=== PATIENT | male | born 1945 | race Caucasian/White ===

== ENCOUNTER 2022-05-23 12:17 | Outpatient (CLI) | payer MEDICARE, SELFPAY ==
[2022-05-23 13:55] LABS: Basophils Absolute Auto 0.04 K/uL (0.00-0.30); Basophils Percent Auto 0.4 % (0.0-3.0); Eosinophils Absolute Auto 0.46 K/uL (0.00-0.50); Eosinophils Percent Auto 4.9 % (0.0-7.0); Hematocrit 48.6 % (37.0-53.0); Hemoglobin* 15.6 gm/dL (13.5-17.5); Immature Granulocytes Abs Auto 0.01 K/uL (0.00-0.30); Lymphocytes Percent Auto 19.7 % (20-44); Mean Corpuscular HGB Conc 32 gm/dL (32-36); Mean Corpuscular Hemoglobin 31 pg (26-34); Mean Corpuscular Volume 96 fL (80-100); Monocytes Percent Auto 7.2 % (0.0-11.0); Neutrophils Percent Auto 67.7 % (42.0-72.0); Platelet Count* 178 K/uL (140-440); Red Blood Count 5.07 m/uL (4.30-5.90); White Blood Count* 9.32 K/uL (4.50-11.00)
[2022-05-23 14:00] LABS: Slide Review Reflex No
[2022-05-23 14:44] LABS: Chloride* 104 mmol/L (96-114); Sodium* 139 mmol/L (135-149)
[2022-05-23 14:47] LABS: Blood Urea Nitrogen* 25 mg/dL (7-30); Carbon Dioxide* 25 mmol/L (20-32); Cholesterol* 191 mg/dL (90-199); Creatinine* 1.2 mg/dL (0.5-1.5); Estimated Glomerular Filt Rate 62 ml/min; Glucose* 101 mg/dL (60-115)
[2022-05-23 14:48] LABS: Calcium* 9.3 mg/dL (8.4-10.6); HDL Cholesterol* 36 mg/dL (>=40); LDL Cholesterol Calculated 128 mg/dL (<100); Triglycerides* 135 mg/dL (40-149); Uric Acid* 6.8 mg/dL (2.2-8.4)
== END 2022-05-23 12:18 | disposition home or self-care (01) ==
PROVIDERS: PCP Family Medicine; Visit Provider Family Medicine
DX: Z00.00 Encounter for general adult medical examination without abnormal findings (principal); I10 Essential (primary) hypertension; M19.90 Unspecified osteoarthritis, unspecified site; I50.32 Chronic diastolic (congestive) heart failure; M1A.00X0 Idiopathic chronic gout, unspecified site, without tophus (tophi); Z13.6 Encounter for screening for cardiovascular disorders
CPT/HCPCS: 80048; 80061; 84550; 85025

== ENCOUNTER 2023-05-28 12:02 | Outpatient (CLI) | payer MEDICARE, BC, SELFPAY | END 2023-05-28 12:03 | disposition home or self-care (01) | PROVIDERS: PCP Family Medicine; Visit Provider Family Medicine | DX: Z00.00 Encounter for general adult medical examination without abnormal findings (principal); E66.9 Obesity, unspecified; I10 Essential (primary) hypertension; M10.9 Gout, unspecified | CPT/HCPCS: 80048; 80061; 84550; 85025 ==

== ENCOUNTER 2024-04-17 15:15 | Observation (INO) | payer MEDICARE, BC, SELFPAY ==
[2024-04-17] VITALS (17 sets, daily range): BP systolic 123–145; BP diastolic 81–94; PULSE 67–111; RESP 26–28; TEMP 36.3–36.7; O2SAT 87–97; BMI 51.8
--- NOTE | 2024-04-17 15:29 | ED.GENADULT ---
HPI - General Adult General Time Seen by Provider: 15:30 Date Seen: 04/17/24 Chief complaint: Shortness of Breath/Dyspnea Stated complaint: blood pressure concerns and difficulty breathing Time Seen by Provider: 04/17/24 15:29 Source: patient, RN notes reviewed and old records reviewed Mode of arrival: ambulatory Limitations: no limitations History of Present Illness HPI narrative: This 79-year-old male is brought in by family from home after there were concerns by the home health nurse about inability to get a blood pressure and his breathing being abnormal. The home health nurse could not get a blood pressure reading on him and thought he was having labored breathing, had concerns that he was in congestive heart failure. On arrival here, nurses noted that patient was tachypneic but he was denying shortness of breath. He is pleasant but denies any difficulty breathing, no chest pain. He feels like his lower extremities are at baseline as far as edema. He notes they improve overnight worsened during the day. His relative reports that he probably could be in his recliner a bit more. He denies any abdominal distension, feels like his appetite is good, no nausea or vomiting. He denies feeling short of breath, he has not had any chest pain. He admits he is not waited self lately. He does not endorse any sense of increased abdominal bloating. Patient is noted to have hypertension, alcohol use disorder, chronic diastolic congestive heart failure, COPD, controlled atrial fibrillation, peripheral arterial disease, pulmonary hypertension. Related Data Home Medications ?Medication ?Instructions ?Recorded ?Confirmed aspirin 81 mg tablet,delayed 81 mg PO DAILY 04/26/22 03/26/24 release torsemide 20 mg tablet 20 mg PO DAILY 04/17/24 04/17/24 Previous Rx's ?Medication ?Instructions ?Recorded allopurinol 300 mg tablet 300 mg PO DAILY #90 tabs 05/28/23 metoprolol succinate 25 mg 25 mg PO DAILY #90 tabs 05/28/23 tablet,extended release 24 hr naproxen 500 mg tablet 500 mg PO BID #180 tabs 05/28/23 Allergies Allergy/AdvReac Type Severity Reaction Status Date / Time No Known Drug Allergies Allergy Verified 03/26/24 10:19 Review of Systems Status of ROS: Reports: 6 or more systems reviewed and unremarkable except as noted in History and below [facility] Medical History Foot ulcer, right ?L97.519 - Non-pressure chronic ulcer of other part of right foot with unspecified severity (ICD-10) Obesity ?E66.9 - Obesity, unspecified (ICD-10) Alcohol use disorder ?F10.90 - Alcohol use, unspecified, uncomplicated (ICD-10) Urinary incontinence ?R32 - Unspecified urinary incontinence (ICD-10) Osteoarthritis ?M19.90 - Unspecified osteoarthritis, unspecified site (ICD-10) Pulmonary hypertension ?I27.20 - Pulmonary hypertension, unspecified (ICD-10) Peripheral arterial disease ?I73.9 - Peripheral vascular disease, unspecified (ICD-10) History of methicillin resistant Staphylococcus aureus infection (04/04/17) ?Z86.14 - Personal history of Methicillin resistant Staphylococcus aureus infection (ICD-10) History of colonic polyps ?Z86.010 - Personal history of colonic polyps (ICD-10) History of alcohol abuse ?F10.11 - Alcohol abuse, in remission (ICD-10) Controlled atrial fibrillation ?I48.91 - Unspecified atrial fibrillation (ICD-10) Chronic obstructive pulmonary disease ?J44.9 - Chronic obstructive pulmonary disease, unspecified (ICD-10) 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 ?M1A.00X0 - Idiopathic chronic gout, unspecified site, without tophus (tophi) (ICD-10) Chronic diastolic congestive heart failure ?I50.32 - Chronic diastolic (congestive) heart failure (ICD-10) Essential hypertension ?I10 - Essential (primary) hypertension (ICD-10) Surgical History History of cataract surgery ?Z98.49 - Cataract extraction status, unspecified eye (ICD-10) 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 Lives alone [place] near [place]. , 4 kids, retired, former smoker, 3-4 drinks per day. Healthcare power of workers compensation defense attorney would be all of his children. Code status is full the patient was uncertain about this decision. Highest level of school completed/degree received: high school graduate Smoking Status: Current some day smoker What tobacco products do you use: cigarettes Nicotine containing products detail: 1 cigarette/week How often do you have a drink containing alcohol: 4 or more times a week Alcohol type: beer How many standard drinks containing alcohol do you have on a typical day: 3 or 4 AUDIT-C Alcohol total score: 5 Caffeine: Yes Little interest or pleasure in doing things: not at all Feeling down, depressed, or hopeless: several days service: Yes Exam Const: Vital Signs, click to edit/add: Vital Signs - 24 hr 04/17/24 15:19 04/17/24 15:39 04/17/24 16:00 Temperature 98.1 F Pulse Rate 88 Pulse Rate [Pulse Oximeter] 111 H Respiratory Rate 28 H Blood Pressure [Ri ght Upper Arm] 143/94 H Pulse Oximetry 90 87 L 89 Oxygen Delivery Me thod Room Air 04/17/24 16:30 Temperature Pulse Rate 91 Pulse Rate [Pulse Oximeter] Respiratory Rate Blood Pressure [Ri ght Upper Arm] Pulse Oximetry 89 Oxygen Delivery Me thod This 79-year-old male who is seen in exam room 3, he is alert, interactive, no apparent distress. He is able to speak in complete sentences. Sclera clear, conjugate gaze, pupils appear equal round. Neck is thick, difficult to assess jugular venous distension. No neck masses or adenopathy. Poor effort with auscultation of his lungs but lungs do sound clear, no wheezing or crackles. Lying in bed, no tachypnea. CV is irregular, soft systolic murmur right sternal border, normal S1-S2, no S3-S4. Abdomen is obese but soft, nontender, no rebound or guarding. Do not feel any masses or organomegaly. He is missing the toes on the right foot. Has definite pitting edema to about the distal 3rd of both tibias. No concerning skin changes for any lower extremity cellulitis at this time. Does have some chronic pigmentary changes likely from chronic edema. Documenting provider has reviewed patient's vital signs: yes Course Course ED Course: Will evaluate this patient for the possibility of complications of ischemic disease, congestive heart failure, COPD exacerbation. He is not febrile, does not seem to be coughing. Will start with a portable chest x-ray. He does have some evidence of edema which certainly could point towards congestive heart failure. Patient is known to have chronic atrial fibrillation in seems to be mostly rate controlled at this time. Will have him on cardiac monitoring, pulse oximetry, obtain EKG and appropriate labs. Reevaluation(s) Time of Reevaluation #1: 15:56 Reevaluation #1: Patient is noted to be about 87-88% oximetry on room air. Will continue to monitor. I do not believe this patient is on home oxygen. If he is trending lower, will initiate oxygen. Review of most recent vitals reveals he does trend in the low 90s. Time of Reevaluation #2: 17:42 Reevaluation #2: Reviewed with patient that he is in some decompensated heart failure. Have ordered 60 mg IV Lasix, did end up placing him on 1 L nasal cannula oxygen as he remained any upper 80s and did not go back into the 90s. No concerns for COPD exacerbation at this time. There certainly could be a component of worsening pulmonary hypertension, will see when his last echo was. We have discussed hospitalization for overnight, beyond that will depend on how he responds. Echo from Feb 15 2023 was a technically difficult study, LVEF estimate 55-60%. Severe asymmetric LVH, no Omega or cavitary gradient. Normal RV size and global function. PA SP estimate 40 mmHg, mean RAP 8 mm included. Aortic sclerosis. Mild mitral regurgitation. Mildly dilated ascending aorta 4.3 cm. Vital Signs Vital signs: Initial Vital Signs Temperature 98.1 F 04/17/24 15:19 Temperature Source Temporal Artery Scan 04/17/24 15:19 Pulse Rate 111 H 04/17/24 15:19 Respiratory Rate 28 H 04/17/24 15:19 Blood Pressure 143/94 H 04/17/24 15:19 Blood Pressure Mean 110 H 04/17/24 15:19 Blood Pressure Position Sitting 04/17/24 15:19 Pulse Oximetry 90 04/17/24 15:19 Oxygen Delivery Method Room Air 04/17/24 15:19 Vital Signs Temperature 98.1 F 04/17/24 15:19 Pulse Rate 111 H 04/17/24 15:19 Respiratory Rate 28 H 04/17/24 15:19 Blood Pressure 143/94 H 04/17/24 15:19 Pulse Oximetry 90 04/17/24 15:19 Oxygen Delivery Method Room Air 04/17/24 15:19 Temperature 98.1 F 04/17/24 15:19 Pulse Rate 91 04/17/24 16:30 Respiratory Rate 28 H 04/17/24 15:19 Blood Pressure 143/94 H 04/17/24 15:19 Pulse Oximetry 89 04/17/24 16:30 Oxygen Delivery Method Room Air 04/17/24 15:19 Medical Decision Making Lab Data Lab results reviewed: Yes I reviewed the patient's lab results Labs: Lab Results 04/17/24 Range/Units 15:50 WBC 8.18 (4.50-11.00) K/uL RBC 5.40 (4.30-5.90) m/uL Hgb 16.2 (13.5-17.5) gm/dL Hct 51.9 (37.0-53.0) % MCV 96 (80-100) fL MCH 30 (26-34) pg MCHC 31 L (32-36) gm/dL RDW Coeff of Peter 15.3 (11.5-15.5) % Plt Count 176 (140-440) K/uL Neut % (Auto) 63.2 (42.0-72.0) % Lymph % (Auto) 18.9 L (20-44) % Chaves % (Auto) 7.6 (0.0-11.0) % Eos % (Auto) 9.5 H (0.0-7.0) % Baso % (Auto) 0.7 (0.0-3.0) % Neut # (Auto) 5.16 (1.7-7.0) K/uL Lymph # (Auto) 1.50 (0.90-2.90) K/uL Chaves # (Auto) 0.60 (0.00-0.90) K/UL Eos # (Auto) 0.80 H (0.00-0.50) K/uL Baso # (Auto) 0.06 (0.00-0.30) K/uL Abs Immat Gran (auto) 0.01 (0.00-0.30) K/uL Imm/Tot Granulo (auto) 0.1 % VBG pH 7.422 (7.32-7.43) VBG pCO2 49 (40-50) mmHG VBG pO2 42.5 (25-47) mmHG VBG HCO3 32 H (21-28) mmol/L Sodium 138 (135-149) mmol/L Potassium 4.0 (3.6-5.1) mmol/L Chloride 102 (96-114) mmol/L Carbon Dioxide 31 (20-32) mmol/L Anion Gap 5 L (7-15) mEq/L BUN 31 H (7-30) mg/dL Creatinine 1.3 (0.5-1.5) mg/dL Estimated GFR 55 ml/min Glucose 122 H (60-115) mg/dL Calcium 8.8 (8.4-10.6) mg/dL Total Bilirubin 1.2 (0.1-1.5) mg/dL AST 31 (12-35) U/L ALT 24 (4-50) U/L Alkaline Phosphatase 68 (40-150) U/L Troponin I 0.02 (0.01-0.04) ng/mL C-Reactive Protein 1.4 H (0.5-1.0) mg/dL NT-Pro-B Natriuret Pep 2070 pg/mL Total Protein 7.1 (6.0-8.3) g/dL Albumin 4.0 (3.3-5.0) g/dL Imaging Data Chest x-ray: Attestation: I have reviewed the pertinent imaging results. My impression: Patient has definite cardiomegaly, do think he has congestive heart failure changes certainly when I compare this to his last chest x-ray. Await Radiology over-read. Radiologist's impression: Patient: SR JONES Facility:?[facility] Patient ID:?[id number] Site Patient ID:?[id number]. Site :?[id number] Study:?XRay-Chest 1V PORTABLE-04/17/2024 4:16:41 PM Ordering Physician:Mitul Davies Final Report: Indication: Difficulty breathing Comparison: None available. Technique: Single AP view chest Findings: There is hyperinflation and chronic interstitial change. Mildly increased interstitial markings likely representing pulmonary vascular congestion. Minimal basilar atelectasis and parenchymal scar. The cardiac silhouette is moderately enlarged. The bony thorax is grossly intact. Impression: Increased interstitial markings likely representing mild pulmonary vascular congestion. Dictated by Tom Mcdaniels MD @ 04/17/2024 5:22:24 PM (Electronic Signature) ECG Data Attestation: I personally reviewed and interpreted this ECG as follows: (Atrial fibrillation, 92 beats per minute. No definitive change for any ischemia.) Prior ECG tracings: available for review Critical Care Time Critical Care Time Critical Care Time: No Discharge Plan Discharge Clinical Impression: Hypoxia Congestive heart failure Qualifiers: Heart failure type: unspecified Heart failure chronicity: acute on chronic Qualified Code(s): I50.9 - Heart failure, unspecified Patient Disposition: Admitted As Observation Prescriptions: No Action allopurinol 300 mg tablet 300 mg PO DAILY Qty: 90 3RF naproxen 500 mg tablet 500 mg PO BID Qty: 180 3RF metoprolol succinate 25 mg tablet extended release 24 hr 25 mg PO DAILY Qty: 90 3RF torsemide 20 mg tablet 20 mg PO DAILY aspirin 81 mg tablet,delayed release (DR/EC) 81 mg PO DAILY Follow Up/Referrals: José Luis Arredondo MD [Primary Care Provider] -
--- NOTE | 2024-04-17 15:39 | CRLHL7_ITS ---
For Patients: As a result of the Century Cures Act, medical imaging exams and procedure reports are released immediately into your electronic medical record. You may view this report before your referring provider. If you have questions, please contact your health care provider. Indication: Difficulty breathing Comparison: None available. Technique: Single AP view chest Findings: There is hyperinflation and chronic interstitial change. Mildly increased interstitial markings likely representing pulmonary vascular congestion. Minimal basilar atelectasis and parenchymal scar. The cardiac silhouette is moderately enlarged. The bony thorax is grossly intact. Impression: Increased interstitial markings likely representing mild pulmonary vascular congestion. Dictated by Tom Mcdaniels MD @ 04/17/2024 5:22:24 PM (Electronically Signed)
[2024-04-17 15:58] LABS: HCO3 VBG 32 mmol/L (21-28); PCO2 VBG 49 mmHG (40-50); PO2 VBG 42.5 mmHG (25-47); pH VBG 7.422 (7.32-7.43)
[2024-04-17 16:02] LABS: Basophils Absolute Auto 0.06 K/uL (0.00-0.30); Basophils Percent Auto 0.7 % (0.0-3.0); Eosinophils Percent Auto 9.5 % (0.0-7.0); Hematocrit 51.9 % (37.0-53.0); Hemoglobin* 16.2 gm/dL (13.5-17.5); Immature Granulocytes Abs Auto 0.01 K/uL (0.00-0.30); Immature Granulocytes Pct Auto 0.1 %; Lymphocytes Percent Auto 18.9 % (20-44); Mean Corpuscular HGB Conc 31 gm/dL (32-36); Mean Corpuscular Hemoglobin 30 pg (26-34); Mean Corpuscular Volume 96 fL (80-100); Monocytes Percent Auto 7.6 % (0.0-11.0); Neutrophils Absolute Auto 5.16 K/uL (1.7-7.0); Neutrophils Percent Auto 63.2 % (42.0-72.0); Platelet Count* 176 K/uL (140-440); RDW Coefficient of Variation % 15.3 % (11.5-15.5); White Blood Count* 8.18 K/uL (4.50-11.00)
[2024-04-17 16:04] LABS: Slide Review Reflex No
[2024-04-17 16:16] LABS: Chloride* 102 mmol/L (96-114)
[2024-04-17 16:17] LABS: Sodium* 138 mmol/L (135-149)
[2024-04-17 16:19] LABS: Creatinine* 1.3 mg/dL (0.5-1.5); Estimated Glomerular Filt Rate 55 ml/min
[2024-04-17 16:20] LABS: Alanine Aminotransferase* 24 U/L (4-50); Alkaline Phosphatase* 68 U/L (40-150); Anion Gap 5 mEq/L (7-15); Aspartate Amino Transferase* 31 U/L (12-35); Bilirubin Total* 1.2 mg/dL (0.1-1.5); Blood Urea Nitrogen* 31 mg/dL (7-30); Carbon Dioxide* 31 mmol/L (20-32); Glucose* 122 mg/dL (60-115); Total Protein* 7.1 g/dL (6.0-8.3)
[2024-04-17 16:21] LABS: Calcium* 8.8 mg/dL (8.4-10.6)
[2024-04-17 16:23] LABS: C Reactive Protein* 1.4 mg/dL (0.5-1.0)
[2024-04-17 16:31] LABS: NT Pro B Type NatriureticPept* 2070 pg/mL
[2024-04-17 16:32] LABS: Troponin I* 0.02 ng/mL (0.01-0.04)
[2024-04-17] MEDS: FUROSEMIDE 10 MG/ML inj 60 MG IVP (17:38)
[2024-04-17 18:47] LABS: Magnesium* 1.9 mg/dL (1.5-2.6)
[2024-04-17 18:48] LABS: Ethanol* < 0.01 % (0.01-0.03)
[2024-04-17] MEDS: POTASSIUM BICARB 25 MEQ EFFERVESCENT TAB PO (20:04)
[2024-04-17] MEDS: METOPROLOL TARTRATE 25 MG TABLET PO (20:04)
[2024-04-17] MEDS: SODIUM CHLORIDE 0.9 % (FLUSH) 10 ML SYRINGE 5 ML IVF (21:56)
--- NOTE | 2024-04-17 23:11 | PM.IMHP1 ---
Hospitalist- H&P: HPI History of Present Illness Date Seen: 04/17/24 Chief complaint: blood pressure concerns and difficulty breathing Narrative: Ibrahima Rankin Sr is a 79 year old male with history of heart failure, atrial fibrillation, COPD brought to the emergency department because of concerns from his home health nurse that he was hypoxic, tachypneic and possibly hypotensive. She was unable to get a blood pressure reading on him. Patient reports no concerns and no sense of feeling ill. He does have a history of heart failure. In January of 2023 he had an echocardiogram showing left ventricular ejection fraction of 55-60% with severe asymmetric LVH. No marked valvular disease. Pulmonary hypertension noted. Patient had previously been on torsemide 20 mg daily and metoprolol 25 mg daily for heart failure. Does not know what medications he is taking but thinks he is not taking either of those medicines. He stop the torsemide on his own perhaps a month ago. He has atrial fibrillation. He he is not on anticoagulation for this. He does not recall having a conversation with his doctor about this. He does take aspirin 325 mg daily. He has chronic lower extremity edema. He has a foot ulcer on his right foot followed by Dr. Sanchez. 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 Peripheral arterial disease. Review of Systems Narrative: Patient denies any problems. He reports no cold or cough, no shortness of breath or chest pain. No palpitations. No fever. No abdominal pain. No nausea or vomiting. No diarrhea or constipation. No blood in his stool. He does report he gets up 3 or 4 times at night to void. Otherwise reports no other problems with urination. Does have chronic lower extremity edema. He has peripheral neuropathy and is not having pain from his right foot ulcer. [facility] Medical History (Updated 04/17/24 @ 23:30 by Korey Enrique MD) Peripheral neuropathy ?G62.9 - Polyneuropathy, unspecified (ICD-10) Noncompliance with medication regimen ?Z91.148 - Patient's other noncompliance with medication regimen for other reason (ICD-10) At risk for falls ?Z91.81 - History of falling (ICD-10) Cognitive impairment ?R41.89 - Other symptoms and signs involving cognitive functions and awareness (ICD-10) Foot ulcer, right ?L97.519 - Non-pressure chronic ulcer of other part of right foot with unspecified severity (ICD-10) Obesity ?E66.9 - Obesity, unspecified (ICD-10) Alcohol use disorder ?F10.90 - Alcohol use, unspecified, uncomplicated (ICD-10) Urinary incontinence ?R32 - Unspecified urinary incontinence (ICD-10) Osteoarthritis ?M19.90 - Unspecified osteoarthritis, unspecified site (ICD-10) Pulmonary hypertension ?I27.20 - Pulmonary hypertension, unspecified (ICD-10) Peripheral arterial disease ?I73.9 - Peripheral vascular disease, unspecified (ICD-10) History of methicillin resistant Staphylococcus aureus infection (04/04/17) ?Z86.14 - Personal history of Methicillin resistant Staphylococcus aureus infection (ICD-10) History of colonic polyps ?Z86.010 - Personal history of colonic polyps (ICD-10) History of alcohol abuse ?F10.11 - Alcohol abuse, in remission (ICD-10) Controlled atrial fibrillation ?I48.91 - Unspecified atrial fibrillation (ICD-10) Chronic obstructive pulmonary disease ?J44.9 - Chronic obstructive pulmonary disease, unspecified (ICD-10) 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 ?[id number].[id number] - Idiopathic chronic gout, unspecified site, without tophus (tophi) (ICD-10) Chronic diastolic congestive heart failure ?I50.32 - Chronic diastolic (congestive) heart failure (ICD-10) Essential hypertension ?I10 - Essential (primary) hypertension (ICD-10) Surgical History History of cataract surgery ?Z98.49 - Cataract extraction status, unspecified eye (ICD-10) 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 Lives alone [place] near [place]. Son was with him today lives nearby and checks on him every day. , 4 kids, retired, former smoker, 3-4 drinks per day. Healthcare power of civil litigation attorney would be all of his children. Code status is DNR. Highest level of school completed/degree received: high school graduate Smoking Status: Current some day smoker What tobacco products do you use: cigarettes Nicotine containing products detail: 1 cigarette/week How often do you have a drink containing alcohol: 4 or more times a week Alcohol type: beer How many standard drinks containing alcohol do you have on a typical day: 3 or 4 AUDIT-C Alcohol total score: 5 Caffeine: Yes Little interest or pleasure in doing things: not at all Feeling down, depressed, or hopeless: several days service: Yes Meds Home Medications and Allergies Home Medications ?Medication ?Instructions ?Recorded ?Confirmed ?Type aspirin 81 mg tablet,delayed 81 mg PO DAILY 04/26/22 04/17/24 History release aspirin 325 mg tablet,delayed 325 mg PO DAILY 04/17/24 04/17/24 History release torsemide 20 mg tablet 20 mg PO DAILY 04/17/24 04/17/24 History Home Medication Comments: Not taking torsemide. Unknown if he is taking metoprolol. Takes aspirin 325 mg daily. Probably takes Naprosyn 500 mg b.i.d. Allergies Allergy/AdvReac Type Severity Reaction Status Date / Time No Known Drug Allergies Allergy Verified 03/26/24 10:19 Exam Narrative: Exam Narrative: He is alert and appears in no distress except mild tachypnea at rest. He is unable to give much history about his past medical history, his medications or even details of his current circumstances. Speech is fluent. Head is without trauma. Eyes normal. Oropharynx with small airway. Neck is supple without mass or adenopathy. Respirations with bibasilar crackles up 1/4. No consolidation. No wheezing. Cardiovascular: S1, S2, somewhat irregular rhythm. Distant heart sounds. Abdomen is soft without tenderness or mass. External genitalia normal. He is wearing an adult brief which is saturated with urine. Const: Vital Signs, click to edit/add: Vital Signs - 24 hr 04/17/24 15:19 04/17/24 15:39 04/17/24 16:00 Temperature 98.1 F Pulse Rate 88 Pulse Rate [Pulse Oximeter] 111 H Pulse Rate [Right Pulse Oximeter] Respiratory Rate 28 H Blood Pressure Blood Pressure [Ri ght Arm] Blood Pressure [Ri ght Upper Arm] 143/94 H Pulse Oximetry 90 87 L 89 Oxygen Delivery Me thod Room Air Oxygen Flow Rate 04/17/24 16:30 04/17/24 16:40 04/17/24 16:45 Temperature Pulse Rate 91 89 91 Pulse Rate [Pulse Oximeter] Pulse Rate [Right Pulse Oximeter] Respiratory Rate Blood Pressure 123/81 Blood Pressure [Ri ght Arm] Blood Pressure [Ri ght Upper Arm] Pulse Oximetry 89 91 91 Oxygen Delivery Me thod Oxygen Flow Rate 04/17/24 17:00 04/17/24 17:15 04/17/24 17:30 Temperature Pulse Rate 89 86 80 Pulse Rate [Pulse Oximeter] Pulse Rate [Right Pulse Oximeter] Respiratory Rate Blood Pressure Blood Pressure [Ri ght Arm] Blood Pressure [Ri ght Upper Arm] Pulse Oximetry 91 93 91 Oxygen Delivery Me thod Oxygen Flow Rate 04/17/24 17:38 04/17/24 17:45 04/17/24 17:49 Temperature Pulse Rate 82 91 Pulse Rate [Pulse Oximeter] Pulse Rate [Right Pulse Oximeter] Respiratory Rate Blood Pressure 142/86 H Blood Pressure [Ri ght Arm] Blood Pressure [Ri ght Upper Arm] Pulse Oximetry 94 94 97 Oxygen Delivery Me thod Nasal Cannula Oxygen Flow Rate 2 04/17/24 18:00 04/17/24 18:15 04/17/24 19:00 Temperature 97.9 F Pulse Rate 90 82 Pulse Rate [Pulse Oximeter] Pulse Rate [Right Pulse Oximeter] 78 Respiratory Rate 26 H Blood Pressure Blood Pressure [Ri ght Arm] 145/89 H Blood Pressure [Ri ght Upper Arm] Pulse Oximetry 96 95 89 Oxygen Delivery Me thod Room Air Oxygen Flow Rate Documenting provider has reviewed patient's vital signs: yes Hospitalist - H&P: Result Labs Labs: Short CBC 04/17/24 Range/Units 15:50 WBC 8.18 (4.50-11.00) K/uL Hgb 16.2 (13.5-17.5) gm/dL Hct 51.9 (37.0-53.0) % Plt Count 176 (140-440) K/uL BMP 04/17/24 15:50 Sodium 138 Potassium 4.0 Chloride 102 Carbon Dioxide 31 BUN 31 H Creatinine 1.3 Glucose 122 H Calcium 8.8 Cardiac Enzymes 04/17/24 Range/Units 15:50 Troponin I 0.02 (0.01-0.04) ng/mL Liver Function 04/17/24 Range/Units 15:50 Total Bilirubin 1.2 (0.1-1.5) mg/dL AST 31 (12-35) U/L ALT 24 (4-50) U/L Alkaline Phosphatase 68 (40-150) U/L Albumin 4.0 (3.3-5.0) g/dL Imaging Chest x-ray: Radiologist's impression: Indication: Difficulty breathing Comparison: None available. Technique: Single AP view chest Findings: There is hyperinflation and chronic interstitial change. Mildly increased interstitial markings likely representing pulmonary vascular congestion. Minimal basilar atelectasis and parenchymal scar. The cardiac silhouette is moderately enlarged. The bony thorax is grossly intact. Impression: Increased interstitial markings likely representing mild pulmonary vascular congestion. Assessment and Plan Assessment and plan (1) Hypoxic respiratory failure: Problem comment: Due primarily to heart failure with medication noncompliance Status: Acute (2) Congestive heart failure: Problem comment: Exacerbation due to noncompliance with medication. Obtain echo. Diuresis. Status: Acute (3) Noncompliance with medication regimen: Problem comment: Discussed with his son a plan to have the son set up and manage medications with a pillbox. Status: Acute (4) Controlled atrial fibrillation: Problem comment: Apparently has previously refused anticoagulation. Declines it again today. Patient is going to revisit this with his primary care provider. Status: Acute (5) Peripheral arterial disease: Problem comment: noted - has refused revascularization in the past Status: Acute (6) Pulmonary hypertension: Status: Acute (7) Chronic obstructive pulmonary disease: Status: Acute (8) Urinary incontinence: Problem comment: Urine staining of clothing. Previous bladder scan confirms no urinary retention. Recheck. Status: Acute (9) Foot ulcer, right: Problem comment: With peripheral neuropathy and peripheral vascular disease. Chronic ulcer of right foot. Does not appear to be acutely infected. Status: Chronic (10) At risk for falls: Problem comment: PT to assess. Patient has a cane that he uses outside. His son says is not room in his small house for a walker. Patient holds onto munson and furniture Status: Acute (11) Cognitive impairment: Problem comment: Appears to have moderate dementia. Obtain [place] Status: Acute (12) Alcohol use disorder: Problem comment: Daily beer drinker. Denies alcohol withdrawal problems. Given his multiple chronic medical problems which are exacerbated by alcohol he would be better off not drinking Status: Acute (13) Peripheral neuropathy: Status: Acute Plan Patient is admitted for ongoing evaluation and treatment of hypoxia add due to heart failure exacerbation, medication noncompliance, concern about safety with independent living and ability to care for himself. Total Time Spent Total Time Spent: Total time spent today is 85 minutes in evaluation management on the day of admission
[2024-04-18 02:54] VITALS: BP 144/85; PULSE 64; RESP 26; TEMP 36.4; O2SAT 96
--- NOTE | 2024-04-18 05:07 | PC.NURSE ---
Shift note: Pt has been on 2L of oxygen throughout the night. Continue to have 2+ pedal edema. Lower extremities elevated on pillows. Pt uses urinal at bedside. Alert and oriented, pt is hard of hearing. Vitally stable, pt had adequate sleep.
[2024-04-18 07:22] LABS: Basophils Absolute Auto 0.08 K/uL (0.00-0.30); Basophils Percent Auto 1.1 % (0.0-3.0); Eosinophils Percent Auto 12.5 % (0.0-7.0); Immature Granulocytes Abs Auto 0.01 K/uL (0.00-0.30); Immature Granulocytes Pct Auto 0.1 %; Lymphocytes Absolute Auto 1.54 K/uL (0.90-2.90); Lymphocytes Percent Auto 21.3 % (20-44); Mean Corpuscular HGB Conc 31 gm/dL (32-36); Mean Corpuscular Hemoglobin 30 pg (26-34); Mean Corpuscular Volume 98 fL (80-100); Neutrophils Absolute Auto 4.04 K/uL (1.7-7.0); Platelet Count* 169 K/uL (140-440); RDW Coefficient of Variation % 15.3 % (11.5-15.5); White Blood Count* 7.22 K/uL (4.50-11.00)
[2024-04-18 07:27] LABS: Chloride* 101 mmol/L (96-114); Sodium* 139 mmol/L (135-149)
[2024-04-18 07:28] LABS: Slide Review Reflex No
[2024-04-18 07:30] LABS: Anion Gap 3 mEq/L (7-15); Blood Urea Nitrogen* 33 mg/dL (7-30); Carbon Dioxide* 35 mmol/L (20-32); Creatinine* 1.2 mg/dL (0.5-1.5); Est. Creatinine Clearance* 35.71; Estimated Glomerular Filt Rate 61 ml/min; Glucose* 110 mg/dL (60-115)
[2024-04-18 07:31] LABS: Calcium* 8.7 mg/dL (8.4-10.6)
[2024-04-18 07:33] LABS: C Reactive Protein* 1.9 mg/dL (0.5-1.0)
[2024-04-18 07:42] LABS: Troponin I* 0.02 ng/mL (0.01-0.04)
[2024-04-18 08:16] VITALS: BP 149/84; PULSE 66; RESP 18; TEMP 36.6; O2SAT 92
[2024-04-18] MEDS: allopurinoL 300 MG TABLET PO (09:05)
[2024-04-18] MEDS: SODIUM CHLORIDE 0.9 % (FLUSH) 10 ML SYRINGE 5 ML IVF (09:05)
[2024-04-18] MEDS: ASPIRIN 81 MG TABLET EC PO (09:05)
[2024-04-18] MEDS: METOPROLOL SUCCINATE (XL) 25 MG TAB PO (09:05)
[2024-04-18] MEDS: TORSEMIDE 20 MG TABLET PO (09:05)
[2024-04-18 10:14] VITALS: PULSE 75
[2024-04-18] MEDS: PERFLUTREN LIPID MICROSPHERES 2 ML VIAL IV (10:37)
[2024-04-18 11:15] VITALS: BP 119/102; PULSE 77; RESP 26; TEMP 36.6; O2SAT 91
[2024-04-18 11:18] VITALS: BP 129/67; PULSE 67
--- NOTE | 2024-04-18 13:32 | PC.NURSE ---
Discharge: Patient pleasant and cooperative. Patient vitally stable, lungs diminished, BS WNL, IV removed, catheter intact, lower extremities with +2 pitting edema. Patient denies pain. Patient 1 assist/walker, gb. Patient uses urinal to urinated but missed the urinal majority of the times, urinating on the floor. Bladder scan performed after urination at the toilet, at most 163ml found. Patient tolerating regular diet. Patients son signed belongings sheet and discharge from. Patient nor son had further question regarding discharge. Patient was educated regarding recording weight everyday and fluid retention. Patient left the floor by wheelchair to home at 1330.
--- NOTE | 2024-04-18 17:29 | P.DS_ITS ---
DS: Providers Provider Date Seen: 04/18/24 Date of admission: 04/17/24 18:29 Primary care physician: José Luis Arredondo MD Admitting Clinician: Korey Enrique MD Attending Physician on discharge: Korey Enrique MD Date of Discharge: 04/18/24 DS: Diagnosis Discharge Diagnosis (1) Hypoxic respiratory failure: Status: Acute Problem details: Due primarily to heart failure with medication noncompliance. (2) Congestive heart failure: Status: Acute Problem details: Exacerbation due to noncompliance with medication. Echo shows global hypokinesis with reduction of ejection fraction to around 35% compared to around 55% last year. Patient is not currently interested in further medication management to optimize treatment of heart failure with reduced ejection fraction. Recommend Cardiology evaluation if he is willing to follow through with optimizing medication management (3) Noncompliance with medication regimen: Status: Acute Problem details: Discussed with his son a plan to have the son set up and manage medications with a pillbox. Son reports he will be able to do this. (4) Controlled atrial fibrillation: Status: Acute Problem details: Apparently has previously refused anticoagulation. Declines it again today. Patient is going to revisit this with his primary care provider at next appointment (5) Peripheral arterial disease: Status: Acute Problem details: noted - has refused revascularization in the past (6) Pulmonary hypertension: Status: Acute (7) Chronic obstructive pulmonary disease: Status: Acute (8) Urinary incontinence: Status: Acute Problem details: Urine staining of clothing. Previous bladder scan confirms no urinary retention. Recheck. (9) Foot ulcer, right: Status: Chronic Problem details: With peripheral neuropathy and peripheral vascular disease. Chronic ulcer of right foot. Does not appear to be acutely infected. (10) At risk for falls: Status: Acute Problem details: PT to assess. Patient has a cane that he uses outside. His son says is not room in his small house for a walker. Patient holds onto munson and furniture. Not interested in a walker. (11) Cognitive impairment: Status: Acute Problem details: Appears to have moderate dementia. Performed a blind [place] today. . Consider repeat [place]. Probably would score only a little better with glasses. Cognitive function is at a level that consideration for more supervision is necessary. Discussed with his son (12) Alcohol use disorder: Status: Acute Problem details: Daily beer drinker. Denies alcohol withdrawal problems. Given his multiple chronic medical problems which are exacerbated by alcohol he would be better off not drinking (13) Peripheral neuropathy: Status: Acute (14) Chronic pain: Status: Acute Problem details: Due to heart failure with reduced ejection fraction he should be off of naproxen. If absolutely necessary consider restarting naproxen at 220 mg b.i.d. DS: Summary Hospital Course Hospital Course: 79-year-old male admitted the hospital with hypoxia. This was noted by his home health care nurse. He was not having symptoms such as dyspnea or chest pain. On admission he reported he was feeling fine. Evaluation showed that he had multiple problems of concern including his heart failure exacerbation causing his hypoxia as well as medication noncompliance. And a apparently in the past as well as on this admission he was not interested in optimizing his heart failure treatment or his atrial fibrillation treatment with new medications. He lives independently in there was concern about his ability to maintain independence with probable dementia as well as urine incontinence and poor gait and balance. Recommend outpatient therapy, safety evaluation, increased services in the home and consideration of alternative living arrangements. For now is son who lives nearby will do more supervision of medications. During his hospital stay he was treated with IV furosemide and switch back to oral torsemide. He had approximately 15 lb fluid weight loss with diuresis. His edema improved as did his respiratory status. He is very anxious to go home Repeat echocardiogram showed worsening of his ejection fraction with ejection fraction now around 35% with global hypokinesis. Worse than 55% from last year. Status at Discharge Functional status at discharge: uses cane/walker Overall status at discharge: patient is progressing back to baseline Time Spent with Patient Time attestation: Total time spent providing and/or coordinating discharge services: 45 minutes Time spent: Greater than 30 minutes Exam Narrative: Exam Narrative: He is alert and appears in no distress. Small airway. Respirations are clear to auscultation. Breathing is unlabored. Cardiovascular: S1, S2, irregularly irregular rhythm. Abdomen is soft without tenderness. Const: Vital Signs, click to edit/add: Vital Signs - 24 hr 04/17/24 17:30 04/17/24 17:38 04/17/24 17:45 Temperature Pulse Rate 80 82 Pulse Rate [Right Pulse Oximeter] Respiratory Rate Blood Pressure 142/86 H Blood Pressure [Le ft Arm] Blood Pressure [Ri ght Arm] Pulse Oximetry 91 94 94 Oxygen Delivery Me thod Nasal Cannula Oxygen Flow Rate 2 04/17/24 17:49 04/17/24 18:00 04/17/24 18:15 Temperature Pulse Rate 91 90 82 Pulse Rate [Right Pulse Oximeter] Respiratory Rate Blood Pressure Blood Pressure [Le ft Arm] Blood Pressure [Ri ght Arm] Pulse Oximetry 97 96 95 Oxygen Delivery Me thod Oxygen Flow Rate 04/17/24 19:00 04/17/24 22:32 04/17/24 22:32 Temperature 97.9 F 97.9 F Pulse Rate Pulse Rate [Right Pulse Oximeter] 78 78 Respiratory Rate 26 H 26 H 26 H Blood Pressure Blood Pressure [Le ft Arm] Blood Pressure [Ri ght Arm] 145/89 H 145/89 H Pulse Oximetry 89 89 89 Oxygen Delivery Me thod Room Air Room Air Room Air Oxygen Flow Rate 04/17/24 23:00 04/17/24 23:00 04/17/24 23:00 Temperature Pulse Rate 67 Pulse Rate [Right Pulse Oximeter] 78 Respiratory Rate 26 H 26 H Blood Pressure Blood Pressure [Le ft Arm] Blood Pressure [Ri ght Arm] Pulse Oximetry 95 Oxygen Delivery Me thod Nasal Cannula Oxygen Flow Rate 2 04/17/24 23:00 04/18/24 02:54 04/18/24 08:16 Temperature 97.3 F L 97.6 F 97.9 F Pulse Rate Pulse Rate [Right Pulse Oximeter] 78 64 66 Respiratory Rate 26 H 26 H 18 Blood Pressure Blood Pressure [Le ft Arm] Blood Pressure [Ri ght Arm] 127/83 144/85 H 149/84 H Pulse Oximetry 95 96 92 Oxygen Delivery Me thod Nasal Cannula Nasal Cannula Room Air Oxygen Flow Rate 2 2 04/18/24 08:16 04/18/24 08:16 04/18/24 10:14 Temperature Pulse Rate 75 Pulse Rate [Right Pulse Oximeter] 66 Respiratory Rate 18 18 Blood Pressure Blood Pressure [Le ft Arm] Blood Pressure [Ri ght Arm] Pulse Oximetry 92 Oxygen Delivery Me thod Room Air Oxygen Flow Rate 04/18/24 11:15 04/18/24 11:18 Temperature 97.8 F Pulse Rate Pulse Rate [Right Pulse Oximeter] 77 67 Respiratory Rate 26 H Blood Pressure Blood Pressure [Le ft Arm] 119/102 H 129/67 Blood Pressure [Ri ght Arm] Pulse Oximetry 91 Oxygen Delivery Me thod Room Air Oxygen Flow Rate Documenting provider has reviewed patient's vital signs: yes DS: Data Data Completed and Pending Completed studies during hospitalization: Procedures Detachment at Right Foot, Partial 1st Ray, Open Approach (02/14/23) Excision of Right Metatarsal, Sesamoid Bone(s) 1st Toe, Open Approach (02/14/23) Transfer Right Foot Skin, External Approach (02/14/23) Labs on day of discharge: Labs from last 24 hours 04/18/24 04/17/24 04/17/24 06:00 18:33 18:31 WBC 7.22 RBC 5.30 Hgb 16.0 Hct 52.0 MCV 98 MCH 30 MCHC 31 L RDW Coeff of Peter 15.3 Plt Count 169 Neut % (Auto) 56.0 Lymph % (Auto) 21.3 [place] % (Auto) 9.0 Eos % (Auto) 12.5 H Baso % (Auto) 1.1 Neut # (Auto) 4.04 Lymph # (Auto) 1.54 [place] # (Auto) 0.60 Eos # (Auto) 0.90 H Baso # (Auto) 0.08 Abs Immat Gran (auto) 0.01 Imm/Tot Granulo (auto) 0.1 Sodium 139 Potassium 4.0 Chloride 101 Carbon Dioxide 35 H Anion Gap 3 L BUN 33 H Creatinine 1.2 Estimated Creat Clear 35.71 Estimated GFR 61 Glucose 110 Calcium 8.7 Magnesium Troponin I 0.02 C-Reactive Protein 1.9 H TSH Ethyl Alcohol Lab Acknowledgement Test Added Test Added 04/17/24 15:50 WBC RBC Hgb Hct MCV MCH MCHC RDW Coeff of Peter Plt Count Neut % (Auto) Lymph % (Auto) [place] % (Auto) Eos % (Auto) Baso % (Auto) Neut # (Auto) Lymph # (Auto) [place] # (Auto) Eos # (Auto) Baso # (Auto) Abs Immat Gran (auto) Imm/Tot Granulo (auto) Sodium Potassium Chloride Carbon Dioxide Anion Gap BUN Creatinine Estimated Creat Clear Estimated GFR Glucose Calcium Magnesium 1.9 Troponin I C-Reactive Protein TSH 3.650 Ethyl Alcohol < 0.01 L Lab Acknowledgement Discharge Plan Discharge Disposition: Home w/ Parent or Adult Date of Admission: 04/17/24 18:29 Attending Provider on Discharge: Korey Enrique Primary Care Provider: José Luis Arredondo Anticipated Discharge Date/Time: 04/18/24 12:32 Discharge Medications: New acetaminophen 325 mg Tablet 650 mg PO Q4H PRNQty: 100 0RF Continued allopurinol 300 mg tablet 300 mg PO DAILY Qty: 90 3RF metoprolol succinate 25 mg tablet extended release 24 hr 25 mg PO DAILY Qty: 90 3RF aspirin 325 mg tablet,delayed release (DR/EC) 325 mg PO DAILY torsemide 20 mg tablet 20 mg PO DAILY Qty: 30 0RF Discontinued naproxen 500 mg tablet 500 mg PO BID Qty: 180 3RF aspirin 81 mg tablet,delayed release (DR/EC) 81 mg PO DAILY Discharge Orders: Discharge Order (Routine); Ordered 04/18/24 Ordered By: Korey Enrique Patient Education: Acetaminophen (By mouth), Heart Failure (DC) Additional Instructions: Check your weight every day in the morning when you get up. Keep a written record of your weight to bring to the appointment with your doctor. If your weight goes up 2 lb in 1 day or 3 lb in 1 week you are probably having excess fluid retention. Call your doctor to discuss. Discharge Diet: Heart Healthy (2 gm sodium, low fat) Follow Up Appointments: José Luis Arredondo MD [Primary Care Provider] - 04/24/24 10:45 am ([facility] for follow up with PCP and checking BMP) Forms: SureDone Info Instructions
== END 2024-04-18 13:30 | disposition home or self-care (01) ==
LOC: ED 17:47 → MEDSURG 18:29
PROVIDERS: Admitting Provider Family Medicine; Emergency Provider Family Medicine; PCP Family Medicine; Visit Provider Family Medicine
DX: I50.9 Heart failure, unspecified (principal); J96.91 Respiratory failure, unspecified with hypoxia; Z91.148 Patient's other noncompliance with medication regimen for other reason; I48.91 Unspecified atrial fibrillation; G89.29 Other chronic pain; I11.0 Hypertensive heart disease with heart failure; I73.9 Peripheral vascular disease, unspecified; I27.20 Pulmonary hypertension, unspecified; J44.9 Chronic obstructive pulmonary disease, unspecified; R32 Unspecified urinary incontinence; R60.0 Localized edema; L97.519 Non-pressure chronic ulcer of other part of right foot with unspecified severity; R41.89 Other symptoms and signs involving cognitive functions and awareness; F10.90 Alcohol use, unspecified, uncomplicated; G62.9 Polyneuropathy, unspecified; R26.9 Unspecified abnormalities of gait and mobility; M1A.00X0 Idiopathic chronic gout, unspecified site, without tophus (tophi); F17.210 Nicotine dependence, cigarettes, uncomplicated; Z79.82 Long term (current) use of aspirin; Z91.81 History of falling; Z98.49 Cataract extraction status, unspecified eye; Z89.429 Acquired absence of other toe(s), unspecified side; Z86.14 Personal history of Methicillin resistant Staphylococcus aureus infection; Z86.010 Personal history of colon polyps; Z96.653 Presence of artificial knee joint, bilateral
CPT/HCPCS: 36415; 51798; 71045; 80048; 80053; 82077; 82803; 83735; 83880; 84443; 84484; 85025; 86140; 93005; 93306; 94761; 96374; 97116; 97161; 97165; 99284; 99285; G0378; A9270; J1940; Q9957

== ENCOUNTER 2024-04-24 10:33 | Outpatient (CLI) | payer MEDICARE, BC, SELFPAY | END 2024-04-24 10:34 | disposition home or self-care (01) | PROVIDERS: PCP Family Medicine; Visit Provider Family Medicine | DX: I10 Essential (primary) hypertension (principal); I50.9 Heart failure, unspecified | CPT/HCPCS: 80048; 83880 ==

== ENCOUNTER 2024-05-18 10:33 | Inpatient (IN) | payer MEDICARE, BC, SELFPAY ==
[2024-05-18] VITALS (8 sets, daily range): BP systolic 104–146; BP diastolic 61–88; PULSE 65–83; RESP 18–20; TEMP 35.9–36.5; O2SAT 90–93
--- NOTE | 2024-05-18 10:56 | CRLHL7_ITS ---
For Patients: As a result of the Century Cures Act, medical imaging exams and procedure reports are released immediately into your electronic medical record. You may view this report before your referring provider. If you have questions, please contact your health care provider. INDICATION: Shortness of breath. TECHNIQUE: Chest 1 views. COMPARISON: Chest radiographs dated 02/14/2023. FINDINGS: Cardiovasculature and mediastinum: Redemonstrated enlarged cardiomediastinal silhouette, which is grossly similar to prior, allowing for patient rotation to the right. Lungs and pleural spaces: New diffuse bilateral hazy lung opacification, right much greater than left, with additional denser opacification of the right lower lobe. Likely small right pleural effusion. Bones and soft tissues: No significant findings. IMPRESSION: New diffuse bilateral hazy lung opacification with dense opacification of the right lower lobe and a likely small pleural effusion on the right. These findings are indeterminate, but may partially reflect moderate to severe pulmonary edema. Consider further evaluation with CT chest. Dictated by Artemio Hampton MD @ 05/18/2024 11:45:03 AM (Electronically Signed)
--- NOTE | 2024-05-18 10:56 | CRLHL7_ITS ---
For Patients: As a result of the Century Cures Act, medical imaging exams and procedure reports are released immediately into your electronic medical record. You may view this report before your referring provider. If you have questions, please contact your health care provider. INDICATION: swelling, redness TECHNIQUE: Venous duplex ultrasound of the right lower extremity utilizing compression with rico-scale, color Doppler, and spectral Doppler imaging. COMPARISON: None FINDINGS: There is no sonographic evidence of deep vein thrombosis in the right common femoral, deep femoral, superficial femoral, popliteal, posterior tibial, peroneal, or contralateral common femoral veins. There is no visualized superficial vein thrombosis. Minimal soft tissue edema seen throughout the right lower extremity. There are 2 prominent right inguinal lymph nodes with normal morphology, likely reactive. IMPRESSION: No deep vein thrombosis in the right lower extremity. Dictated by Ezio Gruber MD @ 05/18/2024 12:28:15 PM (Electronically Signed)
[2024-05-18 11:19] LABS: HCO3 VBG 25 mmol/L (21-28); Lactate Sepsis w/Reflex* 1.3 mmol/L (0.5-1.9); PCO2 VBG 39 mmHG (40-50); PO2 VBG 62.5 mmHG (25-47); pH VBG 7.423 (7.32-7.43)
[2024-05-18 11:21] LABS: Basophils Percent Auto 0.1 % (0.0-3.0); Eosinophils Percent Auto 0.8 % (0.0-7.0); Hematocrit 51.3 % (37.0-53.0); Hemoglobin* 16.3 gm/dL (13.5-17.5); Immature Granulocytes Pct Auto 0.3 %; Lymphocytes Percent Auto 6.7 % (20-44); Mean Corpuscular HGB Conc 32 gm/dL (32-36); Mean Corpuscular Hemoglobin 30 pg (26-34); Mean Corpuscular Volume 96 fL (80-100); Monocytes Percent Auto 5.1 % (0.0-11.0); Platelet Count* 163 K/uL (140-440); RDW Coefficient of Variation % 15.3 % (11.5-15.5); Red Blood Count 5.36 m/uL (4.30-5.90); White Blood Count* 14.38 K/uL (4.50-11.00)
[2024-05-18 11:25] LABS: Slide Review Reflex No
[2024-05-18 11:28] LABS: Troponin, Point-of-Care* 0.04 ng/ml (0.01-0.04)
--- NOTE | 2024-05-18 11:34 | ED_ITS ---
HPI - General Adult General Date Seen: 05/18/24 Chief complaint: Weakness Stated complaint: retaining fluid O2 sats low Time Seen by Provider: 05/18/24 10:46 Source: patient and family Mode of arrival: ambulatory Limitations: other History of Present Illness HPI narrative: Patient is an 79-year-old male here with 2 of his children, 1 of whom is a son who lives nearby to the patient who lives independently on the family farm in [place]. He does have some underlying suspected mild dementia. He has a home health nurse who comes to manage a chronic wound on his right foot there were concerns today about low oxygen saturations in the mid s at home. The patient himself denies acute symptoms. He does not feel short of breath, denies new or unusual pain. His children note that he has quite a bit of swelling in his right leg, they were unsure if it is significantly worse or if he normally has asymmetric swelling. However, they have concerns about possibly retaining fluid. He does have a history of heart failure, was admitted to the hospital April 17 about a month ago, at that time was noted to have an ejection fraction of 35% on echo, down from 55% a year ago. At that time he had been noncompliant with medications, had discontinued his torsemide and this was restarted. His son says he does manage his own medications but is some does not think that he has missed any or forgotten any recently. He does have a history of atrial fibrillation, anticoagulation has been discussed in the past but is son said that they looked in to cost and was going to be 250 dollars a month so he has declined that. His declined more aggressive management of his heart failure as well. No reported fevers, chills, vomiting or unusual weakness. His son feels that his oxygen levels are normally in the normal range. He is not on home oxygen. Does not smoke. He does drink beer daily. Related Data Home Medications ?Medication ?Instructions ?Recorded ?Confirmed aspirin 81 mg tablet,delayed 81 mg PO DAILY 05/18/24 05/18/24 release naproxen 500 mg tablet 500 mg PO BID 05/18/24 05/18/24 torsemide 20 mg tablet 20 mg PO DAILY 05/18/24 05/18/24 Previous Rx's ?Medication ?Instructions ?Recorded allopurinol 300 mg tablet 300 mg PO DAILY #90 tabs 04/24/24 metoprolol succinate 50 mg 50 mg PO DAILY #90 tabs 04/24/24 tablet,extended release 24 hr Allergies Allergy/AdvReac Type Severity Reaction Status Date / Time No Known Drug Allergies Allergy Verified 04/24/24 10:38 Review of Systems Status of ROS: Reports: 10 or more systems reviewed and unremarkable except as noted in History and below [facility] Medical History (Updated 05/18/24 @ 15:02 by Korey Enrique MD) Hypoxia ?R09.02 - Hypoxemia (ICD-10) Atrial fibrillation ?I48.91 - Unspecified atrial fibrillation (ICD-10) Chronic pain ?G89.29 - Other chronic pain (ICD-10) Peripheral neuropathy ?G62.9 - Polyneuropathy, unspecified (ICD-10) Noncompliance with medication regimen ?Z91.148 - Patient's other noncompliance with medication regimen for other reason (ICD-10) At risk for falls ?Z91.81 - History of falling (ICD-10) Cognitive impairment ?R41.89 - Other symptoms and signs involving cognitive functions and awareness (ICD-10) Foot ulcer, right ?L97.519 - Non-pressure chronic ulcer of other part of right foot with unspecified severity (ICD-10) Obesity ?E66.9 - Obesity, unspecified (ICD-10) Alcohol use disorder ?F10.90 - Alcohol use, unspecified, uncomplicated (ICD-10) Urinary incontinence ?R32 - Unspecified urinary incontinence (ICD-10) Osteoarthritis ?M19.90 - Unspecified osteoarthritis, unspecified site (ICD-10) Pulmonary hypertension ?I27.20 - Pulmonary hypertension, unspecified (ICD-10) Peripheral arterial disease ?I73.9 - Peripheral vascular disease, unspecified (ICD-10) History of methicillin resistant Staphylococcus aureus infection (04/04/17) ?Z86.14 - Personal history of Methicillin resistant Staphylococcus aureus infection (ICD-10) History of colonic polyps ?Z86.010 - Personal history of colonic polyps (ICD-10) History of alcohol abuse ?F10.11 - Alcohol abuse, in remission (ICD-10) Controlled atrial fibrillation ?I48.91 - Unspecified atrial fibrillation (ICD-10) Chronic obstructive pulmonary disease ?J44.9 - Chronic obstructive pulmonary disease, unspecified (ICD-10) 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 ?M1A.[id number] - Idiopathic chronic gout, unspecified site, without tophus (tophi) (ICD-10) Chronic diastolic congestive heart failure ?I50.32 - Chronic diastolic (congestive) heart failure (ICD-10) Essential hypertension ?I10 - Essential (primary) hypertension (ICD-10) Surgical History History of cataract surgery ?Z98.49 - Cataract extraction status, unspecified eye (ICD-10) 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 Son was with him today lives nearby and checks on him every day. , 4 kids, retired, former smoker, 3-4 drinks per day. Healthcare power of mergers and acquisitions attorney would be all of his children. Code status is DNR. What is your current living situation?: I presently have a place to live Problems where you live: no known problems Problems where you live details: N/A In the past 12 months, utilities in danger of being shut off: no In past 12 months, lack of transportation kept you from medical appts, meetings, work, or getting things needed for daily living: no In the past 12 mos, have been you worried that your food would run out before you had money to buy more?: never true In the past 12 mos, the food you bought just didn't last and you didn't have money to buy more?: never true Highest level of school completed/degree received: high school graduate Smoking Status: Current some day smoker What tobacco products do you use: cigarettes Nicotine containing products detail: 1 cigarette/week How often do you have a drink containing alcohol: 4 or more times a week Alcohol type: beer How many standard drinks containing alcohol do you have on a typical day: 3 or 4 AUDIT-C Alcohol total score: 5 Non-prescribed substance use: denies use Caffeine: Yes How often does anyone, including family, friends and others, physically hurt you : never How often does anyone, including family, friends and others, insult or talk down to you: never How often does anyone, including family, friends and others, threaten you with harm: never How often does anyone, including family, friends and others, scream or curse at you: never Little interest or pleasure in doing things: not at all Feeling down, depressed, or hopeless: several days service: Yes Exam Narrative: Exam Narrative: Vital signs as noted above. In general, an alert, nontoxic elderly male. Generally breathing comfortably. Head: Normocephalic, atraumatic. Eyes: Pupils are equal reactive. Extraocular movements are full. Conjunctivae are normal. ENT: Mucous membranes are moist. Neck: Supple without lymphadenopathy. Heart: Heart is regular, no significant murmur. Heart sounds somewhat distant. Lungs: No significant crackles, breath sounds are decreased on the left relative to the right. Abdomen: Obese, soft, nontender. Extremities: Chronic wound right foot. He has some mild erythema of the foot he has some erythema on the jones and some erythema in the proximal leg closer to the groin. Son is uncertain how much of this is chronic versus new. He has significant edema in the right leg mild edema in the left. There is no erythema on the left. 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 Pulses are not palpable, known peripheral vascular disease. No significant warmth noted. Neurologic: Patient is alert and oriented to person and place. Speech is fluent but he does seem mildly dysarthric to me. Moves all extremities equally. Affect: Normal. Skin: Warm and dry. Well perfused. Const: Vital Signs, click to edit/add: Vital Signs - 24 hr 05/18/24 10:36 05/18/24 10:56 Temperature 97.7 F Pulse Rate [Pulse Oximeter] 83 Respiratory Rate 18 Blood Pressure [Ri ght Upper Arm] 126/88 Pulse Oximetry 90 91 Oxygen Delivery Me thod Room Air Documenting provider has reviewed patient's vital signs: yes Course Course ED Course: Following initial evaluation, I ordered EKG, labs, chest x-ray. I reviewed old records including his admission from a month ago. Diagnostic considerations would include fluid overload related to worsening heart failure, pulmonary embolism, pneumonia, does have asymmetric lower extremity edema of indeterminate duration, lower extremity Doppler of the right leg ordered as well. By my review, chest x-ray shows likely pulmonary edema, possible infiltrate in the right base, final radiology read as follows:FINDINGS: Cardiovasculature and mediastinum: Redemonstrated enlarged cardiomediastinal silhouette, which is grossly similar to prior, allowing for patient rotation to the right. Lungs and pleural spaces: New diffuse bilateral hazy lung opacification, right much greater than left, with additional denser opacification of the right lower lobe. Likely small right pleural effusion. Bones and soft tissues: No significant findings. IMPRESSION: New diffuse bilateral hazy lung opacification with dense opacification of the right lower lobe and a likely small pleural effusion on the right. These findings are indeterminate, but may partially reflect moderate to severe pulmonary edema. Consider further evaluation with CT chest. Point of care troponin was 0.04. Lactate normal at 1.3. Venous gas showed a pH of 7.42, pCO2 39, bicarb of 25. CBC notable for an elevated white blood cell count of 14.4, left shift with 87% neutrophils. BNP was 5200 which is elevated for him. D-dimer was also elevated at 1.87, but the right lower extremity ultrasound was read as negative for DVT. His metabolic panel showed an elevated creatinine of 2.8 and a BUN of 90, up significantly from his baseline. For this reason, I did do a CT of the chest but I did this without contrast. At this point, I think it is prudent to treat for possible infection in that right leg as well as some heart failure. TSH was normal, a UA was unremarkable. Patient will be admitted to the hospital for further care. Case discussed with Dr. Enrique. I did give him Zosyn, vanco, and Lasix 40 mg IV. Vital Signs Vital signs: Initial Vital Signs Temperature 97.7 F 05/18/24 10:36 Temperature Source Temporal Artery Scan 05/18/24 10:36 Pulse Rate 83 05/18/24 10:36 Respiratory Rate 18 05/18/24 10:36 Blood Pressure 126/88 05/18/24 10:36 Blood Pressure Mean 100 05/18/24 10:36 Pulse Oximetry 90 05/18/24 10:36 Oxygen Delivery Method Room Air 05/18/24 10:36 Vital Signs Temperature 97.7 F 05/18/24 10:36 Pulse Rate 83 05/18/24 10:36 Respiratory Rate 18 05/18/24 10:36 Blood Pressure 126/88 05/18/24 10:36 Pulse Oximetry 90 05/18/24 10:36 Oxygen Delivery Method Room Air 05/18/24 10:36 Temperature 97.7 F 05/18/24 10:36 Pulse Rate 83 05/18/24 10:36 Respiratory Rate 18 05/18/24 10:36 Blood Pressure 126/88 05/18/24 10:36 Pulse Oximetry 91 05/18/24 10:56 Oxygen Delivery Method Room Air 05/18/24 10:36 Medications Administered Medications: Generic Name Dose Route Start Last Admin Trade Name Freq PRN Reason Stop Dose Admin Enoxaparin Sodium 120 mg 05/18/24 13:30 05/18/24 15:28 Enoxaparin 120 Mg/0.8 Ml Inj SUBCUT 120 mg Q24H EDYTA Administration Discontinued Medications Generic Name Dose Route Start Last Admin Trade Name Freq PRN Reason Stop Dose Admin Furosemide 40 mg 05/18/24 12:28 05/18/24 13:10 Furosemide 10 Mg/Ml Inj IVP 05/18/24 12:29 40 mg ONCE ONE Administration Piperacillin Sod/Tazobactam 100 mls @ 100 mls/hr 05/18/24 12:28 05/18/24 13:13 Sod 3.375 gm/ Sodium Chloride IVPB 05/18/24 12:29 100 mls/hr ONCE ONE Administration Vancomycin/PEG/NADA/Lysine/Water 2 gm in 400 mls @ 200 mls/hr 05/18/24 14:00 05/18/24 15:27 Vancomycin 2 Gm/400 Ml IVPB 05/18/24 15:59 200 mls/hr ONCE ONE Administration Protocol Medical Decision Making Lab Data Labs: Lab Results 05/18/24 05/18/24 05/18/24 Range/Units 10:57 11:13 13:00 WBC 14.38 H (4.50-11.00) K/uL RBC 5.36 (4.30-5.90) m/uL Hgb 16.3 (13.5-17.5) gm/dL Hct 51.3 (37.0-53.0) % MCV 96 (80-100) fL MCH 30 (26-34) pg MCHC 32 (32-36) gm/dL RDW Coeff of Peter 15.3 (11.5-15.5) % Plt Count 163 (140-440) K/uL Neut % (Auto) 87.0 H (42.0-72.0) % Lymph % (Auto) 6.7 L (20-44) % [place] % (Auto) 5.1 (0.0-11.0) % Eos % (Auto) 0.8 (0.0-7.0) % Baso % (Auto) 0.1 (0.0-3.0) % Neut # (Auto) 12.50 H (1.7-7.0) K/uL Lymph # (Auto) 1.00 (0.90-2.90) K/uL [place] # (Auto) 0.70 (0.00-0.90) K/UL Eos # (Auto) 0.10 (0.00-0.50) K/uL Baso # (Auto) 0.00 (0.00-0.30) K/uL Abs Immat Gran (auto) 0.00 (0.00-0.30) K/uL Imm/Tot Granulo (auto) 0.3 % D-Dimer Quant (PE/DVT) 1.87 H (0.00-0.50) ug/ml VBG pH 7.423 (7.32-7.43) VBG pCO2 39 L (40-50) mmHG VBG pO2 62.5 H (25-47) mmHG VBG HCO3 25 (21-28) mmol/L Sodium 138 (135-149) mmol/L Potassium 3.9 (3.6-5.1) mmol/L Chloride 104 (96-114) mmol/L Carbon Dioxide 25 (20-32) mmol/L Anion Gap 9 (7-15) mEq/L BUN 94 H (7-30) mg/dL Creatinine 2.8 H (0.5-1.5) mg/dL Estimated GFR 22 ml/min Glucose 130 H (60-115) mg/dL Hemoglobin A1c 6.1 H (0-5.6) % Lactate 1.3 (0.5-1.9) mmol/L Calcium 8.5 (8.4-10.6) mg/dL Magnesium 2.4 (1.5-2.6) mg/dL Total Bilirubin 1.3 (0.1-1.5) mg/dL Direct Bilirubin 0.9 H (0.0-0.5) mg/dL AST 97 H (12-35) U/L ALT 47 (4-50) U/L Alkaline Phosphatase 71 (40-150) U/L C-Reactive Protein 24.0 H (0.5-1.0) mg/dL NT-Pro-B Natriuret Pep 5200 pg/mL Total Protein 7.1 (6.0-8.3) g/dL Albumin 3.8 (3.3-5.0) g/dL TSH 2.580 (0.270-4.200) uIU/mL Urine Color (Yellow) Urine Appearance (Clear) Urine pH (5.0-8.5) Ur Specific [place] (1.000-1.030) Urine Protein (Negative) Urine Glucose (UA) (Negative) Urine Ketones (Negative) Urine Blood (Negative) Urine Nitrite (Negative) Urine Bilirubin (Negative) Urine Urobilinogen (0.2-1.0) Ur Leukocyte Esterase (Negative) Urine RBC (0-2) Urine WBC (0-5) Ur Squamous Epith Cells (None-Few) Urine Bacteria (None) Ethyl Alcohol < 0.01 L (0.01-0.03) % SARS-CoV-2 (PCR) Negative SARS-CoV-2 (Negative) Influenza Type A (PCR) Negative PCR FLU A (Negative) Influenza Type B (PCR) Negative PCR FLU B (Negative) Lab Acknowledgement Test Added POC Troponin I 0.04 (0.01-0.04) ng/ml 05/18/24 Range/Units 13:29 WBC (4.50-11.00) K/uL RBC (4.30-5.90) m/uL Hgb (13.5-17.5) gm/dL Hct (37.0-53.0) % MCV (80-100) fL MCH (26-34) pg MCHC (32-36) gm/dL RDW Coeff of Peter (11.5-15.5) % Plt Count (140-440) K/uL Neut % (Auto) (42.0-72.0) % Lymph % (Auto) (20-44) % [place] % (Auto) (0.0-11.0) % Eos % (Auto) (0.0-7.0) % Baso % (Auto) (0.0-3.0) % Neut # (Auto) (1.7-7.0) K/uL Lymph # (Auto) (0.90-2.90) K/uL [place] # (Auto) (0.00-0.90) K/UL Eos # (Auto) (0.00-0.50) K/uL Baso # (Auto) (0.00-0.30) K/uL Abs Immat Gran (auto) (0.00-0.30) K/uL Imm/Tot Granulo (auto) % D-Dimer Quant (PE/DVT) (0.00-0.50) ug/ml VBG pH (7.32-7.43) VBG pCO2 (40-50) mmHG VBG pO2 (25-47) mmHG VBG HCO3 (21-28) mmol/L Sodium (135-149) mmol/L Potassium (3.6-5.1) mmol/L Chloride (96-114) mmol/L Carbon Dioxide (20-32) mmol/L Anion Gap (7-15) mEq/L BUN (7-30) mg/dL Creatinine (0.5-1.5) mg/dL Estimated GFR ml/min Glucose (60-115) mg/dL Hemoglobin A1c (0-5.6) % Lactate (0.5-1.9) mmol/L Calcium (8.4-10.6) mg/dL Magnesium (1.5-2.6) mg/dL Total Bilirubin (0.1-1.5) mg/dL Direct Bilirubin (0.0-0.5) mg/dL AST (12-35) U/L ALT (4-50) U/L Alkaline Phosphatase (40-150) U/L C-Reactive Protein (0.5-1.0) mg/dL NT-Pro-B Natriuret Pep pg/mL Total Protein (6.0-8.3) g/dL Albumin (3.3-5.0) g/dL TSH (0.270-4.200) uIU/mL Urine Color Yellow (Yellow) Urine Appearance Clear (Clear) Urine pH 5.0 (5.0-8.5) Ur Specific [place] 1.015 (1.000-1.030) Urine Protein Negative (Negative) Urine Glucose (UA) Negative (Negative) Urine Ketones Negative (Negative) Urine Blood Trace-intact A (Negative) Urine Nitrite Negative (Negative) Urine Bilirubin Negative (Negative) Urine Urobilinogen 0.2 (0.2-1.0) Ur Leukocyte Esterase Negative (Negative) Urine RBC 0-2 (0-2) Urine WBC 0-2 (0-5) Ur Squamous Epith Cells None (None-Few) Urine Bacteria None (None) Ethyl Alcohol (0.01-0.03) % SARS-CoV-2 (PCR) (Negative) Influenza Type A (PCR) (Negative) Influenza Type B (PCR) (Negative) Lab Acknowledgement POC Troponin I (0.01-0.04) ng/ml
[2024-05-18 11:38] LABS: Chloride* 104 mmol/L (96-114); Potassium* 3.9 mmol/L (3.6-5.1); Sodium* 138 mmol/L (135-149)
[2024-05-18 11:39] LABS: Albumin* 3.8 g/dL (3.3-5.0)
[2024-05-18 11:41] LABS: Anion Gap 9 mEq/L (7-15); Carbon Dioxide* 25 mmol/L (20-32); Creatinine* 2.8 mg/dL (0.5-1.5); Estimated Glomerular Filt Rate 22 ml/min
[2024-05-18 11:42] LABS: Bilirubin Direct* 0.9 mg/dL (0.0-0.5); Bilirubin Total* 1.3 mg/dL (0.1-1.5); Blood Urea Nitrogen* 94 mg/dL (7-30); Calcium* 8.5 mg/dL (8.4-10.6); Glucose* 130 mg/dL (60-115)
[2024-05-18 11:43] LABS: Alanine Aminotransferase* 47 U/L (4-50); Alkaline Phosphatase* 71 U/L (40-150); Aspartate Amino Transferase* 97 U/L (12-35); Magnesium* 2.4 mg/dL (1.5-2.6); Total Protein* 7.1 g/dL (6.0-8.3)
[2024-05-18 11:44] LABS: D Dimer Quantitative* 1.87 ug/ml (0.00-0.50)
[2024-05-18 12:04] LABS: NT Pro B Type NatriureticPept* 5200 pg/mL
--- NOTE | 2024-05-18 12:23 | CRLHL7_ITS ---
For Patients: As a result of the Century Cures Act, medical imaging exams and procedure reports are released immediately into your electronic medical record. You may view this report before your referring provider. If you have questions, please contact your health care provider. INDICATION: SOB, heart failure. TECHNIQUE: CT chest without contrast. COMPARISON: Earlier same day chest. FINDINGS: Lungs and pleura: There is dependent subsegmental atelectasis along the entire right. No luca consolidation. Small focus of subpleural scarring/atelectasis along the posterolateral left lower lobe few scattered small sub-6 millimeter solid pulmonary nodules). Small scattered bilateral calcified left pleural plaques, [id number]. No pleural effusion or pneumothorax. Heart and vasculature: Cardiomegaly with likely biatrial enlargement in dextropositioning of the heart. There are calcifications of the coronary arteries aortic annulus, and aortic valve leaflets. The thoracic aorta is normal in size. Dilated main pulmonary artery which measures 3.6 centimeters in diameter, which can be seen in the setting pulmonary hypertension. Prominent pericardial fat. Lymph nodes/mediastinum: No mediastinal, hilar, or axillary adenopathy. Chest wall: No masses. Upper abdomen: No significant findings. Bones: Unremarkable for age. IMPRESSION: 1. No luca consolidation or definite pulmonary edema. The appearance on the same-day chest radiograph is favored to a combination of patient rotation, low lung volumes, and the severe cardiomegaly with dextropositioning and pronounced pericardial fat. This results in subsegmental atelectasis along the entire dependent portion of the right lung. 2. Small scattered bilateral calcified pleural plaques, [id number]. 3. Few scattered small sub-6 millimeter pulmonary nodules. In low risk patients, no further follow-up is indicated. In high-risk patients, consider follow-up CT chest in 12 months. Please note that all CT scans at this facility use dose modulation, iterative reconstruction, and/or weight-based dosing when appropriate to reduce radiation dose to as low as reasonably achievable. Dictated by Artemio Hampton MD @ 05/18/2024 1:45:28 PM (Electronically Signed)
[2024-05-18 12:53] LABS: Hemoglobin A1C* 6.1 % (0-5.6)
[2024-05-18] MEDS: FUROSEMIDE 10 MG/ML inj 40 MG IVP (13:10)
[2024-05-18] MEDS: PIPERACILLIN/TAZOBACTAM 3.375 GM in 0.9 % SODIUM CHLORIDE Mini-bag 100 ML IVPB (13:13)
[2024-05-18 13:26] LABS: Ethanol* < 0.01 % (0.01-0.03)
--- NOTE | 2024-05-18 13:33 | ED.NURSE ---
Pt report given to heri LASSITER. Pt to room 249.
[2024-05-18 14:07] LABS: PCR FLU A Negative PCR FLU A (Negative); PCR FLU B Negative PCR FLU B (Negative); SARS PCR* Negative SARS-CoV-2 (Negative)
[2024-05-18 14:27] LABS: Appearance Urine Clear (Clear); Bilirubin Urine Negative (Negative); Blood Urine Trace-intact (Negative); Color Urine Yellow (Yellow); Glucose Urine Negative (Negative); Ketones Urine Negative (Negative); Leukocyte Esterase Urine Negative (Negative); Nitrite Urine Negative (Negative); Protein Urine Negative (Negative); Specific Gravity Urine 1.015 (1.000-1.030); Urobilinogen Urine 0.2 (0.2-1.0)
--- NOTE | 2024-05-18 14:41 | PM.IMHP1 ---
Hospitalist- H&P: NIC History of Present Illness Date Seen: 05/18/24 Chief complaint: retaining fluid O2 sats low Narrative: Ibrahima Rankin Sr is a 79 year old male with heart failure, atrial fibrillation, COPD, peripheral vascular disease, obesity, dementia who presents with a couple days of progressive weakness and dyspnea. He has a wound care nurse who visits to provide wound care for his lower extremity wounds. The wound care nurse today noted that he was weaker and more dyspneic than usual. He also had a fall recently causing abrasions over both knees. Because of this he was referred to the emergency department. Patient reports no significant concerns. His son and daughter are present and the son lives nearby and gives history that he has had a decline over the last couple days with weakness. He has had previous bilateral toe amputations likely due primarily to peripheral vascular disease. No history of diabetes. He has a chronic ulcer on his right foot for which he has been getting wound care. He is not aware of a fever. He was hospitalized in [facility] 1 month ago. At that time he primarily had heart failure with reduced if ejection fraction causing hypoxic respiratory failure. Echocardiogram showed an ejection fraction around 35% which was reduced from a year ago when it was 55%. He declined more aggressive treatment of his heart failure. At that time he was taking naproxen 500 mg twice daily for his arthritis pain. He was advised to stop due to heart failure and risk for kidney disease and need for anticoagulation. He is probably still taking his naproxen secondary to arthritis pain. He was diagnosed with dementia based on a blind [place] score of 14/22. He was advised to stop drinking 3-4 beers a day but reports that he has continued to drink. He was noted to have urinary incontinence on his last hospital stay but bladder scan showed no urinary retention. Still reports getting up 3 or 4 times at night. [facility] Medical History (Updated 05/18/24 @ 15:02 by Korey Enrique MD) Hypoxia ?R09.02 - Hypoxemia (ICD-10) Atrial fibrillation ?I48.91 - Unspecified atrial fibrillation (ICD-10) Chronic pain ?G89.29 - Other chronic pain (ICD-10) Peripheral neuropathy ?G62.9 - Polyneuropathy, unspecified (ICD-10) Noncompliance with medication regimen ?Z91.148 - Patient's other noncompliance with medication regimen for other reason (ICD-10) At risk for falls ?Z91.81 - History of falling (ICD-10) Cognitive impairment ?R41.89 - Other symptoms and signs involving cognitive functions and awareness (ICD-10) Foot ulcer, right ?L97.519 - Non-pressure chronic ulcer of other part of right foot with unspecified severity (ICD-10) Obesity ?E66.9 - Obesity, unspecified (ICD-10) Alcohol use disorder ?F10.90 - Alcohol use, unspecified, uncomplicated (ICD-10) Urinary incontinence ?R32 - Unspecified urinary incontinence (ICD-10) Osteoarthritis ?M19.90 - Unspecified osteoarthritis, unspecified site (ICD-10) Pulmonary hypertension ?I27.20 - Pulmonary hypertension, unspecified (ICD-10) Peripheral arterial disease ?I73.9 - Peripheral vascular disease, unspecified (ICD-10) History of methicillin resistant Staphylococcus aureus infection (04/04/17) ?Z86.14 - Personal history of Methicillin resistant Staphylococcus aureus infection (ICD-10) History of colonic polyps ?Z86.010 - Personal history of colonic polyps (ICD-10) History of alcohol abuse ?F10.11 - Alcohol abuse, in remission (ICD-10) Controlled atrial fibrillation ?I48.91 - Unspecified atrial fibrillation (ICD-10) Chronic obstructive pulmonary disease ?J44.9 - Chronic obstructive pulmonary disease, unspecified (ICD-10) 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 ?M1A.[id number] - Idiopathic chronic gout, unspecified site, without tophus (tophi) (ICD-10) Chronic diastolic congestive heart failure ?I50.32 - Chronic diastolic (congestive) heart failure (ICD-10) Essential hypertension ?I10 - Essential (primary) hypertension (ICD-10) Surgical History History of cataract surgery ?Z98.49 - Cataract extraction status, unspecified eye (ICD-10) 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 Son was with him today lives nearby and checks on him every day. , 4 kids, retired, former smoker, 3-4 drinks per day. Healthcare power of commercial real estate attorney would be all of his children. Code status is DNR. What is your current living situation?: I presently have a place to live Problems where you live: no known problems Problems where you live details: N/A In the past 12 months, utilities in danger of being shut off: no In past 12 months, lack of transportation kept you from medical appts, meetings, work, or getting things needed for daily living: no In the past 12 mos, have been you worried that your food would run out before you had money to buy more?: never true In the past 12 mos, the food you bought just didn't last and you didn't have money to buy more?: never true Highest level of school completed/degree received: high school graduate Smoking Status: Current some day smoker What tobacco products do you use: cigarettes Nicotine containing products detail: 1 cigarette/week How often do you have a drink containing alcohol: 4 or more times a week Alcohol type: beer How many standard drinks containing alcohol do you have on a typical day: 3 or 4 AUDIT-C Alcohol total score: 5 Non-prescribed substance use: denies use Caffeine: Yes How often does anyone, including family, friends and others, physically hurt you: never How often does anyone, including family, friends and others, insult or talk down to you: never How often does anyone, including family, friends and others, threaten you with harm: never How often does anyone, including family, friends and others, scream or curse at you: never Little interest or pleasure in doing things: not at all Feeling down, depressed, or hopeless: several days service: Yes Meds Home Medications and Allergies Home Medications ?Medication ?Instructions ?Recorded ?Confirmed ?Type aspirin 81 mg tablet,delayed 81 mg PO DAILY 05/18/24 05/18/24 History release naproxen 500 mg tablet 500 mg PO BID 05/18/24 05/18/24 History torsemide 20 mg tablet 20 mg PO DAILY 05/18/24 05/18/24 History Allergies Allergy/AdvReac Type Severity Reaction Status Date / Time No Known Drug Allergies Allergy Verified 04/24/24 10:38 Exam Narrative: Exam Narrative: He is alert and appears in no obvious distress. Breathing is unlabored with mild increased rate of breathing. No jugular venous distension. No stridor. Respirations with diminished breath sounds. No obvious wheezing rales or rhonchi. Cardiovascular: S1, S2, irregular rhythm. Abdomen: Bowel sounds are present. Abdomen is protuberant without tenderness or mass. External genitalia. Wearing a adult diaper. Extremities: Intact pulses and good capillary refill in upper extremities. No edema in upper extremities. Lower extremities: Left leg with a an abrasion over the left prepatellar knee without marked cellulitis. He has 1+ edema in the left lower extremity. Scarring from previous injury without active infection, erythema or tenderness. Diminished pedal pulses. Capillary refill is present but somewhat sluggish. Surgically absent toes. Right lower extremity: Abrasion over the prepatellar knee with evidence of prior blister which is ruptured with now no open ulcer, redness, drainage. He has circumferential edema at 4+, erythema and warmth extending from the knee to the foot. Surgically absent toes with a draining wound in the area of the 2nd metatarsal head. Sluggish capillary refill. Weak pedal pulses. Both feet have diminished but present sensation, left better than right. Const: Vital Signs, click to edit/add: Vital Signs - 24 hr 05/18/24 10:36 05/18/24 10:56 Temperature 97.7 F Pulse Rate [Pulse Oximeter] 83 Respiratory Rate 18 Blood Pressure [Ri ght Upper Arm] 126/88 Pulse Oximetry 90 91 Oxygen Delivery Me thod Room Air Documenting provider has reviewed patient's vital signs: yes Hospitalist - H&P: Result Labs Labs: Short CBC 05/18/24 Range/Units 11:13 WBC 14.38 H (4.50-11.00) K/uL Hgb 16.3 (13.5-17.5) gm/dL Hct 51.3 (37.0-53.0) % Plt Count 163 (140-440) K/uL BMP 05/18/24 11:13 Sodium 138 Potassium 3.9 Chloride 104 Carbon Dioxide 25 BUN 94 H Creatinine 2.8 H Glucose 130 H Calcium 8.5 Liver Function 05/18/24 Range/Units 11:13 Total Bilirubin 1.3 (0.1-1.5) mg/dL Direct Bilirubin 0.9 H (0.0-0.5) mg/dL AST 97 H (12-35) U/L ALT 47 (4-50) U/L Alkaline Phosphatase 71 (40-150) U/L Albumin 3.8 (3.3-5.0) g/dL Urine 05/18/24 Range/Units 13:29 Urine Color Yellow (Yellow) Urine Appearance Clear (Clear) Urine pH 5.0 (5.0-8.5) Ur Specific [place] 1.015 (1.000-1.030) Urine Protein Negative (Negative) Urine Glucose (UA) Negative (Negative) Imaging CT scan - chest: Radiologist's impression: INDICATION: SOB, heart failure. TECHNIQUE: CT chest without contrast. COMPARISON: Earlier same day chest. FINDINGS: Lungs and pleura: There is dependent subsegmental atelectasis along the entire right. No luca consolidation. Small focus of subpleural scarring/atelectasis along the posterolateral left lower lobe few scattered small sub-6 millimeter solid pulmonary nodules). Small scattered bilateral calcified left pleural plaques, [id number]-right. No pleural effusion or pneumothorax. Heart and vasculature: Cardiomegaly with likely biatrial enlargement in dextropositioning of the heart. There are calcifications of the coronary arteries aortic annulus, and aortic valve leaflets. The thoracic aorta is normal in size. Dilated main pulmonary artery which measures 3.6 centimeters in diameter, which can be seen in the setting pulmonary hypertension. Prominent pericardial fat. Lymph nodes/mediastinum: No mediastinal, hilar, or axillary adenopathy. Chest wall: No masses. Upper abdomen: No significant findings. Bones: Unremarkable for age. IMPRESSION: 1. No luca consolidation or definite pulmonary edema. The appearance on the same-day chest radiograph is favored to a combination of patient rotation, low lung volumes, and the severe cardiomegaly with dextropositioning and pronounced pericardial fat. This results in subsegmental atelectasis along the entire dependent portion of the right lung. 2. Small scattered bilateral calcified pleural plaques, jzii-swydcte-afpc-right. 3. Few scattered small sub-6 millimeter pulmonary nodules. In low risk patients, no further follow-up is indicated. In high-risk patients, consider follow-up CT chest in 12 months. Please note that all CT scans at this facility use dose modulation, iterative reconstruction, and/or weight-based dosing when appropriate to reduce radiation dose to as low as reasonably achievable. Dictated by Artemio Hampton MD @ 05/18/2024 1:45:28 PM Venous US: Radiologist's impression: INDICATION: swelling, redness TECHNIQUE: Venous duplex ultrasound of the right lower extremity utilizing compression with rico-scale, color Doppler, and spectral Doppler imaging. COMPARISON: None FINDINGS: There is no sonographic evidence of deep vein thrombosis in the right common femoral, deep femoral, superficial femoral, popliteal, posterior tibial, peroneal, or contralateral common femoral veins. There is no visualized superficial vein thrombosis. Minimal soft tissue edema seen throughout the right lower extremity. There are 2 prominent right inguinal lymph nodes with normal morphology, likely reactive. IMPRESSION: No deep vein thrombosis in the right lower extremity. Dictated by Ezio Gruber MD @ 05/18/2024 12:28:15 PM Assessment and Plan Assessment and plan (1) Cellulitis of leg, right: Problem comment: Likely the cause of recent acute weakness. Probably related to open ulcer in the area of the 2nd metatarsal head. Obtain culture. Initial broad-spectrum antibiotic with Zosyn and vanco dose to renal function Status: Acute (2) Acute kidney injury: Problem comment: Baseline creatinine 1.2 to 1.3. Admission creatinine 2.8. Likely multiple factors including vascular disease, heart failure with medication noncompliance, NSAID use. Check UA, UC, bladder scan. Status: Acute (3) Atrial fibrillation: Problem comment: Declining anticoagulation Status: Acute (4) Chronic pain: Problem comment: Due to heart failure with reduced ejection fraction he should be off of naproxen. If absolutely necessary consider restarting naproxen at 220 mg b.i.d. Status: Acute (5) Cognitive impairment: Problem comment: Appears to have moderate dementia. Performed a blind [place] today. . Consider repeat [place]. Probably would score only a little better with glasses. Cognitive function is at a level that consideration for more supervision is necessary. Discussed with his son Status: Acute (6) At risk for falls: Problem comment: PT to assess. Patient has a cane that he uses outside. His son says is not room in his small house for a walker. Patient holds onto munson and furniture. Not interested in a walker. Status: Acute (7) Noncompliance with medication regimen: Problem comment: Discussed with his son a plan to have the son set up and manage medications with a pillbox. Son reports he will be able to do this. Status: Acute (8) Congestive heart failure: Problem comment: Exacerbation due to noncompliance with medication. Echo shows global hypokinesis with reduction of ejection fraction to around 35% compared to around 55% last year. Patient is not currently interested in further medication management to optimize treatment of heart failure with reduced ejection fraction. Recommend Cardiology evaluation if he is willing to follow through with optimizing medication management Status: Acute (9) Foot ulcer, right: Problem comment: With peripheral neuropathy and peripheral vascular disease. Chronic ulcer of right foot. Does not appear to be acutely infected. Status: Chronic (10) Urinary incontinence: Problem comment: Urine staining of clothing. Previous bladder scan confirms no urinary retention. Recheck. Status: Acute (11) Essential hypertension: Status: Acute (12) Hypoxic respiratory failure: Problem comment: Due primarily to heart failure with medication noncompliance. Status: Resolved Plan Patient is admitted to the hospital for evaluation and management of leg cellulitis, acute kidney injury, hypoxic respiratory failure and congestive heart failure. IV furosemide, IV antibiotics, close monitoring of fluid and electrolytes and functional is assessment. Total Time Spent Total Time Spent: Total time spent today is 75 minutes in evaluation management discussing with patient and family ongoing evaluation management of the above issues
[2024-05-18 14:47] LABS: RBC Urine 0-2 (0-2); WBC Urine 0-2 (0-5)
[2024-05-18] MEDS: VANCOMYCIN 2 GM/400 ML 2 GM/400 ML PIGGYBACK IVPB (15:27)
[2024-05-18] MEDS: ENOXAPARIN 120 MG/0.8 ML INJ SUBCUT (15:28)
[2024-05-18] MEDS: PERFLUTREN LIPID MICROSPHERES 2 ML VIAL IV (18:15)
--- NOTE | 2024-05-18 19:44 | PC.NURSE ---
Admission: Patient came to Med-Surg floor at 1345. Patient came from home where he lives independently with his dog. Pt receives wound care x3/week for wound on right foot. VSS. O2 sat's between 88-90% on RA. Applied nasal cannula and 0.5 L of oxygen this evening and has been stable since. Stands and shuffles with A2, gait belt and walker. Bilateral toes have been amputated. RLE is red and swollen. A & O. Hard of hearing at times. IV intact and patent in Right AC
[2024-05-18] MEDS: PIPERACILLIN/TAZOBACTAM 2.25 GM in 0.9 % SODIUM CHLORIDE Mini-bag 100 ML IVPB (21:02)
[2024-05-18] MEDS: SODIUM CHLORIDE 0.9 % (FLUSH) 10 ML SYRINGE 5 ML IVF (21:02)
[2024-05-19] VITALS (9 sets, daily range): BP systolic 108–149; BP diastolic 60–98; PULSE 67–80; RESP 16–22; TEMP 36.3–36.9; O2SAT 88–93
[2024-05-19] MEDS: PIPERACILLIN/TAZOBACTAM 2.25 GM in 0.9 % SODIUM CHLORIDE Mini-bag 100 ML IVPB ×3 (05:26→20:44)
[2024-05-19 06:31] LABS: Basophils Percent Auto 0.2 % (0.0-3.0); Eosinophils Percent Auto 2.6 % (0.0-7.0); Hematocrit 51.8 % (37.0-53.0); Hemoglobin* 16.1 gm/dL (13.5-17.5); Immature Granulocytes Pct Auto 0.5 %; Lymphocytes Percent Auto 8.1 % (20-44); Mean Corpuscular HGB Conc 31 gm/dL (32-36); Mean Corpuscular Hemoglobin 30 pg (26-34); Mean Corpuscular Volume 98 fL (80-100); Monocytes Percent Auto 6.4 % (0.0-11.0); Neutrophils Percent Auto 82.2 % (42.0-72.0); Platelet Count* 176 K/uL (140-440); RDW Coefficient of Variation % 15.3 % (11.5-15.5); White Blood Count* 13.09 K/uL (4.50-11.00)
[2024-05-19 06:46] LABS: Chloride* 100 mmol/L (96-114); Potassium* 3.6 mmol/L (3.6-5.1); Sodium* 140 mmol/L (135-149)
[2024-05-19 06:47] LABS: Slide Review Reflex No
[2024-05-19 06:48] LABS: Creatinine* 2.5 mg/dL (0.5-1.5); Est. Creatinine Clearance* 23.93; Estimated Glomerular Filt Rate 25 ml/min
[2024-05-19 06:49] LABS: Anion Gap 9 mEq/L (7-15); Blood Urea Nitrogen* 92 mg/dL (7-30); Calcium* 8.5 mg/dL (8.4-10.6); Carbon Dioxide* 31 mmol/L (20-32); Glucose* 124 mg/dL (60-115)
--- NOTE | 2024-05-19 07:31 | PC.PHA ---
Addendum entered and electronically signed by Jonny Rubio 05/21/24 09:09: Patient's scr has decreased to 1.5 mg/dl, est. CRCL to 40 ml/min. Vancomycin dose to provide AUC of 526 mcg*hr/m changing to 1500 mg IV q24 hour. Next dose due 1600 today. Original Note: Vancomycin consult note: Indication for vancomycin: [LEG ULCER] Age: [79] Height: [179 CM] Weight: [116 KG] Most recent SCr: [2.5] Estimated CrCL: [24] Recommended dose and frequency: [1750 MG IV Q48 HR (497)] to obtain an estimated AUC/RANDALL of 400-600 mcg*hr/m Additional comment: []
--- NOTE | 2024-05-19 07:33 | PC.NURSE ---
Pt alert and oriented x3. Afebrile. Pt denies pain, chest pain, SOB and N/V. SOB is noted with exertion. Pt's right foot dressing is CDI, but right foot continues to be reddened. Pt is up A2 with cane. Pt had episode of incontinence of urine, that soaked the bed and brief, linens changed. Attempts made to titrate pt down to room air but pt O2 stats drop to 84%, pt continues to be on 0.5L O2 to maintain stats 90% or greater.
[2024-05-19] MEDS: TORSEMIDE 20 MG TABLET PO (08:02)
[2024-05-19] MEDS: ASPIRIN 81 MG TABLET EC PO (08:41)
[2024-05-19] MEDS: METOPROLOL SUCCINATE (XL) 50 MG TAB PO (08:41)
[2024-05-19] MEDS: SODIUM CHLORIDE 0.9 % (FLUSH) 10 ML SYRINGE 5 ML IVF ×3 (08:42→20:47)
--- NOTE | 2024-05-19 09:34 | CRLHL7_ITS ---
For Patients: As a result of the Century Cures Act, medical imaging exams and procedure reports are released immediately into your electronic medical record. You may view this report before your referring provider. If you have questions, please contact your health care provider. Indication: Evaluate for osteomyelitis Technique: Right foot 3 views. Comparison: None. Findings and impression: Post transmetatarsal amputation. Diffuse osseous demineralization. No acute fracture or dislocation. No definite erosion or periosteal reaction to suggest osteomyelitis. Lucency along the medial talar head, which may be related to degenerative disease or osteochondral defect. Moderate midfoot and tibiotalar joint osteoarthritis. Radiopaque linear object along the soft tissues along the metatarsal stumps, seen on only one view, and may be external to the patient. Vascular calcifications. Dictated by Rosalina Sarah MD @ 05/19/2024 11:01:28 AM (Electronically Signed)
--- NOTE | 2024-05-19 10:43 | NUTR.NU ---
RDN with diet education related to 2 gram sodium diet. Patient admitted for cellulitis and JAYLAN. Currently on 2 gram sodium diet, meal intake 100% since admit. Current weight 255 lb 9oz; height 5ft 10.5in; BMI 36.2 kg/m2. RDN attempted to visit with patient multiple times, however he was not available on all attempts. Will continue to monitor and attempt to visit with patient at later date.
--- NOTE | 2024-05-19 12:17 | CRLHL7_ITS ---
For Patients: As a result of the Century Cures Act, medical imaging exams and procedure reports are released immediately into your electronic medical record. You may view this report before your referring provider. If you have questions, please contact your health care provider. INDICATION: Open right foot wound. History of amputations. TECHNIQUE: Noncontrast MRI of the right foot. Axial, sagittal and coronal T1 and STIR images were acquired. 1.5 rachel MRI scanner. COMPARISON: Radiographs from 05/19/2024. FINDINGS: Soft tissue wound involving the distal foot. No associated fluid collection. Prior transmetatarsal amputation of the 1st through 5th rays. Small focus of reactive bone marrow edema involving the residual 1st metatarsal bone. No confluent marrow signal abnormality to suggest osteomyelitis. There are degenerative changes within the midfoot and midfoot-forefoot junction. Degenerative changes of the ankle and subtalar joint spaces. Area of osteonecrosis is noted within the distal tibia. Probable small area of osteonecrosis within the mid calcaneus. Atrophy of foot musculature. Soft tissue edema. IMPRESSION: 1. Soft tissue wound involving the distal foot without associated fluid collection. 2. 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 Small area of reactive bone marrow edema involving the residual 1st metatarsal bone. No osteomyelitis. 3. Degenerative changes. 4. Soft tissue edema. 5. Osteonecrosis of the distal tibia. Probable small area of osteonecrosis within the mid calcaneus. Dictated by Marcelo Reed MD @ 05/20/2024 7:59:04 AM (Electronically Signed)
--- NOTE | 2024-05-19 12:18 | PM.IMPN1 ---
Progress Note: A&P Assessment and plan (1) Cellulitis of leg, right: Problem details: Likely the cause of recent acute weakness. Probably related to open ulcer in the area of the 2nd metatarsal head. Obtain culture. Initial broad-spectrum antibiotic with Zosyn and vanco dose to renal function. Obtain MRI to evaluate for osteomyelitis Status: Acute (2) Acute kidney injury: Problem details: Baseline creatinine 1.2 to 1.3. Admission creatinine 2.8. Likely multiple factors including vascular disease, heart failure with medication noncompliance, NSAID use. Check UA, UC, bladder scan. Status: Acute (3) Atrial fibrillation: Problem details: Declining anticoagulation Status: Acute (4) Chronic pain: Problem details: Due to heart failure with reduced ejection fraction he should be off of naproxen. If absolutely necessary consider restarting naproxen at 220 mg b.i.d. Status: Acute (5) Cognitive impairment: Problem details: Appears to have moderate dementia. Performed a blind [place] today. . Consider repeat [place]. Probably would score only a little better with glasses. Cognitive function is at a level that consideration for more supervision is necessary. Discussed with his son Status: Acute (6) At risk for falls: Problem details: PT to assess. Patient has a cane that he uses outside. His son says is not room in his small house for a walker. Patient holds onto munson and furniture. Not interested in a walker. Status: Acute (7) Noncompliance with medication regimen: Problem details: Discussed with his son a plan to have the son set up and manage medications with a pillbox. Son reports he will be able to do this. Status: Acute (8) Congestive heart failure: Problem details: Exacerbation due to noncompliance with medication. Echo shows global hypokinesis with reduction of ejection fraction to around 35% compared to around 55% last year. Patient is not currently interested in further medication management to optimize treatment of heart failure with reduced ejection fraction. Recommend Cardiology evaluation if he is willing to follow through with optimizing medication management Status: Acute (9) Foot ulcer, right: Problem details: With peripheral neuropathy and peripheral vascular disease. Chronic ulcer of right foot. Currently with purulent drainage. Culture pending. MRI pending Status: Chronic (10) Urinary incontinence: Problem details: Urine staining of clothing. Previous bladder scan confirms no urinary retention. Recheck. Status: Acute (11) Essential hypertension: Status: Acute (12) Hypoxic respiratory failure: Problem details: Due primarily to heart failure with medication noncompliance. Status: Resolved (13) Pulmonary hypertension: Problem details: Right-sided pulmonary pressures of 56 mmHg plus right atrial pressure. Concern for current or prior pulmonary embolism. Empiric anticoagulation with enoxaparin for possible PE and AFib. Consider CT/PE when renal function improves Status: Acute Plan Continue in hospital for IV antibiotics for cellulitis and possible osteomyelitis and management of cardio-respiratory problems, hypoxia and disability. Time Spent With Patient Total time spent: 40 minutes Subjective Date Seen: 05/19/24 Interval history: Ibrahima Rankin Sr is a 79 year old male with heart failure, atrial fibrillation, COPD, peripheral vascular disease, obesity, dementia who presents with a couple days of progressive weakness and dyspnea. He has a wound care nurse who visits to provide wound care for his lower extremity wounds. The wound care nurse today noted that he was weaker and more dyspneic than usual. He also had a fall recently causing abrasions over both knees. Because of this he was referred to the emergency department. Patient reports no significant concerns. His son and daughter are present and the son lives nearby and gives history that he has had a decline over the last couple days with weakness. He has had previous bilateral toe amputations likely due primarily to peripheral vascular disease. No history of diabetes. He has a chronic ulcer on his right foot for which he has been getting wound care. He is not aware of a fever. He was hospitalized in [facility] 1 month ago. At that time he primarily had heart failure with reduced if ejection fraction causing hypoxic respiratory failure. Echocardiogram showed an ejection fraction around 35% which was reduced from a year ago when it was 55%. He declined more aggressive treatment of his heart failure. At that time he was taking naproxen 500 mg twice daily for his arthritis pain. He was advised to stop due to heart failure and risk for kidney disease and need for anticoagulation. He is probably still taking his naproxen secondary to arthritis pain. He was diagnosed with dementia based on a blind [place] score of 14/22. He was advised to stop drinking 3-4 beers a day but reports that he has continued to drink. He was noted to have urinary incontinence on his last hospital stay but bladder scan showed no urinary retention. Still reports getting up 3 or 4 times at night. May 19: Patient reports no concerns today. Nursing staff notes incontinence of urine. He continues to require supplemental oxygen to maintain O2 sats at 90%. He had denies dyspnea cough chest pain fever. He does report feeling chilled when I see him this morning however. Exam Narrative: Exam Narrative: He is alert and appears in no distress. Hard of hearing. Gives minimal answers to questions. Respirations with a few basilar crackles which clear with coughing. No wheezing. Diminished breath sounds. Cardiovascular, S1, S2, irregular rate and rhythm. Abdomen: Bowel sounds are present. Abdomen is soft without tenderness. Right lower extremity with edema and erythema which is unchanged from previous. Also warm to touch. Multiple dry and nondraining eschar noted. Over the foot in the area of the 2nd metatarsal remains a draining ulcer, unchanged from yesterday.. Const: Vital Signs, click to edit/add: Vital Signs - 24 hr 05/18/24 14:48 05/18/24 14:48 05/18/24 15:00 Temperature Pulse Rate Pulse Rate [Pulse Oximeter] Respiratory Rate 20 20 20 Blood Pressure [Le ft Arm] Blood Pressure [Ri ght Arm] 146/83 H Pulse Oximetry 93 Oxygen Delivery Me thod Room Air Oxygen Flow Rate 05/18/24 15:00 05/18/24 15:00 05/18/24 15:00 Temperature 97.7 F Pulse Rate 82 Pulse Rate [Pulse Oximeter] Respiratory Rate 20 20 Blood Pressure [Le ft Arm] Blood Pressure [Ri ght Arm] 146/83 H Pulse Oximetry 93 93 Oxygen Delivery Me thod Room Air Room Air Oxygen Flow Rate 05/18/24 21:00 05/18/24 21:30 05/18/24 23:23 Temperature 96.7 F L Pulse Rate 72 73 Pulse Rate [Pulse Oximeter] 65 Respiratory Rate 20 Blood Pressure [Le ft Arm] 104/69 Blood Pressure [Ri ght Arm] Pulse Oximetry 93 Oxygen Delivery Me thod Nasal Cannula Oxygen Flow Rate 0.5 05/18/24 23:38 05/18/24 23:38 05/18/24 23:38 Temperature 97.6 F Pulse Rate Pulse Rate [Pulse Oximeter] 77 77 Respiratory Rate 18 20 20 Blood Pressure [Le ft Arm] 122/61 Blood Pressure [Ri ght Arm] Pulse Oximetry 90 93 Oxygen Delivery Me thod Nasal Cannula Nasal Cannula Oxygen Flow Rate 1 0.5 05/19/24 05:25 05/19/24 07:36 05/19/24 07:52 Temperature 97.5 F L 97.3 F L Pulse Rate 67 Pulse Rate [Pulse Oximeter] 80 77 Respiratory Rate 20 16 Blood Pressure [Le ft Arm] 118/98 H 146/96 H Blood Pressure [Ri ght Arm] Pulse Oximetry 91 88 Oxygen Delivery Me thod Nasal Cannula Nasal Cannula Oxygen Flow Rate 0.5 0.5 05/19/24 07:52 05/19/24 07:52 05/19/24 11:08 Temperature 97.3 F L Pulse Rate Pulse Rate [Pulse Oximeter] 77 77 Respiratory Rate 16 16 22 Blood Pressure [Le ft Arm] Blood Pressure [Ri ght Arm] 131/68 Pulse Oximetry 88 89 Oxygen Delivery Me thod Nasal Cannula Nasal Cannula Oxygen Flow Rate 0.5 0.5 Documenting provider has reviewed patient's vital signs: yes Labs Labs: Laboratory Results - last 24 hr 05/18/24 05/18/24 05/18/24 11:13 13:00 13:29 WBC RBC Hgb Hct MCV MCH MCHC RDW Coeff of Peter Plt Count Neut % (Auto) Lymph % (Auto) [place] % (Auto) Eos % (Auto) Baso % (Auto) Neut # (Auto) Lymph # (Auto) [place] # (Auto) Eos # (Auto) Baso # (Auto) Abs Immat Gran (auto) Imm/Tot Granulo (auto) Sodium Potassium Chloride Carbon Dioxide Anion Gap BUN Creatinine Estimated Creat Clear Estimated GFR Glucose Hemoglobin A1c 6.1 H Calcium TSH 2.580 Urine Color Yellow Urine Appearance Clear Urine pH 5.0 Ur Specific [place] 1.015 Urine Protein Negative Urine Glucose (UA) Negative Urine Ketones Negative Urine Blood Trace-intact A Urine Nitrite Negative Urine Bilirubin Negative Urine Urobilinogen 0.2 Ur Leukocyte Esterase Negative Urine RBC 0-2 Urine WBC 0-2 Ur Squamous Epith Cells None Urine Bacteria None Ethyl Alcohol < 0.01 L SARS-CoV-2 (PCR) Negative SARS-CoV-2 Influenza Type A (PCR) Negative PCR FLU A Influenza Type B (PCR) Negative PCR FLU B Lab Acknowledgement Test Added 05/19/24 06:21 WBC 13.09 H RBC 5.30 Hgb 16.1 Hct 51.8 MCV 98 MCH 30 MCHC 31 L RDW Coeff of Peter 15.3 Plt Count 176 Neut % (Auto) 82.2 H Lymph % (Auto) 8.1 L [place] % (Auto) 6.4 Eos % (Auto) 2.6 Baso % (Auto) 0.2 Neut # (Auto) 10.80 H Lymph # (Auto) 1.10 [place] # (Auto) 0.80 Eos # (Auto) 0.30 Baso # (Auto) 0.00 Abs Immat Gran (auto) 0.10 Imm/Tot Granulo (auto) 0.5 Sodium 140 Potassium 3.6 Chloride 100 Carbon Dioxide 31 Anion Gap 9 BUN 92 H Creatinine 2.5 H Estimated Creat Clear 23.93 Estimated GFR 25 Glucose 124 H Hemoglobin A1c Calcium 8.5 TSH Urine Color Urine Appearance Urine pH Ur Specific [place] Urine Protein Urine Glucose (UA) Urine Ketones Urine Blood Urine Nitrite Urine Bilirubin Urine Urobilinogen Ur Leukocyte Esterase Urine RBC Urine WBC Ur Squamous Epith Cells Urine Bacteria Ethyl Alcohol SARS-CoV-2 (PCR) Influenza Type A (PCR) Influenza Type B (PCR) Lab Acknowledgement Imaging Radiograph foot: Radiologist's impression: Indication: Evaluate for osteomyelitis Technique: Right foot 3 views. Comparison: None. Findings and impression: Post transmetatarsal amputation. Diffuse osseous demineralization. No acute fracture or dislocation. No definite erosion or periosteal reaction to suggest osteomyelitis. Lucency along the medial talar head, which may be related to degenerative disease or osteochondral defect. Moderate midfoot and tibiotalar joint osteoarthritis. Radiopaque linear object along the soft tissues along the metatarsal stumps, seen on only one view, and may be external to the patient. Vascular calcifications.
[2024-05-19] MEDS: ENOXAPARIN 120 MG/0.8 ML INJ SUBCUT (14:00)
--- NOTE | 2024-05-19 15:13 | PC.SOCIAL ---
Discharge planning: emery wheel worker met with pt and his son, Juan, this afternoon. Pt has a Home Health Care nurse through [facility] that helps him with his wound care. Pt and his son said they plan to have the pt return home after his discharge from the hospital. Pt and his son are not interested in a higher level of care for the pt, even if it is recommended by the doctor and other hospital staff. Social work to follow-up if needed.
[2024-05-19] MEDS: FUROSEMIDE 10 MG/ML inj 40 MG IVP (17:28)
--- NOTE | 2024-05-19 19:04 | PC.NURSE ---
End of Shift: Patient pleasant and cooperative, at times inappropriate with comments. Patient vitally stable, lungs clear, BS WNL, IV SL and intact. Patient denies pain. Patient has been on and off oxygen 0.5 L NC, depending whether sleeping or patient's position. Patient 2 assist/walker, patient can not lift self out of chair. Patient incontinent of urine and has had 2 large BMs. Right foot wound was cleaned and dressed. Tele=A.fib.
[2024-05-20] VITALS (11 sets, daily range): BP systolic 110–142; BP diastolic 65–93; PULSE 74–85; RESP 18–20; TEMP 36.4–36.8; O2SAT 90–95
[2024-05-20] MEDS: PIPERACILLIN/TAZOBACTAM 2.25 GM in 0.9 % SODIUM CHLORIDE Mini-bag 100 ML IVPB ×3 (05:18→20:40)
[2024-05-20 06:31] LABS: Basophils Absolute Auto 0.03 K/uL (0.00-0.30); Basophils Percent Auto 0.3 % (0.0-3.0); Eosinophils Absolute Auto 0.47 K/uL (0.00-0.50); Eosinophils Percent Auto 4.8 % (0.0-7.0); Hematocrit 52.4 % (37.0-53.0); Hemoglobin* 16.2 gm/dL (13.5-17.5); Immature Granulocytes Abs Auto 0.04 K/uL (0.00-0.30); Immature Granulocytes Pct Auto 0.4 %; Lymphocytes Percent Auto 12.1 % (20-44); Mean Corpuscular HGB Conc 31 gm/dL (32-36); Mean Corpuscular Hemoglobin 30 pg (26-34); Mean Corpuscular Volume 98 fL (80-100); Neutrophils Percent Auto 73.4 % (42.0-72.0); Platelet Count* 187 K/uL (140-440); Red Blood Count 5.35 m/uL (4.30-5.90); White Blood Count* 9.76 K/uL (4.50-11.00)
[2024-05-20 06:35] LABS: Slide Review Reflex No
--- NOTE | 2024-05-20 06:44 | PC.NURSE ---
Shift note: Pt continue to have about 1+ pedal edema. Mild crackles sound to the lung. A1, walker and GB to bedside commode. Pt is urine incontinence. He has been on 0.5L of oxygen through NC throughout the night. Alert and oriented. Dressing the both legs are intact, clean and dry. No fever recorded. Pt had adequate sleep.
[2024-05-20 06:46] LABS: Chloride* 100 mmol/L (96-114); Potassium* 3.4 mmol/L (3.6-5.1); Sodium* 142 mmol/L (135-149)
[2024-05-20 06:48] LABS: Creatinine* 2.2 mg/dL (0.5-1.5); Est. Creatinine Clearance* 27.19; Estimated Glomerular Filt Rate 29 ml/min
[2024-05-20 06:49] LABS: Anion Gap 4 mEq/L (7-15); Blood Urea Nitrogen* 88 mg/dL (7-30); Carbon Dioxide* 38 mmol/L (20-32); Glucose* 127 mg/dL (60-115)
[2024-05-20 06:50] LABS: Calcium* 8.5 mg/dL (8.4-10.6)
[2024-05-20 07:14] LABS: C Reactive Protein* 16.1 mg/dL (0.5-1.0)
[2024-05-20] MEDS: TORSEMIDE 20 MG TABLET PO (08:15)
[2024-05-20] MEDS: METOPROLOL SUCCINATE (XL) 50 MG TAB PO (09:17)
[2024-05-20] MEDS: ASPIRIN 81 MG TABLET EC PO (09:17)
--- NOTE | 2024-05-20 12:17 | RESP.RT ---
Patient sitting up in chair, on room air, SaO2 94%, breathing regular/easy, capillary refill 3seconds, good skin color and tone. Good clear voice, aware of surroundings. Patient answered all questions appropriately, good conversation on his health. BBS with Left anterior lung harvey with fine crackles noted, fair air movement, Right lung harvey anterior diminished over left slightly with fine crackles, more so in Right base. Patient has good nonproductive cough able to clear secretions when present. Patient was a career Joyce. Patient has been on Oxygen via NC weaned to 0.5 Lpm now off. Goal to maintain SaO2 on Room Air >88%, patient needs Oxygen to start at 0.5 Lpm, wean again in AM.
--- NOTE | 2024-05-20 13:22 | PM.IMPN1 ---
Progress Note: A&P Assessment and plan (1) Cellulitis of leg, right: Problem details: Much improved today Likely the cause of recent acute weakness. Probably related to open ulcer in the area of the 2nd metatarsal head. Obtain culture. Initial broad-spectrum antibiotic with Zosyn and vanco dose to renal function. Status: Acute (2) Foot ulcer, right: Problem details: With peripheral neuropathy and peripheral vascular disease. Chronic ulcer of right foot managed by Dr. Sanchez. Has declined vascular intervention. Currently with purulent drainage. Culture pending. MRI shows no obvious abscess or osteomyelitis. Status: Chronic (3) Acute kidney injury: Problem details: Baseline creatinine 1.2 to 1.3. Admission creatinine 2.8. Likely multiple factors including vascular disease, heart failure with medication noncompliance, NSAID use. Check UA, UC. Status: Acute (4) Atrial fibrillation: Problem details: Declining anticoagulation. Status: Acute (5) Chronic pain: Problem details: Due to heart failure with reduced ejection fraction he should be off of naproxen. Due to acute kidney injury completely avoid naproxen Status: Acute (6) Cognitive impairment: Problem details: Appears to have moderate dementia. Performed a Pope on 05/20/2024. Scored 13/30. Cognitive function is at a level that consideration for more supervision is necessary. Discussed with his son. Patient and son are not interested in alternative living arrangement. Status: Acute (7) At risk for falls: Problem details: PT to assess. Patient has a cane that he uses outside. His son says is not room in his small house for a walker. Patient holds onto munson and furniture. Not interested in a walker. Status: Acute (8) Noncompliance with medication regimen: Problem details: Discussed with his son a plan to have the son set up and manage medications with a pillbox. Son reported he could do this last month. Patient is still self managing medications. Status: Acute (9) Congestive heart failure: Problem details: Exacerbation due to noncompliance with medication. Echo shows global hypokinesis with reduction of ejection fraction to around 35% compared to around 55% last year. Patient is not currently interested in further medication management to optimize treatment of heart failure with reduced ejection fraction. Recommend Cardiology evaluation if he is willing to follow through with optimizing medication management Status: Acute (10) Urinary incontinence: Problem details: Urine staining of clothing. Previous bladder scan confirms no urinary retention. Status: Acute (11) Essential hypertension: Status: Acute (12) Hypoxic respiratory failure: Problem details: Due primarily to heart failure with medication noncompliance. Status: Resolved (13) Pulmonary hypertension: Problem details: Right-sided pulmonary pressures of 56 mmHg plus right atrial pressure. Concern for current or prior pulmonary embolism. Empiric anticoagulation with enoxaparin for possible PE and AFib. Consider CT/PE when renal function improves Status: Acute Plan Continue in hospital for IV antibiotics and management of heart failure. Pending cultures to targeted therapy. Time Spent With Patient Total time spent: Total time spent today is 40 minutes in coordination care discussing with patient and other providers ongoing evaluation management of leg cellulitis, JAYLAN, heart failure, chronic foot ulcer Subjective Date Seen: 05/20/24 Interval history: Ibrahima Rankin Sr is a 79 year old male with heart failure, atrial fibrillation, COPD, peripheral vascular disease, obesity, dementia who presents with a couple days of progressive weakness and dyspnea. He has a wound care nurse who visits to provide wound care for his lower extremity wounds. The wound care nurse today noted that he was weaker and more dyspneic than usual. He also had a fall recently causing abrasions over both knees. Because of this he was referred to the emergency department. Patient reports no significant concerns. His son and daughter are present and the son lives nearby and gives history that he has had a decline over the last couple days with weakness. He has had previous bilateral toe amputations likely due primarily to peripheral vascular disease. No history of diabetes. He has a chronic ulcer on his right foot for which he has been getting wound care. He is not aware of a fever. He was hospitalized in [facility] 1 month ago. At that time he primarily had heart failure with reduced if ejection fraction causing hypoxic respiratory failure. Echocardiogram showed an ejection fraction around 35% which was reduced from a year ago when it was 55%. He declined more aggressive treatment of his heart failure. At that time he was taking naproxen 500 mg twice daily for his arthritis pain. He was advised to stop due to heart failure and risk for kidney disease and need for anticoagulation. He is probably still taking his naproxen secondary to arthritis pain. He was diagnosed with dementia based on a blind [place] score of 14/22. He was advised to stop drinking 3-4 beers a day but reports that he has continued to drink. He was noted to have urinary incontinence on his last hospital stay but bladder scan showed no urinary retention. Still reports getting up 3 or 4 times at night. May 19: Patient reports no concerns today. Nursing staff notes incontinence of urine. He continues to require supplemental oxygen to maintain O2 sats at 90%. He had denies dyspnea cough chest pain fever. He does report feeling chilled when I see him this morning however. May 20: Patient has no concerns today. He has weaned off of supplemental oxygen at rest but requiring oxygen with activity. No dyspnea or cough. Therapy notes that he is requiring some assistance with mobility and ADLs. Pope score 13/30. Exam Narrative: Exam Narrative: He is alert and appears in no distress. Respirations with decreased breath sounds. Rare basilar crackle. Cardiovascular: S1, S2, somewhat irregular rhythm. Abdomen: Bowel sounds active. Abdomen is soft without tenderness. Extremities with 3+ edema on the right 2+ on the left. Diminished to absent pedal pulses. Erythema on the right is much improved from previous. Foot still has moderate erythema. Foot ulcer still draining purulent material but otherwise unchanged. Const: Vital Signs, click to edit/add: Vital Signs - 24 hr 05/19/24 15:44 05/19/24 15:44 05/19/24 15:44 Temperature 98 F Pulse Rate Pulse Rate [Pulse Oximeter] 73 73 Respiratory Rate 20 20 20 Blood Pressure [Le ft Arm] 149/95 H Blood Pressure [Ri ght Arm] Pulse Oximetry 92 92 Oxygen Delivery Me thod Nasal Cannula Nasal Cannula Oxygen Flow Rate 0.5 0.5 05/19/24 16:52 05/19/24 19:00 05/19/24 22:02 Temperature 97.9 F 98.4 F Pulse Rate 67 Pulse Rate [Pulse Oximeter] 80 80 Respiratory Rate 20 20 Blood Pressure [Le ft Arm] 112/60 108/74 Blood Pressure [Ri ght Arm] Pulse Oximetry 93 93 Oxygen Delivery Me thod Nasal Cannula Nasal Cannula Oxygen Flow Rate 0.5 0.5 05/19/24 23:00 05/19/24 23:00 05/19/24 23:00 Temperature Pulse Rate 67 Pulse Rate [Pulse Oximeter] 80 Respiratory Rate 20 20 Blood Pressure [Le ft Arm] Blood Pressure [Ri ght Arm] Pulse Oximetry 93 Oxygen Delivery Me thod Nasal Cannula Oxygen Flow Rate 0.5 05/20/24 01:50 05/20/24 08:00 05/20/24 09:07 Temperature 98 F 97.8 F Pulse Rate Pulse Rate [Pulse Oximeter] 83 85 85 Respiratory Rate 20 18 18 Blood Pressure [Le ft Arm] 117/83 115/93 H Blood Pressure [Ri ght Arm] Pulse Oximetry 93 91 Oxygen Delivery Me thod Nasal Cannula Nasal Cannula Oxygen Flow Rate 0.5 0.5 05/20/24 09:09 05/20/24 11:55 05/20/24 12:15 Temperature 97.8 F Pulse Rate Pulse Rate [Pulse Oximeter] 74 Respiratory Rate 18 18 20 Blood Pressure [Le ft Arm] Blood Pressure [Ri ght Arm] 110/65 Pulse Oximetry 91 93 94 Oxygen Delivery Me thod Nasal Cannula Room Air Room Air Oxygen Flow Rate 0.5 Documenting provider has reviewed patient's vital signs: yes Labs Labs: Laboratory Results - last 24 hr 05/20/24 06:04 WBC 9.76 RBC 5.35 Hgb 16.2 Hct 52.4 MCV 98 MCH 30 MCHC 31 L RDW Coeff of Peter 15.0 Plt Count 187 Neut % (Auto) 73.4 H Lymph % (Auto) 12.1 L [place] % (Auto) 9.0 Eos % (Auto) 4.8 Baso % (Auto) 0.3 Neut # (Auto) 7.20 H Lymph # (Auto) 1.20 [place] # (Auto) 0.90 Eos # (Auto) 0.47 Baso # (Auto) 0.03 Abs Immat Gran (auto) 0.04 Imm/Tot Granulo (auto) 0.4 Sodium 142 Potassium 3.4 L Chloride 100 Carbon Dioxide 38 H Anion Gap 4 L BUN 88 H Creatinine 2.2 H Estimated Creat Clear 27.19 Estimated GFR 29 Glucose 127 H Calcium 8.5 C-Reactive Protein 16.1 H
[2024-05-20] MEDS: ENOXAPARIN 120 MG/0.8 ML INJ SUBCUT (13:39)
--- NOTE | 2024-05-20 14:30 | NUTR.NU ---
RDN with diet education related to 2 gram sodium diet. Patient admitted for cellulitis, JAYLAN, and CHF Exacerbation. Current weight 251 lb 4oz; height 5ft 10.5in; BMI 35.5 kg/m2. Meal intakes have been adequate at 100% since admit. RDN visited with patient whom was resting at the time. No family present. No designated caregiver listed in medical record. Patient declined diet education at this time. He did accept educational materials. Had no questions or concerns for RDN. Will continue to monitor and follow-up prn.
[2024-05-20] MEDS: POTASSIUM BICARB 25 MEQ EFFERVESCENT TAB PO (14:40)
[2024-05-20] MEDS: SPIRONOLACTONE 25 MG TABLET 12.5 MG PO (14:42)
--- NOTE | 2024-05-20 15:23 | PC.NURSE ---
End of Shift: Patient pleasant and cooperative. VSS, afebrile. Dressings on legs C/D/I. 2A with walker and gait belt to bathroom. Patient incontinent of urine. Tolerating regular diet.
[2024-05-20] MEDS: VANCOMYCIN 1.75 GM/350 ML 1.75 GM/350 ML PIGGYBACK IVPB (15:43)
[2024-05-20] MEDS: SODIUM CHLORIDE 0.9 % (FLUSH) 10 ML SYRINGE 5 ML IVF (20:53)
[2024-05-21] VITALS (8 sets, daily range): BP systolic 116–137; BP diastolic 66–90; PULSE 84–96; RESP 16–20; TEMP 36.1–37.1; O2SAT 89–91
[2024-05-21] MEDS: PIPERACILLIN/TAZOBACTAM 2.25 GM in 0.9 % SODIUM CHLORIDE Mini-bag 100 ML IVPB ×3 (05:10→21:33)
[2024-05-21 06:29] LABS: Basophils Absolute Auto 0.04 K/uL (0.00-0.30); Basophils Percent Auto 0.4 % (0.0-3.0); Eosinophils Absolute Auto 0.48 K/uL (0.00-0.50); Eosinophils Percent Auto 4.6 % (0.0-7.0); Hematocrit 50.7 % (37.0-53.0); Hemoglobin* 15.7 gm/dL (13.5-17.5); Immature Granulocytes Abs Auto 0.05 K/uL (0.00-0.30); Immature Granulocytes Pct Auto 0.5 %; Lymphocytes Percent Auto 12.5 % (20-44); Mean Corpuscular HGB Conc 31 gm/dL (32-36); Mean Corpuscular Hemoglobin 30 pg (26-34); Mean Corpuscular Volume 98 fL (80-100); Monocytes Percent Auto 8.8 % (0.0-11.0); Neutrophils Percent Auto 73.2 % (42.0-72.0); Platelet Count* 204 K/uL (140-440); RDW Coefficient of Variation % 14.7 % (11.5-15.5); Red Blood Count 5.16 m/uL (4.30-5.90); White Blood Count* 10.34 K/uL (4.50-11.00)
[2024-05-21 06:33] LABS: Slide Review Reflex No
--- NOTE | 2024-05-21 06:36 | PC.NURSE ---
Shift note: Pt continue to have 2+ pedal edema. Mepilex dressing to both legs intact, clean and dry. A2 with walker and GB. Pt maintained O2 between 89 and 92 on room air throughout the night. More alert this morning than previous night. Vitally stable.
[2024-05-21 06:41] LABS: Chloride* 101 mmol/L (96-114); Potassium* 3.7 mmol/L (3.6-5.1); Sodium* 142 mmol/L (135-149)
[2024-05-21 06:44] LABS: Creatinine* 1.5 mg/dL (0.5-1.5); Est. Creatinine Clearance* 39.88; Estimated Glomerular Filt Rate 46 ml/min
[2024-05-21 06:45] LABS: Anion Gap 6 mEq/L (7-15); Blood Urea Nitrogen* 71 mg/dL (7-30); Calcium* 8.3 mg/dL (8.4-10.6); Carbon Dioxide* 35 mmol/L (20-32); Glucose* 135 mg/dL (60-115)
[2024-05-21 06:47] LABS: C Reactive Protein* 8.6 mg/dL (0.5-1.0)
[2024-05-21] MEDS: TORSEMIDE 20 MG TABLET PO (07:48)
[2024-05-21] MEDS: METOPROLOL SUCCINATE (XL) 50 MG TAB PO (07:48)
[2024-05-21] MEDS: SPIRONOLACTONE 25 MG TABLET 12.5 MG PO (07:49)
[2024-05-21] MEDS: SODIUM CHLORIDE 0.9 % (FLUSH) 10 ML SYRINGE 5 ML IVF ×2 (07:49→21:34)
[2024-05-21] MEDS: ASPIRIN 81 MG TABLET EC PO (07:49)
--- NOTE | 2024-05-21 11:56 | P.IMPN_ITS ---
Progress Note: A&P Assessment and plan (1) Cellulitis of leg, right: Problem details: Continue to improve. Likely the cause of recent acute weakness. Probably related to open ulcer in the area of the 2nd metatarsal head. Cultures pending. Initial broad-spectrum antibiotic with Zosyn and vanco dose to renal function. Status: Acute (2) Foot ulcer, right: Problem details: With peripheral neuropathy and peripheral vascular disease. Chronic ulcer of right foot managed by Dr. Sanchez. Has declined vascular intervention. Currently with purulent drainage. Culture pending. MRI shows no obvious abscess or osteomyelitis. Status: Chronic (3) Acute kidney injury: Problem details: Baseline creatinine 1.2 to 1.3. Admission creatinine 2.8. Creatinine 1.5 today. Likely multiple factors including vascular disease, heart failure with medication noncompliance, NSAID use. Check UA, UC. Status: Acute (4) Atrial fibrillation: Problem details: Declining anticoagulation. Status: Acute (5) Chronic pain: Problem details: Due to heart failure with reduced ejection fraction he should be off of naproxen. Due to acute kidney injury completely avoid naproxen Status: Acute (6) Cognitive impairment: Problem details: Appears to have moderate dementia. Performed a Crockett on 05/20/2024. Scored 13/30. Cognitive function is at a level that consideration for more supervision is necessary. Discussed with his son and daughter. Patient and son are not interested in alternative living arrangement. Status: Acute (7) At risk for falls: Problem details: PT to assess. Patient has a cane that he uses outside. His son says is not room in his small house for a walker. Patient holds onto munson and furniture. Not interested in a walker. Status: Acute (8) Noncompliance with medication regimen: Problem details: Discussed with his son a plan to have the son set up and manage medications with a pillbox. Son reported he could do this last month. Patient is still self managing medications. Status: Acute (9) Congestive heart failure: Problem details: Exacerbation due to noncompliance with medication. Echo shows global hypokinesis with reduction of ejection fraction to around 35% compared to around 55% last year. Patient is not currently interested in further medication management to optimize treatment of heart failure with reduced ejection fraction. Recommend Cardiology evaluation if he is willing to follow through with optimizing medication management. Spironolactone 12.5 mg added. Tolerating well. Status: Acute (10) Urinary incontinence: Problem details: Urine staining of clothing. Previous bladder scan confirms no urinary retention. Status: Acute (11) Essential hypertension: Status: Acute (12) Hypoxic respiratory failure: Problem details: Improved. Due primarily to heart failure with medication noncompliance. Status: Resolved (13) Pulmonary hypertension: Problem details: Right-sided pulmonary pressures of 56 mmHg plus right atrial pressure. Concern for current or prior pulmonary embolism. Empiric anticoagulation with enoxaparin for possible PE and AFib. Consider CT/PE when renal function improves Status: Acute Subjective Date Seen: 05/21/24 Interval history: Ibrahima Rankin Sr is a 79 year old male with heart failure, atrial fibrillation, COPD, peripheral vascular disease, obesity, dementia who presents with a couple days of progressive weakness and dyspnea. He has a wound care nurse who visits to provide wound care for his lower extremity wounds. The wound care nurse today noted that he was weaker and more dyspneic than usual. He also had a fall recently causing abrasions over both knees. Because of this he was referred to the emergency department. Patient reports no significant concerns. His son and daughter are present and the son lives nearby and gives history that he has had a decline over the last couple days with weakness. He has had previous bilateral toe amputations likely due primarily to peripheral vascular disease. No history of diabetes. He has a chronic ulcer on his right foot for which he has been getting wound care. He is not aware of a fever. He was hospitalized in [facility] 1 month ago. At that time he primarily had heart failure with reduced if ejection fraction causing hypoxic respiratory failure. Echocardiogram showed an ejection fraction around 35% which was reduced from a year ago when it was 55%. He declined more aggressive treatment of his heart failure. At that time he was taking naproxen 500 mg twice daily for his arthritis pain. He was advised to stop due to heart failure and risk for kidney disease and need for anticoagulation. He is probably still taking his naproxen secondary to arthritis pain. He was diagnosed with dementia based on a blind Crockett score of 14/22. He was advised to stop drinking 3-4 beers a day but reports that he has c ontinued to drink. He was noted to have urinary incontinence on his last hospital stay but bladder scan showed no urinary retention. Still reports getting up 3 or 4 times at night. May 19: Patient reports no concerns today. Nursing staff notes incontinence of urine. He continues to require supplemental oxygen to maintain O2 sats at 90%. He had denies dyspnea cough chest pain fever. He does report feeling chilled when I see him this morning however. May 20: Patient has no concerns today. He has weaned off of supplemental oxygen at rest but requiring oxygen with activity. No dyspnea or cough. Therapy notes that he is requiring some assistance with mobility and ADLs. Crockett score 13/30. May 21: Patient is anxious to go home. No other concerns today. No problems with breathing. He reports he is moving well. Due to physical immobility and cognitive impairment therapy is recommending longterm facility placement. Patient family would like him to return to living independently in his home with the support of his family. He reports minimal discomfort in his leg. Cultures are still pending. Preliminary report suggests Gram-negative marcus and Gram-positive cocci Exam Narrative: Exam Narrative: He is alert and appears in no distress. Breathing is unlabored. Cardiovascular: S1, S2, irregular rhythm. Abdomen is soft without tenderness. Knees are examined he has some purulent drainage from his abrasion over his left patella no surrounding erythema abrasion over his right knee patella is without significant drainage or discharge and no Rincon. Right leg erythema is improved. He now has 2+ edema in the right leg and 1+ edema in the left leg. Did not feel pedal pulses. Purulent drainage from his right foot chronic ulcer. Const: Vital Signs, click to edit/add: Vital Signs - 24 hr 05/20/24 12:15 05/20/24 15:05/20/24 15:00 Temperature Pulse Rate 84 Pulse Rate [Pulse Oximeter] 75 Respiratory Rate 20 20 Blood Pressure [Le ft Arm] Blood Pressure [Ri ght Arm] Pulse Oximetry 94 Oxygen Delivery Me thod Room Air 05/20/24 15:00 05/20/24 15:00 05/20/24 19:00 Temperature 98.2 F 97.6 F Pulse Rate Pulse Rate [Pulse Oximeter] 75 78 Respiratory Rate 20 20 20 Blood Pressure [Le ft Arm] 142/83 H 133/70 Blood Pressure [Ri ght Arm] Pulse Oximetry 95 95 90 Oxygen Delivery Me thod Room Air Room Air Room Air 05/20/24 22:24 05/20/24 23:00 05/20/24 23:00 Temperature Pulse Rate 80 Pulse Rate [Pulse Oximeter] Respiratory Rate 20 20 Blood Pressure [Le ft Arm] Blood Pressure [Ri ght Arm] Pulse Oximetry 90 Oxygen Delivery Me thod Room Air 05/20/24 23:00 05/21/24 02:28 05/21/24 07:00 Temperature 97.9 F 98.7 F Pulse Rate 91 Pulse Rate [Pulse Oximeter] 80 85 Respiratory Rate 20 20 Blood Pressure [Le ft Arm] 122/78 117/66 Blood Pressure [Ri ght Arm] Pulse Oximetry 90 89 Oxygen Delivery Me thod Room Air Room Air 05/21/24 07:00 05/21/24 07:00 05/21/24 07:00 Temperature 97.7 F Pulse Rate Pulse Rate [Pulse Oximeter] 96 96 Respiratory Rate 18 18 18 Blood Pressure [Le ft Arm] Blood Pressure [Ri ght Arm] 116/79 Pulse Oximetry 91 91 Oxygen Delivery Me thod Room Air Room Air Documenting provider has reviewed patient's vital signs: yes Labs Labs: Laboratory Results - last 24 hr 05/21/24 05:53 WBC 10.34 RBC 5.16 Hgb 15.7 Hct 50.7 MCV 98 MCH 30 MCHC 31 L RDW Coeff of Peter 14.7 Plt Count 204 Neut % (Auto) 73.2 H Lymph % (Auto) 12.5 L [place] % (Auto) 8.8 Eos % (Auto) 4.6 Baso % (Auto) 0.4 Neut # (Auto) 7.60 H Lymph # (Auto) 1.30 [place] # (Auto) 0.90 Eos # (Auto) 0.48 Baso # (Auto) 0.04 Abs Immat Gran (auto) 0.05 Imm/Tot Granulo (auto) 0.5 Sodium 142 Potassium 3.7 Chloride 101 Carbon Dioxide 35 H Anion Gap 6 L BUN 71 H Creatinine 1.5 Estimated Creat Clear 39.88 Estimated GFR 46 Glucose 135 H Calcium 8.3 L C-Reactive Protein 8.6 H
[2024-05-21 12:39] LABS: D Dimer Quantitative* 1.13 ug/ml (0.00-0.50)
[2024-05-21] MEDS: VANCOMYCIN 1.5 GM/300 ML 1.5 GM/300 ML PIGGYBACK IVPB (16:09)
[2024-05-21] MEDS: ENOXAPARIN 40 MG/0.4 ML INJ SUBCUT (21:33)
--- NOTE | 2024-05-21 22:06 | PC.NURSE ---
Patient up to the BR with assist of 1, walker and gait belt. Pt is incontinent of urine. Unable to verbalize the need to use the BR. History of Dementia - is unable to state where he is. Tele showing A-fibb. Wounds to lower extremities are clean, dry and intact. Still has redness/warmth present on right calf. Pt a-febrile this shift.
[2024-05-22] MEDS: SODIUM CHLORIDE 0.9 % (FLUSH) 10 ML SYRINGE 5 ML IVF ×2 (05:25→08:59)
[2024-05-22] MEDS: PIPERACILLIN/TAZOBACTAM 2.25 GM in 0.9 % SODIUM CHLORIDE Mini-bag 100 ML IVPB (05:26)
[2024-05-22 06:55] LABS: Basophils Absolute Auto 0.05 K/uL (0.00-0.30); Basophils Percent Auto 0.5 % (0.0-3.0); Eosinophils Absolute Auto 0.49 K/uL (0.00-0.50); Eosinophils Percent Auto 4.5 % (0.0-7.0); Hematocrit 50.9 % (37.0-53.0); Hemoglobin* 15.8 gm/dL (13.5-17.5); Immature Granulocytes Abs Auto 0.09 K/uL (0.00-0.30); Immature Granulocytes Pct Auto 0.8 %; Lymphocytes Percent Auto 13.5 % (20-44); Mean Corpuscular HGB Conc 31 gm/dL (32-36); Mean Corpuscular Hemoglobin 30 pg (26-34); Mean Corpuscular Volume 98 fL (80-100); Monocytes Percent Auto 7.7 % (0.0-11.0); Platelet Count* 233 K/uL (140-440); RDW Coefficient of Variation % 14.7 % (11.5-15.5); White Blood Count* 10.77 K/uL (4.50-11.00)
--- NOTE | 2024-05-22 06:55 | PC.NURSE ---
END OF SHIFT NOTE: PT PLEASANTLY DEMENTED. DENIES CP, SOB, N/V. PT REMAINED IN BED THE DURATION OF THIS SHIFT. SLEPT WELL DURING HS. VSS ON RA; AFEBRILE. PT REMOVED IV FROM RIGHT AC; CATHETER INTACT. NEW IV PLACED IN RIGHT WRIST #22 GAUGE. BED ALARM ON AND CALL LIGHT WITHIN PT?S REACH.?
[2024-05-22 07:00] VITALS: BP 138/87; PULSE 91; PULSE 99; RESP 32; TEMP 36.3; O2SAT 90
[2024-05-22 07:19] LABS: Chloride* 102 mmol/L (96-114); Potassium* 3.5 mmol/L (3.6-5.1); Sodium* 141 mmol/L (135-149)
[2024-05-22 07:21] LABS: Creatinine* 1.4 mg/dL (0.5-1.5); Est. Creatinine Clearance* 42.73; Estimated Glomerular Filt Rate 50 ml/min
[2024-05-22 07:22] LABS: Anion Gap 4 mEq/L (7-15); Blood Urea Nitrogen* 55 mg/dL (7-30); Carbon Dioxide* 35 mmol/L (20-32); Glucose* 125 mg/dL (60-115)
[2024-05-22 07:23] LABS: Calcium* 8.5 mg/dL (8.4-10.6); Slide Review Reflex No
[2024-05-22 07:25] LABS: C Reactive Protein* 7.9 mg/dL (0.5-1.0)
[2024-05-22] MEDS: METOPROLOL SUCCINATE (XL) 50 MG TAB PO (08:58)
[2024-05-22] MEDS: TORSEMIDE 20 MG TABLET PO (08:59)
[2024-05-22] MEDS: ASPIRIN 81 MG TABLET EC PO (09:00)
[2024-05-22] MEDS: SPIRONOLACTONE 25 MG TABLET 12.5 MG PO (09:00)
[2024-05-22] MEDS: allopurinoL 300 MG TABLET PO (09:38)
--- NOTE | 2024-05-22 13:03 | PC.SOCIAL ---
Discharge planning: insulation worker interior surface met with pt and his son, Juan, today and provided them with a list of [facility] [facility] [employer] provider agency information and also a list of [facility] agencies per their request. Pt and his son were thankful for the information. Pt is discharging home today from the hospital. insulation worker interior surface will also send a resumption of care order for [facility] to [facility] for pt's wound care. Social work to follow-up as needed.
--- NOTE | 2024-05-22 13:30 | P.DS_ITS ---
DS: Providers Provider Date Seen: 05/22/24 Date of admission: 05/18/24 13:30 Primary care physician: José Luis Arredondo MD Admitting Clinician: Korey Enrique MD Attending Physician on discharge: Korey Enrique MD Date of Discharge: 05/22/24 DS: Diagnosis Discharge Diagnosis (1) Cellulitis of leg, right: Status: Acute Problem details: Continue to improve. Likely the cause of recent acute weakness. Probably related to open ulcer in the area of the 2nd metatarsal head. Cultures growing Myroides species (anaerobes), MRSA, Gram-negative marcus. Treated with vancomycin and Zosyn in the hospital. Clinically much improved. Similar culture results in January except MSSA instead of MRSA in January. Discussed with Infectious Disease consult. Treat with linezolid for 2 weeks and Augmentin 875 b.i.d. for 2 weeks pending final cultures for gram-negative infection. (2) Acute kidney injury: Status: Acute Problem details: Baseline creatinine 1.2 to 1.3. Admission creatinine 2.8. Creatinine 1.4 on discharge. Likely multiple factors including vascular disease, heart failure with medication noncompliance, NSAID use. Check UA, UC. Stop naproxen (3) Chronic pain: Status: Acute Problem details: Due to heart failure with reduced ejection fraction he should be off of naproxen. Due to acute kidney injury completely avoid naproxen (4) Foot ulcer, right: Status: Chronic Problem details: With peripheral neuropathy and peripheral vascular disease. Chronic ulcer of right foot managed by Dr. Sanchez. Has declined vascular intervention. Currently with purulent drainage. Culture pending. MRI shows no obvious abscess or osteomyelitis. Follow-up appointment next week. (5) Urinary incontinence: Status: Acute Problem details: Urine staining of clothing. Chronic incontinence at home Previous bladder scan confirms no urinary retention. (6) Obesity: Status: Acute Problem details: BMI of 38 (7) Congestive heart failure: Status: Acute Problem details: Exacerbation due to noncompliance with medication. Echo shows global hypokinesis with reduction of ejection fraction to around 35% compared to around 55% last year. Patient is not currently interested in further medication management to optimize treatment of heart failure with reduced ejection fraction. Recommend Cardiology evaluation if he is willing to follow through with optimizing medication management. Spironolactone 12.5 mg added. Tolerating well. Recheck basic metabolic panel and volume status with Dr. Arredondo next week. (8) At risk for falls: Status: Acute Problem details: PT to assess. Patient has a cane that he uses outside. His son says is not room in his small house for a walker. Patient holds onto munson and furniture. Not interested in a walker. (9) Noncompliance with medication regimen: Status: Acute Problem details: Discussed with his son a plan to have the son set up and manage medications with a pillbox. Son reported he could do this last month. Patient is still self managing medications. (10) Atrial fibrillation: Status: Acute Problem details: Declining anticoagulation. (11) Pulmonary hypertension: Status: Acute Problem details: Right-sided pulmonary pressures of 56 mmHg plus right atrial pressure. Concern for current or prior pulmonary embolism. Empiric anticoagulation with enoxaparin for possible PE and AFib. Consider CT/PE when renal function improves (12) Dementia: Status: Acute Problem details: Hickory on 05/20/2024 was 13/30. This is consistent with a score he had in March (13) Frailty: Status: Acute Problem details: Therapists recommending higher level of care with more supervision. Patient adamantly declines this. Family indicates that they are going to respect his wishes in this regard DS: Summary Hospital Course Hospital Course: Ibrahima Rankin Sr is a 79 year old male with heart failure, atrial fibrillation, COPD, peripheral vascular disease, obesity, dementia who presents with a couple days of progressive weakness and dyspnea. He has a wound care nurse who visits to provide wound care for his lower extremity wounds. The wound care nurse today noted that he was weaker and more dyspneic than usual. He also had a fall recently causing abrasions over both knees. Because of this he was referred to the emergency department. Patient reports no significant concerns. His son and daughter are present and the son lives nearby and gives history that he has had a decline over the last couple days with weakness. He has had previous bilateral toe amputations likely due primarily to peripheral vascular disease. No history of diabetes. He has a chronic ulcer on his right foot for which he has been getting wound care. He is not aware of a fever. He was hospitalized in [facility] 1 month ago. At that time he primarily had heart failure with reduced if ejection fraction causing hypoxic respiratory failure. Echocardiogram showed an ejection fraction around 35% which was reduced from a year ago when it was 55%. He declined more aggressive treatment of his heart failure. At that time he was taking naproxen 500 mg twice daily for his arthritis pain. He was advised to stop due to heart failure and risk for kidney disease and need for anticoagulation. He is probably still taking his naproxen secondary to arthritis pain. He was diagnosed with dementia based on a blind Hickory score of 14/22. He was advised to stop drinking 3-4 beers a day but reports that he has continued to drink. He was noted to have urinary incontinence on his last hospital stay but bladder scan showed no urinary retention. Still reports getting up 3 or 4 times at night. Patient is had gradual improvement in his cellulitis. His hypoxia on admission resolved with increased diuretics. Markers for infection have improved. Renal function has improved. MRI of his foot shows no osteomyelitis or drainable fluid collection. Cultures as noted above. Will treat for 2 weeks with daptomycin and Augmentin. Outpatient follow-up next week with Dr. Sanchez and in [address] Arredondo Time Spent with Patient Time attestation: Total time spent providing and/or coordinating discharge services: 45 minutes Time spent: Greater than 30 minutes Exam Narrative: Exam Narrative: Right lower extremity has mild erythema and edema, about the same as yesterday. Left lower extremity also about the same but less edema and no erythema. Right Foot ulcer is unchanged and still draining purulent material. Breathing is unlabored. Const: Vital Signs, click to edit/add: Vital Signs - 24 hr 05/21/24 15:00 05/21/24 15:00 05/21/24 15:00 Temperature Pulse Rate 90 Pulse Rate [Pulse Oximeter] 93 Respiratory Rate 18 18 Blood Pressure [Le ft Arm] Blood Pressure [Ri ght Arm] Pulse Oximetry 91 Oxygen Delivery Me thod Room Air 05/21/24 15:00 05/21/24 19:00 05/21/24 23:00 Temperature 97 F L 98.1 F Pulse Rate 90 Pulse Rate [Pulse Oximeter] 84 84 Respiratory Rate 18 18 Blood Pressure [Le ft Arm] 123/69 137/78 Blood Pressure [Ri ght Arm] Pulse Oximetry 91 91 Oxygen Delivery Me thod Room Air Room Air 05/21/24 23:45 05/22/24 07:00 05/22/24 07:00 Temperature Pulse Rate 91 Pulse Rate [Pulse Oximeter] 99 Respiratory Rate 16 32 H Blood Pressure [Le ft Arm] Blood Pressure [Ri ght Arm] Pulse Oximetry Oxygen Delivery Me thod Room Air 05/22/24 07:00 05/22/24 07:00 Temperature 97.3 F L Pulse Rate Pulse Rate [Pulse Oximeter] 99 Respiratory Rate 32 H 32 H Blood Pressure [Le ft Arm] Blood Pressure [Ri ght Arm] 138/87 Pulse Oximetry 90 90 Oxygen Delivery Me thod Room Air Room Air Documenting provider has reviewed patient's vital signs: yes DS: Data Data Completed and Pending Completed studies during hospitalization: Procedures Detachment at Right Foot, Partial 1st Ray, Open Approach (02/14/23) Excision of Right Metatarsal, Sesamoid Bone(s) 1st Toe, Open Approach (02/14/23) Transfer Right Foot Skin, External Approach (02/14/23) Labs on day of discharge: Labs from last 24 hours 05/22/24 06:04 WBC 10.77 RBC 5.20 Hgb 15.8 Hct 50.9 MCV 98 MCH 30 MCHC 31 L RDW Coeff of Peter 14.7 Plt Count 233 Neut % (Auto) 73.0 H Lymph % (Auto) 13.5 L [place] % (Auto) 7.7 Eos % (Auto) 4.5 Baso % (Auto) 0.5 Neut # (Auto) 7.90 H Lymph # (Auto) 1.50 [place] # (Auto) 0.80 Eos # (Auto) 0.49 Baso # (Auto) 0.05 Abs Immat Gran (auto) 0.09 Imm/Tot Granulo (auto) 0.8 Sodium 141 Potassium 3.5 L Chloride 102 Carbon Dioxide 35 H Anion Gap 4 L BUN 55 H Creatinine 1.4 Estimated Creat Clear 42.73 Estimated GFR 50 Glucose 125 H Calcium 8.5 C-Reactive Protein 7.9 H Preliminary micro results at discharge 05/19/24 08:09 Wound Culture - Preliminary Foot Right Myroides spp Staphylococcus aureus Gram negative marcus Gram negative marcus#[address] scan - chest: Radiologist's impression: INDICATION: SOB, heart failure. TECHNIQUE: CT chest without contrast. COMPARISON: Earlier same day chest. FINDINGS: Lungs and pleura: There is dependent subsegmental atelectasis along the entire right. No luca consolidation. Small focus of subpleural scarring/atelectasis along the posterolateral left lower lobe few scattered small sub-6 millimeter solid pulmonary nodules). Small scattered bilateral calcified left pleural plaques, [id number]. No pleural effusion or pneumothorax. Heart and vasculature: Cardiomegaly with likely biatrial enlargement in dextropositioning of the heart. There are calcifications of the coronary arteries aortic annulus, and aortic valve leaflets. The thoracic aorta is normal in size. Dilated main pulmonary artery which measures 3.6 centimeters in diameter, which can be seen in the setting pulmonary hypertension. Prominent pericardial fat. Lymph nodes/mediastinum: No mediastinal, hilar, or axillary adenopathy. Chest wall: No masses. Upper abdomen: No significant findings. Bones: Unremarkable for age. IMPRESSION: 1. No luca consolidation or definite pulmonary edema. The appearance on the same-day chest radiograph is favored to a combination of patient rotation, low lung volumes, and the severe cardiomegaly with dextropositioning and pronounced pericardial fat. This results in subsegmental atelectasis along the entire dependent portion of the right lung. 2. Small scattered bilateral calcified pleural plaques, [id number]. 3. Few scattered small sub-6 millimeter pulmonary nodules. In low risk patients, no further follow-up is indicated. In high-risk patients, consider follow-up CT chest in 12 months. Please note that all CT scans at this facility use dose modulation, iterative reconstruction, and/or weight-based dosing when appropriate to reduce radiation dose to as low as reasonably achievable. Dictated by Artemio Hampton MD @ 05/18/2024 1:45:28 PM MRI right foot: Radiologist's impression: INDICATION: Open right foot wound. History of amputations. TECHNIQUE: Noncontrast MRI of the right foot. Axial, sagittal and coronal T1 and STIR images were acquired. 1.5 rachel MRI scanner. COMPARISON: Radiographs from 05/19/2024. FINDINGS: Soft tissue wound involving the distal foot. No associated fluid collection. Prior transmetatarsal amputation of the 1st through 5th rays. Small focus of reactive bone marrow edema involving the residual 1st metatarsal bone. No confluent marrow signal abnormality to suggest osteomyelitis. There are degenerative changes within the midfoot and midfoot-forefoot junction. Degenerative changes of the ankle and subtalar joint spaces. Area of osteonecrosis is noted within the distal tibia. Probable small area of osteonecrosis within the mid calcaneus. Atrophy of foot musculature. Soft tissue edema. IMPRESSION: 1. Soft tissue wound involving the distal foot without associated fluid collection. 2. 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 Small area of reactive bone marrow edema involving the residual 1st metatarsal bone. No osteomyelitis. 3. Degenerative changes. 4. Soft tissue edema. 5. Osteonecrosis of the distal tibia. Probable small area of osteonecrosis within the mid calcaneus. Dictated by Marcelo Reed MD @ 05/20/2024 7:59:04 AM Discharge Plan Discharge Disposition: Home, Self-Care Date of Admission: 05/18/24 13:30 Attending Provider on Discharge: Korey Enrique Primary Care Provider: José Luis Arredondo Condition: Improved Anticipated Discharge Date/Time: 05/22/24 11:05 Discharge Medications: New spironolactone 25 mg tablet 12.5 mg PO DAILY Qty: 30 0RF linezolid 600 mg tablet 600 mg PO BID Qty: 28 0RF amoxicillin-pot clavulanate 875-125 mg tablet 1 tab PO BID Qty: 28 0RF Continued metoprolol succinate 50 mg tablet extended release 24 hr 50 mg PO DAILY Qty: 90 1RF allopurinol 300 mg tablet 300 mg PO DAILY Qty: 90 3RF torsemide 20 mg tablet 20 mg PO DAILY aspirin 81 mg tablet,delayed release (DR/EC) 81 mg PO DAILY Discontinued naproxen 500 mg tablet 500 mg PO BID Discharge Orders: Discharge Order (Routine); Ordered 05/22/24 Ordered By: Korey Enrique Patient Education: Spironolactone (By mouth), Amoxicillin/Clavulanate Potassium (By mouth) (Augmentin, Augmentin..., Linezolid (By mouth), Heart Failure (DC) Additional Instructions: Where elastic bandage on your right leg. Elevate your right leg when sitting in chair or lying in bed to reduce swelling. Activity Level: Activity as Tolerated and Use Walker Discharge Diet: Heart Healthy (2 gm sodium, low fat) Follow Up Appointments: José Luis Arredondo MD [Primary Care Provider] - 06/02/24 9:30 am ([facility] for follow up with PCP) Harmeet Sanchez DPM [Staff Physician] - (Follow-up next week as previously scheduled) Forms: [facility] Info Instructions Discharge Comments: Resume [facility] home care nursing for wound care.
--- NOTE | 2024-05-22 14:19 | PC.NURSE ---
Discharge note: Pt alert and cooperative with cares. VSS, LS diminished throughout. Pt moves well with assist x1 to BR with walker and GB. Pt showered with OT. Residential Manager cleansed wound to right foot with sterile water and vashe. Mepilex removed from knees bilaterally and cleansed with sterile water, bandaids applied.
== END 2024-05-22 13:53 | disposition home or self-care (01) | DRG 602 ==
LOC: ED 11:01 → MEDSURG 13:29
PROVIDERS: Admitting Provider Family Medicine; Emergency Provider Emergency Medicine; PCP Family Medicine; Visit Provider Family Medicine
DX: L03.115 Cellulitis of right lower limb (principal); I50.23 Acute on chronic systolic (congestive) heart failure; J96.01 Acute respiratory failure with hypoxia; N17.9 Acute kidney failure, unspecified; I11.0 Hypertensive heart disease with heart failure; L97.512 Non-pressure chronic ulcer of other part of right foot with fat layer exposed; I73.9 Peripheral vascular disease, unspecified; F03.90 Unspecified dementia, unspecified severity, without behavioral disturbance, psychotic disturbance, mood disturbance, and anxiety; E66.9 Obesity, unspecified; Z91.148 Patient's other noncompliance with medication regimen for other reason; G62.9 Polyneuropathy, unspecified; R32 Unspecified urinary incontinence; I48.91 Unspecified atrial fibrillation; Z79.01 Long term (current) use of anticoagulants; I27.20 Pulmonary hypertension, unspecified; G89.29 Other chronic pain; J44.9 Chronic obstructive pulmonary disease, unspecified; Z89.422 Acquired absence of other left toe(s); Z89.421 Acquired absence of other right toe(s); Z91.81 History of falling; F03.B0 Unspecified dementia, moderate, without behavioral disturbance, psychotic disturbance, mood disturbance, and anxiety; Z68.38 Body mass index [BMI] 38.0-38.9, adult
CPT/HCPCS: 36415; 71045; 71250; 73620; 73630; 73718; 80048; 80076; 81001; 81003; 82077; 82803; 83036; 83605; 83735; 83880; 84443; 84484; 85025; 85379; 86140; 87070; 87081; 87086; 87186; 87631; 93005; 93308; 93321; 93325; 93971; 94761; 97110; 97116; 97162; 97165; 97530; 97535; 99284; 99285; A9270; J1650; J1940; J2543; J3372; Q9957

== ENCOUNTER 2024-06-02 09:53 | Outpatient (CLI) | payer MEDICARE, BC, SELFPAY | END 2024-06-02 09:54 | disposition home or self-care (01) | PROVIDERS: PCP Family Medicine; Visit Provider Family Medicine | DX: I10 Essential (primary) hypertension (principal); L03.115 Cellulitis of right lower limb; Z13.220 Encounter for screening for lipoid disorders | CPT/HCPCS: 80048; 80061; 85025 ==

== ENCOUNTER 2024-06-29 11:24 | Outpatient (CLI) | payer MEDICARE, BC, SELFPAY | END 2024-06-29 11:25 | disposition home or self-care (01) | LOC: FBOREF 11:25 | PROVIDERS: PCP Family Medicine; Visit Provider Family Medicine | DX: I50.9 Heart failure, unspecified (principal) | CPT/HCPCS: 80048 ==

== ENCOUNTER 2024-09-28 15:23 | Inpatient (IN) | payer MEDICARE, BC, SELFPAY ==
[2024-09-28] VITALS (37 sets, daily range): BP systolic 116–140; BP diastolic 10–116; PULSE 75–149; RESP 24–26; TEMP 36.6; O2SAT 87–96; BMI 32.1
--- NOTE | 2024-09-28 15:39 | CRLHL7_ITS ---
For Patients: As a result of the Century Cures Act, medical imaging exams and procedure reports are released immediately into your electronic medical record. You may view this report before your referring provider. If you have questions, please contact your health care provider. INDICATION: Shortness of breath. TECHNIQUE: Chest 1 views COMPARISON: May 18, 2024 and 2022 FINDINGS: Limitations: Shallow inspiration. Large body habitus. Cardiovascular and mediastinum: [id number] cardiomegaly. Apparent widened mediastinum similar to comparison view Lungs and pleural spaces: Vague increased opacification laterally at the left base with partial silhouetting the left hemidiaphragm. This could be due to superimposed soft tissue markings or a developing infiltrate. Prominent bronchovascular markings. Bones and soft tissues: No significant findings. IMPRESSION: Limited study as noted above. Suggest repeat PA and lateral views for further characterization Dictated by Kartik Girard MD @ 09/28/2024 4:16:00 PM (Electronically Signed)
[2024-09-28] MEDS: 0.9 % SODIUM CHLORIDE 500 ML 500 ML IV ×2 (15:48→17:08)
[2024-09-28 15:53] LABS: HCO3 VBG 30 mmol/L (21-28); Lactate Sepsis w/Reflex* 3.1 mmol/L (0.5-1.9); PCO2 VBG 46 mmHG (40-50); pH VBG 7.414 (7.32-7.43)
[2024-09-28 15:58] LABS: Hematocrit 55.9 % (37.0-53.0); Hemoglobin* 17.5 gm/dL (13.5-17.5); Lymphocytes Percent Auto 5.3 % (20-44); Mean Corpuscular HGB Conc 31 gm/dL (32-36); Mean Corpuscular Hemoglobin 29 pg (26-34); Mean Corpuscular Volume 94 fL (80-100); Monocytes Percent Auto 7.4 % (0.0-11.0); Platelet Count* 323 K/uL (140-440); RDW Coefficient of Variation % 15.1 % (11.5-15.5); Red Blood Count 5.96 m/uL (4.30-5.90); White Blood Count* 13.83 K/uL (4.50-11.00)
[2024-09-28 15:59] LABS: Basophils Percent Auto 0.1 % (0.0-3.0); Immature Granulocytes Pct Auto 0.2 %
[2024-09-28 16:02] LABS: Slide Review Reflex No
[2024-09-28 16:02] LABS: Troponin, Point-of-Care* 0.02 ng/ml (0.01-0.04)
[2024-09-28 16:10] LABS: Chloride* 104 mmol/L (96-114); Sodium* 144 mmol/L (135-149)
[2024-09-28 16:11] LABS: Potassium* 4.1 mmol/L (3.6-5.1)
[2024-09-28 16:12] LABS: Creatinine* 1.6 mg/dL (0.5-1.5); Estimated Glomerular Filt Rate 43 ml/min
[2024-09-28 16:13] LABS: Alanine Aminotransferase* 20 U/L (4-50); Alkaline Phosphatase* 76 U/L (40-150); Anion Gap 11 mEq/L (7-15); Aspartate Amino Transferase* 31 U/L (12-35); Bilirubin Direct* 1.3 mg/dL (0.0-0.5); Bilirubin Total* 2.3 mg/dL (0.1-1.5); Blood Urea Nitrogen* 40 mg/dL (7-30); Calcium* 9.8 mg/dL (8.4-10.6); Carbon Dioxide* 29 mmol/L (20-32); Creatine Kinase* 300 U/L (54-186); Glucose* 183 mg/dL (60-115); Total Protein* 8.2 g/dL (6.0-8.3)
[2024-09-28 16:14] LABS: Magnesium* 2.2 mg/dL (1.5-2.6)
[2024-09-28 16:28] LABS: NT Pro B Type NatriureticPept* 4930 pg/mL
[2024-09-28 16:31] LABS: PCR FLU A Negative PCR FLU A (Negative); PCR FLU B Negative PCR FLU B (Negative); PCR RSV Negative PCR RSV (Negative); SARS PCR* Negative SARS-CoV-2 (Negative)
[2024-09-28 16:33] LABS: Procalcitonin* 0.76 ng/mL (<0.50)
[2024-09-28 16:35] LABS: Ethanol* < 0.01 % (0.01-0.03)
[2024-09-28 16:35] LABS: Appearance Urine Clear (Clear); Bilirubin Urine 1+ (Negative); Blood Urine Negative (Negative); Color Urine Amber (Yellow); Glucose Urine Negative (Negative); Ketones Urine Trace (Negative); Leukocyte Esterase Urine Negative (Negative); Nitrite Urine Negative (Negative); Protein Urine 2+ (Negative); Urobilinogen Urine 0.2 (0.2-1.0); pH Urine 5.5 (5.0-8.5)
--- NOTE | 2024-09-28 16:35 | CRLHL7_ITS ---
For Patients: As a result of the Century Cures Act, medical imaging exams and procedure reports are released immediately into your electronic medical record. You may view this report before your referring provider. If you have questions, please contact your health care provider. Indication: DYSARTHRIA, CONFUSION Technique: Noncontrast sagittal T1 weighted, axial T2 fast spin echo, FLAIR, and diffusion weighted images of the head. Comparison: CT head 04/23/2021 Findings: There is a 3 millimeter focus of diffusion signal abnormality in the right inferior cerebellum without loss of signal on ADC map likely representing subacute ischemic infarct. Chronic lacunar infarcts in the bilateral cerebellum and bilateral basal ganglia. Encephalomalacia in the right parietal and posterior temporal cortex with diffusion signal abnormality within the region of chronic infarct and without signal loss on ADC map likely representing region of chronic ischemia. Mild scattered foci of increased T2 signal within the periventricular and subcortical white matter of both cerebral hemispheres. Mild cerebral volume loss. Incidental cavum septum pellucidum et vergae. Small focus of susceptibility effect in the right occipital lobe likely represents remote microhemorrhage. No hydrocephalus. Midline structures are centrally located. No convincing evidence of suspicious intra- or extra-axial fluid collections. Polypoid mucosal thickening in the maxillary sinuses. Mild mucosal thickening in the ethmoid air cells. Mild right and trace left mastoid fluid. Bilateral pseudophakia. Leftward deviation of the nasal septum. Impression: 1. No acute ischemic infarcts. 2. There is a 3 mm focus of diffusion signal abnormality in the right inferior cerebellum without loss of signal on ADC map likely representing subacute ischemic infarct. 3. Encephalomalacia in the right parietal and posterior temporal cortex with diffusion signal abnormality within the region of chronic infarct and without signal loss on ADC map likely representing region of chronic ischemia. 4. Chronic lacunar infarct in the bilateral cerebellum. Chronic lacunar infarcts in the bilateral basal ganglia. 5. Moderate parenchymal volume loss and chronic small vessel ischemic changes. Dictated by José Luis Roberts MD @ 09/28/2024 7:11:17 PM (Electronically Signed)
[2024-09-28 16:44] LABS: C Reactive Protein* 40.3 mg/dL (0.5-1.0)
[2024-09-28 17:15] LABS: RBC Urine 0-2 (0-2); Squamous Epithelial Cell Urine Few (None-Few); WBC Urine 0-2 (0-5)
--- NOTE | 2024-09-28 17:18 | CRLHL7_ITS ---
For Patients: As a result of the Century Cures Act, medical imaging exams and procedure reports are released immediately into your electronic medical record. You may view this report before your referring provider. If you have questions, please contact your health care provider. Indication: POSSIBLE SEPSIS, UNKNOWN SOURCE, FALL Technique: CT chest/abdomen/pelvis with IV contrast utilizing 132 mL Isovue Comparison: Chest CT on May 18, 2024 Findings: Chest: No appreciable thyroid nodules. No thoracic lymphadenopathy. Mediastinal lipomatosis. Cardiomegaly. No pericardial effusion. Coronary artery and aortic valve calcifications. The thoracic aorta is normal in caliber. The main pulmonary artery is dilated to approximately 3.6 centimeters which can be seen with pulmonary arterial hypertension. There is no pulmonary embolism. Focal region of consolidative lung seen along the posterior aspect of the left upper lobe. Trace bibasilar atelectatic changes. No pleural effusion or pneumothorax. Small calcified pleural plaques. No suspicious pulmonary nodules or masses. The airways are clear. Abdomen/pelvis: No suspicious hepatic lesions. Small calcified granuloma in the right hepatic lobe. The gallbladder and biliary system are within normal limits in appearance. The spleen, pancreas, bilateral adrenal glands are within normal limits in appearance. The kidneys perfused in a normal fashion. No suspicious enhancing renal masses or lesions. There is some regions of cortical scarring seen in the right kidney. There are few simple appearing renal cysts bilaterally. Nonobstructing 2 millimeter stone versus vascular calcification at the upper pole of the left kidney. No hydroureteronephrosis. Circumferential bladder wall thickening, likely secondary to underdistention. There is no evidence of bowel obstruction or inflammation. The appendix is normal. No free fluid or free air. No abscess. No abdominopelvic lymphadenopathy. No abdominal aortic aneurysm moderate to severe calcified and noncalcified atherosclerosis of the aortoiliac system and its branches. Soft tissue/musculoskeletal: The soft tissues are without acute abnormality. Moderate-sized bilateral fat containing inguinal hernias. No acute fracture or malalignment. There are few remote, healed left posterolateral rib fractures. There are some degenerative changes seen throughout the spine with severe degenerative disc disease at L5-S1. No suspicious osseous lesions. Impression: 1. Focal region of consolidative lung seen along the posterior aspect of the left upper lobe, favored to represent atelectatic changes. A superimposed infectious/inflammatory process can not be excluded in the appropriate clinical context. 2. Circumferential bladder wall thickening which is likely secondary to underdistention, but can be seen with cystitis, to correlate with urinalysis. 3. There is otherwise no CT evidence of an acute process involving the abdomen or remainder of the pelvis. 4. No acute fracture or malalignment. Please note that all CT scans at this facility use dose modulation, iterative reconstruction, and/or weight-based dosing when appropriate to reduce radiation dose to as low as reasonably achievable. Dictated by Ezio Gruber MD @ 09/28/2024 7:15:33 PM (Electronically Signed)
[2024-09-28] MEDS: dilTIAZem 5 MG/ML inj 10 MG IVP (17:19)
--- NOTE | 2024-09-28 17:23 | ED_ITS ---
HPI - General Adult General Date Seen: 09/28/24 Chief complaint: Altered Mental Status Stated complaint: Fall Time Seen by Provider: 09/28/24 15:32 History of Present Illness HPI narrative: Patient is an 79-year-old male brought in by EMS. History was obtained from EMS and then from his son after he arrived. Patient is not able to provide a lot of history although he seems to answer some questions appropriately. He denies pain. The story from EMS was that he was on the ground for 24 hours. I am not entirely sure if that is accurate. His children are involved in his care, they live on a farm in [place], and he has a son who lives right next to him. That son and another daughter are up in [facility] [employer] [facility] [employer]. Another son is with him here today who has not seen for several weeks, but tells me that his sister saw the patient on Saturday, 2 days ago, and he was normal at that time. At some point between then and now, he seems to have lost the ability to care for himself. The son who is here tells me that home health found him kind of half in the bed and half out of the bed. I do not think it is clear how long he had been that way. He is very clear with me that he did not fall. I am not sure how reliable a historian he is. Past medical history is extensive, includes congestive heart failure, chronic atrial fibrillation, he is not anticoagulated. 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 Medications reviewed. Related Data Home Medications ?Medication ?Instructions ?Recorded ?Confirmed aspirin 81 mg tablet,delayed 324 mg PO DAILY 06/02/24 09/28/24 release (Adult Aspirin Regimen) torsemide 20 mg tablet 60 mg PO DAILY 09/09/24 09/28/24 Previous Rx's ?Medication ?Instructions ?Recorded allopurinol 300 mg tablet 300 mg PO DAILY #90 tabs 04/24/24 metoprolol succinate 50 mg 50 mg PO DAILY #90 tabs 04/24/24 tablet,extended release 24 hr diaper,brief,adult,disposable #32 ea 09/08/24 Allergies Allergy/AdvReac Type Severity Reaction Status Date / Time No Known Drug Allergies Allergy Verified 06/29/24 11:07 Review of Systems Status of ROS: Reports: unobtainable due to mental status [facility] Medical History (Updated 09/29/24 @ 12:34 by Jovanna Perez PA-C) Atrial fibrillation ?I48.91 - Unspecified atrial fibrillation (ICD-10) Peripheral neuropathy ?G62.9 - Polyneuropathy, unspecified (ICD-10) Alcohol use disorder ?F10.90 - Alcohol use, unspecified, uncomplicated (ICD-10) Peripheral arterial disease ?I73.9 - Peripheral vascular disease, unspecified (ICD-10) Chronic obstructive pulmonary disease ?J44.9 - Chronic obstructive pulmonary disease, unspecified (ICD-10) Frailty ?R54 - Age-related physical debility (ICD-10) Dementia ?F03.90 - Unspecified dementia, unspecified severity, without behavioral disturbance, psychotic disturbance, mood disturbance, and anxiety (ICD-10) Pulmonary hypertension ?I27.20 - Pulmonary hypertension, unspecified (ICD-10) Noncompliance with medication regimen ?Z91.148 - Patient's other noncompliance with medication regimen for other reason (ICD-10) At risk for falls ?Z91.81 - History of falling (ICD-10) Foot ulcer, right ?L97.519 - Non-pressure chronic ulcer of other part of right foot with unspecified severity (ICD-10) Obesity ?E66.9 - Obesity, unspecified (ICD-10) Urinary incontinence ?R32 - Unspecified urinary incontinence (ICD-10) Osteoarthritis ?M19.90 - Unspecified osteoarthritis, unspecified site (ICD-10) History of methicillin resistant Staphylococcus aureus infection (04/04/17) ?Z86.14 - Personal history of Methicillin resistant Staphylococcus aureus infection (ICD-10) History of colonic polyps ?Z86.010 - Personal history of colonic polyps (ICD-10) History of alcohol abuse ?F10.11 - Alcohol abuse, in remission (ICD-10) 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 ?M1A.[id number] - Idiopathic chronic gout, unspecified site, without tophus (tophi) (ICD-10) Chronic diastolic congestive heart failure ?I50.32 - Chronic diastolic (congestive) heart failure (ICD-10) Essential hypertension ?I10 - Essential (primary) hypertension (ICD-10) Surgical History History of cataract surgery ?Z98.49 - Cataract extraction status, unspecified eye (ICD-10) 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 Lives alone on [place] farm near [place]. Son was with him today lives nearby and checks on him every day. , 4 kids, retired, former smoker, 3-4 drinks per day. 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 Code status is DNR. What is your current living situation?: I presently have a place to live Problems where you live: no known problems Problems where you live details: N/A In the past 12 months, utilities in danger of being shut off: no In past 12 months, lack of transportation kept you from medical appts, meetings, work, or getting things needed for daily living: no In the past 12 mos, have been you worried that your food would run out before you had money to buy more?: never true In the past 12 mos, the food you bought just didn't last and you didn't have money to buy more?: never true Highest level of school completed/degree received: high school graduate Smoking Status: Former smoker What tobacco products do you use: cigarettes S moking quit date/years: <= 15 years ago Second hand tobacco smoke exposure: No How often do you have a drink containing alcohol: 4 or more times a week Alcohol type: beer How many standard drinks containing alcohol do you have on a typical day: 3 or 4 How often do you have six or more drinks on one occasion: Daily or almost daily AUDIT-C Alcohol total score: 9 Non-prescribed substance use: denies use Caffeine: Yes (Daily coffee drinker) How often does anyone, including family, friends and others, physically hurt you : never How often does anyone, including family, friends and others, insult or talk down to you: never How often does anyone, including family, friends and others, threaten you with harm: never How often does anyone, including family, friends and others, scream or curse at you: never service: No Exam Narrative: Exam Narrative: Vital signs reviewed In general, alert, nontoxic elderly male. Head: Normocephalic, atraumatic. Eyes: Sclera clear. Pupils equal and reactive. ENT: Mucous membranes very dry. Neck: Supple without adenopathy. No stridor. Heart: Tachycardic and regular, no obvious murmur. Lungs: Clear anteriorly. Back: Atraumatic, no wounds. Abdomen: Obese, soft, no significant tenderness. No rebound, guarding or rigidity. Extremities: He has chronic wounds which are clean and well dressed on both feet. There is no surrounding erythema. His toes are all amputated. Neurologic: He is alert and interactive. He is significantly dysarthric which his son says is unusual, and he seems somewhat confused, his speech is fluent but he often is talking about things that are not at all related to what is going on around him. When asked a direct question he sometimes answers appropriately, sometimes answers tangentially. He does follow commands and moves his arms and legs. Skin: Warm, dry, no obvious rashes. Affect: Normal. Const: Vital Signs, click to edit/add: Vital Signs - 24 hr 09/28/24 15:28 09/28/24 15:45 09/28/24 15:50 Temperature 97.9 F Pulse Rate 89 Pulse Rate [Pulse Oximeter] 132 H Respiratory Rate 26 H Blood Pressure Blood Pressure [Le ft Upper Arm] 140/94 H Pulse Oximetry 96 93 Oxygen Delivery Me thod Room Air 09/28/24 16:00 09/28/24 16:10 09/28/24 16:15 Temperature Pulse Rate 119 H Pulse Rate [Pulse Oximeter] Respiratory Rate Blood Pressure Blood Pressure [Le ft Upper Arm] Pulse Oximetry 93 87 L 89 Oxygen Delivery Me thod 09/28/24 16:20 09/28/24 16:24 09/28/24 16:24 Temperature Pulse Rate 139 H Pulse Rate [Pulse Oximeter] Respiratory Rate Blood Pressure 139/104 H Blood Pressure [Le ft Upper Arm] Pulse Oximetry 90 91 91 Oxygen Delivery Me thod 09/28/24 16:25 09/28/24 16:30 09/28/24 16:45 Temperature Pulse Rate 149 H 131 H 123 H Pulse Rate [Pulse Oximeter] Respiratory Rate Blood Pressure Blood Pressure [Le ft Upper Arm] Pulse Oximetry 88 93 91 Oxygen Delivery Me thod 09/28/24 17:00 Temperature Pulse Rate 103 H Pulse Rate [Pulse Oximeter] Respiratory Rate Blood Pressure Blood Pressure [Le ft Upper Arm] Pulse Oximetry 93 Oxygen Delivery Me thod Course Course ED Course: On arrival, patient did have urine and feces on his skin and this was cleaned. He was noted to be hypoxic in the ambulance but this seems to be because of peripheral arterial disease. An O2 sat monitor on his forehead records normal oxygenation. He was markedly tachycardic, in atrial fibrillation. An EKG done on arrival showed atrial fibrillation with a ventricular rate of 132 beats per minute. He did not have marked ST segment changes although he has a little bit of cove depression in the lateral leads and a mm of depression in V3. His blood pressures have been stable to elevated. He is not febrile. An IV was established. He was given initially 500 mL of fluid. I did not want to give significant amounts of fluid out of the gate given his history of congestive heart failure, but he is clearly clinically dehydrated. He has tolerated that 1st 500 mL without hypoxia. His labs are notable for white blood cell count of 13.8. Hemoglobin is 17.5. Venous gas showed a normal pH of 7.41. PCO2 is normal, bicarb is 30. Metabolic panel shows a BUN of 40 and a creatinine of 1.6 which is not far off his baseline. His blood sugar was 183, lactate 3.1. This may be related to hydration or may indicate a component of sepsis. Procalcitonin was 0.76. A UA was ordered and a cath sample was sent. This shows 0-2 red cells and 0-2 white cells with no bacteria. He does have 1+ bilirubin in his urine and has a serum bilirubin which is elevated 2.3. His direct bilirubin is elevated at 1.3 but other LFTs are normal. His CRP is markedly elevated at 40, his BNP is 4930. A chest x-ray by my review showed cardiomegaly but no significant pulmonary edema. Final radiology read is linked below, they note an area which may represent a developing infiltrate but no definitive pneumonia on chest x-ray. Given the markedly elevated CRP, elevated lactate and procalcitonin, it does seem that there may be an infection that we have not yet found. As result, I did order CT of the chest and abdomen. With regard to his dysarthria, I have ordered an MRI. This may represent stroke, hemorrhage, I think less likely to be infectious given the focal finding of dysarthria. I reviewed with patient family that he is fairly ill at this point, recommended admission to the hospital discussed that we are more limited here then a larger facility. His son feels it is appropriate to stay here, manage what we can and will see how he does. Case discussed with Dr. Gilliland, excepted to the hospitalist service. Pending at this time are CT chest abdomen pelvis as well as MRI of the brain.Hospitalist to follow up. Vital Signs Vital signs: Initial Vital Signs Temperature 97.9 F 09/28/24 15:28 Temperature Source Temporal Artery Scan 09/28/24 15:28 Pulse Rate 132 H 09/28/24 15:28 Respiratory Rate 26 H 09/28/24 15:28 Blood Pressure 140/94 H 09/28/24 15:28 Blood Pressure Mean 109 H 09/28/24 15:28 Blood Pressure Position Sitting 09/28/24 15:28 Pulse Oximetry 96 09/28/24 15:28 Oxygen Delivery Method Room Air 09/28/24 15:28 Vital Signs Temperature 97.9 F 09/28/24 15:28 Pulse Rate 132 H 09/28/24 15:28 Respiratory Rate 26 H 09/28/24 15:28 Blood Pressure 140/94 H 09/28/24 15:28 Pulse Oximetry 96 09/28/24 15:28 Oxygen Delivery Method Room Air 09/28/24 15:28 Temperature 97.6 F 09/29/24 22:53 Pulse Rate 89 09/29/24 22:53 Respiratory Rate 22 09/29/24 22:53 Blood Pressure 129/80 09/29/24 22:53 Pulse Oximetry 95 09/29/24 22:53 Oxygen Delivery Method Nasal Cannula 09/29/24 22:53 Oxygen Flow Rate 2 09/29/24 22:53 Medications Administered Medications: Generic Name Dose Route Start Last Admin Trade Name Sunshine PRN Reason Stop Dose Admin Albuterol/Ipratropium 1 neb 09/29/24 12:15 09/30/24 00:20 Iprat-Albut 0.5-2.5 Mg/3 Ml Neb IH 1 neb Q6H EDYTA Administration Enoxaparin Sodium 40 mg 09/28/24 21:00 09/29/24 22:42 Enoxaparin 40 Mg/0.4 Ml Inj SUBCUT 40 mg HS EDYTA Administration Guaifenesin 600 mg 09/29/24 12:15 09/29/24 22:42 Guaifenesin 600 Mg Tab.Er.12h PO 600 mg BID EDYTA Administration Diltiazem HCl 125 mg/ Sodium 125 mls @ 5 mls/hr 09/28/24 20:02 09/29/24 02:12 Chloride IVPB 0 mls/hr .TITRATE EDYTA Infusion Protocol Piperacillin Sod/Tazobactam 100 mls @ 200 mls/hr 09/29/24 00:00 09/30/24 00:21 Sod 3.375 gm/ Sodium Chloride IVPB 200 mls/hr Q6H EDYTA Administration Metoprolol Succinate 50 mg 09/29/24 09:00 09/29/24 09:27 Metoprolol Succinate (Xl) 50 Mg Tab PO 50 mg DAILY EDYTA Administration Prednisone 40 mg 09/29/24 12:35 09/29/24 12:57 Prednisone 20 Mg Tablet PO 40 mg DAILYWM EDYTA Administration Sodium Chloride 5 ml 09/28/24 21:00 09/29/24 22:42 Sodium Chloride 0.9 % (Flush) 10 Ml Syringe IVF 5 ml BID EDYTA Administration Discontinued Medications Generic Name Dose Route Start Last Admin Trade Name Sunshine PRN Reason Stop Dose Admin Diltiazem HCl 10 mg 09/28/24 16:35 09/28/24 17:19 Diltiazem 5 Mg/Ml Inj IVP 09/28/24 16:36 10 mg ONCE ONE Administration Sodium Chloride 500 mls @ 500 mls/hr 09/28/24 15:41 09/28/24 16:27 0.9 % Sodium Chloride 500 Ml IV 09/28/24 16:40 Infused .Q1H ONE Infusion Piperacillin Sod/Tazobactam 100 mls @ 100 mls/hr 09/28/24 16:48 12/30/24 19:26 Sod 3.375 gm/ Sodium Chloride IVPB 09/28/24 16:49 Infused ONCE ONE Infusion Sodium Chloride 500 mls @ 500 mls/hr 09/28/24 16:57 09/28/24 19:26 0.9 % Sodium Chloride 500 Ml IV 09/28/24 17:56 Infused .Q1H ONE Infusion Sodium Chloride 1,000 mls @ 125 mls/hr 09/28/24 20:02 09/29/24 09:27 0.9 % Sodium Chloride 1000 Ml IV Not Given .Q8H EDYTA Sodium Chloride 1,000 mls @ 500 mls/hr 09/28/24 20:02 09/28/24 23:25 0.9 % Sodium Chloride 1000 Ml IV 09/28/24 22:01 Infused .Q2H EDYTA Infusion Metoprolol Tartrate 50 mg 09/28/24 20:02 09/28/24 20:23 Metoprolol Tartrate 50 Mg Tablet PO 09/28/24 20:03 50 mg ONCE ONE Administration Pantoprazole Sodium 40 mg 09/28/24 20:02 09/28/24 20:22 Pantoprazole Sodium 40 Mg Inj IVP 09/28/24 20:03 40 mg ONCE ONE Administration Medical Decision Making Lab Data Labs: Lab Results 09/28/24 09/28/24 09/28/24 Range/Units 13:45 14:15 15:35 WBC (4.50-11.00) K/uL RBC (4.30-5.90) m/uL Hgb (13.5-17.5) gm/dL Hct (37.0-53.0) % MCV (80-100) fL MCH (26-34) pg MCHC (32-36) gm/dL RDW Coeff of Peter (11.5-15.5) % Plt Count (140-440) K/uL Neut % (Auto) (42.0-72.0) % Lymph % (Auto) (20-44) % [place] % (Auto) (0.0-11.0) % Eos % (Auto) (0.0-7.0) % Baso % (Auto) (0.0-3.0) % Neut # (Auto) (1.7-7.0) K/uL Lymph # (Auto) (0.90-2.90) K/uL [place] # (Auto) (0.00-0.90) K/UL Eos # (Auto) (0.00-0.50) K/uL Baso # (Auto) (0.00-0.30) K/uL Abs Immat Gran (auto) (0.00-0.30) K/uL Imm/Tot Granulo (auto) % VBG pH 7.414 (7.32-7.43) VBG pCO2 46 (40-50) mmHG VBG pO2 42.0 (25-47) mmHG VBG HCO3 30 H (21-28) mmol/L Sodium 144 (135-149) mmol/L Potassium 4.1 (3.6-5.1) mmol/L Chloride 104 (96-114) mmol/L Carbon Dioxide 29 (20-32) mmol/L Anion Gap 11 (7-15) mEq/L BUN 40 H (7-30) mg/dL Creatinine 1.6 H (0.5-1.5) mg/dL Estimated Creat Clear 42.10 Estimated GFR 43 ml/min Glucose 183 H (60-115) mg/dL Lactate 3.1 H (0.5-1.9) mmol/L Calcium 9.8 (8.4-10.6) mg/dL Magnesium 2.2 (1.5-2.6) mg/dL Total Bilirubin 2.3 H (0.1-1.5) mg/dL Direct Bilirubin 1.3 H (0.0-0.5) mg/dL AST 31 (12-35) U/L ALT 20 (4-50) U/L Alkaline Phosphatase 76 (40-150) U/L Total Creatine Kinase 300 H (54-186) U/L Troponin I (0.01-0.04) ng/mL C-Reactive Protein 40.3 H (0.5-1.0) mg/dL NT-Pro-B Natriuret Pep 4930 pg/mL Total Protein 8.2 (6.0-8.3) g/dL Albumin 4.0 (3.3-5.0) g/dL Procalcitonin 0.76 H (<0.50) ng/mL Urine Color Nicole A (Yellow) Urine Appearance Clear (Clear) Urine pH 5.5 (5.0-8.5) Ur Specific [place] 1.020 (1.000-1.030) Urine Protein 2+ A (Negative) Urine Glucose (UA) Negative (Negative) Urine Ketones Trace A (Negative) Urine Blood Negative (Negative) Urine Nitrite Negative (Negative) Urine Bilirubin 1+ A (Negative) Urine Urobilinogen 0.2 (0.2-1.0) Ur Leukocyte Esterase Negative (Negative) Urine RBC 0-2 (0-2) Urine WBC 0-2 (0-5) Ur Squamous Epith Cells Few (None-Few) Urine Bacteria None (None) Urine L. pneumophilia Ag L. pneumo Negative (Negative) Urine Strep pneumoniae Ag S. pneumo Negative (Negative) Ethyl Alcohol < 0.01 L (0.01-0.03) % SARS-CoV-2 (PCR) (Negative) Influenza Type A (PCR) (Negative) Influenza Type B (PCR) (Negative) RSV (PCR) (Negative) POC Troponin I 0.02 (0.01-0.04) ng/ml 09/28/24 09/28/24 09/28/24 Range/Units 15:40 15:46 18:32 WBC 13.83 H (4.50-11.00) K/uL RBC 5.96 H (4.30-5.90) m/uL Hgb 17.5 (13.5-17.5) gm/dL Hct 55.9 H (37.0-53.0) % MCV 94 (80-100) fL MCH 29 (26-34) pg MCHC 31 L (32-36) gm/dL RDW Coeff of Peter 15.1 (11.5-15.5) % Plt Count 323 (140-440) K/uL Neut % (Auto) 87.0 H (42.0-72.0) % Lymph % (Auto) 5.3 L (20-44) % Labette % (Auto) 7.4 (0.0-11.0) % Eos % (Auto) 0.0 (0.0-7.0) % Baso % (Auto) 0.1 (0.0-3.0) % Neut # (Auto) 12.00 H (1.7-7.0) K/uL Lymph # (Auto) 0.70 L (0.90-2.90) K/uL [place] # (Auto) 1.00 H (0.00-0.90) K/UL Eos # (Auto) 0.00 (0.00-0.50) K/uL Baso # (Auto) 0.00 (0.00-0.30) K/uL Abs Immat Gran (auto) 0.00 (0.00-0.30) K/uL Imm/Tot Granulo (auto) 0.2 % VBG pH (7.32-7.43) VBG pCO2 (40-50) mmHG VBG pO2 (25-47) mmHG VBG HCO3 (21-28) mmol/L Sodium (135-149) mmol/L Potassium (3.6-5.1) mmol/L Chloride (96-114) mmol/L Carbon Dioxide (20-32) mmol/L Anion Gap (7-15) mEq/L BUN (7-30) mg/dL Creatinine (0.5-1.5) mg/dL Estimated Creat Clear Estimated GFR ml/min Glucose (60-115) mg/dL Lactate 2.0 H (0.5-1.9) mmol/L Calcium (8.4-10.6) mg/dL Magnesium (1.5-2.6) mg/dL Total Bilirubin (0.1-1.5) mg/dL Direct Bilirubin (0.0-0.5) mg/dL AST (12-35) U/L ALT (4-50) U/L Alkaline Phosphatase (40-150) U/L Total Creatine Kinase (54-186) U/L Troponin I 0.05 H (0.01-0.04) ng/mL C-Reactive Protein (0.5-1.0) mg/dL NT-Pro-B Natriuret Pep pg/mL Total Protein (6.0-8.3) g/dL Albumin (3.3-5.0) g/dL Procalcitonin (<0.50) ng/mL Urine Color (Yellow) Urine Appearance (Clear) Urine pH (5.0-8.5) Ur Specific [place] (1.000-1.030) Urine Protein (Negative) Urine Glucose (UA) (Negative) Urine Ketones (Negative) Urine Blood (Negative) Urine Nitrite (Negative) Urine Bilirubin (Negative) Urine Urobilinogen (0.2-1.0) Ur Leukocyte Esterase (Negative) Urine RBC (0-2) Urine WBC (0-5) Ur Squamous Epith Cells (None-Few) Urine Bacteria (None) Urine L. pneumophilia Ag (Negative) Urine Strep pneumoniae Ag (Negative) Ethyl Alcohol (0.01-0.03) % SARS-CoV-2 (PCR) Negative SARS-CoV-2 (Negative) Influenza Type A (PCR) Negative PCR FLU A (Negative) Influenza Type B (PCR) Negative PCR FLU B (Negative) RSV (PCR) Negative PCR RSV (Negative) POC Troponin I (0.01-0.04) ng/ml Imaging Data Chest x-ray: Attestation: I have reviewed the pertinent imaging results. Radiologist's impression: Patient: Ibrahima Rankin Sr MR#: [id number] : 1945 Acct:[id number] Loc: ED Service Date: 09/28/[address]: Ordering Physician: Yenni Rojas M.D. Date of Service: 09/28/24 Procedure(s): XR chest 1V portable Accession Number(s): [id number] cc: Yenni Rojas M.D.; José Luis Arredondo M.D.~ For Patients: As a result of the Century Cures Act, medical imaging exams and procedure reports are released immediately into your electronic medical record. You may view this report before your referring provider. If you have questions, please contact your health care provider. INDICATION: Shortness of breath. TECHNIQUE: Chest 1 views COMPARISON: May 18, 2024 and 2022 FINDINGS: Limitations: Shallow inspiration. Large body habitus. Cardiovascular and mediastinum: [id number] cardiomegaly. Apparent widened mediastinum similar to comparison view Lungs and pleural spaces: Vague increased opacification laterally at the left base with partial silhouetting the left hemidiaphragm. This could be due to superimposed soft tissue markings or a developing infiltrate. Prominent bronchovascular markings. Bones and soft tissues: No significant findings. IMPRESSION: Limited study as noted above. Suggest repeat PA and lateral views for further characterization Dictated by Kartik Girard MD @ 09/28/2024 4:16:00 PM
[2024-09-28] MEDS: PIPERACILLIN/TAZOBACTAM 3.375 GM in 0.9 % SODIUM CHLORIDE Mini-bag 100 ML IVPB ×2 (18:18→23:37)
[2024-09-28 19:36] LABS: Troponin I* 0.05 ng/mL (0.01-0.04)
--- NOTE | 2024-09-28 19:46 | PM.IMHP1 ---
Hospitalist- H&P: HPI History of Present Illness Date Seen: 09/28/24 Chief complaint: Fall Narrative: ADMISSION HISTORY AND PHYSICAL - HOSPITALIST Chief Complaint: Found by home health, half in bed, sliding to floor. Confused. Weak. HPI: 79-year-old Ed is well known to our service. Ed lives alone but on the same property as his son, [id number] and granddaughter. He needs a lot of support given his overall fraility and generally poor health. His past medical history is relevant for dementia, atrial fibrillation without anticoagulation, previous strokes, alcoholism. Today his home health nurse came by to do a visit which typically is either wound management or medication management. He was found incoherent and sliding out of his bed. Apparently there was no fall but there is also no time line for when he was last known well. His son and granddaughter have [place] for the last couple of days. I am not sure if any once has seen him in that time frame. He was brought to the ER for further evaluation by EMS. ER COURSE: He was noted to be in AFib with RVR, meeting criteria for severe sepsis and likely some mild rhabdo. Because of his confusion and weakness he did receive a brain MRI, ledbetter CT scans and started on diltiazem, fluids and antibiotics. CODE STATUS: DNR DNI EMERGENCY CONTACT PLAN: Massiel Ed Rel To Pat Son I've updated the PFSH, medications and allergies in the Expanse tabs. INVESTIGATIONS: LABS/MICRO/ECG/IMAGING Blood pressure is 140/116, 136/103. His pulse rate has been greater than 100 since arrival. Ranging from 111-130. Pulse ox has been 87-90% on room air. We blood cell count is 13.8. 87% neutrophil Hemoglobin 17.5 Platelet count 323. PH 7.4, pCO2 46. Electrolytes are unremarkable. He looks a little pre renal, BUN is 40 and creatinine is 1.6. Baseline creatinine is about 1.2-1.3. GFR is 43. Glucose 183 His BNP is 4900. Lactate 3.1 at 3:30 a.m. this afternoon, follow-up is 2.0 at 6:30 p.m. Total bili is elevated at 2.3 with a direct of 1.3. CK is 300. His troponin is 0.05. His CRP is 40.3. Procalcitonin is 0.76 Urine is dark, trace ketones. 1+ bilirubin. But negative for nitrite and leukocyte esterase. Alcohol level 0 Negative respiratory swab Brain MRI Impression: 1. No acute ischemic infarcts. 2. There is a 3 mm focus of diffusion signal abnormality in the right inferior cerebellum without loss of signal on ADC map likely representing subacute ischemic infarct. 3. Encephalomalacia in the right parietal and posterior temporal cortex with diffusion signal abnormality within the region of chronic infarct and without signal loss on ADC map likely representing region of chronic ischemia. 4. Chronic lacunar infarct in the bilateral cerebellum. Chronic lacunar infarcts in the bilateral basal ganglia. 5. Moderate parenchymal volume loss and chronic small vessel ischemic changes. CT CAP Impression: 1. Focal region of consolidative lung seen along the posterior aspect of the left upper lobe, favored to represent atelectatic changes. A superimposed infectious/inflammatory process can not be excluded in the appropriate clinical context. 2. Circumferential bladder wall thickening which is likely secondary to underdistention, but can be seen with cystitis, to correlate with urinalysis. 3. There is otherwise no CT evidence of an acute process involving the abdomen or remainder of the pelvis. 4. No acute fracture or malalignment. REVIEW OF SYSTEMS: 12-point ROS completed with patient and negative unless otherwise stated in HPI or below. PHYSICAL EXAM: CONSTITUTIONAL: ILL APPEARING. UNKEPT. Incoherent at times. He keeps trying to slide out of bed. GENERAL: Above ideal body weight, in mild respiratory distress with tachypnea. Does not really ask or answer questions. He did ask if it was happy hour. VITAL SIGNS: see record. HEENT: Sclerae are anicteric. No petechiae. CARDIAC: rhythm is irregular. There is no S3 or rub. No harsh murmurs. Extremities show 1+ edema with symmetrical pulses. PULM: good air entry with no wheeze. NEURO: Neuro exam is nonfocal. He is not following directions. He seems confused, incoherent. SKIN: Chronic skin changes consistent with stasis, poor peripheral circulation and poor hygiene PSYCHIATRIC: Euthymic. ADMIT TO MEDSURG: CCU DVT: Lovenox GI: Ppi, p.o. intake if awake Time spent: Today I spent 75 minutes seeing the patient, discussing the patient with ER staff, reviewing Expanse and EPIC notes/diagnostics, discussing the care plan with our care time that includes social work, PT/OT, pharmacy, RT, mcfp and documenting my impressions and plan in the medical record. MEDICAL NECESSITY FOR HOSPITALIZATION Anticipated midnights in the hospital: 2+ Admitting diagnosis: Severe sepsis, AFib with RVR, mild rhabdo Risk of morbidity and mortality: high Acuity is characterized as high and reflected in: This patient at a baseline is in poor health and is non compliant with medications. We have not identified the source of his sepsis. This is possibly a pneumonia. Cardiac arrhythmia, poor peripheral circulation, acute delirium all suggest that this patient is high risk and is being admitted to the CCU. This patient will require hospital services as outlined in the assessment and plan in order to stabilize and be safely discharged to a lower level of care. Because of the risk and acuity as described above, this patient cannot be managed at a lower level of care. LENGTH OF STAY: 2 IP ? Anticipated LOS>2 midnights due to acuity of clinical presentation requiring inpatient level of care [facility] Medical History (Updated 09/28/24 @ 21:18 by Desiree Gilliland MD) Atrial fibrillation ?I48.91 - Unspecified atrial fibrillation (ICD-10) Peripheral neuropathy ?G62.9 - Polyneuropathy, unspecified (ICD-10) Alcohol use disorder ?F10.90 - Alcohol use, unspecified, uncomplicated (ICD-10) Peripheral arterial disease ?I73.9 - Peripheral vascular disease, unspecified (ICD-10) Chronic obstructive pulmonary disease ?J44.9 - Chronic obstructive pulmonary disease, unspecified (ICD-10) Frailty ?R54 - Age-related physical debility (ICD-10) Dementia ?F03.90 - Unspecified dementia, unspecified severity, without behavioral disturbance, psychotic disturbance, mood disturbance, and anxiety (ICD-10) Pulmonary hypertension ?I27.20 - Pulmonary hypertension, unspecified (ICD-10) Noncompliance with medication regimen ?Z91.148 - Patient's other noncompliance with medication regimen for other reason (ICD-10) At risk for falls ?Z91.81 - History of falling (ICD-10) Foot ulcer, right ?L97.519 - Non-pressure chronic ulcer of other part of right foot with unspecified severity (ICD-10) Obesity ?E66.9 - Obesity, unspecified (ICD-10) Urinary incontinence ?R32 - Unspecified urinary incontinence (ICD-10) Osteoarthritis ?M19.90 - Unspecified osteoarthritis, unspecified site (ICD-10) History of methicillin resistant Staphylococcus aureus infection (04/04/17) ?Z86.14 - Personal history of Methicillin resistant Staphylococcus aureus infection (ICD-10) History of colonic polyps ?Z86.010 - Personal history of colonic polyps (ICD-10) History of alcohol abuse ?F10.11 - Alcohol abuse, in remission (ICD-10) 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 ?[id number].[id number] - Idiopathic chronic gout, unspecified site, without tophus (tophi) (ICD-10) Chronic diastolic congestive heart failure ?I50.32 - Chronic diastolic (congestive) heart failure (ICD-10) Essential hypertension ?I10 - Essential (primary) hypertension (ICD-10) Surgical History History of cataract surgery ?Z98.49 - Cataract extraction status, unspecified eye (ICD-10) 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 Son was with him today lives nearby and checks on him every day. , 4 kids, retired, former smoker, 3-4 drinks per day. Healthcare power of contracts attorney would be all of his children. Code status is DNR. What is your current living situation?: I presently have a place to live Problems where you live: no known problems Problems where you live details: N/A In the past 12 months, utilities in danger of being shut off: no In past 12 months, lack of transportation kept you from medical appts, meetings, work, or getting things needed for daily living: no In the past 12 mos, have been you worried that your food would run out before you had money to buy more?: never true In the past 12 mos, the food you bought just didn't last and you didn't have money to buy more?: never true Highest level of school completed/degree received: high school graduate Smoking Status: Former smoker What tobacco products do you use: cigarettes Smoking quit date/years: <= 15 years ago Nicotine containing products detail: 1 cigarette/week Second hand tobacco smoke exposure: No How often do you have a drink containing alcohol: 4 or more times a week Alcohol type: beer How many standard drinks containing alcohol do you have on a typical day: 3 or 4 How often do you have six or more drinks on one occasion: Daily or almost daily AUDIT-C Alcohol total score: 9 Non-prescribed substance use: denies use Caffeine: Yes (Daily coffee drinker) How often does anyone, including family, friends and others, physically hurt you: never How often does anyone, including family, friends and others, insult or talk down to you: never How often does anyone, including family, friends and others, threaten you with harm: never How often does anyone, including family, friends and others, scream or curse at you: never service: No Meds Home Medications and Allergies Home Medications ?Medication ?Instructions ?Recorded ?Confirmed ?Type aspirin 81 mg tablet,delayed 324 mg PO DAILY 06/02/24 09/28/24 History release (Adult Aspirin Regimen) torsemide 20 mg tablet 60 mg PO DAILY 09/09/24 09/28/24 History Allergies Allergy/AdvReac Type Severity Reaction Status Date / Time No Known Drug Allergies Allergy Verified 06/29/24 11:07 Exam Const: Vital Signs, click to edit/add: Vital Signs - 24 hr 09/28/24 15:28 09/28/24 15:45 09/28/24 15:50 Temperature 97.9 F Pulse Rate 89 Pulse Rate [Pulse Oximeter] 132 H Respiratory Rate 26 H Blood Pressure Blood Pressure [Le ft Upper Arm] 140/94 H Pulse Oximetry 96 93 Oxygen Delivery Me thod Room Air 09/28/24 16:00 09/28/24 16:10 09/28/24 16:15 Temperature Pulse Rate 119 H Pulse Rate [Pulse Oximeter] Respiratory Rate Blood Pressure Blood Pressure [Le ft Upper Arm] Pulse Oximetry 93 87 L 89 Oxygen Delivery [facility] 09/28/24 16:20 09/28/24 16:24 09/28/24 16:24 Temperature Pulse Rate 139 H Pulse Rate [Pulse Oximeter] Respiratory Rate Blood Pressure 139/104 H Blood Pressure [Le ft Upper Arm] Pulse Oximetry 90 91 91 Oxygen Delivery [facility] 09/28/24 16:25 09/28/24 16:30 09/28/24 16:45 Temperature Pulse Rate 149 H 131 H 123 H Pulse Rate [Pulse Oximeter] Respiratory Rate Blood Pressure Blood Pressure [Le ft Upper Arm] Pulse Oximetry 88 93 91 Oxygen Delivery [facility] 09/28/24 17:00 09/28/24 17:15 09/28/24 17:20 Temperature Pulse Rate 103 H 100 103 H Pulse Rate [Pulse Oximeter] Respiratory Rate Blood Pressure 136/103 H Blood Pressure [Le ft Upper Arm] Pulse Oximetry 93 92 90 Oxygen Delivery [facility] 09/28/24 17:21 09/28/24 18:22 09/28/24 18:24 Temperature Pulse Rate 118 H 117 H 110 H Pulse Rate [Pulse Oximeter] Respiratory Rate Blood Pressure 140/116 H Blood Pressure [Le ft Upper Arm] Pulse Oximetry 93 90 89 Oxygen Delivery [facility] 09/28/24 18:30 09/28/24 18:45 09/28/24 19:00 Temperature Pulse Rate 111 H 102 H 116 H Pulse Rate [Pulse Oximeter] Respiratory Rate Blood Pressure Blood Pressure [Le ft Upper Arm] Pulse Oximetry 87 L 92 Oxygen Delivery [facility] 09/28/24 19:15 Temperature Pulse Rate 130 H Pulse Rate [Pulse Oximeter] Respiratory Rate Blood Pressure Blood Pressure [Le ft Upper Arm] Pulse Oximetry 89 [facility]: Result Labs Labs: Short CBC 09/28/24 Range/Units 15:40 WBC 13.83 H (4.50-11.00) K/uL Hgb 17.5 (13.5-17.5) gm/dL Hct 55.9 H (37.0-53.0) % Plt Count 323 (140-440) K/uL BMP 09/28/24 13:45 Sodium 144 Potassium 4.1 Chloride 104 Carbon Dioxide 29 BUN 40 H Creatinine 1.6 H Glucose 183 H Calcium 9.8 Cardiac Enzymes 09/28/24 Range/Units 13:45 Total Creatine Kinase 300 H (54-186) U/L Liver Function 09/28/24 Range/Units 13:45 Total Bilirubin 2.3 H (0.1-1.5) mg/dL Direct Bilirubin 1.3 H (0.0-0.5) mg/dL AST 31 (12-35) U/L ALT 20 (4-50) U/L Alkaline Phosphatase 76 (40-150) U/L Albumin 4.0 (3.3-5.0) g/dL Urine 09/28/24 Range/Units 14:15 Urine Color Nicole A (Yellow) Urine Appearance Clear (Clear) Urine pH 5.5 (5.0-8.5) Ur Specific [place] 1.020 (1.000-1.030) Urine Protein 2+ A (Negative) Urine Glucose (UA) Negative (Negative) Assessment and Plan Assessment and plan (1) Atrial fibrillation with RVR: Problem comment: -p.o. metoprolol, IV Dilt protocol -ECG reviewed. Troponin is 0.05, mild JAYLAN. Will trend. Status: Acute (2) Severe sepsis: Problem comment: -source is yet to be determined. He meets severe sepsis given his heart rate, respiratory rate, white blood cell count. He meets organ dysfunction based on his lactate, bilirubin. We have CAP CT and brain MRI. Possible left upper lobe pneumonia, however radiology felt this favored atelectatic changes. -continue Zosyn. Blood culture pending. Support patient through sepsis. -2 Liters NS given and lactate has decreased. Must balance his poor EF (known CHF and current AFIB RVR) with amount of fluid and time over which boluses are given. Status: Acute (3) Rhabdomyolysis: Problem comment: -elevated CK and lactate. Confused. Elevated creatinine from baseline. Fluids and continue to monitor. Status: Acute (4) Alcohol use disorder: Problem comment: Daily beer drinker. Status: Acute (5) Chronic diastolic congestive heart failure: Problem comment: Ejection fraction 35%. Refuses cardiology follow-up. Status: Acute (6) Chronic obstructive pulmonary disease: Problem comment: -continue home meds and good pulmonary support. Status: Acute (7) Peripheral arterial disease: Problem comment: Has refused revascularization Status: Acute (8) Dementia: Problem comment: [place] on 05/20/2024 was 13/30. This is consistent with a score he had in March Status: Acute (9) Urinary incontinence: Problem comment: Urine staining of clothing. Chronic incontinence at home Previous bladder scan confirms no urinary retention. arriola placed to guide therapies thru sepsis Status: Acute (10) Frailty: Problem comment: Therapists recommending higher level of care with more supervision. Patient adamantly declines this. Family indicates that they are going to respect his wishes in this regard Status: Acute
[2024-09-28] MEDS: PANTOPRAZOLE SODIUM 40 MG INJ IVP (20:22)
[2024-09-28] MEDS: 0.9 % SODIUM CHLORIDE 1000 ml 1,000 ML 125 ML IV (20:22)
[2024-09-28] MEDS: ENOXAPARIN 40 MG/0.4 ML INJ SUBCUT (20:22)
[2024-09-28] MEDS: 0.9 % SODIUM CHLORIDE 1000 ml 1,000 ML 500 ML IV (20:22)
[2024-09-28] MEDS: METOPROLOL TARTRATE 50 MG TABLET PO (20:23)
[2024-09-28] MEDS: SODIUM CHLORIDE 0.9 % (FLUSH) 10 ML SYRINGE 5 ML IVF (20:23)
[2024-09-28] MEDS: dilTIAZem HCL 125 MG in 0.9 % SODIUM CHLORIDE 100 ml 100 ML IVPB (21:05)
[2024-09-28 22:48] LABS: Legionella pneumo Ag Urine L. pneumo Negative (Negative); S pneumo Ag Urine S. pneumo Negative (Negative)
[2024-09-29] VITALS (22 sets, daily range): BP systolic 106–137; BP diastolic 62–100; PULSE 71–105; RESP 16–32; TEMP 36.4–36.9; O2SAT 72–97; BMI 30.7
[2024-09-29] MEDS: PIPERACILLIN/TAZOBACTAM 3.375 GM in 0.9 % SODIUM CHLORIDE Mini-bag 100 ML IVPB ×3 (05:41→18:26)
[2024-09-29 06:28] LABS: HCO3 VBG 29 mmol/L (21-28); Lactate* 1.3 mmol/L (0.5-1.9); PCO2 VBG 48 mmHG (40-50); PO2 VBG 50.9 mmHG (25-47); pH VBG 7.388 (7.32-7.43)
[2024-09-29 06:33] LABS: Basophils Absolute Auto 0.03 K/uL (0.00-0.30); Basophils Percent Auto 0.3 % (0.0-3.0); Eosinophils Absolute Auto 0.08 K/uL (0.00-0.50); Eosinophils Percent Auto 0.7 % (0.0-7.0); Hematocrit 47.1 % (37.0-53.0); Hemoglobin* 14.7 gm/dL (13.5-17.5); Immature Granulocytes Abs Auto 0.01 K/uL (0.00-0.30); Immature Granulocytes Pct Auto 0.1 %; Lymphocytes Percent Auto 10.2 % (20-44); Mean Corpuscular HGB Conc 31 gm/dL (32-36); Mean Corpuscular Hemoglobin 29 pg (26-34); Mean Corpuscular Volume 94 fL (80-100); Monocytes Percent Auto 7.2 % (0.0-11.0); Neutrophils Percent Auto 81.5 % (42.0-72.0); Platelet Count* 274 K/uL (140-440); RDW Coefficient of Variation % 14.8 % (11.5-15.5)
[2024-09-29 06:43] LABS: Slide Review Reflex No
[2024-09-29 06:53] LABS: Albumin* 3.2 g/dL (3.3-5.0); Chloride* 107 mmol/L (96-114)
[2024-09-29 06:54] LABS: Sodium* 144 mmol/L (135-149)
[2024-09-29 06:55] LABS: Potassium* 3.6 mmol/L (3.6-5.1)
[2024-09-29 06:56] LABS: Creatinine* 1.6 mg/dL (0.5-1.5); Estimated Glomerular Filt Rate 43 ml/min
[2024-09-29 06:57] LABS: Alanine Aminotransferase* 14 U/L (4-50); Alkaline Phosphatase* 57 U/L (40-150); Anion Gap 9 mEq/L (7-15); Aspartate Amino Transferase* 24 U/L (12-35); Bilirubin Total* 1.6 mg/dL (0.1-1.5); Blood Urea Nitrogen* 44 mg/dL (7-30); Calcium* 8.7 mg/dL (8.4-10.6); Carbon Dioxide* 28 mmol/L (20-32); Creatine Kinase* 203 U/L (54-186); Gamma Glutamyl Transpeptidase* 53 U/L (8-55); Glucose* 129 mg/dL (60-115); Lipase* 23 U/L (23-300); Phosphorus* 4.8 mg/dL (2.5-4.5); Total Protein* 6.6 g/dL (6.0-8.3)
--- NOTE | 2024-09-29 07:01 | PC.NURSE ---
Oriented to self. Upon arrival to the floor, pt was confused & minimally cooperative.?Pt was asking staff to bring him a beer, he also asked if it was happy hour ? wanted to go to a local bar in [place]. Pt was pulling at lines, tele wires, arriola,?Pt did d/c own IV line, cath intact. Pt attempted to get out of bed several times, stated he was leaving. Blood Collector attempted to reorient pt. Once pt was settled ? arriola in, IV meds started, HS meds given & assessments performed - he did calm down & was able to get some rest while watching TV. Speech is garbled, difficult to comprehend at times. Pt was on Dilt drip from [id number] at a rate of 5ml/hr. Since d/c of Dilt - >?HR 70s-90s. SBP 110s-120s. RR 20s, shallow breaths. Using forehead O2 monitor, sats >90% on RA. Occasional moist cough, encouraging TCDB and to spit out sputum that may come up. Arriola patent and draining light jorge colored urine. ?
[2024-09-29 07:08] LABS: Troponin I* 0.05 ng/mL (0.01-0.04)
[2024-09-29 07:13] LABS: Procalcitonin* 0.93 ng/mL (<0.50)
[2024-09-29 08:25] LABS: C Reactive Protein* 34.9 mg/dL (0.5-1.0)
[2024-09-29] MEDS: METOPROLOL SUCCINATE (XL) 50 MG TAB PO (09:27)
--- NOTE | 2024-09-29 12:06 | PM.IMPN1 ---
Progress Note: A&P Assessment and plan (1) Severe sepsis: Problem details: -Meets severe sepsis given his heart rate, respiratory rate, white blood cell count. He meets organ dysfunction based on his lactate, bilirubin. -CTA chest abdomen pelvis shows focal regional consolidative lung left upper lobe atelectatic, superimposed infectious/inflammatory process unable to be excluded. Bladder wall thickening -procalcitonin 0.76 on admission increased to 0.93. UA rather unremarkable. CRP trending down. Suspect CAP as source -continue Zosyn. Blood culture pending. -2 Liters NS given and lactate has decreased. Must balance his poor EF (known CHF and current AFIB RVR) with amount of fluid and time over which boluses are given. Status: Acute (2) Community acquired pneumonia: Problem details: -CTA chest abdomen pelvis shows focal regional consolidative lung left upper lobe atelectatic, superimposed infectious/inflammatory process unable to be excluded -procalcitonin 0.76 -> 0.93, strep pneumo/Legionella negative, triple swab negative -continue Zosyn -Mucinex b.i.d., aerobika, incentive spirometry, nebs, home inhalers, prednisone given history of COPD Status: Acute (3) Acute hypoxic respiratory failure: Problem details: -oxygen saturation 85% in ED, in setting of acute community-acquired pneumonia, atrial fibrillation with RVR, COPD -CT negative for PE -management as above Status: Acute (4) Atrial fibrillation with RVR: Problem details: -chronic, not anticoagulated -admitted to unit on IV diltiazem drip - now rate controlled, IV drip discontinued -ECG reviewed. Troponin is 0.05 -> unchanged, mild JAYLAN -continue oral metoprolol, enoxaparin for anticoagulation Status: Acute (5) Rhabdomyolysis: Problem details: -elevated CK and lactate. Confused. Elevated creatinine from baseline. Fluids and continue to monitor. -CK down trending, lactate resolved, creatinine stable Status: Acute (6) Alcohol use disorder: Problem details: -Daily beer drinker. ETOH <0.01. Monitor Status: Acute (7) Chronic diastolic congestive heart failure: Problem details: -Ejection fraction 35%. Had been prescribed torsemide. Medication noncompliance. Refuses cardiology follow-up. Status: Acute (8) Chronic obstructive pulmonary disease: Problem details: -continue home meds and good pulmonary support -prednisone 40 mg x 5 days Status: Acute (9) Peripheral arterial disease: Problem details: -Has refused revascularization Status: Acute (10) Dementia: Problem details: -[place] on 05/20/2024 was 13/30. This is consistent with a score he had in March -PT/OT consult. patient financial services coordinator for discharge planning/placement needs - eventually long-term would likely be safest Status: Acute (11) Urinary incontinence: Problem details: Urine staining of clothing. Chronic incontinence at home Previous bladder scan confirms no urinary retention. arriola placed to guide therapies thru sepsis UA rather unremarkable Status: Acute (12) Frailty: Problem details: Therapists recommending higher level of care with more supervision. Patient adamantly declines this. Family indicates that they are going to respect his wishes in this regard PT/OT, social service technician consults Status: Acute (13) Foot ulcer, right: Problem details: Continue wound cares Sees Dr. Sanchez regularly Status: Chronic Time Spent With Patient Total time spent: Total time spent caring for the patient today was 75 minutes. This includes time spent for the visit reviewing the chart, time spent during the visit, time spent after the visit and documentation and planning in coordination of care. Subjective Date Seen: 09/29/24 Interval history: Patient is seen with daughter at bedside. Sitting up in a chair by the window. Confused, no meaningful conversation. Tells me he has no headache. Denies chest pain. Remains afebrile. Mildly tachypneic. RVR resolved, now off of diltiazem drip. Leukocytosis down trending. CRP downtrending. Creatinine stable. Bili down trending. CK down trending Exam Narrative: Exam Narrative: PHYSICAL EXAM General: Sitting up, no meaningful conversation, NAD HEENT: Normocephalic, atraumatic, sclera white, EOMI Cardiovascular: IRRR, S1S2. Mild pitting edema Pulmonary: Diffusely diminished mild expiratory wheezes. Mild dyspnea dyspnea Abdominal: Soft, nondistended, NTTP Neurological: Alert, confused, cranial nerves intact, no focal findings Extremities: No gross joint deformity or swelling. AROMI. Neurovascularly intact Skin: Warm, dry. Const: Vital Signs, click to edit/add: Vital Signs - 24 hr 09/28/24 15:28 09/28/24 15:45 09/28/24 15:50 Temperature 97.9 F Pulse Rate 89 Pulse Rate [Pulse Oximeter] 132 H Respiratory Rate 26 H Blood Pressure Blood Pressure [Le ft Arm] Blood Pressure [Le ft Upper Arm] 140/94 H Pulse Oximetry 96 93 Oxygen Delivery Me thod Room Air 09/28/24 16:00 09/28/24 16:10 09/28/24 16:15 Temperature Pulse Rate 119 H Pulse Rate [Pulse Oximeter] Respiratory Rate Blood Pressure Blood Pressure [Le ft Arm] Blood Pressure [Le ft Upper Arm] Pulse Oximetry 93 87 L 89 Oxygen Delivery Me thod 09/28/24 16:20 09/28/24 16:24 09/28/24 16:24 Temperature Pulse Rate 139 H Pulse Rate [Pulse Oximeter] Respiratory Rate Blood Pressure 139/104 H Blood Pressure [Le ft Arm] Blood Pressure [Le ft Upper Arm] Pulse Oximetry 90 91 91 Oxygen Delivery Me thod 09/28/24 16:25 09/28/24 16:30 09/28/24 16:45 Temperature Pulse Rate 149 H 131 H 123 H Pulse Rate [Pulse Oximeter] Respiratory Rate Blood Pressure Blood Pressure [Le ft Arm] Blood Pressure [Le ft Upper Arm] Pulse Oximetry 88 93 91 Oxygen Delivery Me thod 09/28/24 17:00 09/28/24 17:15 09/28/24 17:20 Temperature Pulse Rate 103 H 100 103 H Pulse Rate [Pulse Oximeter] Respiratory Rate Blood Pressure 136/103 H Blood Pressure [Le ft Arm] Blood Pressure [Le ft Upper Arm] Pulse Oximetry 93 92 90 Oxygen Delivery Me thod 09/28/24 17:21 09/28/24 18:22 09/28/24 18:24 Temperature Pulse Rate 118 H 117 H 110 H Pulse Rate [Pulse Oximeter] Respiratory Rate Blood Pressure 140/116 H Blood Pressure [Le ft Arm] Blood Pressure [Le ft Upper Arm] Pulse Oximetry 93 90 89 Oxygen Delivery Me thod 09/28/24 18:30 09/28/24 18:45 09/28/24 19:00 Temperature Pulse Rate 111 H 102 H 116 H Pulse Rate [Pulse Oximeter] Respiratory Rate Blood Pressure Blood Pressure [Le ft Arm] Blood Pressure [Le ft Upper Arm] Pulse Oximetry 87 L 92 Oxygen Delivery Me thod 09/28/24 19:15 09/28/24 19:20 09/28/24 19:58 Temperature Pulse Rate 130 H 118 H Pulse Rate [Pulse Oximeter] 122 H Respiratory Rate 24 Blood Pressure Blood Pressure [Le ft Arm] 132/86 Blood Pressure [Le ft Upper Arm] Pulse Oximetry 89 91 Oxygen Delivery Me thod Room Air 09/28/24 20:02 09/28/24 20:02 09/28/24 21:11 Temperature Pulse Rate Pulse Rate [Pulse Oximeter] 115 H Respiratory Rate Blood Pressure Blood Pressure [Le ft Arm] 125/89 Blood Pressure [Le ft Upper Arm] Pulse Oximetry 91 91 Oxygen Delivery Me thod Room Air Room Air 09/28/24 21:36 09/28/24 21:45 09/28/24 21:51 Temperature Pulse Rate Pulse Rate [Pulse Oximeter] 108 H 102 H Respiratory Rate 24 Blood Pressure Blood Pressure [Le ft Arm] 131/89 117/75 Blood Pressure [Le ft Upper Arm] Pulse Oximetry 95 Oxygen Delivery Me thod Room Air 09/28/24 22:00 09/28/24 22:15 09/28/24 22:30 Temperature Pulse Rate Pulse Rate [Pulse Oximeter] 92 94 87 Respiratory Rate Blood Pressure Blood Pressure [Le ft Arm] 117/81 119/72 138/98 H Blood Pressure [Le ft Upper Arm] Pulse Oximetry Oxygen Delivery Me thod 09/28/24 22:45 09/28/24 23:00 09/28/24 23:00 Temperature Pulse Rate Pulse Rate [Pulse Oximeter] 101 H 82 Respiratory Rate 24 Blood Pressure Blood Pressure [Le ft Arm] 116/80 127/85 Blood Pressure [Le ft Upper Arm] Pulse Oximetry 95 Oxygen Delivery Me thod 09/28/24 23:15 09/28/24 23:29 09/28/24 23:30 Temperature Pulse Rate 75 Pulse Rate [Pulse Oximeter] 89 76 Respiratory Rate Blood Pressure Blood Pressure [Le ft Arm] 126/10 L 118/87 Blood Pressure [Le ft Upper Arm] Pulse Oximetry 96 Oxygen Delivery Me thod Room Air 09/28/24 23:45 09/29/24 00:00 09/29/24 00:15 Temperature Pulse Rate Pulse Rate [Pulse Oximeter] 85 82 Respiratory Rate Blood Pressure Blood Pressure [Le ft Arm] 131/62 119/65 113/65 Blood Pressure [Le ft Upper Arm] Pulse Oximetry Oxygen Delivery Me thod Room Air 09/29/24 00:30 09/29/24 00:45 09/29/24 01:00 Temperature Pulse Rate Pulse Rate [Pulse Oximeter] 85 80 76 Respiratory Rate Blood Pressure Blood Pressure [Le ft Arm] 119/68 112/62 120/69 Blood Pressure [Le ft Upper Arm] Pulse Oximetry Oxygen Delivery Me thod 09/29/24 02:00 09/29/24 02:48 09/29/24 03:00 Temperature 97.9 F Pulse Rate 89 Pulse Rate [Pulse Oximeter] 82 89 Respiratory Rate 24 24 Blood Pressure Blood Pressure [Le ft Arm] 109/71 114/95 H Blood Pressure [Le ft Upper Arm] Pulse Oximetry 94 [facility] 09/[facility]/24 03:00 09/29/24 04:03 09/29/24 05:07 Temperature 97.6 F Pulse Rate Pulse Rate [Pulse Oximeter] 71 71 73 Respiratory Rate 24 24 24 Blood Pressure Blood Pressure [Le ft Arm] 106/68 135/100 H Blood Pressure [Le ft Upper Arm] Pulse Oximetry 97 [facility] 09/29/24 06:09 09/29/24 07:01 09/29/24 08:00 Temperature 97.5 F L Pulse Rate 94 Pulse Rate [Pulse Oximeter] 94 97 Respiratory Rate 24 24 Blood Pressure Blood Pressure [Le ft Arm] 122/76 119/80 Blood Pressure [Le ft Upper Arm] Pulse Oximetry 95 90 [facility] 09/29/24 08:00 09/29/24 08:00 09/29/24 08:50 Temperature Pulse Rate Pulse Rate [Pulse Oximeter] 97 Respiratory Rate 24 26 H Blood Pressure Blood Pressure [Le ft Arm] Blood Pressure [Le ft Upper Arm] Pulse Oximetry 90 85 L [facility] 09/29/24 10:39 Temperature 98.5 F Pulse Rate Pulse Rate [Pulse Oximeter] 105 H Respiratory Rate 32 H Blood Pressure Blood Pressure [Le ft Arm] Blood Pressure [Le ft Upper Arm] Pulse Oximetry 90 [facility] Labs Labs: Laboratory Results - last 24 hr 09/28/24 09/28/24 09/28/24 13:45 14:15 15:35 WBC RBC Hgb Hct MCV MCH MCHC RDW Coeff of Peter Plt Count Neut % (Auto) Lymph % (Auto) [place] % (Auto) Eos % (Auto) Baso % (Auto) Neut # (Auto) Lymph # (Auto) [place] # (Auto) Eos # (Auto) Baso # (Auto) Abs Immat Gran (auto) Imm/Tot Granulo (auto) VBG pH 7.414 VBG pCO2 46 VBG pO2 42.0 VBG HCO3 30 H Sodium 144 Potassium 4.1 Chloride 104 Carbon Dioxide 29 Anion Gap 11 BUN 40 H Creatinine 1.6 H Estimated Creat Clear 42.10 Estimated GFR 43 Glucose 183 H Lactate 3.1 H Calcium 9.8 Phosphorus Magnesium 2.2 Total Bilirubin 2.3 H Direct Bilirubin 1.3 H GGT AST 31 ALT 20 Alkaline Phosphatase 76 Total Creatine Kinase 300 H Troponin I C-Reactive Protein 40.3 H NT-Pro-B Natriuret Pep 4930 Total Protein 8.2 Albumin 4.0 Lipase Procalcitonin 0.76 H TSH Urine Color Nicole A Urine Appearance Clear Urine pH 5.5 Ur Specific [place] 1.020 Urine Protein 2+ A Urine Glucose (UA) Negative Urine Ketones Trace A Urine Blood Negative Urine Nitrite Negative Urine Bilirubin 1+ A Urine Urobilinogen 0.2 Ur Leukocyte Esterase Negative Urine RBC 0-2 Urine WBC 0-2 Ur Squamous Epith Cells Few Urine Bacteria None Urine L. pneumophilia Ag L. pneumo Negative Urine Strep pneumoniae Ag S. pneumo Negative Ethyl Alcohol < 0.01 L SARS-CoV-2 (PCR) Influenza Type A (PCR) Influenza Type B (PCR) RSV (PCR) Lab Acknowledgement POC Troponin I 0.02 09/28/24 09/28/24 09/28/24 15:40 15:46 18:32 WBC 13.83 H RBC 5.96 H Hgb 17.5 Hct 55.9 H MCV 94 MCH 29 MCHC 31 L RDW Coeff of Peter 15.1 Plt Count 323 Neut % (Auto) 87.0 H Lymph % (Auto) 5.3 L [place] % (Auto) 7.4 Eos % (Auto) 0.0 Baso % (Auto) 0.1 Neut # (Auto) 12.00 H Lymph # (Auto) 0.70 L [place] # (Auto) 1.00 H Eos # (Auto) 0.00 Baso # (Auto) 0.00 Abs Immat Gran (auto) 0.00 Imm/Tot Granulo (auto) 0.2 VBG pH VBG pCO2 VBG pO2 VBG HCO3 Sodium Potassium Chloride Carbon Dioxide Anion Gap BUN Creatinine Estimated Creat Clear Estimated GFR Glucose Lactate 2.0 H Calcium Phosphorus Magnesium Total Bilirubin Direct Bilirubin GGT AST ALT Alkaline Phosphatase Total Creatine Kinase Troponin I 0.05 H C-Reactive Protein NT-Pro-B Natriuret Pep Total Protein Albumin Lipase Procalcitonin TSH Urine Color Urine Appearance Urine pH Ur Specific [place] Urine Protein Urine Glucose (UA) Urine Ketones Urine Blood Urine Nitrite Urine Bilirubin Urine Urobilinogen Ur Leukocyte Esterase Urine RBC Urine WBC Ur Squamous Epith Cells Urine Bacteria Urine L. pneumophilia Ag Urine Strep pneumoniae Ag Ethyl Alcohol SARS-CoV-2 (PCR) Negative SARS-CoV-2 Influenza Type A (PCR) Negative PCR FLU A Influenza Type B (PCR) Negative PCR FLU B RSV (PCR) Negative PCR RSV Lab Acknowledgement POC Troponin I 09/28/24 09/29/24 20:59 06:03 WBC 10.90 RBC 5.00 Hgb 14.7 Hct 47.1 MCV 94 MCH 29 MCHC 31 L RDW Coeff of Peter 14.8 Plt Count 274 Neut % (Auto) 81.5 H Lymph % (Auto) 10.2 L [place] % (Auto) 7.2 Eos % (Auto) 0.7 Baso % (Auto) 0.3 Neut # (Auto) 8.90 H Lymph # (Auto) 1.10 [place] # (Auto) 0.80 Eos # (Auto) 0.08 Baso # (Auto) 0.03 Abs Immat Gran (auto) 0.01 Imm/Tot Granulo (auto) 0.1 VBG pH 7.388 VBG pCO2 48 VBG pO2 50.9 H VBG HCO3 29 H Sodium 144 Potassium 3.6 Chloride 107 Carbon Dioxide 28 Anion Gap 9 BUN 44 H Creatinine 1.6 H Estimated Creat Clear 42.10 Estimated GFR 43 Glucose 129 H Lactate 1.3 Calcium 8.7 Phosphorus 4.8 H Magnesium Total Bilirubin 1.6 H Direct Bilirubin 1.0 H GGT 53 AST 24 ALT 14 Alkaline Phosphatase 57 Total Creatine Kinase 203 H Troponin I 0.05 H C-Reactive Protein 34.9 H NT-Pro-B Natriuret Pep Total Protein 6.6 Albumin 3.2 L Lipase 23 Procalcitonin 0.93 H TSH 1.800 Urine Color Urine Appearance Urine pH Ur Specific [place] Urine Protein Urine Glucose (UA) Urine Ketones Urine Blood Urine Nitrite Urine Bilirubin Urine Urobilinogen Ur Leukocyte Esterase Urine RBC Urine WBC Ur Squamous Epith Cells Urine Bacteria Urine L. pneumophilia Ag Urine Strep pneumoniae Ag Ethyl Alcohol SARS-CoV-2 (PCR) Influenza Type A (PCR) Influenza Type B (PCR) RSV (PCR) Lab Acknowledgement Test Added POC Troponin I
--- NOTE | 2024-09-29 12:43 | PC.SOCIAL ---
Addendum entered by KINGSLEY Landin 09/29/24 16:46: Discharge planning: icebox worker spoke to pt's son, Juan, this afternoon about the recommendation for pt to go to a short-term rehab facility at discharge from the hospital. icebox worker has not been able to talk to the pt today due to him being very sleepy and not able to stay awake. icebox worker will plan to check in with Juan on morning after rounds, as he shared that he will be at the hospital visiting his dad at that time. Juan would like to see how his dad progresses over the next day with PT/OT, as far as his moving, etc. in regard to SNF placement for rehab, but does understand that it would be good for him to go to work on getting stronger. icebox worker will update Yaima Lewis at [facility] about the conversation this worker had with pt's son, Juan. Social work to follow-up as needed. Original Note: Discharge planning: icebox worker received a message from Yaima Lewis #[phone] with [facility]. Yaima stated that she received a Vulnerable Adult report on the pt for concerns of him not being able to care for himself at home. Yaima would like to be updated with discharge plans as they progress. Right now it looks like PT is recommending the pt do short-term rehab at discharge. Social work to follow-up as needed.
[2024-09-29] MEDS: predniSONE 20 MG TABLET 40 MG PO (12:57)
[2024-09-29] MEDS: guaiFENesin 600 MG TAB.ER.12H PO ×2 (12:57→22:42)
[2024-09-29] MEDS: IPRAT-ALBUT 0.5-2.5 MG/3 ML NEB 1 NEB IH ×2 (12:58→18:26)
--- NOTE | 2024-09-29 17:43 | PC.NURSE ---
end of shift. pt has been pleasant but very confused. Oriented to self. but did get better later in the day. Pt is still pulling at tele wires, [place],?. Speech is garbled, difficult to comprehend at times. [place] patent and draining light jorge colored urine. ?he is drinking water. [place] has been patent. he is up with 2 assist to chair but we needed to use ez stand to get back to bed. PT and OT work with him. he was not hungry, he did not want anything to eat. tele is afib.
[2024-09-29] MEDS: ENOXAPARIN 40 MG/0.4 ML INJ SUBCUT (22:42)
[2024-09-29] MEDS: SODIUM CHLORIDE 0.9 % (FLUSH) 10 ML SYRINGE 5 ML IVF (22:42)
[2024-09-30] VITALS (7 sets, daily range): BP systolic 107–135; BP diastolic 81–95; PULSE 92–107; RESP 20; TEMP 36.4–36.7; O2SAT 92–98
[2024-09-30] MEDS: IPRAT-ALBUT 0.5-2.5 MG/3 ML NEB 1 NEB IH ×4 (00:20→18:17)
[2024-09-30] MEDS: PIPERACILLIN/TAZOBACTAM 3.375 GM in 0.9 % SODIUM CHLORIDE Mini-bag 100 ML IVPB ×4 (00:21→18:17)
[2024-09-30] MEDS: SODIUM CHLORIDE 0.9 % (FLUSH) 10 ML SYRINGE 5 ML IVF ×3 (06:30→20:04)
[2024-09-30 07:19] LABS: Hematocrit 44.9 % (37.0-53.0); Hemoglobin* 13.9 gm/dL (13.5-17.5); Mean Corpuscular HGB Conc 31 gm/dL (32-36); Mean Corpuscular Hemoglobin 29 pg (26-34); Mean Corpuscular Volume 95 fL (80-100); Platelet Count* 274 K/uL (140-440); Red Blood Count 4.75 m/uL (4.30-5.90)
[2024-09-30 07:20] LABS: Slide Review Reflex No
--- NOTE | 2024-09-30 07:25 | P.IMPN_ITS ---
Progress Note: A&P Assessment and plan (1) Severe sepsis: Problem details: RESOLVED -Meets severe sepsis given his heart rate, respiratory rate, white blood cell count. He meets organ dysfunction based on his lactate, bilirubin. -CTA chest abdomen pelvis shows focal regional consolidative lung left upper lobe atelectatic, superimposed infectious/inflammatory process unable to be excluded. Bladder wall thickening -procalcitonin 0.76 on admission increased to 0.93. UA rather unremarkable. CRP trending down. Suspect CAP as source -continue Zosyn. Blood culture pending. -2 Liters NS given and lactate has decreased. Must balance his poor EF (known CHF and current AFIB RVR) with amount of fluid and time over which boluses are given. Status: Resolved (2) Community acquired pneumonia: Problem details: -CTA chest abdomen pelvis shows focal regional consolidative lung left upper lobe atelectatic, superimposed infectious/inflammatory process unable to be excluded -procalcitonin 0.76 -> 0.93, strep pneumo/Legionella negative, triple swab negative, BC negative -continue Zosyn -Mucinex b.i.d., aerobika, incentive spirometry, nebs, home inhalers, prednisone given history of COPD Status: Acute (3) Acute hypoxic respiratory failure: Problem details: RESOLVED -oxygen saturation 85% in ED, in setting of acute community-acquired pneumonia, atrial fibrillation with RVR, COPD -CT negative for PE -management as above Status: Resolved (4) Atrial fibrillation with RVR: Problem details: -chronic, not anticoagulated -admitted to unit on IV diltiazem drip - now rate controlled, IV drip discont inued -ECG reviewed. Troponin is 0.05 -> unchanged, mild JAYLAN -continue oral metoprolol, enoxaparin for anticoagulation Status: Acute (5) Rhabdomyolysis: Problem details: RESOLVED -elevated CK and lactate. Confused. Elevated creatinine from baseline. Fluids and continue to monitor. -CK down trending, lactate resolved, creatinine stable Status: Resolved (6) Alcohol use disorder: Problem details: -Daily beer drinker. ETOH <0.01. Monitor Status: Acute (7) Chronic diastolic congestive heart failure: Problem details: -Ejection fraction 35%. Had been prescribed torsemide. Medication noncompliance. Refuses cardiology follow-up. 09/30/24 will give dose IV lasix 40mg x 1 Restart home Torsemide 10/01/24 Weight down 5 kg, hypoxia resolved Status: Acute (8) Chronic obstructive pulmonary disease: Problem details: -continue home meds and good pulmonary support -prednisone 40 mg x 5 days Status: Acute (9) Peripheral arterial disease: Problem details: -Has refused revascularization Status: Acute (10) Dementia: Problem details: -[place] on 05/20/2024 was 13/30. This is consistent with a score he had in March -PT/OT consult. donor services specialist for discharge planning/placement needs - eventually long-term would likely be safest 09/30 when speaking with son, he is on board for TCU placement, has family that works at [employer] whom he has been in contact with. donor services specialist working on this, resuming tomorrow Status: Acute (11) Urinary incontinence: Problem details: Urine staining of clothing. Chronic incontinence at home Previous bladder scan confirms no urinary retention. arriola placed to guide therapies thru sepsis UA rather unremarkable Status: Acute (12) Frailty: Problem details: Therapists recommending higher level of care with more supervision. Patient adamantly declines this. Family indicates that they are going to respect his wishes in this regard PT/OT, licensed clinical social worker consults Status: Acute (13) Foot ulcer, right: Problem details: Continue wound cares Sees Dr. Sanchez regularly Status: Chronic (14) Diarrhea: Problem details: -loose stool since yesterday. C diff negative. Stool cultures pending Status: Acute Plan Continue antibiotic management for pneumonia. PT/OT following. donor services specialist for placement, hopefully [employer] [facility]. Time Spent With Patient Total time spent: Total time spent caring for the patient today was 45 minutes. This includes time spent for the visit reviewing the chart, time spent during the visit, time spent after the visit and documentation and planning in coordination of care. Subjective Date Seen: 09/30/24 Interval history: Patient is seen with son at bedside. Appears brighter, more alert this morning. Joking with myself and son. Answering questions appropriately currently. Son was here when patient 1st woke up and was more confused. Son is concerned about confusion. Patient does have dementia and [place] scores have been 8/30 as of recent. Patient denies headache. Denies chest pain. On room air. Afebrile. Weight down 5 kg. Exam Narrative: Exam Narrative: PHYSICAL EXAM General: Smiling, appropriately conversant, NAD Cardiovascular: IRRR, S1S2. Mild pitting edema Pulmonary: Diffusely diminished mild expiratory wheezes. No dyspnea Abdominal: Soft, nondistended, NTTP Neurological: Alert, cranial nerves intact, no focal findings Extremities: No gross joint deformity or swelling. AROMI. Neurovascularly intact Skin: Warm, dry. Const: Vital Signs, click to edit/add: Vital Signs - 24 hr 09/29/24 08:00 09/29/24 08:00 09/29/24 08:00 Temperature 97.5 F L Pulse Rate Pulse Rate [Pulse Oximeter] 97 97 Respiratory Rate 24 24 Blood Pressure [Le ft Arm] 119/80 Pulse Oximetry 90 90 Oxygen Delivery Me thod Room Air Oxygen Flow Rate 09/29/24 08:50 09/29/24 10:39 09/29/24 14:40 Temperature 98.5 F Pulse Rate Pulse Rate [Pulse Oximeter] 105 H Respiratory Rate 26 H 32 H Blood Pressure [Le ft Arm] Pulse Oximetry 85 L 90 72 L Oxygen Delivery Me thod Room Air Room Air Room Air Oxygen Flow Rate 09/29/24 14:47 09/29/24 15:00 09/29/24 15:00 Temperature Pulse Rate 91 Pulse Rate [Pulse Oximeter] Respiratory Rate Blood Pressure [Le ft Arm] Pulse Oximetry 90 93 Oxygen Delivery Me thod Nasal Cannula Oxygen Flow Rate 0.5 09/29/24 16:36 09/29/24 17:00 09/29/24 19:41 Temperature 98.1 F 97.6 F Pulse Rate Pulse Rate [Pulse Oximeter] 88 101 H Respiratory Rate 16 16 22 Blood Pressure [Le ft Arm] 137/85 137/85 Pulse Oximetry 91 94 Oxygen Delivery Me thod Nasal Cannula Nasal Cannula Oxygen Flow Rate 0.5 2 09/29/24 22:53 09/29/24 22:53 09/29/24 22:53 Temperature 97.6 F Pulse Rate 95 Pulse Rate [Pulse Oximeter] 89 Respiratory Rate 22 Blood Pressure [Le ft Arm] 129/80 Pulse Oximetry 95 95 Oxygen Delivery Me thod Nasal Cannula Oxygen Flow Rate 2 09/29/24 22:53 09/30/24 03:17 Temperature 97.6 F Pulse Rate Pulse Rate [Pulse Oximeter] 89 96 Respiratory Rate 20 Blood Pressure [Le ft Arm] 134/95 H Pulse Oximetry 95 Oxygen Delivery Me thod Nasal Cannula Oxygen Flow Rate 1 Labs Labs: Laboratory Results - last 24 hr 09/29/24 09/30/24 06:03 06:50 WBC 9.10 RBC 4.75 Hgb 13.9 Hct 44.9 MCV 95 MCH 29 MCHC 31 L Plt Count 274 Sodium 144 Potassium 3.6 Chloride 107 Carbon Dioxide 28 Anion Gap 9 BUN 44 H Creatinine 1.6 H Estimated Creat Clear 42.10 Estimated GFR 43 Glucose 129 H Calcium 8.7 Phosphorus 4.8 H Total Bilirubin 1.6 H Direct Bilirubin 1.0 H GGT 53 AST 24 ALT 14 Alkaline Phosphatase 57 Total Creatine Kinase 203 H Troponin I 0.05 H C-Reactive Protein 34.9 H Total Protein 6.6 Albumin 3.2 L Lipase 23 Procalcitonin 0.93 H TSH 1.800
--- NOTE | 2024-09-30 07:27 | PC.NURSE ---
Pt alert and oriented to self only. Pt denies pain, chest pain, SOB, and N/V. Breaths are noted to be shallow. Pt's telemetry showed a-fib with normal ventricular rate, pt's heart rate is noted to jump between 80-115 bpm, flagging sepsis with 22 RR rate updated MD [place], no new orders continuing plan of care. Pt's right foot meplex changed no drainage, CDI. Pt's arriola is patent and draining. Pt is up A2 with walker and gait belt with boots on.
[2024-09-30 07:32] LABS: Chloride* 108 mmol/L (96-114); Potassium* 3.5 mmol/L (3.6-5.1); Sodium* 143 mmol/L (135-149)
[2024-09-30 07:35] LABS: Anion Gap 6 mEq/L (7-15); Blood Urea Nitrogen* 47 mg/dL (7-30); Carbon Dioxide* 29 mmol/L (20-32); Creatinine* 1.5 mg/dL (0.5-1.5); Est. Creatinine Clearance* 44.91; Estimated Glomerular Filt Rate 46 ml/min; Glucose* 139 mg/dL (60-115)
[2024-09-30 07:36] LABS: Calcium* 8.6 mg/dL (8.4-10.6)
[2024-09-30 08:04] LABS: C.Difficile Negative (Negative); CDIFFEPI 027 PRESUMPTIVE NEGATIVE (Negative)
[2024-09-30] MEDS: FUROSEMIDE 10 MG/ML inj 40 MG IVP (08:45)
[2024-09-30] MEDS: METOPROLOL SUCCINATE (XL) 50 MG TAB PO (08:46)
[2024-09-30] MEDS: ASPIRIN EC 325 MG TABLET 324 MG PO (08:46)
[2024-09-30] MEDS: predniSONE 20 MG TABLET 40 MG PO (08:46)
[2024-09-30] MEDS: guaiFENesin 600 MG TAB.ER.12H PO ×2 (08:46→20:03)
--- NOTE | 2024-09-30 10:24 | RESP.RT ---
Pt seen for oxygen weaning. On RA, sittting up in chair, eating. SPO2 96%. Pt can IS to 1.5L with coaching. BBS clear, after coughing on demand. Cough is strong and dry. Spoke wih son to encourage his father to continue with IS and coughing on demand.
--- NOTE | 2024-09-30 19:16 | PC.NURSE ---
Pt denies pain. [place] patent and draining. Bedside commode for BM x2. RA entire shift.
[2024-09-30] MEDS: ENOXAPARIN 40 MG/0.4 ML INJ SUBCUT (20:03)
[2024-10-01] VITALS (10 sets, daily range): BP systolic 101–160; BP diastolic 79–103; PULSE 82–104; RESP 18–20; TEMP 36.2–37.1; O2SAT 89–98
[2024-10-01] MEDS: PIPERACILLIN/TAZOBACTAM 3.375 GM in 0.9 % SODIUM CHLORIDE Mini-bag 100 ML IVPB ×4 (00:04→18:22)
[2024-10-01] MEDS: SODIUM CHLORIDE 0.9 % (FLUSH) 10 ML SYRINGE 5 ML IVF ×3 (00:04→21:03)
[2024-10-01] MEDS: IPRAT-ALBUT 0.5-2.5 MG/3 ML NEB 1 NEB IH ×4 (00:06→18:22)
[2024-10-01 07:01] LABS: Mean Corpuscular HGB Conc 31 gm/dL (32-36); Mean Corpuscular Hemoglobin 29 pg (26-34); Mean Corpuscular Volume 93 fL (80-100); Platelet Count* 292 K/uL (140-440); Red Blood Count 4.82 m/uL (4.30-5.90); White Blood Count* 9.53 K/uL (4.50-11.00)
[2024-10-01 07:02] LABS: Slide Review Reflex No
[2024-10-01 07:21] LABS: Chloride* 104 mmol/L (96-114); Potassium* 3.5 mmol/L (3.6-5.1); Sodium* 142 mmol/L (135-149)
[2024-10-01 07:24] LABS: Anion Gap 6 mEq/L (7-15); Blood Urea Nitrogen* 41 mg/dL (7-30); Carbon Dioxide* 32 mmol/L (20-32); Creatinine* 1.4 mg/dL (0.5-1.5); Est. Creatinine Clearance* 48.11; Estimated Glomerular Filt Rate 50 ml/min
[2024-10-01 07:25] LABS: Calcium* 8.1 mg/dL (8.4-10.6); Glucose* 126 mg/dL (60-115)
--- NOTE | 2024-10-01 07:32 | PC.NURSE ---
Pt alert and oriented to self only. Pt on room air throughout shift. Pt denies pain, chest pain, SOB, and N/V. Breaths are noted to be shallow. Pt's right foot meplex is CDI. Pt's arriola is patent and draining. Pt is up A2 with walker and gait belt with boots on. Pt's telemetry showed a-fib with normal ventricular rate. Pt occasionally takes off tele leads, and oximeter when awake, but is easily reoriented. ?
[2024-10-01] MEDS: METOPROLOL SUCCINATE (XL) 50 MG TAB PO (08:09)
[2024-10-01] MEDS: guaiFENesin 600 MG TAB.ER.12H PO (08:09)
[2024-10-01] MEDS: TORSEMIDE 20 MG TABLET 60 MG PO (08:10)
[2024-10-01] MEDS: ASPIRIN EC 325 MG TABLET 324 MG PO (08:10)
[2024-10-01] MEDS: predniSONE 20 MG TABLET 40 MG PO (08:10)
--- NOTE | 2024-10-01 10:39 | PC.SOCIAL ---
Addendum entered by JYOTI Dean 10/01/24 15:37: Social work: Called Poncho, admitting for [facility] facilities including [facility]. He states the team is reviewing patient but has not yet made a decision on admit to [facility] and suggested there will not be a decision today and social sciences professor should call back tomorrow morning for a decision on admit. amusement park worker to follow up as needed. Addendum entered by KINGSLEY Landin 10/01/24 12:21: Discharge planning: [facility] has declined the pt due to stating they do not have an appropriate bed for him right now and they are not able to meet his needs. amusement park worker updated pt's son Juan and the staff on duty at the hospital. Pt's son stated that this worker could send a referral to [facility] in [place]. amusement park worker sent the referral to Poncho Pierce with [facility] via secure email. Poncho said they will assess for placement, but could not accommodate an admission today still. Social work to follow-up as needed. Original Note: Discharge planning: amusement park worker updated Yaima Lewis from [facility] that pt is willing to go to short-term rehab and that [facility] is assessing his referral for placement. Pt would like [facility] due to his niece being a PAC there. Social work to follow-up as needed.
--- NOTE | 2024-10-01 16:54 | P.IMPN_ITS ---
Progress Note: A&P Assessment and plan (1) Community acquired pneumonia: Problem details: -CTA chest abdomen pelvis shows focal regional consolidative lung left upper lobe atelectatic, superimposed infectious/inflammatory process unable to be excluded -procalcitonin 0.76 -> 0.93, strep pneumo/Legionella negative, triple swab negative, BC negative -continue Zosyn -Mucinex b.i.d., aerobika, incentive spirometry, nebs, home inhalers, prednisone given history of COPD Status: Acute (2) Atrial fibrillation with RVR: Problem details: -chronic, not anticoagulated -admitted to unit on IV diltiazem drip - now rate controlled, IV drip discontinued -ECG reviewed. Troponin is 0.05 -> unchanged, mild JAYLAN -continue oral metoprolol, enoxaparin for anticoagulation Status: Acute (3) Chronic diastolic congestive heart failure: Problem details: - HFrEF with EF 35%. Had been prescribed torsemide. Medication noncompliance. Refuses cardiology follow-up. - when severe sepsis resolved, restarted home dose of torsemide - 10/01/24: down 8kg from admission, no further hypoxia, vital signs stable Status: Acute (4) Severe sepsis: Problem details: - RESOLVED as of 09/30/2024 - upon admission, met severe sepsis criteria given his heart rate, respiratory rate, white blood cell count. He meets organ dysfunction based on his lactate, bilirubin. - CTA chest abdomen pelvis shows focal regional consolidative lung left upper lobe atelectatic, superimposed infectious/inflammatory process unable to be excluded. - procalcitonin 0.76 on admission increased to 0.93. UA rather unremarkable. CRP trending down. Suspect CAP as source - continue Zosyn. Blood culture NGTD - 10/01: received IV fluid bolus on admission, currently requiring no further IV fluids and on home meds for diuresis with stable vital signs Status: Resolved (5) Alcohol use disorder: Problem details: -Daily beer drinker. ETOH <0.01. Monitor Status: Acute (6) Chronic obstructive pulmonary disease: Problem details: -continue home meds and good pulmonary support -prednisone 40 mg x 5 days Status: Acute (7) Peripheral arterial disease: Problem details: -Has refused revascularization Status: Acute (8) Dementia: Problem details: - [place] on 05/20/2024 was 13/30. This is consistent with a score he had in March - PT/OT consult. nutritional services director for discharge planning/placement needs - eventually long-term would likely be safest - Family considering TCU placement, has family that works at [facility]; appreciate assistance from social work Status: Acute (9) Urinary incontinence: Problem details: - Urine staining of clothing. Chronic incontinence at home - Previous bladder scan confirms no urinary retention. - arriola placed to guide therapies thru sepsis, removed 10/01/24 - UA rather unremarkable Status: Acute (10) Frailty: Problem details: - TCU stay recommended per above Status: Acute (11) Foot ulcer, right: Problem details: Continue wound cares Sees Dr. Sanchez regularly Status: Chronic (12) Diarrhea: Problem details: - intermittent loose stool, negative C Diff Status: Acute Plan - per above - son updated at bedside, questions answered Subjective Date Seen: 10/01/24 Interval history: Ed was admitted on 09/28/24 for weakness in the setting of acute illness/presumed sepsis. Diagnosed with CHF exacerbation and PNA, tolerating abx and diuresis well. He is on Zosyn. Down 8kg from admission. VS and labs stable. He has been more confused per family (primarily in the morning). Baseline when I see him around 11am today. History of dementia with previous MOCA 05/29. Working with therapies, TCU stay recommended. Working on this with our Social Work team. Exam Narrative: Exam Narrative: GEN: Alert and oriented, sitting comfortably in bedside chair HEENT: EOMIs bilaterally, no scleral icterus CV: Irregular, no concerning murmurs R: LCTA bilaterally without concerning wheezing Ab: Protuberant, tolerates palpation Skin: Scattered bruising on extremities, exposed skin reveals no concerning lesions Ext: wearing B postop shoes, feet not formally examined Neuro: Nonfocal Psych: Appears to have mild cognitive impairment but not at all agitated Const: Vital Signs, click to edit/add: Vital Signs - 24 hr 09/30/24 20:07 10/01/24 00:01 10/01/24 00:01 Temperature 98.0 F 98.7 F Pulse Rate Pulse Rate [Pulse Oximeter] 98 86 Respiratory Rate 20 20 20 Blood Pressure [Le ft Arm] 135/84 101/83 Pulse Oximetry 94 91 91 Oxygen Delivery Me thod Room Air Room Air Room Air Oxygen Flow Rate 0 0 0 10/01/24 00:01 10/01/24 00:20 10/01/24 02:39 Temperature 98.1 F Pulse Rate 95 Pulse Rate [Pulse Oximeter] 82 Respiratory Rate 20 Blood Pressure [Le ft Arm] 158/95 H Pulse Oximetry 91 93 Oxygen Delivery Me thod Room Air Oxygen Flow Rate 0 10/01/24 07:53 10/01/24 07:53 10/01/24 07:53 Temperature 97.6 F Pulse Rate Pulse Rate [Pulse Oximeter] 104 H Respiratory Rate 20 20 Blood Pressure [Le ft Arm] 152/101 H Pulse Oximetry 89 89 89 Oxygen Delivery Me thod Room Air Room Air Oxygen Flow Rate 10/01/24 08:04 10/01/24 11:23 10/01/24 16:00 Temperature 97.1 F L Pulse Rate 97 Pulse Rate [Pulse Oximeter] 84 Respiratory Rate 18 Blood Pressure [Le ft Arm] 131/93 H Pulse Oximetry 93 91 Oxygen Delivery Me thod Room Air Oxygen Flow Rate 10/01/24 16:22 Temperature 97.2 F L Pulse Rate Pulse Rate [Pulse Oximeter] 86 Respiratory Rate 18 Blood Pressure [Le ft Arm] 129/79 Pulse Oximetry 94 Oxygen Delivery Me thod Room Air Oxygen Flow Rate Labs Labs: Laboratory Results - last 24 hr 10/01/24 06:33 WBC 9.53 RBC 4.82 Hgb 14.0 Hct 45.0 MCV 93 MCH 29 MCHC 31 L Plt Count 292 Sodium 142 Potassium 3.5 L Chloride 104 Carbon Dioxide 32 Anion Gap 6 L BUN 41 H Creatinine 1.4 Estimated Creat Clear 48.11 Estimated GFR 50 Glucose 126 H Calcium 8.1 L
--- NOTE | 2024-10-01 18:55 | PC.NURSE ---
Picked up pt around 1600, alert oriented and vitally stable. Pt moves via 1a, tolerates well. Dressings on feet changed, right foot had some purulent drainage, left foot had no drainage. Pt in bed, call light within reach.
--- NOTE | 2024-10-01 20:20 | PC.NURSE ---
Nursing note B[facility] had pt from about [id number]. VSS. Tele dc'd. No c/o pain.
[2024-10-02] VITALS: O2SAT 98
[2024-10-02] MEDS: PIPERACILLIN/TAZOBACTAM 3.375 GM in 0.9 % SODIUM CHLORIDE Mini-bag 100 ML IVPB ×2 (00:19→05:54)
[2024-10-02] MEDS: IPRAT-ALBUT 0.5-2.5 MG/3 ML NEB 1 NEB IH ×2 (00:22→05:54)
[2024-10-02 03:32] VITALS: BP 132/84; PULSE 93; RESP 20; TEMP 36.4; O2SAT 96
--- NOTE | 2024-10-02 06:24 | PC.NURSE ---
Addendum entered by Gisselle Washington RN 10/02/24 06:35: Correction: Pt has been alert but drowsy. Oriented to self only overnight. Original Note: End of shift summary: Pt has been alert to self only. Slept very hard in between cares and barely opens his eyes to participate in cares. VSS & O2 sats > 90% on RA all night. PIV in right FA SL and C/D/I. On IV Zosy n q6H. Pt was incontinent of urine overnight requiring brief & ?linen change. No BM. Independent with bed mobility. Biltaral foot dressings are intact. ?
[2024-10-02 06:28] LABS: Hematocrit 47.2 % (37.0-53.0); Hemoglobin* 14.7 gm/dL (13.5-17.5); Mean Corpuscular HGB Conc 31 gm/dL (32-36); Mean Corpuscular Hemoglobin 29 pg (26-34); Mean Corpuscular Volume 93 fL (80-100); Platelet Count* 305 K/uL (140-440); Red Blood Count 5.09 m/uL (4.30-5.90)
[2024-10-02 06:33] LABS: Slide Review Reflex No
[2024-10-02 06:55] LABS: Chloride* 102 mmol/L (96-114); Sodium* 141 mmol/L (135-149)
[2024-10-02 06:58] LABS: Anion Gap 6 mEq/L (7-15); Carbon Dioxide* 33 mmol/L (20-32); Creatinine* 1.3 mg/dL (0.5-1.5); Est. Creatinine Clearance* 51.81; Estimated Glomerular Filt Rate 55 ml/min
[2024-10-02 06:59] LABS: Blood Urea Nitrogen* 43 mg/dL (7-30); Calcium* 8.1 mg/dL (8.4-10.6); Glucose* 132 mg/dL (60-115)
[2024-10-02 07:00] VITALS: BP 146/121; PULSE 101; RESP 18; TEMP 36.3; O2SAT 92
[2024-10-02 07:06] LABS: Potassium* 2.8 mmol/L (3.6-5.1)
[2024-10-02] MEDS: ASPIRIN EC 325 MG TABLET PO (09:11)
[2024-10-02] MEDS: METOPROLOL SUCCINATE (XL) 50 MG TAB PO (09:11)
[2024-10-02] MEDS: TORSEMIDE 20 MG TABLET 60 MG PO (09:11)
[2024-10-02] MEDS: predniSONE 20 MG TABLET 40 MG PO (09:11)
[2024-10-02] MEDS: POTASSIUM CHLORIDE 10 MEQ CAPSULE ER 20 MEQ PO (09:11)
[2024-10-02] MEDS: guaiFENesin 600 MG TAB.ER.12H PO (09:11)
[2024-10-02] MEDS: POTASSIUM BICARB 25 MEQ EFFERVESCENT TAB 50 MEQ PO (09:11)
[2024-10-02] MEDS: SODIUM CHLORIDE 0.9 % (FLUSH) 10 ML SYRINGE 5 ML IVF (09:14)
--- NOTE | 2024-10-02 10:04 | PC.SOCIAL ---
Addendum entered by KINGSLEY Landin 10/02/24 15:57: Discharge planning: rodding anode worker secure emailed pt's referral to Susan at [facility] in [place], [place] after the fax came back abandoned after three attempts. rodding anode worker sent the referral via secure email to [email or web address] and verified that she received it. Pt's son shared that the family may want to transfer the pt to that facility after the weekend for short-term rehab since it is closer to where all of the siblings live. Social work to follow-up as needed. Addendum entered by KINGSLEY Landin 10/02/24 15:14: Discharge planning: Pt was accepted to [facility] in [facility] for admission today. Pt's family decided to go with [facility] due to [facility] rating with The Department of Health being a 2/5. Pt's daughter will transport the pt to [place] at 2:30pm. Discharge orders were secure emailed to Irina at [facility], [email or web address]. Pre-admission screening was completed and sent to Irina via secure email, as well. [id number]. rodding anode worker also left a message with Yaima Lewis with [facility] APS #[phone] updating her on the discharge location for the pt. Social work to follow-up as needed. Addendum entered by KINGSLEY Landin 10/02/24 12:11: Discharge planning: rodding anode worker spoke to Mellissa at [facility] who shared that [facility] had medical questions about the pt's referral and wanted to talk to the pt's nurse. rodding anode worker provided Mellissa with the phone number for med/surg. Mellissa will have [facility] reach out for a nurse to nurse report. rodding anode worker updated pt's nurse for today. Social work to follow-up as needed. Addendum entered by KINGSLEY Landin 10/02/24 11:28: Discharge planning: rodding anode worker talked with pt's daughter Jovanna about alternative facilities that this worker could send referrals to for her [facility], [facility] and pt is ready for discharge. Jovanna spoke with her brother and said that this worker could send a referral to [facility] and [facility] in [place], [place]. Both facilities have male short-term rehab beds available right now. rodding anode worker sent the referral for [facility] to Irina at [facility] via email, [email or web address] and faxed the referral for [facility] to admissions at fax #[phone]. Social work to follow-up as needed. Original Note: Discharge planning: rodding anode worker spoke to a staff member at [facility] asking for an update on pt's referral. The staff member told this worker that the pt was still in the queue to be assessed/reviewed. This social work coordinator explained that we needed an answer and were already told that it was being reviewed/assessed. This social work coordinator explained that the pt is ready for discharge. rodding anode worker gave the pt's daughter, Jovanna, and update in pt's room. Jovanna plans to provide transportation for the pt. Social work to follow-up as needed.
--- NOTE | 2024-10-02 10:37 | PC.NURSE ---
I met with Ibrahima today to discuss sexual comments he made to and about staff in the med/surg department. I provided him with our behavioral expectations and discussed that we have no tolerance for this behavior. The patient stated he was leaving today and that it doesn't matter. I reminded him that he should not speak this way to anyone and that he may return for future hospitalizations and that tese are our expectations. At the end of the conversation he acknowledged what was told to him and I departed his room.
[2024-10-02 11:00] VITALS: BP 160/101; PULSE 108; RESP 18; TEMP 36.6; O2SAT 93
[2024-10-02 13:37] LABS: Potassium* 3.7 mmol/L (3.6-5.1)
--- NOTE | 2024-10-02 13:45 | P.DS_ITS ---
DS: Providers Provider Date Seen: 10/02/24 Date of admission: 09/28/24 19:33 Primary care physician: José Luis Arredondo MD Admitting Clinician: Desiree Gilliland MD Consults: OT, PT, SW, RT Attending Physician on discharge: Rae Conte MD Date of Discharge: 10/02/24 DS: Diagnosis Discharge Diagnosis (1) Community acquired pneumonia: Status: Acute Problem details: -CTA chest abdomen pelvis shows focal regional consolidative lung left upper lobe atelectatic, superimposed infectious/inflammatory process unable to be excluded -procalcitonin 0.76 -> 0.93, strep pneumo/Legionella negative, triple swab negative, BC negative -treated with Zosyn inpatient with significant improvement, transitioning to oral Doxycyline upon discharge -symptomatic treatment with 5 days of Prednisone, Mucinex b.i.d., aerobika, incentive spirometry, nebs, home inhalers (2) Atrial fibrillation with RVR: Status: Acute Problem details: -chronic, not anticoagulated -admitted to CCU on IV diltiazem drip - resolved on hospital day 2, transitioned back to home oral medications -troponin 0.05 -> unchanged, mild JAYLAN -continued oral metoprolol, enoxaparin for anticoagulation during stay; home on previous 324mg of ASA (3) Chronic diastolic congestive heart failure: Status: Acute Problem details: - HFrEF with EF 35%. Had been prescribed torsemide. Medication noncompliance. Refuses cardiology follow-up. - when severe sepsis resolved, restarted home dose of torsemide - upon discharge, down 5kg from admission, no further hypoxia, vital signs stable - last TTE 04/2024: Final Impressions: Limited Echocardiogram performed 1. Technically limited exam. 2. Normal LV size, normal wall thickness, estimated EF of 40 - 45%. 3. Normal RV size, mildly reduced systolic function. 4. The aortic valve is calcified, no regurgitation, probably mild stenosis (MG 13 mmHg). 5. Pulmonary hypertension: PASP 56 mmHg + RA pressure (normal by IVC). 6. Echo contrast was administered to enhance visualization of all left ventricular segments. (4) Alcohol use disorder: Status: Acute Problem details: -Daily beer drinker. ETOH <0.01 on admission, no evidence of withdrawal during stay (5) Chronic obstructive pulmonary disease: Status: Acute Problem details: -continue home meds and good pulmonary support -treated with prednisone 40 mg x 5 days, no wheezing upon d/c (6) Peripheral arterial disease: Status: Acute Problem details: -Has refused revascularization (7) Dementia: Status: Acute Problem details: - [place] on 05/20/2024 was 13/30. This is consistent with a score he had in March - PT/OT consult. creative services writer for discharge planning/placement needs - eventually long-term would likely be safest - Family agreeable to TCU placement (8) Urinary incontinence: Status: Acute Problem details: - Urine staining of clothing. Chronic incontinence at home - Previous bladder scan confirms no urinary retention. - arriola placed to guide therapies thru sepsis, removed 10/01/24 - UA unremarkable (9) Frailty: Status: Acute Problem details: - TCU stay recommended per above (10) Foot ulcer, right: Status: Chronic Problem details: - Continued wound cares (daily skin evaluation and Mepilex changes) - Sees Dr. Sanchez regularly (11) Diarrhea: Status: Acute Problem details: - intermittent loose stool, negative C Diff (12) Severe sepsis: Status: Resolved Problem details: - RESOLVED as of 09/30/2024 - upon admission, met severe sepsis criteria given his heart rate, respiratory rate, white blood cell count. He meets organ dysfunction based on his lactate, bilirubin. - CTA chest abdomen pelvis shows focal regional consolidative lung left upper lobe atelectatic, superimposed infectious/inflammatory process unable to be excluded. - procalcitonin 0.76 on admission increased to 0.93. UA rather unremarkable. CRP trending down. Suspect CAP as source - continue Zosyn. Blood culture NGTD - /2: received IV fluid bolus on admission, currently requiring no further IV fluids and on home meds for diuresis with stable vital signs DS: Summary Hospital Course Hospital Course: Ed was admitted to the hospital on 09/28/24 for weakness in the setting of acute illness/presumed sepsis. Noted to have A fib with RVR (known h/o a fib), initially admitted to CCU on Diltiazem gtt, transitioned off of this hospital day 1. Also diagnosed with CHF exacerbation and pneumonia, treated with IV Zosyn and diuresis. Improved during stay with 5kg of weight loss. VS and labs improved/stabilized, appropriate for TCU stay (as recommended by therapies given frailty, cognitive impairment, need for increased support) on 10/02/2024. Transported to [facility] by daughter. Status at Discharge Functional status at discharge: uses cane/walker Overall status at discharge: patient is progressing back to baseline Time Spent with Patient Time attestation: Total time spent providing and/or coordinating discharge services: Time spent: Greater than 30 minutes Specific discharge activities: Medication reconciliation Exam Narrative: Exam Narrative: GEN: Sitting comfortably in bedside chair HEENT: EOMIs bilaterally, no scleral icterus CV: Irregular, rate 90s R: LCTA bilaterally without concerning wheezing Ext: Wearing bilateral postop shoes, wounds not formally examined Skin: Skin changes c/w PVD of BLE Neuro: No resting tremor or acute focal deficits Psych: Cognitive impairment evident, no agitation Const: Vital Signs, click to edit/add: Vital Signs - 24 hr 10/01/24 15:00 10/01/24 15:00 10/01/24 16:00 Temperature Pulse Rate [Pulse Oximeter] 86 Respiratory Rate 18 18 Blood Pressure [Le ft Arm] Blood Pressure [Ri ght Arm] Pulse Oximetry 94 91 Oxygen Delivery Me thod Room Air 10/01/24 16:22 10/01/24 19:00 10/02/24 00:00 Temperature 97.2 F L 98.1 F Pulse Rate [Pulse Oximeter] 86 88 Respiratory Rate 18 20 Blood Pressure [Le ft Arm] 129/79 145/96 H Blood Pressure [Ri ght Arm] Pulse Oximetry 94 94 98 Oxygen Delivery Me thod Room Air Room Air 10/02/24 03:32 10/02/24 07:00 10/02/24 07:00 Temperature 97.5 F L 97.3 F L Pulse Rate [Pulse Oximeter] 93 101 H Respiratory Rate 20 18 Blood Pressure [Le ft Arm] 146/121 H Blood Pressure [Ri ght Arm] 132/84 Pulse Oximetry 96 92 92 Oxygen Delivery Me thod Room Air Room Air Room Air DS: Data Data Completed and Pending Completed studies during hospitalization: Procedures Detachment at Right Foot, Partial 1st Ray, Open Approach (02/14/23) Excision of Right Metatarsal, Sesamoid Bone(s) 1st Toe, Open Approach (02/14/23) Introduction of Other Gas into Respiratory Tract, Via Natural or Artificial Opening (05/18/24) Transfer Right Foot Skin, External Approach (02/14/23) Labs on day of discharge: Labs from last 24 hours 10/02/24 10/02/24 13:14 06:18 WBC 8.10 RBC 5.09 Hgb 14.7 Hct 47.2 MCV 93 MCH 29 MCHC 31 L Plt Count 305 Sodium 141 Potassium 3.7 2.8 L* Chloride 102 Carbon Dioxide 33 H Anion Gap 6 L BUN 43 H Creatinine 1.3 Estimated Creat Clear 51.81 Estimated GFR 55 Glucose 132 H Calcium 8.1 L Preliminary micro results at discharge 09/28/24 15:35 Blood Culture - Preliminary Blood NO GROWTH AFTER 72 HOURS Discharge Plan Discharge Disposition: er [facility] Date of Admission: 09/28/24 19:33 Attending Provider on Discharge: Rae Conte Primary Care Provider: José Luis Arredondo Condition: Improved Anticipated Discharge Date/Time: 10/01/24 11:26 Discharge Medications: New potassium chloride 10 mEq Capsule, Extended Release 20 meq PO BIDWM Qty: 60 0RF acetaminophen 325 mg Tablet 650 mg PO Q6H PRNQty: 30 0RF doxycycline hyclate 100 mg capsule 100 mg PO BID Qty: 10 0RF Continued metoprolol succinate 50 mg tablet extended release 24 hr 50 mg PO DAILY Qty: 90 1RF allopurinol 300 mg tablet 300 mg PO DAILY Qty: 90 3RF aspirin [Adult Aspirin Regimen] 81 mg tablet,delayed release (DR/EC) 324 mg PO DAILY (DME) diaper,brief,adult,disposable Misc See Rx Instructions .Route Qty: 32 0RF Rx Instructions: As directed torsemide 20 mg tablet 60 mg PO DAILY Discharge Orders: Discharge Order (Routine); Ordered 10/02/24 Ordered By: Rae Conte Additional Instructions: Five more days of oral antibiotics (twice/day). We're adding Potassium twice/day for your low potassium here - this will be rechecked in a week. Activity Level: Activity as Tolerated Activity Detail: per therapies Discharge Diet: Regular Follow Up Appointments: José Luis Arredondo MD [Primary Care Provider] - Forms: MyHealth Info Instructions Wound Care: Daily wound evaluation and Mepilex dressing changes to bilateral lower extremities Admit to: SNF Discharge Potential: Fair Length of Stay: 30-90 days Can use facility standing orders?: Yes Code Status: DNR/DNI Rehab Potential: Fair Therapy: Physical Therapy and Occupational Therapy Therapy Orders: Evaluate and Treat Oxygen: No Urinary Catheter: No Glucose Checks: n/a Next INR: n/a Lab Orders: BMP in one week Orders are good >30 days: Yes Signature: Rae Conte MD
[2024-10-02 14:00] VITALS: BP 140/116; PULSE 97; RESP 18; TEMP 36.6
--- NOTE | 2024-10-02 14:49 | PC.NURSE ---
The patient discharged to [facility] this afternoon. The patients daughter transported him to the facility. Report was given to Reshma, all questions were answered. R foot wound is CDI with mepilex. Incontinent of urine at times, although has been up to the BR today. No reports of pain. Extremely [place] and is alert to only himself at times. Grisel LASSITER BSN
== END 2024-10-02 14:25 | DRG 871 ==
LOC: ED 16:51 → MEDSURG 19:35
PROVIDERS: Family Medicine; Physician Assistant; Admitting Provider Family Medicine; Emergency Provider Emergency Medicine; PCP Family Medicine; Visit Provider Orthopaedic Surgery
DX: A41.9 Sepsis, unspecified organism (principal); I50.33 Acute on chronic diastolic (congestive) heart failure; J18.9 Pneumonia, unspecified organism; J96.01 Acute respiratory failure with hypoxia; M62.82 Rhabdomyolysis; N17.9 Acute kidney failure, unspecified; I48.20 Chronic atrial fibrillation, unspecified; R65.20 Severe sepsis without septic shock; R19.7 Diarrhea, unspecified; J44.9 Chronic obstructive pulmonary disease, unspecified; I73.9 Peripheral vascular disease, unspecified; F03.90 Unspecified dementia, unspecified severity, without behavioral disturbance, psychotic disturbance, mood disturbance, and anxiety; F10.10 Alcohol abuse, uncomplicated; Z91.148 Patient's other noncompliance with medication regimen for other reason; N39.498 Other specified urinary incontinence; L97.519 Non-pressure chronic ulcer of other part of right foot with unspecified severity; E66.9 Obesity, unspecified; Z91.81 History of falling; I27.20 Pulmonary hypertension, unspecified; I11.0 Hypertensive heart disease with heart failure; R47.1 Dysarthria and anarthria; G62.9 Polyneuropathy, unspecified; Z96.651 Presence of right artificial knee joint; Z96.652 Presence of left artificial knee joint; Z89.429 Acquired absence of other toe(s), unspecified side; Z68.30 Body mass index [BMI] 30.0-30.9, adult
CPT/HCPCS: 36415; 51701; 70551; 71045; 71260; 74177; 80048; 80069; 80076; 81001; 82077; 82550; 82803; 82977; 83605; 83690; 83735; 83880; 84132; 84145; 84443; 84484; 85025; 85027; 86140; 87040; 87045; 87046; 87426; 87427; 87449; 87493; 87631; 87899; 93005; 94640; 94761; 97116; 97163; 97166; 97530; 97535; 99284; 99285; A9270; J1650; J1940; J2470; J2543; J3490; J7030; J7512; Q9967

== ENCOUNTER 2024-11-06 09:38 | Outpatient (CLI) | payer MEDICARE, BC, SELFPAY | END 2024-11-06 09:39 | disposition home or self-care (01) | PROVIDERS: PCP Family Medicine; Visit Provider Family Medicine | DX: I10 Essential (primary) hypertension (principal) | CPT/HCPCS: 80048; 85025 ==

== ENCOUNTER 2025-01-08 09:28 | Outpatient (CLI) | payer MEDICARE, BC, SELFPAY | END 2025-01-08 09:29 | disposition home or self-care (01) | PROVIDERS: PCP Family Medicine; Visit Provider Family Medicine | DX: I50.32 Chronic diastolic (congestive) heart failure (principal) | CPT/HCPCS: 80048; 83880 ==

== ENCOUNTER 2025-04-09 10:00 | Outpatient (CLI) | payer MEDICARE, BC, SELFPAY | END 2025-04-09 10:01 | disposition home or self-care (01) | PROVIDERS: PCP Family Medicine; Visit Provider Family Medicine | DX: I50.32 Chronic diastolic (congestive) heart failure (principal); M10.9 Gout, unspecified | CPT/HCPCS: 80048; 83880; 84550 ==

== ENCOUNTER 2025-04-19 12:05 | Inpatient (IN) | payer MEDICARE, BC, SELFPAY ==
[2025-04-19] VITALS (17 sets, daily range): BP systolic 101–157; BP diastolic 56–99; PULSE 75–87; RESP 13–26; TEMP 36.1–36.4; O2SAT 83–96; BMI 32.9
--- OUTSIDE RECORDS SUMMARY | 2025-04-19 12:07 | XMS_ITS | Clinical Summary ---
Author Organization [facility] Address [address] [place] [id number] Care Team Providers Care Test Analyst Name Role Phone Jose A Arango Ramiro LAPIDARY APPRENTICE Unavailable [phone] José Luis Arredondo MD Primary Care Provider + Allergies No known active allergies Medications allopurinoL (ZYLOPRIM) 300 mg tabletIndication s:Chronic gout with tophus, unspecified cause, unspecified site,Hypertensio n Take 1 tablet by mouth once daily. 90 tablet 4 0 Active durable medical equipment (DME)Indications :Ulcer of right foot with fat layer exposed (HC) SQUARED TOE POST OP SHOE, LARGE, REF: [phone] 1 Each 3 Active durable medical equipment (DME)Indications :Ulcer of left foot with fat layer exposed (HC),Ulcer of right foot with bone involvement without evidence of necrosis (HC) SQUARED TOE POST OP SHOE, XS, REF: [phone] 2 Each 4 Active metoprolol succinate (TOPROL XL) 50 mg sustained-releas e tablet Take 1 Tablet (50 mg) by mouth once daily in the morning. 90 Tablet 3 5 Active potassium chloride (MICRO-K) 10 mEq Controlled-relea se capsule Take 20 mEq by mouth two times daily with meals. 5 Active aspirin enteric coated (ECOTRIN) 325 mg tablet Take 1 Tablet (325 mg) by mouth once daily with a meal. 5 Active torsemide (DEMADEX) 20 mg tablet Take 2 Tablets (40 mg) by mouth once daily. 5 Active acetaminophen (TYLENOL EXTRA STRGTH) 500 mg tabletIndication s:Neck pain Take 2 Tablets (1,000 mg) by mouth three times daily. And daily prn 5 Active Additional Information Patient taking differently:1,000 mg Oral TID,And daily prn for pain, Reported on 03/03/2025 Active Problems Problem Noted Date Diagnosed Date Acute delirium, question acute alcohol withdrawa l syndrome 05/30/2020 Alcohol abuse 05/30/2020 Pneumonia of right lower lobe due to infectious organism 05/28/2020 Obesity (BMI 30-39.9) 05/28/2020 Status post total left knee replacement 07/23/20 18 Arthritis of left knee 07/23/2018 Chronic pain of left knee 07/23/2018 S/P total knee arthroplasty, left DOS 07/07/2018 Dr. Olson 07/07/2018 Bilateral low back pain without sciatica 018 Osteomyelitis of right foot 04/05/2017 Pulmonary HTN 04/05/2017 Iron deficiency anemia due to chronic blood loss 04/05/2017 Acute on chronic diastolic (congestive) heart fa ilure 04/04/2017 Chronic idiopathic gout of multiple sites 2016 History of MRSA infection 04/04/2017 Tobacco abuse 04/04/2017 Hypertension 01/27/2017 Severe peripheral arterial disease 11/08/2015 Prediabetes 11/06/2015 Overview (11/06/2015): HbA1c 5.8% Colon polyps 11/26/2013 Ulcerated, foot Resolved Problems Problem Noted Date Diagnosed Date Resolved Date Chronic pain of left knee 05/21/2018 Arthritis of left knee 05/21/201807/07 Acute on chronic diastolic ( congestive) heart failure 04/05/2017 01/28/2018 Blood loss anemia 04/04/2017 01/28/2018 Skin ulcer of right foot wit h fat layer exposed 04/04/2017 01/28/2018 Acute systolic congestive heart failure 04/04/2017 05/28/2020 Acute blood loss anemia 04/04/2017 05/09/2017 Acute on chronic systolic (c ongestive) heart failure 04/04/2017 01/28/2018 HTN, goal below 140/90 04/04/201701/28 Alcohol use 04/04/2017 05/30/2020 Osteomyelitis of metatarsal 10/16/2016 01/27/2017 Essential hypertension 10/16/201601/27 Ischemic ulcer of toe of right foot 11/08/2015 01/27/2017 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 11/05/2015 10/16/2016 Cellulitis and abscess of face 11/03/2015 10/16/2016 Osteomyelitis of metatarsal, right 5th 11/03/2015 10/16/2016 Gout 11/03/2015 11/18/2015 PVD (peripheral vascular disease) 11/03/2015 11/18/2015 PVD (peripheral vascular disease) 02/22/2010 11/18/2015 Gout 12/21/2009 07/07/2018 Unspecified essential hypertension 12/10/2006 11/18/2015 Hypertension 01/23/2016 Polyp of colon 01/28/2018 Encounters Date Type Department Care Team Description 03/03/2025 10:15 AM CDT Office Visit [facility] [address] [place] [address] Harmeet Sanchez DPM Ulcer (Follow up-bilateral foot) 03/03/2025 Travel 02/03/2025 9:30 AM CDT Office Visit [facility] [address] [place] [address] Harmeet Sanchez DPM Follow Up (Follow Up Left Foot ) 02/03/2025 Travel from Last 3 Months Immunizations Immunization Administration Dates Next Due COVID-19 vaccine (Moderna 10 0mcg/0.5mL) PF, MDV 10/20/2021,12/23/2020,12/02/2020 Pneumococcal Poly,23-Valent (Pneumovax) 12/21/19 09 Pneumococcal conj 10-Valent NON-US VACCINE 01/22,12/20/2008 Pneumococcal conj 13-Valent (Prevnar 13) 016 Td (Age >=7 Years) 08/01/2007,03/21/2000 Tdap 01/30/2018 Family History Medical History Relation Name Comments No Known Problems Brother Diabetes Father Hypertension Father No Known Problems Maternal Grandfather No Known Problems Maternal Grandmother No Known Problems Mother No Known Problems Paternal Grandfather Diabetes Paternal Grandmother Cancer-breast Sister Relation Name Status Comments Brother Father Maternal Grandfather Maternal Grandmother Mother Paternal Grandfather Paternal Grandmother Sister Social History Tobacco Use Types Packs/Day Years Used Date Smoking Tobacco: Former Cigarettes 0.5 59 0 03/30/1958 - 03/30/2017 Cigars Smokeless Tobacco: Never Tobacco Cessation:Counseling Given: Yes Comments:Smokes Cigars- 8 cigars per day 12/08/15 Alcohol Use Standard Drinks/Week Comments Yes 14 (1 standard drink = 0.6 oz pu re alcohol) 3-4 beers/day PHQ-2 Answer Date Recorded PHQ-2 Score 0 11/29/2018 Social Connections Answer Date Recorded Frequency of Communication with Friends and Fami ly Not on file 09/30/2021 Financial Resource Strain Answer Date R ecorded Difficulty of Paying Living Expenses Not on file 09/30/2021 Difficulty of Paying Living Expenses Not on file 09/30/2021 Sex and Gender Information Value Date Recorded Sex Assigned at Not on file Legal 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 Gender Identity Not on file Sexual Orientation Not on file Occupation Industry Job Start Date Job End Date Retired, works part-time Not on file Not on file Not on file Obstetrics History Last Filed Vital Signs Vital Sign Reading Time Taken Comments Blood Pressure 151/83 03/03/2025 10:25 AM CDT Pulse 84 03/03/2025 10:25 AM CDT Temperature 36.2 C (97.1 F) 11/25/2024 10:00 AM TAXATION ECONOMIST Respiratory Rate 16 11/25/2024 10:0 0 AM TAXATION ECONOMIST Oxygen Saturation 92% 03/03/2025 10: 25 AM CDT Inhaled Oxygen Concentration - - Weight 106.9 kg (235 lb 9.6 oz) 025 10:00 AM TAXATION ECONOMIST Height 172.7 cm (5' 8) 11/05/2024 11:3 4 AM TAXATION ECONOMIST Body Mass Index 35.82 11/05/2024 11:34 AM TAXATION ECONOMIST Plan of Treatment Upcoming Encounters Date Type Department Care Team (Late st Contact Info) Description 05/12/2025 9:30 AM CDT Office Visit [facility] [address] [place] [address] Harmeet Sanchez, DPM [address] [place] [address] Health Maintenance Due Date Last Done Comments Zoster (shingles) series for age 50+ (1 of 2) 1993 RSV vaccine for adults or (1 - 1-dose 75+ series) 2018 Depression screening for age 12+ 01/27/2020 01/26/2019, 01/24/2018, 01/23/2017, Additional history exists Medicare Wellness for age 65+ 01/27/2020 01/26/2019, 01/24/2018, 01/23/2017, Additional history exists BMI (ht and wt on same day) for age 18+ 03/01/2021 03/01/2020, 08/11/2019, 07/01/2019, Additional history exists COVID-19 vaccine series ( season) 2024 10/20/2021, 10/20/2021, 12/23/2020, Additional history exists Influenza Vaccine (#1) 2025 Tetanus booster 01/31/2028 01/30/2018, 10/2006, 03/21/2000 Pneumococcal series for age 50+ Completed 01/23/2016, 01/23/2016, 12/20/2008, Additional history exists Hepatitis B series for 19+ Aged Out N o longer eligible based on patient's age to complete this topic Medical Devices Implanted Type Area Material Analyst Device Identifier Shelf Expiration Date Model / Serial / Lot Cmnt Bone 40g Simplex P Non Atb Mv - [id number] Implanted:Qty: 2 on 07/07/2018 by Rodriguez Olson MD at [facility] Left: Knee [employer] 06/29/2019 6191-1-010 # / / [id number]-B-[id number] - [id number] Implanted:Qty: 1 on 07/07/2018 by Rodriguez Olson MD at [facility] Left: Knee [employer] 12/18/2022 5551-G-350 / / [id number] Description:Triathlon X3 Asy mmetric Patella [id number]-X-[id number] - [id number] Implanted:Qty: 1 on 07/07/2018 by Rodriguez Olson MD at [facility] Left: Knee [employer] 08/10/2022 5515-F-[id number] / / [id number] Description:Triathlon Post S tab Femoral [id number]-I-[id number] - [id number] Implanted:Qty: 1 on 07/07/2018 by Rodriguez Olson MD at [facility] Left: Knee [employer] 02/13/2022 5520-B-600 / / [id number] Description:Triathlon Primar y Tibial Baseplate [id number]-A-[id number] - [id number] Implanted:Qty: 1 on 07/07/2018 by Rodriguez Olson MD at [facility] Left: Knee [employer] 06/10/2021 5523-G-609 / / [id number] Description:Triathlon X3 Tib ial Bearing Insert - PS Explanted Type Area Material Analyst Device Identifier Shelf Expiration Date Model / Serial / Lot [id number] - [id number] Implanted:Qty: 1 Explanted:Qty: 1 on 07/07/2018 at [facility] Left: Knee [employer] 04/18/2021 5532-G-609 / / [id number] Description:Triathlon X3 Tib ial Bearing Insert - PS Additional Health Concerns Infection Onset Date Last Indicated MRSA Clearance Comment:07/08/2018 Nares surveillance cultures needed to clear patient if <12 months since positive culture. If >12 months since positive culture, precautions can be discontinued if patient has no MRSA risk factors. +MRSA right foot 10/16/2016, 04/04/17 07/08/2018 07/08/2018 MRSA 07/05/2023 07/05/2023 Insurance MEDICARE PART A HB ONLY MEDICARE PART B HB ONLY [employer] MEDICARE PART A HB ONLY MEDICARE PART B HB ONLY [place] ONLY [place] BLUE HB ONLY HC MEDICARE PPS [place] BLUE HB ONLY [place] BLUE MR PB ONLY Advance Directives Documents on File Type Date Recorded Patient Baby Sitter Expl anation Healthcare Directive 04/15/2017 7:09 PM 08/16 * DNR (Latest Code Status on File) Date Activated Date Inactivated Comments 11/09/2024 3:30 PM POLST needs to be completed. * Full Code Date Activated Date Inactivated Comments 06/17/2024 11:33 AM 11/09/2024 3:30 PM * Full Code Date Activated Date Inactivated Comments 05/26/2020 5:06 PM 06/09/2020 12:26 PM Question Answer Comments Code Status Discussion: Not Discussed * Full Code Date Activated Date Inactivated Comments 07/07/2018 5:11 PM 07/10/2018 3:01 PM Question Answer Comments Code Status Discussion: Discussed * Full Code Date Activated Date Inactivated Comments 07/07/2018 11:05 AM 07/07/2018 5:11 PM Question Answer Comments Code Status Discussion: Discussed Care Teams Test Analyst Relationship Specialty Start Date End Date José Luis Arredondo MD [address] [place] [address] PCP - General Family Practice 02/12/22 [place], AUBREY Burdick Cad Designer Drafter 10/22/16
--- NOTE | 2025-04-19 12:31 | ED.GENADULT ---
HPI - General Adult General Chief complaint: Weakness Stated complaint: weakness Time Seen by Provider: 04/19/25 12:29 History of Present Illness HPI narrative: Pt's son reports pt has had new onset of weakness over the last 2 days. Unable to get up and move around on his own, usually can ambulate independently with a cane. Has dx CHF. 80-year-old man presenting to the emergency department with concern weakness accompanied by his son. Last couple of days has been increasingly weak. Sounds like he has been a little short of breath as well though this is not entirely clear. No fever noted. Difficult interview. Does have a history of diastolic heart failure. Son notes that he is actually down from what he would consider his baseline weight. Last echocardiogramat this facility in April 2024 showed normal LV size and wall thickness with an EF estimated at 40-45%. And normal RV size with mildly reduced systolic function. Suspected mild stenosis of aortic valve. Noted also pulmonary hypertension. History of atrial fibrillation and has refused anticoagulation apparently. Son intense to him here. Apparently lives about [address] [place] he says. Did apparently have a fall few days ago but not suspected of hitting his head. No complaints of pain. Abrasion on his knee noted during physical exam. Related Data Home Medications ?Medication ?Instructions ?Recorded ?Confirmed torsemide 20 mg tablet 40 mg PO DAILY 01/08/25 04/19/25 aspirin 325 mg tablet,delayed 325 mg PO DAILY 04/19/25 04/19/25 release potassium chloride 10 mEq 20 meq PO DAILY 04/19/25 04/19/25 capsule,extended release Previous Rx's ?Medication ?Instructions ?Recorded allopurinol 300 mg tablet 300 mg PO DAILY #90 tabs 04/24/24 acetaminophen 325 mg tablet 650 mg (2 x 325 mg) PO Q6H PRN #30 10/02/24 tabs metoprolol succinate 50 mg 50 mg PO DAILY #90 tabs 01/13/25 tablet,extended release 24 hr Allergies Allergy/AdvReac Type Severity Reaction Status Date / Time No Known Drug Allergies Allergy Verified 04/09/25 09:06 Review of Systems Status of ROS: Reports: 6 or more systems reviewed and unremarkable except as noted in History and below [facility] Medical History (Updated 04/20/25 @ 16:01 by Felicia Steele MD) History of gout ?Z87.39 - Personal history of other diseases of the musculoskeletal system and connective tissue (ICD-10) Pulmonary hypertension ?I27.20 - Pulmonary hypertension, unspecified (ICD-10) Chronic systolic (congestive) heart failure ?I50.22 - Chronic systolic (congestive) heart failure (ICD-10) Dementia ?F03.90 - Unspecified dementia, unspecified severity, without behavioral disturbance, psychotic disturbance, mood disturbance, and anxiety (ICD-10) Atrial fibrillation ?I48.91 - Unspecified atrial fibrillation (ICD-10) Foot ulcer, right ?L97.519 - Non-pressure chronic ulcer of other part of right foot with unspecified severity (ICD-10) Alcohol use disorder ?F10.90 - Alcohol use, unspecified, uncomplicated (ICD-10) Urinary incontinence ?R32 - Unspecified urinary incontinence (ICD-10) Osteoarthritis ?M19.90 - Unspecified osteoarthritis, unspecified site (ICD-10) Peripheral arterial disease ?I73.9 - Peripheral vascular disease, unspecified (ICD-10) Chronic obstructive pulmonary disease ?J44.9 - Chronic obstructive pulmonary disease, unspecified (ICD-10) Peripheral neuropathy ?G62.9 - Polyneuropathy, unspecified (ICD-10) Frailty ?R54 - Age-related physical debility (ICD-10) Noncompliance with medication regimen ?Z91.148 - Patient's other noncompliance with medication regimen for other reason (ICD-10) At risk for falls ?Z91.81 - History of falling (ICD-10) Obesity ?E66.9 - Obesity, unspecified (ICD-10) History of methicillin resistant Staphylococcus aureus infection (04/04/17) ?Z86.14 - Personal history of Methicillin resistant Staphylococcus aureus infection (ICD-10) History of colonic polyps ?Z86.010 - Personal history of colonic polyps (ICD-10) History of alcohol abuse ?F10.11 - Alcohol abuse, in remission (ICD-10) 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 ?M1A.[id number] - Idiopathic chronic gout, unspecified site, without tophus (tophi) (ICD-10) Essential hypertension ?I10 - Essential (primary) hypertension (ICD-10) Surgical History History of cataract surgery ?Z98.49 - Cataract extraction status, unspecified eye (ICD-10) 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 Son was with him today lives nearby and checks on him every day. , 4 kids, retired, former smoker, 3-4 drinks per day. Healthcare power of receiver setter would be all of his children. Code status is DNR. What is your current living situation?: I presently have a place to live Problems where you live: no known problems Problems where you live details: n/a In the past 12 months, utilities in danger of being shut off: no In past 12 months, lack of transportation kept you from medical appts, meetings, work, or getting things needed for daily living: no In the past 12 mos, have been you worried that your food would run out before you had money to buy more?: never true In the past 12 mos, the food you bought just didn't last and you didn't have money to buy more?: never true Highest level of school completed/degree received: high school graduate Smoking Status: Former smoker What tobacco products do you use: cigarettes Smoking quit date/years: >15 years ago Do you use any of these nicotine containing products: None Second hand tobacco smoke exposure: No How often do you have a drink containing alcohol: 4 or more times a week Alcohol type: beer Alcohol type details: pt reports x3-4 beers per day How many standard drinks containing alcohol do you have on a typical day: 3 or 4 How often do you have six or more drinks on one occasion: Never AUDIT-C Alcohol total score: 5 Non-prescribed substance use: denies use Caffeine: No How often does anyone, including family, friends and others, physically hurt you: never How often does anyone, including family, friends and others, insult or talk down to you: never How often does anyone, including family, friends and others, threaten you with harm: never How often does anyone, including family, friends and others, scream or curse at you: never service: No Exam Narrative: Exam Narrative: Pleasant. Is appearing rather fatigued. Jokes during physical exam. Oropharynx is moist. Lips a little dry. Lungs with without wheeze but some mid right lung and lower crepitus. Lower extremities with trace edema. Midline surgical scars over his knees. There is also a fresh abrasion on the right knee. Flexes and extends here without notable difficulty. Heart appears to be in regular rhythm with some ectopic beats. Abdomen is overweight soft and nontender. Generally tympanitic. As noted is quite fatigued. Requires good deal of assistance to simply remain in seated position in his bed. Const: Vital Signs, click to edit/add: Vital Signs - 24 hr 04/19/25 12:12 04/19/25 12:29 04/19/25 12:39 Temperature 97.4 F L Pulse Rate Pulse Rate [Pulse Oximeter] 80 Respiratory Rate 24 26 H Blood Pressure 113/74 Blood Pressure [Ri ght Upper Arm] 120/67 Pulse Oximetry 91 91 Oxygen Delivery Me thod Room Air Oxygen Flow Rate 04/19/25 12:48 04/19/25 12:55 04/19/25 13:00 Temperature Pulse Rate 87 Pulse Rate [Pulse Oximeter] Respiratory Rate 23 18 Blood Pressure 128/72 Blood Pressure [Ri ght Upper Arm] Pulse Oximetry 85 L 83 L Oxygen Delivery Me thod Room Air Room Air Oxygen Flow Rate 04/19/25 13:01 04/19/25 13:02 04/19/25 13:32 Temperature Pulse Rate 87 Pulse Rate [Pulse Oximeter] Respiratory Rate 18 21 Blood Pressure 143/92 H 138/88 Blood Pressure [Ri ght Upper Arm] Pulse Oximetry 92 94 Oxygen Delivery Me thod Nasal Cannula Nasal Cannula Nasal Cannula Oxygen Flow Rate 2 2 2 04/19/25 13:45 Temperature Pulse Rate 78 Pulse Rate [Pulse Oximeter] Respiratory Rate 19 Blood Pressure Blood Pressure [Ri ght Upper Arm] Pulse Oximetry 95 Oxygen Delivery Me thod Nasal Cannula Oxygen Flow Rate 2 Documenting provider has reviewed patient's vital signs: yes Course Vital Signs Vital signs: Initial Vital Signs Temperature 97.4 F L 04/19/25 12:12 Temperature Source Temporal Artery Scan 04/19/25 12:12 Pulse Rate 80 04/19/25 12:12 Respiratory Rate 24 04/19/25 12:12 Blood Pressure 120/67 04/19/25 12:12 Blood Pressure Mean 84 04/19/25 12:12 Blood Pressure Position Sitting 04/19/25 12:12 Pulse Oximetry 91 04/19/25 12:12 Oxygen Delivery Method Room Air 04/19/25 12:12 Vital Signs Temperature 97.4 F L 04/19/25 12:12 Pulse Rate 80 04/19/25 12:12 Respiratory Rate 24 04/19/25 12:12 Blood Pressure 120/67 04/19/25 12:12 Pulse Oximetry 91 04/19/25 12:12 Oxygen Delivery Method Room Air 04/19/25 12:12 Temperature 97.8 F 04/21/25 02:41 Pulse Rate 75 04/21/25 02:41 Respiratory Rate 18 04/21/25 02:41 Blood Pressure 96/57 L 04/21/25 02:41 Pulse Oximetry 90 04/21/25 02:41 Oxygen Delivery Method Room Air 04/21/25 02:41 Oxygen Flow Rate 0 04/20/25 23:30 Medications Administered Medications: Generic Name Dose Route Start Last Admin Trade Name Sunshine PRN Reason Stop Dose Admin Aspirin 325 mg 04/20/25 09:00 04/20/25 08:47 Aspirin Ec 325 Mg Tablet PO 325 mg DAILY EDYTA Administration Azithromycin 500 mg 04/20/25 14:00 04/20/25 13:26 Azithromycin 250 Mg Tablet PO 500 mg Q24H EDYTA Administration Heparin Sodium (Porcine) 5,000 unit 04/19/25 18:00 04/21/25 05:39 Heparin 5,000 Unit/0.5 Ml Inj SUBCUT 5,000 unit Q12H EDYTA Administration Ceftriaxone Sodium 2 gm/ 100 mls @ 200 mls/hr 04/20/25 14:00 04/20/25 20:43 Sodium Chloride IVPB Infused Q24H EDYTA Infusion Metoprolol Succinate 50 mg 04/20/25 09:00 04/20/25 08:47 Metoprolol Succinate (Xl) 50 Mg Tab PO 50 mg DAILY EDYTA Administration Perflutren Lipid Microsphere 2 ml 04/20/25 15:01 04/20/25 15:19 Perflutren Lipid Microspheres 2 Ml Vial IVP 2 ml ONCE PRN Administration echo Sodium Chloride 5 ml 04/19/25 15:31 04/19/25 17:18 Sodium Chloride 0.9 % (Flush) 10 Ml Syringe IVF 5 ml .FLUSH PRN Administration Sodium Chloride 5 ml 04/19/25 21:00 04/20/25 20:32 Sodium Chloride 0.9 % (Flush) 10 Ml Syringe IVF 5 ml BID EDYTA Administration Torsemide 40 mg 04/20/25 08:00 04/20/25 07:30 Torsemide 20 Mg Tablet PO 40 mg DAILY@0800 EDYTA Administration Discontinued Medications Generic Name Dose Route Start Last Admin Trade Name Freq PRN Reason Stop Dose Admin Azithromycin 500 mg 04/19/25 14:08 04/19/25 14:21 Azithromycin 250 Mg Tablet PO 04/19/25 14:09 500 mg ONCE ONE Administration Furosemide 40 mg 04/19/25 15:54 04/19/25 17:17 Furosemide 10 Mg/Ml Inj IVP 04/19/25 15:55 40 mg ONCE ONE Administration Ceftriaxone Sodium 1 gm/ 100 mls @ 200 mls/hr 04/19/25 14:08 04/19/25 14:55 Sodium Chloride IVPB 04/19/25 14:09 Infused ONCE ONE Infusion Ceftriaxone Sodium 1 gm/ 100 mls @ 200 mls/hr 04/19/25 16:00 04/19/25 20:45 Sodium Chloride IVPB 04/19/25 16:29 Infused Q24H EDYTA Infusion Potassium Bicarbonate 25 meq 04/20/25 15:57 04/20/25 16:42 Potassium Bicarb 25 Meq Effervescent Tab PO 04/20/25 15:58 25 meq ONCE ONE Administration Medical Decision Making MDM Narrative Medical decision making narrative: May have some degree of heart failure exacerbation, underlying infection whether be pulmonary or urine. Regardless is extremely weak and I would anticipate admission. Chest x-ray independently reviewed by me show some cardiomegaly and diffuse infiltrates. No clear effusion. BUN creatinine might suggest some prerenal azotemia. BNP is improved from prior. Troponin is normal. INDICATION: Hypoxia COMPARISON: September 28, 2024 TECHNIQUE: Single-view study obtained portably April 19, 2025 FINDINGS: TUBES AND LINES: None. HEART AND MEDIASTINUM: Unchanged enlargement of the heart. LUNGS AND PLEURAL SPACES: Moderate diffuse multifocal airspace disease.The pleural spaces are unremarkable. OSSEOUS STRUCTURES: Age-appropriate appearance. No acute focal finding. IMPRESSION: Unchanged enlargement of the heart. Moderate diffuse multifocal airspace disease. This could be due to edema or a multifocal infectious/inflammatory process. No pleural effusion or pneumothorax. Dictated by Sal Vu MD @ 04/19/2025 1:33:06 PM Oxygenating 85% at times on room air. A little more labored in his breathing. Placed on 2 L nasal cannula oxygen. Improves to 92 - 95%. Will need to take care considering COPD diagnosis. White count is mildly elevated at 13.1 Monitored on teletypesetter monitor without other event here in the emergency department. EKG does show atrial fibrillation Anticipate discussing with hospitalist for admission shortly. As requested initiating Rocephin and azithromycin. I think is a little dehydrated but without sepsis evidence otherwise have not initiated fluid resuscitation. Lactate pending. Medical Records Medical records reviewed: Yes I reviewed the patient's medical records Lab Data Lab results reviewed: Yes I reviewed the patient's lab results Labs: Lab Results 04/19/25 04/19/25 04/19/25 Range/Units 12:39 12:40 13:17 WBC 13.10 H (4.50-11.00) K/uL RBC 5.49 (4.30-5.90) m/uL Hgb 15.7 (13.5-17.5) gm/dL Hct 49.9 (37.0-53.0) % MCV 91 (80-100) fL MCH 29 (26-34) pg MCHC 32 (32-36) gm/dL RDW Coeff of Peter 16.9 H (11.5-15.5) % Plt Count 275 (140-440) K/uL Neut % (Auto) 57.7 (42.0-72.0) % Lymph % (Auto) 9.5 L (20-44) % [place] % (Auto) 3.2 (0.0-11.0) % Eos % (Auto) 28.9 H (0.0-7.0) % Baso % (Auto) 0.5 (0.0-3.0) % Neut # (Auto) 7.60 H (1.7-7.0) K/uL Lymph # (Auto) 1.20 (0.90-2.90) K/uL [place] # (Auto) 0.40 (0.00-0.90) K/UL Eos # (Auto) 3.80 H (0.00-0.50) K/uL Baso # (Auto) 0.10 (0.00-0.30) K/uL Abs Immat Gran (auto) 0.00 (0.00-0.30) K/uL Imm/Tot Granulo (auto) 0.2 % VBG pH (7.32-7.43) VBG pCO2 (40-50) mmHG VBG pO2 (25-47) mmHG VBG HCO3 (21-28) mmol/L Sodium 141 (135-149) mmol/L Potassium 3.7 (3.6-5.1) mmol/L Chloride 101 (96-114) mmol/L Carbon Dioxide 32 (20-32) mmol/L Anion Gap 8 (7-15) mEq/L BUN 47 H (7-30) mg/dL Creatinine 1.6 H (0.5-1.5) mg/dL Estimated GFR 43 ml/min Glucose 181 H (60-115) mg/dL Lactate (0.5-1.9) mmol/L Calcium 9.4 (8.4-10.6) mg/dL Troponin I 0.02 (0.01-0.04) ng/mL NT-Pro-B Natriuret Pep 2120 H (See Note) pg/mL Procalcitonin 0.18 (<0.50) ng/mL Urine Color (Yellow) Urine Appearance (Clear) Urine pH (5.0-8.5) Ur Specific [place] (1.000-1.030) Urine Protein (Negative) Urine Glucose (UA) (Negative) Urine Ketones (Negative) Urine Blood (Negative) Urine Nitrite (Negative) Urine Bilirubin (Negative) Urine Urobilinogen (0.2-1.0) Ur Leukocyte Esterase (Negative) Urine RBC (0-2) Urine WBC (0-5) Ur Squamous Epith Cells (None-Few) Urine Bacteria (None) Ethyl Alcohol < 0.01 (0.01-0.03) % SARS-CoV-2 (PCR) (Negative) Influenza Type A (PCR) (Negative) Influenza Type B (PCR) (Negative) RSV (PCR) (Negative) Lab Acknowledgement Test Added POC Troponin I 0.00 L (0.01-0.04) ng/ml 04/19/25 04/19/25 04/19/25 Range/Units 13:30 13:32 13:44 WBC (4.50-11.00) K/uL RBC (4.30-5.90) m/uL Hgb (13.5-17.5) gm/dL Hct (37.0-53.0) % MCV (80-100) fL MCH (26-34) pg MCHC (32-36) gm/dL RDW Coeff of Peter (11.5-15.5) % Plt Count (140-440) K/uL Neut % (Auto) (42.0-72.0) % Lymph % (Auto) (20-44) % [place] % (Auto) (0.0-11.0) % Eos % (Auto) (0.0-7.0) % Baso % (Auto) (0.0-3.0) % Neut # (Auto) (1.7-7.0) K/uL Lymph # (Auto) (0.90-2.90) K/uL [place] # (Auto) (0.00-0.90) K/UL Eos # (Auto) (0.00-0.50) K/uL Baso # (Auto) (0.00-0.30) K/uL Abs Immat Gran (auto) (0.00-0.30) K/uL Imm/Tot Granulo (auto) % VBG pH (7.32-7.43) VBG pCO2 (40-50) mmHG VBG pO2 (25-47) mmHG VBG HCO3 (21-28) mmol/L Sodium (135-149) mmol/L Potassium (3.6-5.1) mmol/L Chloride (96-114) mmol/L Carbon Dioxide (20-32) mmol/L Anion Gap (7-15) mEq/L BUN (7-30) mg/dL Creatinine (0.5-1.5) mg/dL Estimated GFR ml/min Glucose (60-115) mg/dL Lactate (0.5-1.9) mmol/L Calcium (8.4-10.6) mg/dL Troponin I (0.01-0.04) ng/mL NT-Pro-B Natriuret Pep (See Note) pg/mL Procalcitonin (<0.50) ng/mL Urine Color Yellow (Yellow) Urine Appearance Clear (Clear) Urine pH 5.5 (5.0-8.5) Ur Specific [place] 1.010 (1.000-1.030) Urine Protein Trace A (Negative) Urine Glucose (UA) Negative (Negative) Urine Ketones Negative (Negative) Urine Blood Negative (Negative) Urine Nitrite Negative (Negative) Urine Bilirubin Negative (Negative) Urine Urobilinogen 0.2 (0.2-1.0) Ur Leukocyte Esterase Negative (Negative) Urine RBC 0-2 (0-2) Urine WBC 0-2 (0-5) Ur Squamous Epith Cells None (None-Few) Urine Bacteria None (None) Ethyl Alcohol (0.01-0.03) % SARS-CoV-2 (PCR) Negative SARS-CoV-2 (Negative) Influenza Type A (PCR) Negative PCR FLU A (Negative) Influenza Type B (PCR) Negative PCR FLU B (Negative) RSV (PCR) Negative PCR RSV (Negative) Lab Acknowledgement Test Added POC Troponin I (0.01-0.04) ng/ml 04/19/25 Range/Units 14:18 WBC (4.50-11.00) K/uL RBC (4.30-5.90) m/uL Hgb (13.5-17.5) gm/dL Hct (37.0-53.0) % MCV (80-100) fL MCH (26-34) pg MCHC (32-36) gm/dL RDW Coeff of Peter (11.5-15.5) % Plt Count (140-440) K/uL Neut % (Auto) (42.0-72.0) % Lymph % (Auto) (20-44) % [place] % (Auto) (0.0-11.0) % Eos % (Auto) (0.0-7.0) % Baso % (Auto) (0.0-3.0) % Neut # (Auto) (1.7-7.0) K/uL Lymph # (Auto) (0.90-2.90) K/uL [place] # (Auto) (0.00-0.90) K/UL Eos # (Auto) (0.00-0.50) K/uL Baso # (Auto) (0.00-0.30) K/uL Abs Immat Gran (auto) (0.00-0.30) K/uL Imm/Tot Granulo (auto) % VBG pH 7.431 H (7.32-7.43) VBG pCO2 51 H (40-50) mmHG VBG pO2 41.7 (25-47) mmHG VBG HCO3 34 H (21-28) mmol/L Sodium (135-149) mmol/L Potassium (3.6-5.1) mmol/L Chloride (96-114) mmol/L Carbon Dioxide (20-32) mmol/L Anion Gap (7-15) mEq/L BUN (7-30) mg/dL Creatinine (0.5-1.5) mg/dL Estimated GFR ml/min Glucose (60-115) mg/dL Lactate 1.7 (0.5-1.9) mmol/L Calcium (8.4-10.6) mg/dL Troponin I (0.01-0.04) ng/mL NT-Pro-B Natriuret Pep (See Note) pg/mL Procalcitonin (<0.50) ng/mL Urine Color (Yellow) Urine Appearance (Clear) Urine pH (5.0-8.5) Ur Specific [place] (1.000-1.030) Urine Protein (Negative) Urine Glucose (UA) (Negative) Urine Ketones (Negative) Urine Blood (Negative) Urine Nitrite (Negative) Urine Bilirubin (Negative) Urine Urobilinogen (0.2-1.0) Ur Leukocyte Esterase (Negative) Urine RBC (0-2) Urine WBC (0-5) Ur Squamous Epith Cells (None-Few) Urine Bacteria (None) Ethyl Alcohol (0.01-0.03) % SARS-CoV-2 (PCR) (Negative) Influenza Type A (PCR) (Negative) Influenza Type B (PCR) (Negative) RSV (PCR) (Negative) Lab Acknowledgement POC Troponin I (0.01-0.04) ng/ml ECG Data Attestation: I personally reviewed and interpreted this ECG as follows: (Atrial fibrillation with a PVC. Rate of 88.) Discharge Plan Discharge Clinical Impression: Pneumonia, Respiratory failure Patient Disposition: Admitted As Inpatient Condition: Stable Procedures ABG Interpretation ABG Results: 04/19/25 14:18 VBG pH 7.431 H VBG pCO2 51 H VBG pO2 41.7 VBG HCO3 34 H
--- NOTE | 2025-04-19 12:39 | CRLHL7_ITS ---
For Patients: As a result of the Century Cures Act, medical imaging exams and procedure reports are released immediately into your electronic medical record. You may view this report before your referring provider. If you have questions, please contact your health care provider. INDICATION: Hypoxia COMPARISON: September 28, 2024 TECHNIQUE: Single-view study obtained portably April 19, 2025 FINDINGS: TUBES AND LINES: None. HEART AND MEDIASTINUM: Unchanged enlargement of the heart. LUNGS AND PLEURAL SPACES: Moderate diffuse multifocal airspace disease.The pleural spaces are unremarkable. OSSEOUS STRUCTURES: Age-appropriate appearance. No acute focal finding. IMPRESSION: Unchanged enlargement of the heart. Moderate diffuse multifocal airspace disease. This could be due to edema or a multifocal infectious/inflammatory process. No pleural effusion or pneumothorax. Dictated by Sal Vu MD @ 04/19/2025 1:33:06 PM (Electronically Signed)
[2025-04-19 12:53] LABS: Hematocrit 49.9 % (37.0-53.0); Hemoglobin* 15.7 gm/dL (13.5-17.5); Immature Granulocytes Pct Auto 0.2 %; Mean Corpuscular HGB Conc 32 gm/dL (32-36); Mean Corpuscular Hemoglobin 29 pg (26-34); Mean Corpuscular Volume 91 fL (80-100); RDW Coefficient of Variation % 16.9 % (11.5-15.5); Red Blood Count 5.49 m/uL (4.30-5.90); White Blood Count* 13.10 K/uL (4.50-11.00)
[2025-04-19 12:54] LABS: Immature Granulocytes Abs Auto 0.00 K/uL (0.00-0.30); Lymphocytes Absolute Auto 1.20 K/uL (0.90-2.90); Slide Review Reflex No
[2025-04-19 13:05] LABS: Chloride* 101 mmol/L (96-114); Sodium* 141 mmol/L (135-149)
[2025-04-19 13:06] LABS: Potassium* 3.7 mmol/L (3.6-5.1)
[2025-04-19 13:08] LABS: Anion Gap 8 mEq/L (7-15); Blood Urea Nitrogen* 47 mg/dL (7-30); Carbon Dioxide* 32 mmol/L (20-32); Creatinine* 1.6 mg/dL (0.5-1.5); Estimated Glomerular Filt Rate 43 ml/min
[2025-04-19 13:09] LABS: Calcium* 9.4 mg/dL (8.4-10.6); Glucose* 181 mg/dL (60-115)
[2025-04-19 13:20] LABS: Troponin, Point-of-Care* 0.00 ng/ml (0.01-0.04)
[2025-04-19 13:26] LABS: NT Pro B Type NatriureticPept* 2120 pg/mL (See Note)
[2025-04-19 13:48] LABS: Appearance Urine Clear (Clear)
[2025-04-19 14:14] LABS: PCR FLU A Negative PCR FLU A (Negative); PCR FLU B Negative PCR FLU B (Negative); PCR RSV Negative PCR RSV (Negative); SARS PCR* Negative SARS-CoV-2 (Negative)
[2025-04-19 14:19] LABS: Procalcitonin* 0.18 ng/mL (<0.50)
[2025-04-19] MEDS: cefTRIAXone 1 GM in 0.9 % SODIUM CHLORIDE Mini-bag 100 ML IVPB ×2 (14:21→17:18)
[2025-04-19] MEDS: AZITHROMYCIN 250 MG TABLET 500 MG PO (14:21)
[2025-04-19 14:23] LABS: HCO3 VBG 34 mmol/L (21-28); Lactate* 1.7 mmol/L (0.5-1.9); PCO2 VBG 51 mmHG (40-50); PO2 VBG 41.7 mmHG (25-47); pH VBG 7.431 (7.32-7.43)
[2025-04-19 14:26] LABS: Ethanol* < 0.01 % (0.01-0.03)
--- NOTE | 2025-04-19 16:04 | PM.IMHP1 ---
Assessment and Plan Assessment and plan (1) Acute respiratory failure: Problem comment: Hypoxia, likely multifactorial secondary to infection that tipped the patient out of his heart failure balance on 2 L/min O2 Status: Acute (2) Community acquired pneumonia: Problem comment: Will start him on 2 g IV ceftriaxone in addition to azithromycin Holding IV fluids for now due to congestion Ordered blood cultures Ordered urine antigen of both strep pneumonia and Legionella Status: Acute (3) Acute exacerbation of chronic heart failure: Problem comment: Patient's CXR looks congested Positive bilateral lung crackles Hypoxia, likely multifactorial secondary to infection that the the patient out of his heart failure balance Echo 05/23: EF 40-45% Repeat Echo Ordered one dose IV lasix 40 mg, will re-assess tomorrow. Pt takes torsemide at home, will hold if we need more IV lasix. Status: Suspected (4) JAYLAN (acute kidney injury): Problem comment: -Cr 1.6 -likely secondary to infection, but might be also affected by renal congestion d/t fluid overload -hold allopurinol Status: Acute (5) Chronic systolic (congestive) heart failure: Problem comment: -Echo 05/23: EF 40-45% -Repeat Echo Status: Acute (6) Dementia: Problem comment: - [place] on 05/20/2024 was . - will repeat MOCA Status: Acute (7) Alcohol use disorder: Problem comment: -Daily beer drinker (3/Day) -no history of alcohol withdrawal per the son Status: Acute (8) Atrial fibrillation: Problem comment: Refuses anticoagulation Heart rate controlled on metoprolol Status: Acute (9) History of gout: Problem comment: Some states that he did not have a gout attack for years Holding allopurinol until his kidney function go back to normal Status: Acute (10) Pulmonary hypertension: Status: Acute (11) Essential hypertension: Status: Acute (12) Noncompliance with medication regimen: Problem comment: Son is monitoring his medications. Status: Acute (13) Obesity: Status: Acute Total Time Spent Total Time Spent: Time spent: Today I spent 75 minutes seeing the patient, discussing the patient with ER staff, reviewing Expanse and EPIC notes/diagnostics, discussing the care plan with our care time that includes social work, PT/OT, pharmacy, RT, penitentiary and documenting my impressions and plan in the medical record. Hospitalist- H&P: HPI History of Present Illness Date Seen: 04/19/25 Chief complaint: weakness Narrative: Ibrahima Rankin SR is a 80 year old male with past medical history of dementia, hypertension, chronic diastolic congestive heart failure, atrial fibrillation (not on anticoagulation as patient refused), COPD (not on any inhalers), and obesity who presents to the ED complaining of weakness. Patient's son was helping in giving history he lives close by his father. He states that he felt weak and fell down on Saturday. patient is not a good historian and it could be related to his dementia, he did not confirm if he blacked out at that time or not. Patient denies any fevers or chills, he states that he has his regular cough but there is no worsening of his cough and no phlegm. Son states that he drinks a maximum of 3 beers a day. No history of alcohol withdrawal. No sick contacts. No history of DVT/PE. at the ED patient was hypoxic O2 sat was about 83%, he needs to L per minute of oxygen to get back to normal. Chest x-ray is showing infiltrates bilaterally in addition to congestion. EKG afib w/ controlled HR. WBCs 13 K. Lactic acid 1.7. creatinine 1.6. VBG suggests mild CO2 retention. Trop -ve, proBNP is about 2000 which is better than all of his previous test results. Negative procalcitonin. on examination patient lungs were crackly bilaterally, he was not given fluids at the ED, was only given antibiotics. Review of Systems Status of ROS: Reports: 6 or more systems reviewed and unremarkable except as noted in History and below Medical Decision Making Medical Decision Making Has patient completed a Health Care Directive: Yes [facility] Medical History (Updated 04/19/25 @ 16:35 by Katie Romero MD) History of gout ?Z87.39 - Personal history of other diseases of the musculoskeletal system and connective tissue (ICD-10) Pulmonary hypertension ?I27.20 - Pulmonary hypertension, unspecified (ICD-10) Chronic systolic (congestive) heart failure ?I50.22 - Chronic systolic (congestive) heart failure (ICD-10) Dementia ?F03.90 - Unspecified dementia, unspecified severity, without behavioral disturbance, psychotic disturbance, mood disturbance, and anxiety (ICD-10) Atrial fibrillation ?I48.91 - Unspecified atrial fibrillation (ICD-10) Foot ulcer, right ?L97.519 - Non-pressure chronic ulcer of other part of right foot with unspecified severity (ICD-10) Alcohol use disorder ?F10.90 - Alcohol use, unspecified, uncomplicated (ICD-10) Urinary incontinence ?R32 - Unspecified urinary incontinence (ICD-10) Osteoarthritis ?M19.90 - Unspecified osteoarthritis, unspecified site (ICD-10) Peripheral arterial disease ?I73.9 - Peripheral vascular disease, unspecified (ICD-10) Chronic obstructive pulmonary disease ?J44.9 - Chronic obstructive pulmonary disease, unspecified (ICD-10) Peripheral neuropathy ?G62.9 - Polyneuropathy, unspecified (ICD-10) Frailty ?R54 - Age-related physical debility (ICD-10) Noncompliance with medication regimen ?Z91.148 - Patient's other noncompliance with medication regimen for other reason (ICD-10) At risk for falls ?Z91.81 - History of falling (ICD-10) Obesity ?E66.9 - Obesity, unspecified (ICD-10) History of methicillin resistant Staphylococcus aureus infection (04/04/17) ?Z86.14 - Personal history of Methicillin resistant Staphylococcus aureus infection (ICD-10) History of colonic polyps ?Z86.010 - Personal history of colonic polyps (ICD-10) History of alcohol abuse ?F10.11 - Alcohol abuse, in remission (ICD-10) 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 ?M1A.00X0 - Idiopathic chronic gout, unspecified site, without tophus (tophi) (ICD-10) Essential hypertension ?I10 - Essential (primary) hypertension (ICD-10) Surgical History History of cataract surgery ?Z98.49 - Cataract extraction status, unspecified eye (ICD-10) 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 Lives alone [place] near [place]. Son was with him today lives nearby and checks on him every day. , 4 kids, retired, former smoker, 3-4 drinks per day. Healthcare power of collections attorney would be all of his children. Code status is DNR. What is your current living situation?: I presently have a place to live Problems where you live: no known problems Problems where you live details: N/A In the past 12 months, utilities in danger of being shut off: no In past 12 months, lack of transportation kept you from medical appts, meetings, work, or getting things needed for daily living: no In the past 12 mos, have been you worried that your food would run out before you had money to buy more?: never true In the past 12 mos, the food you bought just didn't last and you didn't have money to buy more?: never true Highest level of school completed/degree received: high school graduate Smoking Status: Former smoker What tobacco products do you use: cigarettes Smoking quit date/years: <= 15 years ago Second hand tobacco smoke exposure: No How often do you have a drink containing alcohol: 4 or more times a week Alcohol type: beer How many standard drinks containing alcohol do you have on a typical day: 3 or 4 How often do you have six or more drinks on one occasion: Daily or almost daily AUDIT-C Alcohol total score: 9 Non-prescribed substance use: denies use Caffeine: Yes (Daily coffee drinker) How often does anyone, including family, friends and others, physically hurt you: never How often does anyone, including family, friends and others, insult or talk down to you: never How often does anyone, including family, friends and others, threaten you with harm: never How often does anyone, including family, friends and others, scream or curse at you: never service: No Meds Home Medications and Allergies Home Medications ?Medication ?Instructions ?Recorded ?Confirmed ?Type allopurinol 300 mg tablet 300 mg PO DAILY #90 tabs 04/24/24 04/19/25 Rx acetaminophen 325 mg tablet 650 mg (2 x 325 mg) PO Q6H PRN #30 10/02/24 04/19/25 Rx tabs torsemide 20 mg tablet 40 mg PO DAILY 01/08/25 04/19/25 History metoprolol succinate 50 mg 50 mg PO DAILY #90 tabs 01/13/25 04/19/25 Rx tablet,extended release 24 hr aspirin 325 mg tablet,delayed 325 mg PO DAILY 04/19/25 04/19/25 History release potassium chloride 10 mEq 20 meq PO DAILY 04/19/25 04/19/25 History capsule,extended release Allergies Allergy/AdvReac Type Severity Reaction Status Date / Time No Known Drug Allergies Allergy Verified 04/09/25 09:06 Exam Narrative: Exam Narrative: Physical exam GENERAL: Obese. On 2 liters/minute oxygen nasal cannula, no acute distress. HEAD AND NECK: Atraumatic, normocephalic CARDIOVASCULAR: Irregular. Normal S1, S2. No murmurs. RESPIRATORY: Reduced air entry B/L. Positive crackles bilateral. NEUROLOGY: Alert, awake. Normal speech. PSYCH: Normal mood, normal affect. Const: Vital Signs, click to edit/add: Vital Signs - 24 hr 04/19/25 12:12 04/19/25 12:29 04/19/25 12:39 Temperature 97.4 F L Pulse Rate Pulse Rate [Pulse Oximeter] 80 Respiratory Rate 24 26 H Blood Pressure 113/74 Blood Pressure [Ri ght Upper Arm] 120/67 Pulse Oximetry 91 91 Oxygen Delivery Me thod Room Air Oxygen Flow Rate 04/19/25 12:48 04/19/25 12:55 04/19/25 13:00 Temperature Pulse Rate 87 Pulse Rate [Pulse Oximeter] Respiratory Rate 23 18 Blood Pressure 128/72 Blood Pressure [Ri ght Upper Arm] Pulse Oximetry 85 L 83 L Oxygen Delivery Me thod Room Air Room Air Oxygen Flow Rate 04/19/25 13:01 04/19/25 13:02 04/19/25 13:32 Temperature Pulse Rate 87 Pulse Rate [Pulse Oximeter] Respiratory Rate 18 21 Blood Pressure 143/92 H 138/88 Blood Pressure [Ri ght Upper Arm] Pulse Oximetry 92 94 Oxygen Delivery Me thod Nasal Cannula Nasal Cannula Nasal Cannula Oxygen Flow Rate 2 2 2 04/19/25 13:45 04/19/25 14:02 04/19/25 14:32 Temperature Pulse Rate 78 75 84 Pulse Rate [Pulse Oximeter] Respiratory Rate 19 18 13 Blood Pressure 142/81 H 153/99 H Blood Pressure [Ri ght Upper Arm] Pulse Oximetry 95 96 94 Oxygen Delivery Me thod Nasal Cannula Nasal Cannula Nasal Cannula Oxygen Flow Rate 2 2 2 Hospitalist - H&P: Result Labs Labs: Short CBC 04/19/25 Range/Units 12:40 WBC 13.10 H (4.50-11.00) K/uL Hgb 15.7 (13.5-17.5) gm/dL Hct 49.9 (37.0-53.0) % Plt Count 275 (140-440) K/uL BMP 04/19/25 12:40 Sodium 141 Potassium 3.7 Chloride 101 Carbon Dioxide 32 BUN 47 H Creatinine 1.6 H Glucose 181 H Calcium 9.4 Cardiac Enzymes 04/19/25 Range/Units 12:40 Troponin I 0.02 (0.01-0.04) ng/mL Urine 04/19/25 Range/Units 13:32 Urine Color Yellow (Yellow) Urine Appearance Clear (Clear) Urine pH 5.5 (5.0-8.5) Ur Specific [place] 1.010 (1.000-1.030) Urine Protein Trace A (Negative) Urine Glucose (UA) Negative (Negative) ECG Attestation: I personally reviewed and interpreted this ECG as follows: ECG interpretation date: 04/19/25 Interpretation: AFib with controlled heart rate. Multiple PVCs. Imaging Chest x-ray: Attestation: I have reviewed the pertinent imaging results. Radiologist's impression: INDICATION: Hypoxia COMPARISON: September 28, 2024 TECHNIQUE: Single-view study obtained portably April 19, 2025 FINDINGS: TUBES AND LINES: None. HEART AND MEDIASTINUM: Unchanged enlargement of the heart. LUNGS AND PLEURAL SPACES: Moderate diffuse multifocal airspace disease.The pleural spaces are unremarkable. OSSEOUS STRUCTURES: Age-appropriate appearance. No acute focal finding. IMPRESSION: Unchanged enlargement of the heart. Moderate diffuse multifocal airspace disease. This could be due to edema or a multifocal infectious/inflammatory process. No pleural effusion or pneumothorax.
[2025-04-19] MEDS: FUROSEMIDE 10 MG/ML inj 40 MG IVP (17:17)
[2025-04-19] MEDS: SODIUM CHLORIDE 0.9 % (FLUSH) 10 ML SYRINGE 5 ML IVF ×2 (17:18→21:43)
[2025-04-19] MEDS: HEPARIN 5,000 UNIT/0.5 ML INJ 5000 UNIT SUBCUT (18:06)
[2025-04-19 19:01] LABS: S pneumo Ag Urine S. pneumo Negative (Negative)
--- NOTE | 2025-04-19 19:03 | PC.NURSE ---
End of shift [id number] - Pt arrived from ED at approximately 1500. Alert and oriented to self and year. RN noted disorientation to situation. Not up from bed during shift, tolerating O2 via nasal cannula at 0.5-2L to maintain saturation above 90% per MD order. Denies pain, SOB, chest pain. Observed to sleep, appears to be resting at bedside with call light within reach at end of shift.
[2025-04-20] VITALS (10 sets, daily range): BP systolic 112–127; BP diastolic 52–88; PULSE 72–82; RESP 16–26; TEMP 36.3–36.6; O2SAT 88–92
[2025-04-20] MEDS: HEPARIN 5,000 UNIT/0.5 ML INJ 5000 UNIT SUBCUT ×2 (06:31→17:42)
[2025-04-20 06:37] LABS: Hematocrit 46.4 % (37.0-53.0); Hemoglobin* 14.5 gm/dL (13.5-17.5); Mean Corpuscular HGB Conc 31 gm/dL (32-36); Mean Corpuscular Hemoglobin 29 pg (26-34); Mean Corpuscular Volume 91 fL (80-100); Red Blood Count 5.08 m/uL (4.30-5.90); White Blood Count* 12.60 K/uL (4.50-11.00)
[2025-04-20 06:41] LABS: Slide Review Reflex No
[2025-04-20 06:50] LABS: Albumin* 3.5 g/dL (3.3-5.0); Chloride* 103 mmol/L (96-114); Potassium* 3.3 mmol/L (3.6-5.1); Sodium* 141 mmol/L (135-149)
[2025-04-20 06:52] LABS: Blood Urea Nitrogen* 46 mg/dL (7-30); Creatinine* 1.6 mg/dL (0.5-1.5); Est. Creatinine Clearance* 37.91; Estimated Glomerular Filt Rate 43 ml/min
[2025-04-20 06:53] LABS: Alanine Aminotransferase* 15 U/L (4-50); Alkaline Phosphatase* 71 U/L (40-150); Anion Gap 5 mEq/L (7-15); Aspartate Amino Transferase* 22 U/L (12-35); Bilirubin Total* 0.7 mg/dL (0.1-1.5); Calcium* 8.9 mg/dL (8.4-10.6); Carbon Dioxide* 33 mmol/L (20-32); Glucose* 141 mg/dL (60-115); Total Protein* 6.8 g/dL (6.0-8.3)
--- NOTE | 2025-04-20 07:08 | PC.NURSE ---
Pt alert and oriented to self and place, confusion surrounding time. O2 sats were above 90% throughout shift with occasional dips to the upper 80s. 2.5 L oxymask utilized. Pt incontinent, checked and changed. Right knee has a scrape that is open to air. Pt in bed, appears to be resting, call light within reach and alarms on. ? ?
[2025-04-20] MEDS: TORSEMIDE 20 MG TABLET 40 MG PO (07:30)
[2025-04-20] MEDS: ASPIRIN EC 325 MG TABLET PO (08:47)
[2025-04-20] MEDS: METOPROLOL SUCCINATE (XL) 50 MG TAB PO (08:47)
[2025-04-20] MEDS: SODIUM CHLORIDE 0.9 % (FLUSH) 10 ML SYRINGE 5 ML IVF ×2 (08:49→20:32)
--- NOTE | 2025-04-20 10:13 | REH.OT ---
Patient up in recliner upon arrival, son present. Despite much encouragement, refusing OT at this time (reports just finished with PT). Will schedule for later today.
--- NOTE | 2025-04-20 10:52 | NUTR.NU ---
Addendum entered and electronically signed by Nicole Andrade 04/22/25 11:17: RDN with nutrition screen for heart healthy diet order. Patient not appropriate for diet education at this time due to diagnosis of dementia and mocha . No designated caregiver listed per chart review. RDN attempted to meet with family, but unable to do so. Patient has been eating 100% of most meals recorded since admission per commissioned police officer. Plan is for rehab at [facility]. RDN will continue to monitor and follow diet tolerance, intake, and appropriateness for diet education. Follow up prn. Original Note: Nutrition: screen initiated r/t MST 17 and wound. Height 5' 11, Weight 238.73 lbs, BMI 32.9 10/02/24 chart weight 239.2 lbs-stable 6+ months, 05/02/24 249 lbs, 4% weight loss in 12 months, not significant. Wound notes report abrasion/scrape on right knee. Diet order Heart Healthy. Intake 100% at supper 04/19/25. Admit acute respiratory failure and pneumonia. Diagnosis history includes: HTN, AF, COPD, alcohol use disorder, dementia-Mocha history . Patient scheduled for an echo this afternoon. [place], son lives nearby and checks on him daily. Plan is for Mocha to be updated today. Echo scheduled for this afternoon. No interventions at this time. Monitor for diet tolerance and intake and need for diet education. Follow up prn.
[2025-04-20] MEDS: AZITHROMYCIN 250 MG TABLET 500 MG PO (13:26)
[2025-04-20] MEDS: cefTRIAXone 2 GM in 0.9 % SODIUM CHLORIDE Mini-bag 100 ML IVPB (13:27)
--- NOTE | 2025-04-20 14:20 | PC.SOCIAL ---
Addendum entered by KINGSLEY Landin 04/20/25 16:26: Discharge planning: [facility] has male short-term rehab beds available this week. life skills worker sent the referral to Susan in Admissions at [facility] via secure email. Social work to follow-up as needed. Original Note: Discharge planning: life skills worker spoke to pt's son, Juan, via phone and updated him on the recommendation from PT/OT that the pt would benefit from a short-term rehab stay after this hospitalization. Juan states that that [facility] in [place] would be their first choice for placement. life skills worker emailed Juan the list of [facility] to [facility] and asked for him to send this worker two more options for placement if [facility] is not available. life skills worker also reached out to Susan at [facility] to see if they have male short term rehab beds available. Pt will need a three night inpatient stay to have Medicare coverage for short-term rehab. Social work to follow-up as needed.
[2025-04-20] MEDS: PERFLUTREN LIPID MICROSPHERES 2 ML VIAL IVP (15:19)
--- NOTE | 2025-04-20 15:30 | PM.IMPN1 ---
Assessment and Plan Assessment and plan (1) Acute respiratory failure: Problem comment: Hypoxia, likely multifactorial secondary to infection that tipped the patient out of his heart failure balance on 2 L/min O2 - Improving Status: Acute (2) Community acquired pneumonia: Problem comment: Continue 2 g IV ceftriaxone in addition to azithromycin Holding IV fluids for now due to congestion Ordered blood cultures (NGTD) Ordered urine antigen of both strep pneumonia and Legionella (NEG) Status: Acute (3) Acute exacerbation of chronic heart failure: Problem comment: Patient's CXR looks congested Positive bilateral lung crackles Hypoxia, likely multifactorial secondary to infection that the the patient out of his heart failure balance Echo 05/23: EF 40-45% Repeat Echo Ordered one dose IV lasix 40 mg, will re-assess tomorrow. Pt takes torsemide at home, will hold if we need more IV lasix. 04/20/25 No crackles today, hypoxia improving. ECHO pending. Restart home torsemide. Status: Suspected (4) Chronic systolic (congestive) heart failure: Problem comment: -Echo 05/23: EF 40-45% -Repeat Echo Status: Chronic (5) JAYLAN (acute kidney injury): Problem comment: -Cr stable at 1.6 -likely secondary to infection, but might be also affected by renal congestion d/t fluid overload -hold allopurinol - continue to monitor Status: Acute (6) Dementia: Problem comment: - [place] on 05/20/2024 was 13. - will repeat MOCA Status: Chronic (7) Alcohol use disorder: Problem comment: -Daily beer drinker (3/Day) -no history of alcohol withdrawal per the son - monitor for withdrawal Status: Chronic (8) Atrial fibrillation: Problem comment: Refuses anticoagulation Heart rate controlled on metoprolol Status: Chronic (9) History of gout: Problem comment: Some states that he did not have a gout attack for years Holding allopurinol until his kidney function go back to normal Status: Chronic (10) Pulmonary hypertension: Status: Chronic (11) Essential hypertension: Status: Chronic (12) Noncompliance with medication regimen: Problem comment: Son is monitoring his medications. Status: Chronic (13) Obesity: Status: Chronic Total Time Spent Total Time Spent: Today I spent 35 minutes seeing the patient, reviewing Expanse and EPIC notes/diagnostics/labs, discussing the care plan with our care team that includes social work, PT/OT, pharmacy, RT, usp and documenting my impressions and plan in the medical record. Subjective Time Seen by Provider: 09:20 Date Seen: 04/20/25 Interval history: Ed denies pain. He says he feels better. Denies CP or SOB. His son left a message for me with the bowling or skating front desk clerk. I called him soon afterward. We discussed pneumonia, heart failure, h/o alcohol use, PT and OT. Exam Narrative: Exam Narrative: General: No acute distress. Awake, alert, oriented to self. Sitting in bedside chair. No pallor. No jaundice. Oropharynx: Clear. Mucous membranes moist. Cardiovascular: Regular rate and rhythm. No murmurs, gallops, or rubs. Respiratory: Clear to auscultation bilaterally. No wheezes or crackles. Abdomen: Bowel sounds present. Soft, nondistended, nontender. Extremities: No lower extremity edema. Const: Vital Signs, click to edit/add: Vital Signs - 24 hr 04/19/25 16:30 04/19/25 16:30 04/19/25 16:46 Temperature 97.0 F L Pulse Rate 87 Pulse Rate [Pulse Oximeter] 80 Respiratory Rate 24 24 Blood Pressure [Le ft Arm] Blood Pressure [Ri ght Arm] 128/88 Pulse Oximetry 96 96 Oxygen Delivery Me thod Nasal Cannula Room Air Oxygen Flow Rate 2 2 04/19/25 17:37 04/19/25 19:40 04/19/25 23:00 Temperature 97.5 F L Pulse Rate Pulse Rate [Pulse Oximeter] 83 Respiratory Rate 16 16 Blood Pressure [Le ft Arm] Blood Pressure [Ri ght Arm] 157/73 H Pulse Oximetry 92 92 92 Oxygen Delivery Me thod Nasal Cannula OxyMask Oxygen Flow Rate 0.5 2.5 04/19/25 23:00 04/19/25 23:00 04/19/25 23:00 Temperature 97.6 F Pulse Rate 83 Pulse Rate [Pulse Oximeter] 86 86 Respiratory Rate 16 16 Blood Pressure [Le ft Arm] Blood Pressure [Ri ght Arm] 101/56 L Pulse Oximetry 91 Oxygen Delivery Me thod OxyMask Oxygen Flow Rate 2.5 04/20/25 03:00 04/20/25 06:59 04/20/25 07:00 Temperature 97.9 F 97.5 F L Pulse Rate 78 Pulse Rate [Pulse Oximeter] 81 81 Respiratory Rate 18 18 Blood Pressure [Le ft Arm] Blood Pressure [Ri ght Arm] 121/52 L 127/80 Pulse Oximetry 92 88 Oxygen Delivery Me thod Blow By Oxygen Flow Rate 2.5 04/20/25 07:00 04/20/25 07:00 04/20/25 11:00 Temperature 97.4 F L Pulse Rate Pulse Rate [Pulse Oximeter] 81 82 Respiratory Rate 18 16 18 Blood Pressure [Le ft Arm] 112/67 Blood Pressure [Ri ght Arm] Pulse Oximetry 88 92 Oxygen Delivery Me thod Blow By Room Air Oxygen Flow Rate 2.5 04/20/25 14:30 04/20/25 14:41 04/20/25 15:00 Temperature 97.5 F L Pulse Rate 81 Pulse Rate [Pulse Oximeter] 80 Respiratory Rate 26 H Blood Pressure [Le ft Arm] 125/67 Blood Pressure [Ri ght Arm] Pulse Oximetry Oxygen Delivery Me thod Room Air Oxygen Flow Rate Labs Labs: Laboratory Results - last 24 hr 04/19/25 04/20/25 18:26 06:10 WBC 12.60 H RBC 5.08 Hgb 14.5 Hct 46.4 MCV 91 MCH 29 MCHC 31 L Plt Count 255 Sodium 141 Potassium 3.3 L Chloride 103 Carbon Dioxide 33 H Anion Gap 5 L BUN 46 H Creatinine 1.6 H Estimated Creat Clear 37.91 Estimated GFR 43 Glucose 141 H Calcium 8.9 Magnesium 2.0 Total Bilirubin 0.7 AST 22 ALT 15 Alkaline Phosphatase 71 C-Reactive Protein 14.5 H Total Protein 6.8 Albumin 3.5 TSH 1.910 Urine L. pneumophilia Ag L. pneumo Negative Urine Strep pneumoniae Ag S. pneumo Negative
[2025-04-20] MEDS: POTASSIUM BICARB 25 MEQ EFFERVESCENT TAB PO (16:42)
--- NOTE | 2025-04-20 17:53 | PC.NURSE ---
End of shift note Patient was very cooperative throughout the entire shift. He has known dementia and his speech is slurred at times baseline. He is hard of hearing, no hearing aids were brought with him when he was admitted. Lung sounds: fine crackles were heard bilaterally on lower lobes, along with shallow breathing. He has intermittent moist cough. Heart sounds slightly diminished and irregular. Pulse oximetry did not work for him during shift due to cold hands (Patient can't stand the silver glove on). Charge nurse spoke with RT and recommendation for spot check oximetry. PT recommended max assist of 1 with walker for transfers, but patient unable to tolerate and utilize max assist of 2 for transfers. Patient is incontinent. Recommend checking brief every two hours as he tends to soak his brief within that time frame.
[2025-04-21] VITALS (7 sets, daily range): BP systolic 96–141; BP diastolic 57–85; PULSE 75–94; RESP 16–18; TEMP 36.3–36.6; O2SAT 88–94
--- NOTE | 2025-04-21 04:43 | PC.NURSE ---
Pt rested well this night. Incontinent of urine. Very confused but pleasant and cooperative. VS unremarkable. O2 90% all night on RA. Afebrile. Reporting zero pain.
[2025-04-21] MEDS: HEPARIN 5,000 UNIT/0.5 ML INJ 5000 UNIT SUBCUT ×2 (05:39→18:39)
[2025-04-21 05:55] LABS: HCO3 VBG 33 mmol/L (21-28); PCO2 VBG 44 mmHG (40-50); PO2 VBG 50.1 mmHG (25-47); pH VBG 7.478 (7.32-7.43)
[2025-04-21 05:58] LABS: Hematocrit 44.1 % (37.0-53.0); Hemoglobin* 13.8 gm/dL (13.5-17.5); Immature Granulocytes Pct Auto 0.2 %; Mean Corpuscular HGB Conc 31 gm/dL (32-36); Mean Corpuscular Hemoglobin 28 pg (26-34); Mean Corpuscular Volume 91 fL (80-100); RDW Coefficient of Variation % 16.6 % (11.5-15.5); Red Blood Count 4.87 m/uL (4.30-5.90); White Blood Count* 13.15 K/uL (4.50-11.00)
[2025-04-21 06:09] LABS: Immature Granulocytes Abs Auto 0.00 K/uL (0.00-0.30); Lymphocytes Absolute Auto 1.80 K/uL (0.90-2.90)
[2025-04-21 06:10] LABS: Slide Review Reflex No
[2025-04-21 06:13] LABS: Chloride* 99 mmol/L (96-114); Potassium* 3.6 mmol/L (3.6-5.1); Sodium* 135 mmol/L (135-149)
[2025-04-21 06:16] LABS: Anion Gap 4 mEq/L (7-15); Blood Urea Nitrogen* 51 mg/dL (7-30); Carbon Dioxide* 32 mmol/L (20-32); Creatinine* 1.6 mg/dL (0.5-1.5); Est. Creatinine Clearance* 37.91; Estimated Glomerular Filt Rate 43 ml/min
[2025-04-21 06:17] LABS: Calcium* 8.7 mg/dL (8.4-10.6); Glucose* 129 mg/dL (60-115)
[2025-04-21] MEDS: METOPROLOL SUCCINATE (XL) 50 MG TAB PO (08:39)
[2025-04-21] MEDS: TORSEMIDE 20 MG TABLET 40 MG PO (08:39)
[2025-04-21] MEDS: ASPIRIN EC 325 MG TABLET PO (08:39)
[2025-04-21] MEDS: SODIUM CHLORIDE 0.9 % (FLUSH) 10 ML SYRINGE 5 ML IVF ×2 (08:41→23:45)
--- NOTE | 2025-04-21 10:15 | PC.SOCIAL ---
Discharge planning: Pt was accepted to [facility] for short-term rehab as early as tomorrow(). Pt is not ready for discharge today(Saturday). The room is a private room with a shared bathroom. rescue worker informed pt's son, Juan, via phone who was pleased with this news and stated that either he or his sister should be able to give the pt a ride to [facility] when he is ready for discharge. Social work to follow-up as needed.
[2025-04-21] MEDS: cefTRIAXone 2 GM in 0.9 % SODIUM CHLORIDE Mini-bag 100 ML IVPB (14:11)
[2025-04-21] MEDS: AZITHROMYCIN 250 MG TABLET 500 MG PO (14:12)
--- NOTE | 2025-04-21 15:43 | PM.IMPN1 ---
Assessment and Plan Assessment and plan (1) Acute respiratory failure: Problem comment: Hypoxia, likely multifactorial secondary to infection that tipped the patient out of his heart failure balance on 2 L/min O2 - Improving Status: Acute (2) Community acquired pneumonia: Problem comment: Continue 2 g IV ceftriaxone in addition to azithromycin Ordered blood cultures (NGTD) Ordered urine antigen of both strep pneumonia and Legionella (NEG) Status: Acute (3) Acute exacerbation of chronic heart failure: Problem comment: Patient's CXR looks congested Positive bilateral lung crackles Hypoxia, likely multifactorial secondary to infection that the the patient out of his heart failure balance Echo 05/23: EF 40-45% Repeat Echo Ordered one dose IV lasix 40 mg, will re-assess tomorrow. Pt takes torsemide at home, will hold if we need more IV lasix. 04/20/25 No crackles today, hypoxia improving. ECHO pending. Restart home torsemide. 04/21 off oxygen, no crackles on exam, echo complete, EF is the same. Holding torsemide and giving a small fluid bolus, as creatinine is stable in BUN is increasing, suspect hypovolemic. Status: Suspected (4) Chronic systolic (congestive) heart failure: Problem comment: -Echo 05/23: EF 40-45% -Repeat Echo shows the same EF. Status: Chronic (5) JAYLAN (acute kidney injury): Problem comment: -Cr stable at 1.6, BUN increasing. Possibly hypovolemic, continue to hold allopurinol, hold torsemide, give small IV fluid bolus and recheck in the morning. If creatinine remains stable or improves, I think he could go to rehab and recheck creatinine in a few days. -likely secondary to infection, but might be also affected by renal congestion d/t fluid overload Status: Acute (6) Dementia: Problem comment: - [place] on 05/20/2024 was . - 04/21 MOCA . Status: Chronic (7) Alcohol use disorder: Problem comment: -Daily beer drinker (3/Day) -no history of alcohol withdrawal per the son - monitor for withdrawal Status: Chronic (8) Atrial fibrillation: Problem comment: Refuses anticoagulation Heart rate controlled on metoprolol Status: Chronic (9) History of gout: Problem comment: Some states that he did not have a gout attack for years Holding allopurinol until his kidney function go back to normal Status: Chronic (10) Pulmonary hypertension: Status: Chronic (11) Essential hypertension: Status: Chronic (12) Noncompliance with medication regimen: Problem comment: Son is monitoring his medications. Status: Chronic (13) Obesity: Status: Chronic Plan TCU, likely 3 Links tomorrow for rehab Total Time Spent Total Time Spent: Today I spent 35 minutes seeing the patient, discussing with the patient and his daughter, reviewing Expanse and EPIC notes/diagnostics/labs, discussing the care plan with our care team that includes social work, PT/OT, pharmacy, RT, custodial and documenting my impressions and plan in the medical record. Subjective Time Seen by Provider: 09:10 Date Seen: 04/21/25 Interval history: Ed says he's doing well. His daughter, Jovanna, was in the room with him this morning and told me that he looks much better also. He was hoping to take him home, and noted that they have cameras in his house and sensors on the doors, and that her brother checks on add 3 times a day, but there is no one who is living with him. I noted that therapies thought he could benefit from rehab. Exam Narrative: Exam Narrative: General: No acute distress. Awake, alert, oriented to self. Sitting up in bed eating. No pallor. No jaundice. Oropharynx: Clear. Mucous membranes moist. Cardiovascular: Regular rate and rhythm. No murmurs, gallops, or rubs. Respiratory: Clear to auscultation bilaterally. No wheezes or crackles. Abdomen: Bowel sounds present. Soft, nondistended, nontender. Extremities: No lower extremity edema. Const: Vital Signs, click to edit/add: Vital Signs - 24 hr 04/20/25 19:30 04/20/25 19:30 04/20/25 23:01 Temperature 97.5 F L Pulse Rate 72 Pulse Rate [Pulse Oximeter] 82 Respiratory Rate 20 20 Blood Pressure [Le ft Arm] Blood Pressure [Ri ght Arm] 116/88 Pulse Oximetry 91 Oxygen Delivery Me thod Room Air Oxygen Flow Rate 04/20/25 23:02 04/20/25 23:30 04/20/25 23:30 Temperature 97.8 F Pulse Rate Pulse Rate [Pulse Oximeter] 77 77 Respiratory Rate 18 18 18 Blood Pressure [Le ft Arm] Blood Pressure [Ri ght Arm] 122/85 Pulse Oximetry 91 91 Oxygen Delivery Me thod Room Air Room Air Oxygen Flow Rate 0 0 04/21/25 02:41 04/21/25 07:00 04/21/25 07:00 Temperature 97.8 F Pulse Rate 77 Pulse Rate [Pulse Oximeter] 75 Respiratory Rate 18 18 Blood Pressure [Le ft Arm] Blood Pressure [Ri ght Arm] 96/57 L Pulse Oximetry 90 88 Oxygen Delivery Me thod Room Air Room Air Oxygen Flow Rate 1 04/21/25 08:40 04/21/25 11:00 Temperature 97.7 F 97.5 F L Pulse Rate Pulse Rate [Pulse Oximeter] 86 77 Respiratory Rate 18 18 Blood Pressure [Le ft Arm] 120/66 130/85 Blood Pressure [Ri ght Arm] Pulse Oximetry 88 94 Oxygen Delivery Me thod Room Air Room Air Oxygen Flow Rate 1 Labs Labs: Laboratory Results - last 24 hr 04/21/25 05:39 WBC 13.15 H RBC 4.87 Hgb 13.8 Hct 44.1 MCV 91 MCH 28 MCHC 31 L RDW Coeff of Peter 16.6 H Plt Count 255 Neut % (Auto) 38.6 L Lymph % (Auto) 13.[address] [place] % (Auto) 5.6 Eos % (Auto) 41.4 H Baso % (Auto) 0.7 Neut # (Auto) 5.10 Lymph # (Auto) 1.80 [place] # (Auto) 0.70 Eos # (Auto) 5.40 H Baso # (Auto) 0.10 Abs Immat Gran (auto) 0.00 Imm/Tot Granulo (auto) 0.2 VBG pH 7.478 H VBG pCO2 44 VBG pO2 50.1 H VBG HCO3 33 H Sodium 135 Potassium 3.6 Chloride 99 Carbon Dioxide 32 Anion Gap 4 L BUN 51 H Creatinine 1.6 H Estimated Creat Clear 37.91 Estimated GFR 43 Glucose 129 H Calcium 8.7
--- NOTE | 2025-04-21 15:44 | PC.NURSE ---
End of shift [id number]: Pt oriented to self and situation. Cooperative with cares. Code of conduct was reviewed by Kelsi due to inappropriate language to service writer advisor. Pt is incontinent of urine. Denies pain. Tolerating heart healthy diet. On room air currently with sats >90%. Pt appears resting in chair with family at bedside. Call light in reach.
--- NOTE | 2025-04-21 23:03 | PC.NURSE ---
[id number]: Pt. is AOx4. MOHEGAN and minimal words verbalized. VSS. Pt. up to chair for meal. FISH and RN used EZ stand to BR pt and to put to bed. Pt. cooperative with cares. Pt. sleeping; call light w/i reach.
[2025-04-22] VITALS (9 sets, daily range): BP systolic 119–173; BP diastolic 66–93; PULSE 72–88; RESP 18–22; TEMP 36.4–36.8; O2SAT 89–96
[2025-04-22] MEDS: HEPARIN 5,000 UNIT/0.5 ML INJ 5000 UNIT SUBCUT ×2 (06:39→18:01)
--- NOTE | 2025-04-22 07:52 | PC.NURSE ---
Shift note ([id number]): Patient needed a lot of redirecting with overnight cares. Refused to turn off of left side. Attempted to educate pt on importance of repositioning however it was not effective. Left hip redness noted; area blanchable. O2 sats dropped to low 80?s on room air. Oxymask applied with O2 at 1.5-2 LPM to keep sats above 88%. No reports of discomfort.?
--- NOTE | 2025-04-22 09:57 | CRLHL7_ITS ---
For Patients: As a result of the Century Cures Act, medical imaging exams and procedure reports are released immediately into your electronic medical record. You may view this report before your referring provider. If you have questions, please contact your health care provider. INDICATION: HYPOXIA, PNA TECHNIQUE: CT chest without contrast. COMPARISON: Exams dating back to April 2024. FINDINGS: Lungs and Airways: Respiratory motion degrades fine detail evaluation. Basilar heterogeneous nodular airspace opacities and tree-in-bud nodular airspace opacities. Dependent positioning. No discrete mass. No endoluminal lesion. Heart and Mediastinum: The visualized portions of the thyroid are normal. No axillary or supraclavicular lymphadenopathy. No mediastinal, hilar or retrocrural lymphadenopathy. Borderline cardiomegaly. Normal caliber aorta. Atherosclerotic and coronary artery calcifications. Pleura: The pleural spaces are normal. Abdomen: Cholelithiasis. Calcified granulomas. Bones and soft tissues: The skeletal structures and soft tissues of the chest wall are unremarkable. IMPRESSION: 1. No discrete intrathoracic mass or consolidation given the above constraints. 2. Bilateral basilar dependent predominant heterogeneous nodular airspace opacities and tree-in-bud nodular airspace opacities. Differential considerations include aspiration versus infectious process. Recommend unenhanced chest CT in approximately 3 months to document resolution and assess underlying malignant potential. Please note that all CT scans at this facility use dose modulation, iterative reconstruction, and/or weight-based dosing when appropriate to reduce radiation dose to as low as reasonably achievable. Dictated by José Luis Tijerina MD @ 04/22/2025 12:41:14 PM (Electronically Signed)
[2025-04-22] MEDS: METOPROLOL SUCCINATE (XL) 50 MG TAB PO (10:31)
[2025-04-22] MEDS: SODIUM CHLORIDE 0.9 % (FLUSH) 10 ML SYRINGE 5 ML IVF ×2 (10:31→20:35)
[2025-04-22] MEDS: ASPIRIN EC 325 MG TABLET PO (10:31)
--- NOTE | 2025-04-22 13:18 | P.IMPN_ITS ---
Assessment and Plan Assessment and plan (1) Acute respiratory failure: Problem comment: Hypoxia, likely multifactorial secondary to infection that tipped the patient out of his heart failure balance on 2 L/min O2 - Improving -non con CT does not show acute failure but more c/w CAP or Aspiration. -resume oral home dose of torsemide -marked eosinophilia makes me concerned that he is having an acute drug reaction to cephalosporin worsened by chronic allopurinol use -will stop cephalosporin start doxycycline 100 mg b.i.d.. -no previous eosinophilia noted in his chart Status: Acute (2) Community acquired pneumonia: Problem comment: -status post 3 doses of oral azithromycin, has been getting 2 g of Rocephin. As of 04/22 I have DC both. Starting oral doxycycline 100 mg b.i.d.. Ordered blood cultures (NGTD) Ordered urine antigen of both strep pneumonia and Legionella (NEG) still requiring supplemental oxygen on 04/22 Status: Acute (3) JAYLAN (acute kidney injury): Problem comment: -Cr stable at 1.6, BUN increasing. Possibly hypovolemic, continue to hold allopurinol, hold torsemide, give small IV fluid bolus and recheck in the morning. If creatinine remains stable or improves, I think he could go to rehab and recheck creatinine in a few days. -likely secondary to infection, but might be also affected by renal congestion d/t fluid overload -stable but remains elevated. restarting torsemide. Likely pre renal from IV doses of Lasix. Continue to monitor. Status: Acute (4) Marked eosinophilia: Problem comment: ddx (see below): likely drug induced cephalsporins and allopurinol in this case. Will send peripheral smear to rule out lymphoma drug reaction (+/- DRESS), strongyloides, chronic eosinophilia pna, aspergillosis, vasculitis, fungal infections, Hodgkin lymphoma Status: Acute (5) Acute exacerbation of chronic heart failure: Problem comment: Slowly improving. Reviewed echo from this hospitalization. Hypoxia, likely multifactorial secondary to infection that the the patient out of his heart failure balance Echo 05/23: EF 40-45% Repeat Echo Ordered one dose IV lasix 40 mg, will re-assess tomorrow. Pt takes torsemide at home, will hold if we need more IV lasix. 04/20/25 No crackles today, hypoxia improving. ECHO pending. Restart home torsemide. 04/21 off oxygen, no crackles on exam, echo complete, EF is the same. Holding torsemide and giving a small fluid bolus, as creatinine is stable in BUN is increasing, suspect hypovolemic. 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 - 04/21/25 MOCA . -stable disease - multifactorial from vascular and alcohol insults Status: Chronic (9) Urinary incontinence: Problem comment: - Urine staining of clothing. Chronic incontinence at home - Previous bladder scan confirms no urinary retention Status: Acute Subjective Date Seen: 04/22/25 Interval history: Daily Progress Note - Hospital Medicine Day #: 4 CC: hypoxic resp failure; weakness Day 3 of Azithromycin (500 mg po) Day 3 of rocephin 2 gram IV 24 HOUR UPDATE: slowly improving, mental state improved. joking with TACK PICKER, etc. still on oxygen. still 2A. nurse note overnight: Shift note ([id number]): Patient needed a lot of redirecting with overnight cares. Refused to turn off of left side. Attempted to educate pt on importance of repositioning however it was not effective. Left hip redness noted; area blanchable. O2 sats dropped to low 80?s on room air. Oxymask applied with O2 at 1.5-2 LPM to keep sats above 88%. No reports of discomfort.? Notable Labs, Micro, Rads, Interventions: CT chest (non-contrast) this morning 1. No discrete intrathoracic mass or consolidation given the above constraints. 2. Bilateral basilar dependent predominant heterogeneous nodular airspace opacities and tree-in-bud nodular airspace opacities. Differential considerations include aspiration versus infectious process. Recommend unenhanced chest CT in approximately 3 months to document resolution and assess underlying malignant potential. Vital signs are stable. Patient has been weaning from supplemental oxygen. Meeting 1.5-2 L per OxyMask to keep sats greater than 88%. Currently 90% on room air. Afebrile since admission. I reviewed all labs since admission. White count is vacillating between 13 and 12 since admission. Elevated eosinophils noted. 41.4%. Blood gas yesterday shows 7.478. Bicarb elevated at 33. Still having acute kidney injury. Creatinine has remained at 1.6 with a baseline of 1.2. This has reduced his creatinine clearance from 50-37. One elevated CRP has has been noted during this hospitalization at 14.5 but there was no 2nd draws to compare 2. Procalcitonin normal. Strep pneumo and Legionella negative this admission. Negative triple swab. Two blood cultures negative at 48 hours. Echo done this admission: Essentially a stable exam from last year. Mild aortic stenosis has increased slightly. HFmrEF noted with EF @45% Objective: chronically ill appearing. kyphotic. central obesity with peripheral edema. Vitals: see above Lungs: coarse; no wheezing, decreased at bases. Cardiac: irregular irregular but normal rate Disposition/Potential discharge - TCU tomorrow likely Today I spent 50minutes seeing the patient, reviewing Expanse and EPIC notes/diagnostics, discussing the care plan with our care time that includes social work, PT/OT, pharmacy, RT, prison and documenting my impressions and plan in the medical record. Exam Const: Vital Signs, click to edit/add: Vital Signs - 24 hr 04/21/25 15:00 04/21/25 15:00 04/21/25 15:00 Temperature 97.4 F L Pulse Rate 94 Pulse Rate [Apical ] Pulse Rate [Pulse Oximeter] 77 Respiratory Rate 16 Blood Pressure [Le ft Arm] 141/75 H Pulse Oximetry 94 94 Oxygen Delivery Me thod Room Air Room Air Oxygen Flow Rate 04/21/25 16:46 04/21/25 19:00 04/22/25 00:39 Temperature 97.4 F L Pulse Rate Pulse Rate [Apical ] 77 Pulse Rate [Pulse Oximeter] 77 94 Respiratory Rate 16 16 22 Blood Pressure [Le ft Arm] 141/75 H Pulse Oximetry 94 89 Oxygen Delivery Me thod Room Air OxyMask Oxygen Flow Rate 2 04/22/25 00:39 04/22/25 03:00 04/22/25 04:53 Temperature 98.0 F 98.0 F Pulse Rate 78 Pulse Rate [Apical ] Pulse Rate [Pulse Oximeter] 87 72 Respiratory Rate 22 20 Blood Pressure [Le ft Arm] 133/66 173/93 H Pulse Oximetry 89 96 Oxygen Delivery Me thod OxyMask Ambu-Bag Oxygen Flow Rate 2 1.5 04/22/25 07:00 04/22/25 07:00 04/22/25 07:00 Temperature Pulse Rate 73 Pulse Rate [Apical ] 87 Pulse Rate [Pulse Oximeter] 72 Respiratory Rate 18 18 Blood Pressure [Le ft Arm] Pulse Oximetry 90 Oxygen Delivery Me thod Nasal Cannula Oxygen Flow Rate 1.5 04/22/25 08:00 04/22/25 11:00 Temperature 98.2 F 98.0 F Pulse Rate Pulse Rate [Apical ] 87 88 Pulse Rate [Pulse Oximeter] Respiratory Rate 18 18 Blood Pressure [Le ft Arm] 119/67 146/87 H Pulse Oximetry 90 90 Oxygen Delivery Me thod Nasal Cannula Room Air Oxygen Flow Rate 1.5
--- NOTE | 2025-04-22 13:56 | PC.SOCIAL ---
Addendum entered by KINGSLEY Landin 04/22/25 14:01: Discharge planning: Pre-admission screening has been completed. [id number]. Social work to follow-up as needed. Original Note: Discharge planning: Pt will be staying in the hospital again tonight. informed/spoke with pt's family. crop or grain farmworker spoke to Jessica, body line finisher at [facility] and informed her that pt will be staying in the hospital again tonight and will hopefully be ready for discharge tomorrow(Saturday). Social work to follow-up as needed.
[2025-04-22] MEDS: AZITHROMYCIN 250 MG TABLET 500 MG PO (14:11)
--- NOTE | 2025-04-22 18:52 | PC.NURSE ---
Pt is doing well today. VSS. A&Ox4, intermittently forgetful. Denies pain. SOB with activity is improving. Pt has been on room air entire shift, sating >90%. Pt continues to be weak, requiring assist of two with the walker. Pt is tolerating regular diet well. Son, Juan, visited for majority of the afternoon. Pt is resting well at this time.
[2025-04-22] MEDS: DOXYCYCLINE HYCLATE 100 MG PO (20:34)
[2025-04-23] VITALS (8 sets, daily range): BP systolic 130–153; BP diastolic 85–99; PULSE 72–88; RESP 18–20; TEMP 36.4–36.9; O2SAT 91–93
--- NOTE | 2025-04-23 05:55 | PC.NURSE ---
Shift note ([id number]): Patient pleasant and cooperative with cares and repositioning tonight. Patient repositions?from sleeping on back and side to side tonight. No noted redness to left hip. Oxymask applied for part of night to keep sats above 88%. Has been on R/A since 0 with O2 sats 91% and above. No reports of discomfort.?
[2025-04-23 06:22] LABS: HCO3 VBG 32 mmol/L (21-28); PCO2 VBG 46 mmHG (40-50); PO2 VBG 60.0 mmHG (25-47); pH VBG 7.443 (7.32-7.43)
[2025-04-23 06:24] LABS: Hematocrit 45.5 % (37.0-53.0); Hemoglobin* 14.3 gm/dL (13.5-17.5); Immature Granulocytes Pct Auto 0.2 %; Mean Corpuscular HGB Conc 31 gm/dL (32-36); Mean Corpuscular Hemoglobin 29 pg (26-34); Mean Corpuscular Volume 91 fL (80-100); RDW Coefficient of Variation % 16.3 % (11.5-15.5); Red Blood Count 5.01 m/uL (4.30-5.90); White Blood Count* 12.71 K/uL (4.50-11.00)
[2025-04-23 06:25] LABS: Immature Granulocytes Abs Auto 0.00 K/uL (0.00-0.30); Lymphocytes Absolute Auto 1.30 K/uL (0.90-2.90)
[2025-04-23 06:26] LABS: Slide Review Reflex No
[2025-04-23 06:48] LABS: Albumin* 3.4 g/dL (3.3-5.0); Chloride* 100 mmol/L (96-114)
[2025-04-23 06:49] LABS: Potassium* 3.7 mmol/L (3.6-5.1); Sodium* 136 mmol/L (135-149)
[2025-04-23] MEDS: HEPARIN 5,000 UNIT/0.5 ML INJ 5000 UNIT SUBCUT (06:50)
[2025-04-23 06:51] LABS: Blood Urea Nitrogen* 44 mg/dL (7-30); Creatinine* 1.3 mg/dL (0.5-1.5); Est. Creatinine Clearance* 46.66; Estimated Glomerular Filt Rate 55 ml/min
[2025-04-23 06:52] LABS: Alanine Aminotransferase* 20 U/L (4-50); Alkaline Phosphatase* 70 U/L (40-150); Anion Gap 1 mEq/L (7-15); Aspartate Amino Transferase* 37 U/L (12-35); Bilirubin Direct* 0.3 mg/dL (0.0-0.5); Bilirubin Total* 1.1 mg/dL (0.1-1.5); Calcium* 8.9 mg/dL (8.4-10.6); Carbon Dioxide* 35 mmol/L (20-32); Glucose* 126 mg/dL (60-115); Total Protein* 6.9 g/dL (6.0-8.3)
[2025-04-23 07:09] LABS: Procalcitonin* 0.25 ng/mL (<0.50)
[2025-04-23 08:14] LABS: Immature Reticulocyte Fraction 8.3 % (2.3-13.4); Reticulocyte Hemoglobin Equivi 28.6 pg (29.0-35.0); Reticulocytes Absolute 0.06 # (0.03-0.08)
[2025-04-23] MEDS: METOPROLOL SUCCINATE (XL) 50 MG TAB PO (09:52)
[2025-04-23] MEDS: TORSEMIDE 20 MG TABLET 40 MG PO (09:52)
[2025-04-23] MEDS: ASPIRIN EC 325 MG TABLET PO (09:52)
[2025-04-23] MEDS: DOXYCYCLINE HYCLATE 100 MG PO (09:52)
--- NOTE | 2025-04-23 12:33 | PM.DS1 ---
DS: Providers Provider Date Seen: 04/23/25 Date of admission: 04/19/25 14:52 Primary care physician: José Luis Arredondo MD Admitting Clinician: Felicia Steele MD Consults: 04/19/25 15:31 Consult to Occupational Therapy [CONS] Routine Comment: Reason(s) for OT Consult:: Evaluate and Treat Any Restrictions?:: No Restrictions Consult to Physical Therapy [CONS] Routine Comment: Reason(s) for PT Consult:: Evaluate and Treat Any Restrictions?:: No Restrictions Consult to Manager Risk [CONS] Routine Comment: Reason for Consult:: Discharge Planning Needs Attending Physician on discharge: Desiree Gilliland MD [facility] Date of Discharge: 04/23/25 DS: Diagnosis Discharge Diagnosis (1) Acute respiratory failure: Status: Acute Problem details: -Hypoxia, likely multifactorial secondary to community-acquired pneumonia and mild heart failure exacerbation -non con CT does not show acute failure but more c/w CAP or Aspiration. -resume oral home dose of torsemide -marked eosinophilia makes me concerned that he is having an acute drug reaction to cephalosporin worsened by chronic allopurinol use -will stop cephalosporin start doxycycline 100 mg b.i.d.. -no previous eosinophilia noted in his chart -can follow eosinophilia as an outpatient, 4 more days of oral doxycycline b.i.d. (2) Community acquired pneumonia: Status: Acute Problem details: -status post 3 doses of oral azithromycin, has been getting 2 g of Rocephin. As of 04/22 I have DC both. Starting oral doxycycline 100 mg b.i.d. and continuing 4 days after discharge. Ordered blood cultures (NGTD) Ordered urine antigen of both strep pneumonia and Legionella (NEG) -on room air at discharge (3) JAYLAN (acute kidney injury): Status: Acute Problem details: Peak creatinine was 1.6, resolved and was back to baseline of 1.3 at discharge. (4) Marked eosinophilia: Status: Acute Problem details: ddx (see below): likely drug induced cephalsporins and allopurinol in this case. Will send peripheral smear to rule out lymphoma drug reaction (+/- DRESS), strongyloides, chronic eosinophilia pna, aspergillosis, vasculitis, fungal infections, Hodgkin lymphoma considered much less likely. (5) Acute exacerbation of chronic heart failure: Status: Suspected Problem details: Improved. no chronic med changes at this time. (6) Chronic heart failure with mildly reduced ejection fraction (HFmrEF, 41-49%): Status: Acute Problem details: -currently on a BBlocker and diuretic but not the rest of GDMT (layne/arb vs arni, aldactone, jardiance) -depending on goals of care - PCP can direct (7) Atrial fibrillation: Status: Chronic Problem details: Refuses oral full anticoagulation, getting DVT prophylaxis here with heparin 5000 units q.12 Heart rate controlled on metoprolol (8) Dementia: Status: Chronic Problem details: -MoCA -05/20/24 was . -04/21/25 MOCA . -stable disease - multifactorial from vascular and alcohol insults (9) Urinary incontinence: Status: Acute Problem details: - Urine staining of clothing. Chronic incontinence at home - Previous bladder scan confirms no urinary retention DS: Summary Hospital Course Hospital Course: FINAL DIAGNOSIS/FOLLOW UP ISSUES: 1. Respiratory failure -hypoxia resolved. He was on room air at discharge. We felt like this was not related to community-acquired pneumonia and mild heart failure exacerbation. He will continue on oral doxycycline for 4 days post discharge. He is going to TCU care. I did notice significant jump in his eosinophils. I felt like this was likely a drug reaction related to the ceftriaxone. This was down trending at discharge. This can be rechecked with a CBC w/diff in 2 weeks. 2. JAYLAN resolved 3.HFmrEF - not currently on guideline directed therapy. This is likely consistent with his care goals. He has declined oral anticoagulation for his AFib previously. Continue his beta-mckenna and diuretic, of course. 4. AFib was well managed and rate control while he was here. 5. Dementia scores are stable, continued concern about his living arrangements and self care ability. [facility] - Memory Care is appropriate. BRIEF HOSPITAL COURSE: Patient was admitted for 5 days. Synopsis of acute inpatient issues are outlined above. Chronic medical conditions with notable findings outlined above. Ed is well known to our service. He came in with weakness and hypoxia. He was not managing well at home. His son finally was able to convince him to come to the emergency room. He was diagnosed with community-acquired pneumonia and mild heart failure exacerbation. He received azithromycin and ceftriaxone. This was transition to oral doxycycline for discharge planning purposes but as well as for marked eosinophilia likely related to the ceftriaxone. He was given IV Lasix and then transition back to his regular home dose of Bumex. He also had an JAYLAN, this resolved. His dementia is moderate to severe. We again encouraged his son, Juan, to consider memory care placement. DISCHARGE MEDICATIONS: See Reconciled list - SIGNIFICANT CHANGES: Short-term antibiotic doxy I did not start the full complement of GDMT - did continue his beta-mckenna and diuretic. Specific instructions to the patient and follow-up are outlined below. REVIEW OF SYSTEMS No new chest pain or dyspnea Pain controlled No voiding difficulties Tolerating diet challenge PHYSICAL EXAM: CONSTITUTIONAL: Happy, moderately confused with obvious short-term memory lapses. GENERAL: Well-developed and above ideal body weight, in no respiratory distress. VITAL SIGNS: see record. HEENT: Sclerae are anicteric. No petechiae. CARDIAC: rhythm is regular.. There is no S3 or rub. No harsh murmurs. Extremities show 1+ edema with symmetrical pulses. PULM: good air entry with no wheeze. NEURO: Speech is fluent. A brief neurologic exam is negative. SKIN: No rashes, petechiae, concerning changes PSYCHIATRIC: Euthymic. DISPOSITION: Tcu care at [facility] Time spent on discharge 37 minutes. Status at Discharge Functional status at discharge: wheelchair bound Overall status at discharge: patient is not back to baseline Time Spent with Patient Time attestation: Total time spent providing and/or coordinating discharge services: Time spent: Greater than 30 minutes Exam Const: Vital Signs, click to edit/add: Vital Signs - 24 hr 04/22/25 15:00 04/22/25 15:00 04/22/25 15:00 Temperature Pulse Rate 80 Pulse Rate [Apical ] 85 Pulse Rate [Pulse Oximeter] 72 Respiratory Rate 18 18 Blood Pressure [Le ft Arm] Blood Pressure [Ri ght Arm] Pulse Oximetry 93 Oxygen Delivery Me thod Room Air Oxygen Flow Rate 1.5 04/22/25 15:45 04/22/25 20:30 04/23/25 00:14 Temperature 97.6 F 98.4 F Pulse Rate Pulse Rate [Apical ] 85 Pulse Rate [Pulse Oximeter] 83 87 Respiratory Rate 18 18 20 Blood Pressure [Le ft Arm] 146/78 H Blood Pressure [Ri ght Arm] 167/79 H 142/97 H Pulse Oximetry 93 92 91 Oxygen Delivery Me thod Room Air Room Air Nasal Cannula Oxygen Flow Rate 1 04/23/25 00:41 04/23/25 03:43 04/23/25 04:10 Temperature 97.8 F Pulse Rate 82 Pulse Rate [Apical ] Pulse Rate [Pulse Oximeter] 84 Respiratory Rate 20 20 Blood Pressure [Le ft Arm] 130/86 Blood Pressure [Ri ght Arm] Pulse Oximetry 93 91 Oxygen Delivery Me thod Nasal Cannula Room Air Oxygen Flow Rate 1 04/23/25 08:00 04/23/25 08:25 04/23/25 08:26 Temperature 97.6 F Pulse Rate 72 Pulse Rate [Apical ] 88 Pulse Rate [Pulse Oximeter] Respiratory Rate 18 18 Blood Pressure [Le ft Arm] 132/85 Blood Pressure [Ri ght Arm] Pulse Oximetry 92 92 Oxygen Delivery Me thod Room Air Room Air Oxygen Flow Rate DS: Data Data Completed and Pending Completed studies during hospitalization: Procedures Detachment at Right Foot, Partial 1st Ray, Open Approach (02/14/23) Excision of Right Metatarsal, Sesamoid Bone(s) 1st Toe, Open Approach (02/14/23) Introduction of Other Gas into Respiratory Tract, Via Natural or Artificial Opening (09/28/24) Transfer Right Foot Skin, External Approach (02/14/23) Labs on day of discharge: Labs from last 24 hours 04/23/25 06:07 WBC 12.71 H RBC 5.01 Hgb 14.3 Hct 45.5 MCV 91 MCH 29 MCHC 31 L RDW Coeff of Peter 16.3 H Plt Count 260 Neut % (Auto) 46.5 Lymph % (Auto) 10.6 L Creek % (Auto) 6.4 Eos % (Auto) 35.6 H Baso % (Auto) 0.7 Neut # (Auto) 5.90 Lymph # (Auto) 1.30 Creek # (Auto) 0.80 Eos # (Auto) 4.50 H Baso # (Auto) 0.10 Abs Immat Gran (auto) 0.00 Imm/Tot Granulo (auto) 0.2 Peripher Smr Path Cons Pending Absolute Retic 0.06 Percent Retic 1.2 Immature Retic Fraction 8.3 Retic Hgb Equivalent 28.6 L VBG pH 7.443 H VBG pCO2 46 VBG pO2 60.0 H VBG HCO3 32 H Sodium 136 Potassium 3.7 Chloride 100 Carbon Dioxide 35 H Anion Gap 1 L BUN 44 H Creatinine 1.3 Estimated Creat Clear 46.66 Estimated GFR 55 Glucose 126 H Calcium 8.9 Phosphorus 3.8 Total Bilirubin 1.1 Direct Bilirubin 0.3 AST 37 H ALT 20 Alkaline Phosphatase 70 C-Reactive Protein 22.1 H Total Protein 6.9 Albumin 3.4 Procalcitonin 0.25 Preliminary micro results at discharge 04/19/25 13:29 Blood Culture - Preliminary Blood NO GROWTH AFTER 72 HOURS 04/19/25 13:32 Blood Culture - Preliminary Blood NO GROWTH AFTER 72 HOURS Discharge Plan Discharge Disposition: Xfer [facility] Date of Admission: 04/19/25 14:52 Attending Provider on Discharge: Desiree Gilliland Primary Care Provider: José Luis Arredondo Condition: Stable Discharge Medications: New doxycycline hyclate 100 mg Tablet 100 mg PO BID Qty: 8 0RF Continued aspirin 325 mg tablet,delayed release (DR/EC) 325 mg PO DAILY potassium chloride 10 mEq capsule, extended release 20 meq PO DAILY acetaminophen 325 mg Tablet 650 mg PO Q6H PRNQty: 30 0RF torsemide 20 mg tablet 40 mg PO DAILY metoprolol succinate 50 mg tablet extended release 24 hr 50 mg PO DAILY Qty: 90 3RF Held allopurinol 300 mg tablet 300 mg PO DAILY Qty: 90 3RF Hold Instructions: Resume on 05/07/25. marked eosinophilia noted. Likely related to the ceftriaxone administered in hospital. Downtrending at discharge. No previous history. Hold allopurinol until CBC recheck in 2 weeks. Discharge Orders: Discharge Order (Routine); Ordered 04/23/25 Ordered By: Desiree Gilliland Additional Instructions: recommended rechecking CBC in two weeks to ensure eosinophilia has resolved. if normal eosinophils - allopurinol can be restarted. Activity Level: Activity as Tolerated Discharge Diet: Heart Healthy (2 gm sodium, low fat) Follow Up Appointments: José Luis Arredondo MD [Primary Care Provider, [facility]] Referral Note: [facility] can determine at discharge from TCU Forms: MyHealth Info Instructions Admit to: SNF Discharge Potential: Fair Length of Stay: 30-90 days Can use facility standing orders?: Yes Code Status: DNR/DNI Rehab Potential: Fair Therapy: Physical Therapy and Occupational Therapy Therapy Orders: Evaluate and Treat Oxygen: No Urinary Catheter: No Orders are good >30 days: Yes
--- NOTE | 2025-04-23 12:53 | PC.NURSE ---
Shift Summary: patient pleasant and cooperative. Up with 2 assist, walker and gait belt. Vitals stable and WNL. Tolerating regular diet, able to eat independently. Denies pain. Worked with PT/OT this morning. IV removed with catheter intact. Nurse to nurse given to Aissatou LASSITER. Patient D/C @ 1250 via wheelchair, son here to bring to SNF.
--- NOTE | 2025-04-23 13:27 | PC.SOCIAL ---
Discharge planning: Pt discharged to [facility] today. Discharge orders were secure emailed to Jessica at [facility]. Pt's son, Juan, provided transportation from the hospital to [facility]. Pt's son, Juan, had no concerns about pt's discharge to [facility] and is pleased his father is able to go there for rehab. Social work to follow-up as needed.
== END 2025-04-23 12:50 | DRG 189 ==
LOC: ED 14:11 → MEDSURG 14:54
PROVIDERS: Family Medicine; Student in an Organized Health Care Education/Training Program; Admitting Provider Family Medicine; Emergency Provider Family Medicine; PCP Family Medicine; Visit Provider Family Medicine
DX: J96.01 Acute respiratory failure with hypoxia (principal); J18.9 Pneumonia, unspecified organism; I50.23 Acute on chronic systolic (congestive) heart failure; N17.9 Acute kidney failure, unspecified; I48.20 Chronic atrial fibrillation, unspecified; D72.12 Drug rash with eosinophilia and systemic symptoms syndrome; T36.1X5A Adverse effect of cephalosporins and other beta-lactam antibiotics, initial encounter; F03.C0 Unspecified dementia, severe, without behavioral disturbance, psychotic disturbance, mood disturbance, and anxiety; Z91.148 Patient's other noncompliance with medication regimen for other reason; I27.20 Pulmonary hypertension, unspecified; R32 Unspecified urinary incontinence; F10.90 Alcohol use, unspecified, uncomplicated; Z79.82 Long term (current) use of aspirin; I11.0 Hypertensive heart disease with heart failure; J44.9 Chronic obstructive pulmonary disease, unspecified; I35.0 Nonrheumatic aortic (valve) stenosis; I73.9 Peripheral vascular disease, unspecified; E66.9 Obesity, unspecified
CPT/HCPCS: 36415; 71045; 71250; 80048; 80053; 80069; 80076; 81001; 82077; 82803; 83605; 83735; 83880; 84145; 84443; 84484; 85025; 85027; 85045; 86140; 87040; 87449; 87631; 87899; 93005; 93306; 94761; 97116; 97161; 97165; 97530; 97535; 99284; 99285; A9270; J0696; J1644; J1938; Q9957

== ENCOUNTER 2025-05-04 17:37 | Outpatient (REF) | payer MEDICARE, BC, SELFPAY ==
[2025-05-04 17:53] LABS: Appearance Urine Clear (Clear)
--- OUTSIDE RECORDS SUMMARY | 2025-05-05 00:17 | XMS_ITS | Clinical Summary ---
Author Organization [employer] [facility] Address [address] [place] [address] Care Team Providers Care Line Up Machine Operator Name Role Phone Jose A Arango MILLWRIGHT SUPERVISOR Unavailable José Luis Arredondo MD Primary Care Provider + Allergies No known active allergies Medications allopurinoL (ZYLOPRIM) 300 mg tabletIndication s:Chronic gout with tophus, unspecified cause, unspecified site,Hypertensio n Take 1 tablet by mouth once daily. 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) SQUARED TOE POST OP SHOE, XS, REF: [phone] 2 Each 4 Active metoprolol succinate (TOPROL [...] Encounters Date Type Department Care Team Description 05/03/2025 Lab Requisition [facility] [phone] Jacinta Del Angel NP 04/26/2025 Lab Requisition [facility] [phone] Jacinta Del Angel NP 04/23/2025 Lab Requisition [facility] [phone] Desiree Gilliland MD 04/20/2025 3:00 PM CDT Ancillary Procedure [facility] [address] [place] [address] 03/03/2025 10:15 AM CDT Office Visit [facility] [address] [place] [address] Harmeet Sanchez DPM Ulcer (Follow up-bilateral foot) 03/03/2025 Travel 02/03/2025 9:30 AM CDT Office Visit [facility] [address] [place] [address] Harmeet Sanchez DPM Follow Up (Follow Up [...] on file Legal Sex Male 5:23 AM CERAMIC SPRAYER Gender Identity Not on file Sexual Orientation Not on file Occupation Industry Job Start Date Job End Date Retired, works part-time Not on file Not on file Not on file Obstetrics History Last Filed Vital Signs Vital Sign Reading Time Taken Comments Blood Pressure 151/83 03/03/2025 10:25 AM CDT Pulse 84 03/03/2025 10:25 AM CDT Temperature 36.2 C (97.1 F) 11/25/2024 10:00 AM CERAMIC SPRAYER Respiratory Rate 16 11/25/2024 10:0 0 AM CERAMIC SPRAYER Oxygen Saturation 92% 03/03/2025 10: 25 AM CDT Inhaled Oxygen Concentration - - Weight 106.9 kg (235 lb 9.6 oz) 025 10:00 AM CERAMIC SPRAYER Height 172.7 cm (5' 8) 11/05/2024 11:3 4 AM CERAMIC SPRAYER Body Mass Index 35.82 11/05/2024 11:34 AM CERAMIC SPRAYER Plan of Treatment Upcoming Encounters Date Type Department Care Team (Late st Contact Info) Description 05/12/2025 9:30 AM CDT Office Visit [facility] [address] [place] [address] Harmeet Sanchez DPM [address] [place] [address] Health Maintenance Due Date Last Done Comments [...] this topic Medical Devices Implanted Type Area Contract Serviceman Device Identifier Shelf Expiration Date Model / Serial / Lot Cmnt Bone 40g Simplex P Non Atb Mv - [id number] Implanted:Qty: 2 on 07/07/2018 by Rodriguez Olson MD at [facility] Left: Knee [employer] 06/29/2019 6191-1-010 # / / [id number] - [id number] Implanted:Qty: 1 on 07/07/2018 by Rodriguez Olson MD at [facility] Left: Knee [employer] 12/18/2022 5551-G-350 / / [id number] Description:Triathlon X3 Asy mmetric Patella [id number]-H-359 - [id number] Implanted:Qty: 1 on 07/07/2018 by Rodriguez Olson MD at [facility] Left: Knee [employer] 08/10/2022 5515-F-[id number] / / [id number] Description:Triathlon Post S tab Femoral [id number]-C-995 - [id number] Implanted:Qty: 1 on 07/07/2018 by Rodriguez Olson MD at [facility] Left: Knee [employer] 02/13/2022 5520-B-600 / / [id number] Description:Triathlon Primar y Tibial Baseplate T5440-G-497 - [id number] Implanted:Qty: 1 on 07/07/2018 by Rodriguez Olson MD at [facility] Left: Knee [employer] 06/10/2021 5523-G-609 / / [id number] Description:Triathlon X3 Tib ial Bearing Insert - PS Explanted Type Area Contract Serviceman Device Identifier Shelf Expiration Date Model / Serial / Lot [id number] - [id number] Implanted:Qty: 1 Explanted:Qty: 1 on 07/07/2018 at [facility] Left: Knee [employer] 04/18/2021 5532-G-609 / / [id number] Description:Triathlon X3 Tib ial Bearing Insert - PS Procedures Procedure Name Priority Date/Time Associated Diagnosis Comments CBC WITH AUTO DIFFERENTIAL Routine 05/04/2025 10:28 AM CDT Chronic systolic (congestive) heart failure (HC) BASIC METABOLIC PANEL Routine 05/04/2025 10:28 AM CDT Chronic systolic (congestive) heart failure (HC) CBC WITH AUTO DIFFERENTIAL Routine 05/04/2025 10:28 AM CDT Chronic systolic (congestive) heart failure (HC) CBC WITH AUTO DIFFERENTIAL Routine 04/27/2025 7:30 AM CDT Chronic systolic (congestive) heart failure (HC) BASIC METABOLIC PANEL Routine 04/27/2025 7:30 AM CDT Chronic systolic (congestive) heart failure (HC) CBC WITH AUTO DIFFERENTIAL Routine 04/27/2025 7:30 AM CDT Chronic systolic (congestive) heart failure (HC) PERIPHERAL BLD MORPHOLOGY Routine 04/23/2025 6:57 AM CDT LAB TRACKING EVENT Routine 04/23/2025 6: 07 AM CDT ECHO TTE COMPLETE W CONTRAST Routine 04/20/2025 3:32 PM CDT HF (heart failure) (HC) from Last 3 Months Results * (ABNORMAL) CBC WITH AUTO DIFFERENTIAL (05/04/2025 10:28 AM CDT) Only the most recent of2 resultswithin the time period is included. [facility] WHITE BLOOD COUNT 12.9(H) 4.5 - 11.0 thou/cu mm 05/04/2025 12:19 PM CDT [facility] RED BLOOD COUNT 5.28 4.30 - 5.90 mil/cu mm 05/04/2025 12:19 PM CDT [facility] HEMOGLOBIN 15.1 13.5 - 17.5 g/dL 05/04/2025 12:19 PM CDT [facility] HEMATOCRIT 49.5 37.0 - 53.0 % 05/04/2025 12:19 PM CDT [facility] MCV 94 80 - 100 fL 05/04/2025 12:19 PM CDT [facility] MCH 28.6 26.0 - 34.0 pg 05/04/2025 12:19 PM CDT [facility] MCHC 30.5(L) 32.0 - 36.0 g/dL 05/04/2025 12:19 PM CDT [facility] RDW 16.6(H) 11.5 - 15.5 % 05/04/2025 12:19 PM CDT [facility] PLATELET COUNT 307 140 - 440 thou/cu mm 05/04/2025 12:19 PM CDT [facility] MPV 11.5(H) 6.5 - 11.0 fL 05/04/2025 12:19 PM CDT [facility] NRBC 0.0 % 05/04/2025 12:19 PM CDT [facility] ABS NRBC 0.0 thou /cu mm 05/04/2025 12:19 PM CDT [facility] % NEUT 45.9 % 05/04/2025 12:19 PM CDT [facility] % LYMPH 19.6 % 05/04/2025 12:19 PM CDT [facility] % MONO 6.1 % 05/04/2025 12:19 PM CDT [facility] % EOS 27.0 % 05/04/2025 12:19 PM CDT [facility] % BASO 1.1 % 05/04/2025 12:19 PM CDT [facility] % IMMATURE GRAN (METAS,MYELOS,ID OS) 0.3 % 05/04/2025 12:19 PM CDT [facility] ABSOLUTE NEUTROPHILS 5.9 1.7 - 7.0 thou/cu mm 05/04/2025 12:19 PM CDT [facility] ABSOLUTE LYMPHOCYTES 2.5 0.9 - 2.9 thou/cu mm 05/04/2025 12:19 PM CDT [facility] ABSOLUTE MONOCYTES 0.8 <0.9 thou/cu mm 05/04/2025 12:19 PM CDT [facility] ABSOLUTE EOSINOPHILS 3.5(H) <0.5 thou/cu mm 05/04/2025 12:19 PM CDT [facility] ABSOLUTE BASOPHILS 0.1 <0.3 thou/cu mm 05/04/2025 12:19 PM CDT [facility] ABSOLUTE IMMATURE GRANULOCYTES(MET ,MYELOS,PROS) 0.0 <0.3 thou/cu mm 05/04/2025 12:19 PM CDT [facility] Blood BLOOD SPECIMEN / Unknown Butterfly / Unknown 05/04/2025 10:28 AM CDT 05/04/2025 11:49 AM CDT us Jacinta Del Angel NP HEMATOLOGY Final Resul t [facility] [address] [place] [address] * (ABNORMAL) BASIC METABOLIC PANEL (05/04/2025 10:28 AM CDT) Only the most recent of2 resultswithin the time period is included. SODIUM 141 136 - 145 mmol/L 05/04/2025 12:59 PM CDT [facility] POTASSIUM 4.2 3.5 - 5.1 mmol/L 05/04/2025 12:59 PM CDT [facility] CHLORIDE 98 98 - 107 mmol/L 05/04/2025 12:59 PM CDT [facility] CO2,TOTAL 28 22 - 29 mmol/L 05/04/2025 12:59 PM CDT [facility] ANION GAP 15 5 - 18 05/04/2025 12:59 PM CDT [facility] GLUCOSE 115(H) 70 - 99 mg/dL 05/04/2025 12:59 PM CDT [facility] CALCIUM 9.6 8.8 - 10.4 mg/dL 05/04/2025 12:59 PM CDT [facility] Comment: Reference ranges for this test were updated on 08/04/2024 to reflect our healthy population more accurately. Reference range changes are not retroactively applied to results, but previous results using the same methodology can be interpreted in the context of the new reference range. BUN 27(H) 8 - 23 mg/dL 05/04/2025 12:59 PM CDT [facility] CREATININE 1.29(H) 0.70 - 1.20 mg/dL 05/04/2025 12:59 PM CDT [facility] BUN/CREAT RATIO 21(H) 10 - 20 12:59 PM CDT [facility] eGFR 55(L) >90 mL/min/1. 73m2 05/04/2025 12:59 PM CDT [facility] Comment:As of 2021, eG FR is calculated by the CKD-EPI creatinine equation without race adjustment. eGFR can be influenced by muscle mass, exercise, and diet. The reported eGFR is an estimation only and is only applicable if the renal function is stable. Blood BLOOD SPECIMEN / Unknown Butterfly / Unknown 05/04/2025 10:28 AM CDT 05/04/2025 11:49 AM CDT us Jacinta Del Angel FLASH RANGING CREWMEMBER CHEMISTRY [place] [address] * PERIPHERAL BLD MORPHOLOGY (04/23/2025 6:57 AM CDT) Case Report Special Hematology Report Case: [id number] Authorizing Provider: Desiree Gilliland, Collected: 04/23/2025 0657 Ordering Location: [facility] Received: 04/23/2025 1631 Pathologist: Sal Snow MD Specimen: Peripheral Blood 04/27/2025 2:42 PM CDT [facility] Final Diagnosis PERIPHERAL BLOOD: 1. Leukocytosis reflecting absolute eosinophilia, nonspecific 2. See comment 04/27/2025 2:42 PM CDT [facility] at 1442 CDT Comment Eosinophilia is typically reactive and commonly associated with allergic reactions (medications, rashes, allergies, asthma). It is less commonly associated with parasitic infections, pulmonary diseases, cyclical eosinophilia, skin diseases, eosinophilic gastrointestinal disorders, collagen vascular disorders and Vanessa's disease. Eosinophilia is less commonly seen in association with malignant processes (lymphoma, primary bone marrow disorders). There are no compelling features of a primary bone marrow disorder on this smear review. If the eosinophilia becomes persistent and/or increases in magnitude without identifiable clinical etiology, re-evaluation would be recommended at that time. This case was also reviewed by Katelyn Zuniga MT, MS ([facility]). 04/27/2025 2:42 PM CDT [facility]-C ENTRAL LABORATORY Clinical Information The patient is an 80-year-old male. Pertinent clinical information: Eosinophilia, being treated for community-acquired pneumonia. Per EPIC: Additional history includes severe peripheral arterial disease, hypertension, chronic systolic CHF, chronic idiopathic gout of multiple sites, osteomyelitis of right foot, SNOW, tobacco and alcohol abuse. 04/27/2025 2:42 PM CDT [facility] CBC and Differential HEMATOLOGY PARAMETERS Tested at: [facility]-Central Laboratory RESULTS EXPECTED VALUES WBC: 12.7 4.5-62d1666/cumm ELEVATED RBC: 5.0 4.30-5.90 mil/cumm HGB: 14.3 13.5-17.5 gm/di HCT: 45.5 37-53% MCV: 90.8 80-100 fl NORMOCYTIC MCH: 28.5 26-34 pg MCHC: 31.4 32-36 gm/dl HYPOCHROMIC RDW: 16.3 11.5-15.5% ELEVATED PLT: 260 [id number]/uL MPV: 12.1 6.5-11 fl ELEVATED Retic: 1.18 0.5-1.5% Differential Absolute (%) Expected (%) (x10*9/L) (x10*9/L) Neutrophils: 6.1 (48) 1.7-7.0 (42-72%) Lymphocytes: 2.3 (18.1) 0.9-2.9 (20-44%) Monocytes: 0.4 (3.1) <0.9 (0-11%) Eosinophils: 3.8 (29.9) <0.5 (0-2%) ELEVATED Basophils: 0.1 (.8) <0.3 (<3.0%) 04/27/2025 2:42 PM CDT [facility]- ENTRNE LABORATORY Microscopic Description The final diagnosis is based on microscopic examination of an appropriately stained blood smear. 04/27/2025 2:42 PM CDT [facility] Additional Information Interpreted at [facility] - [address], [place] [address] 04/27/2025 2:42 PM CDT [facility] Blood (Peripheral Blood) 04/23/2025 6:57 AM CDT 04/23/2025 4:31 PM CDT us Desiree Gilliland MD HEMATOLOGY Final Result [facility] [address] [address], [place] * LAB TRACKING EVENT (04/23/2025 6:07 AM CDT) Other (Other) Client Collect / Unknown 04/23/2025 6:07 AM CDT 04/23/2025 1:23 PM CDT us Desiree Gilliland MD LAB BILL ONLY Final Result [facility] [address] [address], [place] * ECHO TTE COMPLETE W CONTRAST (04/20/2025 3:32 PM CDT) AORTIC VALVE MEAN PG 19 mmHg EJECTION FRACTION 45 % PEAK TR VELOCITY 3.0 m/s LVEDD 5.0 cm EJECTION FRACTION 45 - 50% Anatomical Region Laterality Modality Ultrasound 04/20/2025 2:52 PM CDT Narrative 04/20/2025 3:45 PM CDT ECHOCARDIOGRAM MONICA JONES SR. : 1945 80 years Study Date: 04/20/2025 2:52:14 PM Gender: M BP: 125/67 mmHg Height: 173.00 cm BSA: 2.20 m Weight: 107.00 kg Tech: [facility] Referring MD: ASHWIN ROMERO Site: [facility] Reading Location: Mobile- Patient Location: Inpatient. Procedure: 2D w/ Contrast, Color Doppler and Spectral Doppler. Indication for study: Heart Failure Cardiac Rhythm: Atrial fibrillation.Study quality: Technically limited. Imaging limitations: This study was subject to imaging limitations due to body habitus. Final Impressions: 1. Technically limited exam. 2. Normal LV size, moderately increased wall thickness, mildly reduced function with an EF of ~45%. 3. Right ventricular cavity size is normal, global systolic RV function is mildly reduced. 4. Moderately enlarged left atrium. 5. The aortic valve is calcified, mild to moderate stenosis and mild regurgitation. RONAK 1.4cm2, MG 19mmHg, Vmax 2.6, DI 0.35. 6. Echo contrast was administered to enhance visualization of all left ventricular segments. Comparison Compared to prior exam of 05/18/2024: - Aortic stenosis has increased slightly. Chamber Sizes and Function Normal left ventricular size, moderately increased wall thickness, mildly reduced global systolic function with an estimated EF of 45 - 50%. Left atrial size is moderately enlarged. Right ventricular cavity size is normal, global systolic RV function is mildly reduced. The right atrium is mildly enlarged. Right atrial volume index is 36 ml/m . Right atrial area is 22 cm . The pulmonary artery is of normal size and origin. The sinus of Valsalva is normal sized. The ascending aorta is normal sized. Valves, RV Pressures and Diastolic Function The aortic valve is calcified, mild to moderate stenosis and mild regurgitation. The mitral valve is normal in structure, no mitral regurgitation. Indeterminate pattern of LV diastolic filling. The tricuspid valve is normal in structure, regurgitation is not evident tricuspid regurgitation. The tricuspid regurgitant velocity is 3.0 m/s, the estimated right ventricular systolic pressure is 35 mmHg plus right atrial pressure. The pulmonic valve is normal. No pulmonary regurgitation. Masses, Effusion, Shunts There is no pericardial effusion. The inferior vena cava is normal sized, respiratory size variation greater than 50%. No left to right shunting was detected by limited color flow Doppler interrogation of the interatrial septum. MEASUREMENTS AND CALCULATIONS 2-D Measurements and LV Function: LVID (d) 5.0 cm LV FS% (2D) 34 % LVID (s) 3.3 cm LVOT diameter 2.2 cm IVS (d) 1.5 cm HR 94 bpm LVPW (d) 1.5 cm LA Vol index 43 ml/m2 Ao Sinus 3.6 cm RA Vol index 36 ml/m2 Ao Sinus ULN 4.2 cm * RA area 22 cm Asc Ao 3.8 cm RV Basal Diam 3.8 cm Asc Ao ULN 4.4 cm * LA 5.0 cm * Input BSA and age are outside of ranges, reported values correspond to BSA = 2.1 and Age = 78 Diastology: Mitral Tissue Doppler E Peak 1.0 m/s e', Septum 0.07 m/s DT 184 msec e', Lateral 0.09 m/s E/e' Average 12.38 Aortic Valve: Vmax 2.6 m/s RONAK (V) 1.57 cm VTI 0.53 m RONAK (I) 1.39 cm LVOT V max 1.1 m/s Max PG 27 mmHg LVOT VTI 0.19 m Mean PG 19 mmHg SV 73 ml Dim Index 0.36 SV index 33 ml/m CO 6.9 l/min CI 3.1 l/min/m Mitral Valve: MVA 4.1 cm MV P 1/2 53 msec Tricuspid Valve and estimated PA pressures: TR Vmax 3.0 m/s TAPSE 1.6 cm TR maxG 35 mmHg Pulmonic Valve: PV AT 148 msec Contrast documentation: 3 ml ml diluted Definity, lot #[id number] was administered peripherally to enhance visualization of all left ventricular segments. . This study was interpreted by an [facility] accredited facility. CC: [facility] (med records) [facility], Med/Surg - IP [facility]. Final Procedure Note Barry Manuel MD - 04/20/2025 ECHOCARDIOGRAM MONICA JONES . : 1945 80 years Study Date: 04/20/2025 2:52:14 PM Gender: M BP: 125/67 mmHg Height: 173.00 cm BSA: 2.20 m Weight: 107.00 kg Tech: [facility] Referring MD: ASHWIN ROMERO Site: [facility] Reading Location: Mobile-IP Patient Location: Inpatient. Procedure: 2D w/ Contrast, Color Doppler and Spectral Doppler. Indication for study: Heart Failure Cardiac Rhythm: Atrial fibrillation.Study quality: Technically limited. Imaging limitations: This study was subject to imaging limitations due tobody habitus. Final Impressions: 1. Technically limited exam. 2. Normal LV size, moderately increased wall thickness, mildly reducedfunction with an EF of ~45%. 3. Right ventricular cavity size is normal, global systolic RV functionis mildly reduced. 4. Moderately enlarged left atrium. 5. The aortic valve is calcified, mild to moderate stenosis and mildregurgitation. RONAK 1.4cm2, MG 19mmHg, Vmax 2.6, DI 0.35. 6. Echo contrast was administered to enhance visualization of all leftventricular segments. Comparison Compared to prior exam of 05/18/2024: - Aortic stenosis has increased slightly. Chamber Sizes and Function Normal left ventricular size, moderately increased wall thickness, mildlyreduced global systolic function with an estimated EF of 45 - 50%. Leftatrial size is moderately enlarged. Right ventricular cavity size isnormal, global systolic RV function is mildly reduced. The right atrium ismildly enlarged. Right atrial volume index is 36 ml/m . Right atrial areais 22 cm . The pulmonary artery is of normal size and origin. The sinusof Valsalva is normal sized. The ascending aorta is normal sized. Valves, RV Pressures and Diastolic Function The aortic valve is calcified, mild to moderate stenosis and mildregurgitation. The mitral valve is normal in structure, no mitralregurgitation. Indeterminate pattern of LV diastolic filling. Thetricuspid valve is normal in structure, regurgitation is not evidenttricuspid regurgitation. The tricuspid regurgitant velocity is 3.0 m/s,the estimated right ventricular systolic pressure is 35 mmHg plus rightatrial pressure. The pulmonic valve is normal. No pulmonaryregurgitation. Masses, Effusion, Shunts There is no pericardial effusion. The inferior vena cava is normal sized,respiratory size variation greater than 50%. No left to right shunting wasdetected by limited color flow Doppler interrogation of the interatrialseptum. MEASUREMENTS AND CALCULATIONS 2-D Measurements and LV Function: LVID (d) 5.0 cm LV FS% (2D) 34% LVID (s) 3.3 cm LVOT diameter2.2 cm IVS (d) 1.5 cm HR 94bpm LVPW (d) 1.5 cm LA Vol index 43ml/m2 Ao Sinus 3.6 cm RA Vol index 36ml/m2 Ao Sinus ULN 4.2 cm * RA area 22cm Asc Ao 3.8 cm RV Basal Diam3.8 cm Asc Ao ULN 4.4 cm * LA 5.0 cm * Input BSA and age are outside of ranges, reported values correspond to BSA = 2.1 and Age = 78 Diastology: Mitral Tissue Doppler E Peak 1.0 m/s e', Septum 0.07 m/s DT 184 msec e', Lateral 0.09 m/s E/e' Average 12.38 Aortic Valve: Vmax 2.6 m/s RONAK (V) 1.57 cm VTI 0.53 m RONAK (I) 1.39 cm LVOT V max 1.1 m/s Max PG 27 mmHg LVOT VTI 0.19 m Mean PG 19 mmHg SV 73 ml Dim Index 0.36 SV index 33 ml/m CO 6.9 l/min CI 3.1 l/min/m Mitral Valve: MVA 4.1 cm MV P 1/2 53 msec Tricuspid Valve and estimated PA pressures: TR Vmax 3.0 m/s TAPSE 1.6 cm TR maxG 35 mmHg Pulmonic Valve: PV AT 148 msec Contrast documentation: 3 ml ml diluted Definity, lot #[id number] wasadministered peripherally to enhance visualization of all left ventricularsegments. . This study was interpreted by an [facility] accredited facility. CC: [facility] (med records) [facility], Med/Surg - IP [facility]. Final us Ashwin Romero MD ECHO ORD Final Result from Last 3 Months Additional Health Concerns Infection Onset Date Last Indicated MRSA Clearance Comment:07/08/2018 Nares surveillance cultures needed to clear patient if <12 months since positive culture. If >12 months since positive culture, precautions can be discontinued if patient has no MRSA risk factors. +MRSA right foot 10/16/2016, 04/04/17 07/08/2018 07/08/2018 MRSA 07/05/2023 07/05/2023 Insurance MEDICARE PART A HB ONLY MEDICARE PART B HB ONLY [employer] MEDICARE PART A HB ONLY MEDICARE PART B HB ONLY [employer] [place] BLUE MR PB ONLY [employer] [place] BLUE HB ONLY MEDICARE PPS [employer] [place] BLUE HB ONLY [employer] BLUE MR PB ONLY Advance Directives Documents on File Type Date Recorded Patient Harness Placer Expl anation Healthcare Directive 04/15/2017 7:09 PM [...] Comments Code Status Discussion: Discussed Care Teams Line Up Machine Operator Relationship Specialty Start Date End Date José Luis Arredondo MD [address] [place] [id number] PCP - General Family Practice 02/12/22 Jose A Arango LGSW Director Graphics 10/22/16
== END 2025-05-04 17:38 | disposition home or self-care (01) ==
LOC: NPINS 17:37
PROVIDERS: PCP Family Medicine; Visit Provider Nurse Practitioner Gerontology
DX: D72.829 Elevated white blood cell count, unspecified (principal); N39.0 Urinary tract infection, site not specified
CPT/HCPCS: 81001; 81003; 87086

== ENCOUNTER 2025-06-10 11:44 | Outpatient (CLI) | payer MEDICARE, BC, SELFPAY | END 2025-06-10 11:45 | disposition home or self-care (01) | PROVIDERS: PCP Family Medicine; Visit Provider Family Medicine | DX: I48.91 Unspecified atrial fibrillation (principal); I10 Essential (primary) hypertension; Z00.00 Encounter for general adult medical examination without abnormal findings | CPT/HCPCS: 80048; 80061 ==

== ENCOUNTER 2025-08-06 15:34 | Emergency (ER) | payer MEDICARE, BC, SELFPAY ==
--- OUTSIDE RECORDS SUMMARY | 2025-08-06 15:36 | XMS_ITS | Clinical Summary ---
Author Organization [employer] [facility] Address [address] [place] [id number] Care Team Providers Care Finance Professional Name Role Phone Conchita Jose A Ramiro INVESTIGATION DIVISION SERGEANT Unavailable Unavailable José Luis Arredondo MD Primary Care Provider + Allergies No known active allergies Medications allopurinoL (ZYLOPRIM) 300 mg tabletIndication s:Chronic gout with tophus, unspecified cause, unspecified site,Hypertensio n Take 1 tablet by mouth once daily. 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 (HC) SQUARED TOE POST OP SHOE, XS, REF: [phone] 2 Each 4 Active metoprolol succinate (TOPROL [...] Encounters Date Type Department Care Team Description 06/02/2025 9:45 AM CDT Office Visit [facility] [address] [place] [address] Harmeet Sanchez DPM Follow Up (Bilateral foot, ulcer check) 06/02/2025 Travel 05/21/2025 Lab Requisition [facility] [phone] Unknown, Doctor 05/10/2025 Lab Requisition [facility] [phone] Jacinta Del Angel NP 05/10/2025 Telephone [facility] [address] [place] [address] Harmeet Sanchez DPM Error-please disregard from Last 3 Months Immunizations Immunization Administration [...] on file Legal Sex Male 5:23 AM GIZZARD PULLER Gender Identity Not on file Sexual Orientation Not on file Occupation Industry Job Start Date Job End Date Retired, works part-time Not on file Not on file Not on file Obstetrics History Last Filed Vital Signs Vital Sign Reading Time Taken Comments Blood Pressure 167/91 06/02/2025 10:05 AM CDT Pulse 84 06/02/2025 10:05 AM CDT Temperature 36.2 C (97.1 F) 11/25/2024 10:00 AM GIZZARD PULLER Respiratory Rate 16 11/25/2024 10:0 0 AM GIZZARD PULLER Oxygen Saturation 92% 03/03/2025 10: 25 AM CDT Inhaled Oxygen Concentration - - Weight 106.9 kg (235 lb 9.6 oz) 025 10:00 AM GIZZARD PULLER Height 172.7 cm (5' 8) 11/05/2024 11:3 4 AM GIZZARD PULLER Body Mass Index 35.82 11/05/2024 11:34 AM GIZZARD PULLER Plan of Treatment Upcoming Encounters Date Type Department Care Team (Late st Contact Info) Description 09/08/2025 9:30 AM GIZZARD PULLER Office Visit [facility] [address] [place] [address] Harmeet Sanchez DPM [address] [facility] [id number] Health Maintenance Due Date Last Done Comments [...] 03/01/2021 03/01/2020, 08/11/2019, 07/01/2019, Additional history exists Influenza Vaccine (#1) 2025 Tetanus booster 01/31/2028 01/30/2018, 10/2006, 03/21/2000 Pneumococcal series for age 50+ Completed 01/23/2016, 01/23/2016, 12/20/2008, Additional history exists Hepatitis B series for 19+ Aged Out N o longer eligible based on patient's age to complete this topic Medical Devices Implanted Type Area Diesel Mechanic Construction Device Identifier Shelf Expiration Date Model / Serial / Lot Cmnt Bone 40g Simplex P Non Atb Mv - [id number] Implanted:Qty: 2 on 07/07/2018 by Rodriguez Olson MD at [facility] Left: Knee [employer] 06/29/2019 6191-1-010 # / / [id number] Q3671-P-598 - [id number] Implanted:Qty: 1 on 07/07/2018 by Rodriguez Olson MD at [facility] Left: Knee [employer] 12/18/2022 5551-G-350 / / [id number] Description:Triathlon X3 Asy mmetric Patella R2041-A-627 - [id number] Implanted:Qty: 1 on 07/07/2018 by Rodriguez Olson MD at [facility] Left: Knee [employer] 08/10/2022 5515-F-701 / / [id number] Description:Triathlon Post S tab Femoral N0365-N-165 - [id number] Implanted:Qty: 1 on 07/07/2018 by Rodriguez Olson MD at [facility] Left: Knee [employer] 02/13/2022 5520-B-600 / / [id number] Description:Triathlon Primar y Tibial Baseplate B2663-O-052 - [id number] Implanted:Qty: 1 on 07/07/2018 by Rodriguez Olson MD at [facility] Left: Knee [employer] 06/10/2021 5523-G-609 / / [id number] Description:Triathlon X3 Tib ial Bearing Insert - PS Explanted Type Area Diesel Mechanic Construction Device Identifier Shelf Expiration Date Model / Serial / Lot [id number]-[id number] - [id number] Implanted:Qty: 1 Explanted:Qty: 1 on 07/07/2018 at [facility] Left: Knee [employer] 04/18/2021 5532-G-609 / / [id number] Description:Triathlon X3 Tib ial Bearing Insert - PS Procedures Procedure Name Priority Date/Time Associated Diagnosis Comments CBC WITH AUTO DIFFERENTIAL Routine 05/25/2025 8:20 AM CDT Elevated white blood cell count, unspecified Essential (primary) hypertension Weakness BASIC METABOLIC PANEL Routine 05/25/2025 8:20 AM CDT Elevated white blood cell count, unspecified Essential (primary) hypertension Weakness TSH Routine 05/25/2025 8:20 AM CDT Elevated white blood cell count, unspecified Essential (primary) hypertension Weakness CBC WITH AUTO DIFFERENTIAL Routine 05/25/2025 8:20 AM CDT Elevated white blood cell count, unspecified Essential (primary) hypertension Weakness CBC WITH AUTO DIFFERENTIAL Routine 05/11/2025 8:46 AM CDT Chronic systolic (congestive) heart failure (HC) Elevated white blood cell count, unspecified BASIC METABOLIC PANEL Routine 05/11/2025 8:46 AM CDT Chronic systolic (congestive) heart failure (HC) Elevated white blood cell count, unspecified PRO-BNP Routine 05/11/2025 8:46 AM CDT Chronic systolic (congestive) heart failure (HC) Elevated white blood cell count, unspecified CBC WITH AUTO DIFFERENTIAL Routine 05/11/2025 8:46 AM CDT Chronic systolic (congestive) heart failure (HC) Elevated white blood cell count, unspecified from Last 3 Months Results * (ABNORMAL) CBC WITH AUTO DIFFERENTIAL (05/25/2025 8:20 AM CDT) Only the most recent of2 resultswithin the time period is included. WHITE BLOOD COUNT 8.2 4.5 - 11.0 thou/cu mm 05/25/2025 9:[address] [facility] RED BLOOD COUNT 4.86 4.30 - 5.90 mil/cu mm 05/25/2025 9:[address] [facility] HEMOGLOBIN 14.1 13.5 - 17.5 g/dL 05/25/2025 9:[address] [facility] HEMATOCRIT 45.3 37.0 - 53.0 % 05/25/2025 9:[address] [facility] MCV 93 80 - 100 fL 05/25/2025 9:[address] [facility] MCH 29.0 26.0 - 34.0 pg 05/25/2025 9:[address] [facility] MCHC 31.1(L) 32.0 - 36.0 g/dL 05/25/2025 9:[address] [facility] RDW 16.9(H) 11.5 - 15.5 % 05/25/2025 9:[address] [facility] PLATELET COUNT 249 140 - 440 thou/cu mm 05/25/2025 9:[address] [facility] MPV 11.8(H) 6.5 - 11.0 fL 05/25/2025 9:[address] [facility] % NEUT 67.0 % 05/25/2025 9:[address] [facility] % LYMPH 19.2 % 05/25/2025 9:[address] [facility] % MONO 6.4 % 05/25/2025 9:[address] [facility] % EOS 6.9 % 05/25/2025 9:[address] [facility] % BASO 0.5 % 05/25/2025 9:[address] [facility] ABSOLUTE NEUTROPHILS 5.5 1.7 - 7.0 thou/cu mm 05/25/2025 9:[address] [facility] ABSOLUTE LYMPHOCYTES 1.6 0.9 - 2.9 thou/cu mm 05/25/2025 9:[address] [facility] ABSOLUTE MONOCYTES 0.5 <0.9 thou/cu mm 05/25/2025 9:[address] [facility] ABSOLUTE EOSINOPHILS 0.6(H) <0.5 thou/cu mm 05/25/2025 9:[address] [facility] ABSOLUTE BASOPHILS 0.0 <0.3 thou/cu mm 05/25/2025 9:[address] [facility] Blood BLOOD SPECIMEN / Unknown Venipuncture / Unknown 05/25/2025 8:20 AM CDT 05/25/2025 9:03 AM T us Doctor Unknown HEMATOLOGY Final Result [facility] [address] [place] [address] * TSH (05/25/2025 8:20 AM CDT) TSH 2.61 0.27 - 4.20 uIU/mL 05/25/2025 9:[address] [facility] Blood BLOOD SPECIMEN / Unknown Venipuncture / Unknown 05/25/2025 8:20 AM CDT 05/25/2025 9:03 AM CDT [facility] - 05/25/2025 9:43 AM CDT In Adults, TSH values between 5.00 and 10.00 uIU/ml do not necessarily indicate the presence of Hypothyroidism. Correlation with clinical findings such as presence of goiter and/or Thyroperoxidase (TPO) Antibody may be helpful. For more information please refer to MILANA 2004; 291: [phone]. us Doctor Unknown CHEMISTRY Final Result [facility] [address] [place] [address] * (ABNORMAL) BASIC METABOLIC PANEL (05/25/2025 8:20 AM CDT) Only the most recent of2 resultswithin the time period is included. Pathologist [facility] SODIUM 141 136 - 145 mmol/L 05/25/2025 9:[address] [facility] POTASSIUM 4.2 3.5 - 5.1 mmol/L 05/25/2025 9:[address] [facility] CHLORIDE 101 98 - 107 mmol/L 05/25/2025 9:[address] [facility] CO2,TOTAL 27 22 - 29 mmol/L 05/25/2025 9:[address] [facility] ANION GAP 13 5 - 18 05/25/2025 9:[address] [facility] GLUCOSE 145(H) 70 - 99 mg/dL 05/25/2025 9:[address] [facility] CALCIUM 9.3 8.8 - 10.4 mg/dL 05/25/2025 9:[address] [facility] Comment: Reference ranges for this test were updated on 08/04/2024 to reflect our healthy population more accurately. Reference range changes are not retroactively applied to results, but previous results using the same methodology can be interpreted in the context of the new reference range. BUN 26(H) 8 - 23 mg/dL 05/25/2025 9:43 AM T [facility] CREATININE 1.21(H) 0.70 - 1.20 mg/dL 05/25/2025 9:[address] [facility] BUN/CREAT RATIO 21(H) 10 - 20 9:[address] [facility] eGFR 60(L) >90 mL/min/1. 73m2 05/25/2025 9:[address] [facility] Comment:As of 2021, eG FR is calculated by the CKD-EPI creatinine equation without race adjustment. eGFR can be influenced by muscle mass, exercise, and diet. The reported eGFR is an estimation only and is only applicable if the renal function is stable. Blood BLOOD SPECIMEN / Unknown Venipuncture / Unknown 05/25/2025 8:20 AM CDT 05/25/2025 9:03 AM CDT us Doctor Unknown CHEMISTRY Final Result [facility] [address] [place] [address] * (ABNORMAL) PRO-BNP (05/11/2025 8:46 AM CDT) PRO-BNP 2,067(H) <450 pg/mL 05/11/2025 10:32 AM CDT [facility] Blood BLOOD SPECIMEN / Unknown Venipuncture / Unknown 05/11/2025 8:46 AM CDT 05/11/2025 9:47 AM CDT Narrative [facility] - 05/11/2025 10:32 AM CDT The following cut-points have been suggested for the use of proBNP for the diagnostic evaluation of heart failure (HF) in patient with acute dyspnea. Patients with eGFR >= 60 Diagnosis (rule in CHF) <50 Years Old 450 pg/mL 50 - 75 Years Old 900 pg/mL >75 Years Old 1800 pg/mL Exclusion (rule out CHF) Age Independent 300 pg/mL A cutoff of 1200 pg/mL for patients with an eGFR <60 yields a diagnostic sensitivity of 89% and specificity of 72% for acute congestive heart failure. us Jacinta Del Angel NP SEND OUTS Final Resul t [facility] [address] [place] [address] from Last 3 Months Additional Health Concerns [...] HB ONLY MEDICARE PART B HB ONLY MR [employer] MEDICARE PART A HB ONLY MEDICARE PART B HB ONLY BLUE CROSS SHISHMAREF IRA BLUE MR PB ONLY BLUE CROSS SHISHMAREF IRA BLUE HB ONLY HC MEDICARE PPS BLUE CROSS SHISHMAREF IRA BLUE HB ONLY BLUE CROSS SHISHMAREF IRA BLUE MR PB ONLY JOHAN RONQUILLO [phone] Advance Directives Documents on File Type Date Recorded Patient Franchise Broker Expl anation Healthcare Directive 04/15/2017 7:09 PM [...] Comments Code Status Discussion: Discussed Care Teams Finance Professional Relationship Specialty Start Date End Date José Luis Arredondo MD [address] [place] [address] PCP - General Family Practice 02/12/22 Jose A Arango LGSW Private Branch Exchange Operator 10/22/16
[2025-08-06 15:44] VITALS: BP 154/74; RESP 18; TEMP 35.9
--- NOTE | 2025-08-06 16:29 | ED.GENADULT ---
HPI - General Adult General Date Seen: 08/06/25 Chief complaint: Extremity Pain/Injury, Lower Stated complaint: foot blister Time Seen by Provider: 08/06/25 15:42 History of Present Illness HPI narrative: Patient is an 80-year-old brought in by his son for evaluation of a blister on his left foot. Son noticed it today but it is possible it has been there for longer. No reported systemic complaints, his primary doctor recommended that he be seen given his comorbidities which include peripheral neuropathy, peripheral arterial disease, multiple amputations, medical noncompliance, CHF, AFib, dementia. Related Data Home Medications ?Medication ?Instructions ?Recorded ?Confirmed torsemide 20 mg tablet 40 mg PO DAILY 01/08/25 06/10/25 aspirin 325 mg tablet,delayed 325 mg PO DAILY 04/19/25 06/10/25 release Previous Rx's ?Medication ?Instructions ?Recorded acetaminophen 325 mg tablet 650 mg (2 x 325 mg) PO Q6H PRN #30 10/02/24 tabs metoprolol succinate 50 mg 50 mg PO DAILY #90 tabs 01/13/25 tablet,extended release 24 hr allopurinol 300 mg tablet 300 mg PO DAILY #90 tabs 06/03/25 potassium chloride 10 mEq 20 meq (2 x 10 mEq) PO DAILY #60 07/06/25 capsule,extended release caps Allergies Allergy/AdvReac Type Severity Reaction Status Date / Time No Known Drug Allergies Allergy Verified 08/06/25 15:44 [facility] Medical History History of gout ?Z87.39 - Personal history of other diseases of the musculoskeletal system and connective tissue (ICD-10) Pulmonary hypertension ?I27.20 - Pulmonary hypertension, unspecified (ICD-10) Dementia ?F03.90 - Unspecified dementia, unspecified severity, without behavioral disturbance, psychotic disturbance, mood disturbance, and anxiety (ICD-10) Atrial fibrillation ?I48.91 - Unspecified atrial fibrillation (ICD-10) Foot ulcer, right ?L97.519 - Non-pressure chronic ulcer of other part of right foot with unspecified severity (ICD-10) Alcohol use disorder ?F10.90 - Alcohol use, unspecified, uncomplicated (ICD-10) Urinary incontinence ?R32 - Unspecified urinary incontinence (ICD-10) Osteoarthritis ?M19.90 - Unspecified osteoarthritis, unspecified site (ICD-10) Peripheral arterial disease ?I73.9 - Peripheral vascular disease, unspecified (ICD-10) Chronic obstructive pulmonary disease ?J44.9 - Chronic obstructive pulmonary disease, unspecified (ICD-10) Peripheral neuropathy ?G62.9 - Polyneuropathy, unspecified (ICD-10) Frailty ?R54 - Age-related physical debility (ICD-10) Noncompliance with medication regimen ?Z91.148 - Patient's other noncompliance with medication regimen for other reason (ICD-10) Obesity ?E66.9 - Obesity, unspecified (ICD-10) History of methicillin resistant Staphylococcus aureus infection (04/04/17) ?Z86.14 - Personal history of Methicillin resistant Staphylococcus aureus infection (ICD-10) History of colonic polyps ?Z86.010 - Personal history of colonic polyps (ICD-10) History of alcohol abuse ?F10.11 - Alcohol abuse, in remission (ICD-10) 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 ?M1A.00X0 - Idiopathic chronic gout, unspecified site, without tophus (tophi) (ICD-10) Essential hypertension ?I10 - Essential (primary) hypertension (ICD-10) Surgical History History of cataract surgery ?Z98.49 - Cataract extraction status, unspecified eye (ICD-10) 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 Lives alone [place] near [place]. Son was with him today lives nearby and checks on him every day. , 4 kids, retired, former smoker, 3-4 drinks per day. Healthcare power of securities attorney would be all of his children. Code status is DNR. What is your current living situation?: I presently have a place to live Problems where you live: no known problems Problems where you live details: n/a In the past 12 months, utilities in danger of being shut off: no In past 12 months, lack of transportation kept you from medical appts, meetings, work, or getting things needed for daily living: no In the past 12 mos, have been you worried that your food would run out before you had money to buy more?: never true In the past 12 mos, the food you bought just didn't last and you didn't have money to buy more?: never true Highest level of school completed/degree received: high school graduate Smoking Status: Former smoker What tobacco products do you use: cigarettes Smoking quit date/years: >15 years ago Do you use any of these nicotine containing products: None Second hand tobacco smoke exposure: No How often do you have a drink containing alcohol: 4 or more times a week Alcohol type: beer Alcohol type details: pt reports x3-4 beers per day How many standard drinks containing alcohol do you have on a typical day: 3 or 4 How often do you have six or more drinks on one occasion: Never AUDIT-C Alcohol total score: 5 Non-prescribed substance use: denies use Caffeine: No How often does anyone, including family, friends and others, physically hurt you: never How often does anyone, including family, friends and others, insult or talk down to you: never How often does anyone, including family, friends and others, threaten you with harm: never How often does anyone, including family, friends and others, scream or curse at you: never service: No Exam Narrative: Exam Narrative: Vital signs reviewed. In general, and alert, nontoxic male. He is slightly disheveled. Extremities: He has partial amputations of both feet. On the left, there is a fairly large approximately 4 cm in diameter blood blister on the end of his foot, near the amputation site of his great and 2nd toes. There is a little bit of surrounding erythema, there is no significant edema, obvious purulence. Nontender to palpation, he says he has good sensation in that foot although I am not certain that is accurate. Const: Vital Signs, click to edit/add: Vital Signs - 24 hr 08/06/25 15:44 Temperature 96.7 F L Respiratory Rate 18 Blood Pressure [Ri ght Upper Arm] 154/74 H Course Course ED Course: I used an 18 gauge needle on a syringe to drain the fluid from the blister after cleaning the skin. It looks slightly cloudy, there is a little bit of erythema and I recommended that we discover him with an antibiotic to be on the safe side. We dressed the area, asked the son to check it once a day and if it is looking worse to come back. Otherwise they will see their embedded engineer next week. Vital Signs Vital signs: Initial Vital Signs Temperature 96.7 F L 08/06/25 15:44 Temperature Source Temporal Artery Scan 08/06/25 15:44 Respiratory Rate 18 08/06/25 15:44 Blood Pressure 154/74 H 08/06/25 15:44 Blood Pressure Mean 100 08/06/25 15:44 Blood Pressure Position Sitting 08/06/25 15:44 Vital Signs Temperature 96.7 F L 08/06/25 15:44 Respiratory Rate 18 08/06/25 15:44 Blood Pressure 154/74 H 08/06/25 15:44 Temperature 96.7 F L 08/06/25 15:44 Respiratory Rate 18 08/06/25 15:44 Blood Pressure 154/74 H 08/06/25 15:44 Discharge Plan Discharge Clinical Impression: Blister of foot, left, infected Qualifiers: Encounter type: initial encounter Qualified Code(s): S90.822A - Blister (nonthermal), left foot, initial encounter Patient Disposition: Home, Self-Care Condition: Stable Instructions: Cellulitis (ED), Blister (ED) Additional Instructions: Please change the dressing once a day and examine the foot. If there is marked increase in redness, swelling or any symptoms such as fever or shaking chills, he needs to be seen again. Take cephalexin as prescribed. Looseleaf Binder Coverer follow-up as discussed. Prescriptions: No Action aspirin 325 mg tablet,delayed release (DR/EC) 325 mg PO DAILY acetaminophen 325 mg Tablet 650 mg PO Q6H PRNQty: 30 0RF torsemide 20 mg tablet 40 mg PO DAILY metoprolol succinate 50 mg tablet extended release 24 hr 50 mg PO DAILY Qty: 90 3RF allopurinol 300 mg tablet 300 mg PO DAILY Qty: 90 3RF potassium chloride 10 mEq capsule, extended release 20 meq PO DAILY Qty: 60 5RF Follow Up/Referrals: José Luis Arredondo MD [Primary Care Provider, Family Practice] Stand Alone Forms: [employer] Info Instructions
--- NOTE | 2025-08-08 16:09 | ED.GENADULT ---
HPI - General Adult General Date Seen: 08/08/25 Chief complaint: Extremity Pain/Injury, Lower Stated complaint: foot blister Time Seen by Provider: 08/06/25 15:42 History of Present Illness HPI narrative: wound Cx pos for Proteus. Is I to precribed keflex. Wanting to change to a different antibiotic. Is sensitive to amoxicillin. Called Patient - no answer. Called delia Martinez at 4pm on 08/08. Says his dad is doing ok. Will go to the pharmacy and pickler helper the new RX for amoxicillin tomorrow morning. Encouraged to return to the ER if any worsening symptoms or fevers. Amoxicillin 1000 mg p.o. b.i.d. for 7 days Related Data Home Medications ?Medication ?Instructions ?Recorded ?Confirmed torsemide 20 mg tablet 40 mg PO DAILY 01/08/25 06/10/25 aspirin 325 mg tablet,delayed 325 mg PO DAILY 04/19/25 06/10/25 release Previous Rx's ?Medication ?Instructions ?Recorded acetaminophen 325 mg tablet 650 mg (2 x 325 mg) PO Q6H PRN #30 10/02/24 tabs metoprolol succinate 50 mg 50 mg PO DAILY #90 tabs 01/13/25 tablet,extended release 24 hr allopurinol 300 mg tablet 300 mg PO DAILY #90 tabs 06/03/25 potassium chloride 10 mEq 20 meq (2 x 10 mEq) PO DAILY #60 07/06/25 capsule,extended release caps amoxicillin 500 mg capsule 1,000 mg (2 x 500 mg) PO BID #14 08/08/25 caps Allergies Allergy/AdvReac Type Severity Reaction Status Date / Time No Known Drug Allergies Allergy Verified 08/06/25 15:44 [facility] [place] Medical History History of gout ?Z87.39 - Personal history of other diseases of the musculoskeletal system and connective tissue (ICD-10) Pulmonary hypertension ?I27.20 - Pulmonary hypertension, unspecified (ICD-10) Dementia ?F03.90 - Unspecified dementia, unspecified severity, without behavioral disturbance, psychotic disturbance, mood disturbance, and anxiety (ICD-10) Atrial fibrillation ?I48.91 - Unspecified atrial fibrillation (ICD-10) Foot ulcer, right ?L97.519 - Non-pressure chronic ulcer of other part of right foot with unspecified severity (ICD-10) Alcohol use disorder ?F10.90 - Alcohol use, unspecified, uncomplicated (ICD-10) Urinary incontinence ?R32 - Unspecified urinary incontinence (ICD-10) Osteoarthritis ?M19.90 - Unspecified osteoarthritis, unspecified site (ICD-10) Peripheral arterial disease ?I73.9 - Peripheral vascular disease, unspecified (ICD-10) Chronic obstructive pulmonary disease ?J44.9 - Chronic obstructive pulmonary disease, unspecified (ICD-10) Peripheral neuropathy ?G62.9 - Polyneuropathy, unspecified (ICD-10) Frailty ?R54 - Age-related physical debility (ICD-10) Noncompliance with medication regimen ?Z91.148 - Patient's other noncompliance with medication regimen for other reason (ICD-10) Obesity ?E66.9 - Obesity, unspecified (ICD-10) History of methicillin resistant Staphylococcus aureus infection (04/04/17) ?Z86.14 - Personal history of Methicillin resistant Staphylococcus aureus infection (ICD-10) History of colonic polyps ?Z86.010 - Personal history of colonic polyps (ICD-10) History of alcohol abuse ?F10.11 - Alcohol abuse, in remission (ICD-10) 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 ?M1A.00X0 - Idiopathic chronic gout, unspecified site, without tophus (tophi) (ICD-10) Essential hypertension ?I10 - Essential (primary) hypertension (ICD-10) Surgical History History of cataract surgery ?Z98.49 - Cataract extraction status, unspecified eye (ICD-10) 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 Lives alone [place] near [place]. Son was with him today lives nearby and checks on him every day. , 4 kids, retired, former smoker, 3-4 drinks per day. Healthcare power of contracts attorney would be all of his children. Code status is DNR. What is your current living situation?: I presently have a place to live Problems where you live: no known problems Problems where you live details: n/a In the past 12 months, utilities in danger of being shut off: no In past 12 months, lack of transportation kept you from medical appts, meetings, work, or getting things needed for daily living: no In the past 12 mos, have been you worried that your food would run out before you had money to buy more?: never true In the past 12 mos, the food you bought just didn't last and you didn't have money to buy more?: never true Highest level of school completed/degree received: high school graduate Smoking Status: Former smoker What tobacco products do you use: cigarettes Smoking quit date/years: >15 years ago Do you use any of these nicotine containing products: None Second hand tobacco smoke exposure: No How often do you have a drink containing alcohol: 4 or more times a week Alcohol type: beer Alcohol type details: pt reports x3-4 beers per day How many standard drinks containing alcohol do you have on a typical day: 3 or 4 How often do you have six or more drinks on one occasion: Never AUDIT-C Alcohol total score: 5 Non-prescribed substance use: denies use Caffeine: No How often does anyone, including family, friends and others, physically hurt you: never How often does anyone, including family, friends and others, insult or talk down to you: never How often does anyone, including family, friends and others, threaten you with harm: never How often does anyone, including family, friends and others, scream or curse at you: never service: No Course Vital Signs Vital signs: Initial Vital Signs Temperature 96.7 F L 08/06/25 15:44 Temperature Source Temporal Artery Scan 08/06/25 15:44 Respiratory Rate 18 08/06/25 15:44 Blood Pressure 154/74 H 08/06/25 15:44 Blood Pressure Mean 100 08/06/25 15:44 Blood Pressure Position Sitting 08/06/25 15:44 Vital Signs Temperature 96.7 F L 08/06/25 15:44 Respiratory Rate 18 08/06/25 15:44 Blood Pressure 154/74 H 08/06/25 15:44 Temperature 96.7 F L 08/06/25 15:44 Respiratory Rate 18 08/06/25 15:44 Blood Pressure 154/74 H 08/06/25 15:44 Discharge Plan Discharge Clinical Impression: Blister of foot, left, infected Qualifiers: Encounter type: initial encounter Qualified Code(s): S90.822A - Blister (nonthermal), left foot, initial encounter Patient Disposition: Home, Self-Care Condition: Stable Instructions: Cellulitis (ED), Blister (ED) Additional Instructions: Please change the dressing once a day and examine the foot. If there is marked increase in redness, swelling or any symptoms such as fever or shaking chills, he needs to be seen again. Take cephalexin as prescribed. Stress Analyst follow-up as discussed. Prescriptions: New amoxicillin 500 mg capsule 1,000 mg PO BID Qty: 14 0RF No Action aspirin 325 mg tablet,delayed release (DR/EC) 325 mg PO DAILY acetaminophen 325 mg Tablet 650 mg PO Q6H PRNQty: 30 0RF torsemide 20 mg tablet 40 mg PO DAILY metoprolol succinate 50 mg tablet extended release 24 hr 50 mg PO DAILY Qty: 90 3RF allopurinol 300 mg tablet 300 mg PO DAILY Qty: 90 3RF potassium chloride 10 mEq capsule, extended release 20 meq PO DAILY Qty: 60 5RF Follow Up/Referrals: José Luis Arredondo MD [Primary Care Provider, Family Practice] Stand Alone Forms: MyHealth Info Instructions
== END 2025-08-06 16:26 | disposition home or self-care (01) ==
LOC: ED 16:14
PROVIDERS: Emergency Provider Emergency Medicine; PCP Family Medicine
DX: S90.822A Blister (nonthermal), left foot, initial encounter (principal); L08.9 Local infection of the skin and subcutaneous tissue, unspecified
CPT/HCPCS: 10060; 10140; 87070; 99281; 99283; 99284

== ENCOUNTER 2025-09-21 08:33 | Outpatient (CLI) | payer MEDICARE, BC, SELFPAY | END 2025-09-21 08:34 | disposition home or self-care (01) | PROVIDERS: PCP Family Medicine; Visit Provider Family Medicine | DX: I50.22 Chronic systolic (congestive) heart failure (principal) | CPT/HCPCS: 80048; 85025 ==